=== PATIENT | male | born 1960 | race Caucasian/White ===

== ENCOUNTER → 2016-05-27 | Outpatient (CLI) | payer MEDICARE, MEDICAID ==
[~2016-05-27] MED LIST: ALBUTEROL INHALATION; AMLO10TA OR; AMO500 PO; ASPI81TA45 OR; ASPI81TA83 OR; ASTELIN NASAL; CATA0.2T OR; DARVOCET-N PO; FLON0.05; HCTZ25 PO; HYDR25TA6; LASIX40 PO; LISI30TA3; LISINOPR10 PO; MYCOSTATIN POWDER; NORV5TAB; NYSTATIN; PAIN325T; PRIN20TA3; PROV90AE; RISP1TAB; TOPAMAX25 PO; TOPI100T; TOPI100T OR; TOPI25TA2; TOPI50TA; TRAZ50TA; TRAZ50TA OR; VITA500C OR
[2016-05-27 17:53] LABS: ALBUMIN 3.6 GM/DL (3.2-5.2); ALKALINE PHOSPHATASE 89 U/L (45-117); ALT/SGPT 39 U/L (12-78); ANION GAP 6 MEQ/L (8-16); AST/SGOT 24 U/L (15-37); BLOOD UREA NITROGEN 6 MG/DL (7-18); CALCIUM LEVEL 8.6 MG/DL (8.5-10.1); CARBON DIOXIDE LEVEL 30 MEQ/L (21-32); CHLORIDE LEVEL 105 MEQ/L (98-107); CHOLESTEROL LEVEL 137 MG/DL (<200); CREATININE FOR GFR 0.87 MG/DL (0.70-1.30); GLOMERULAR FILTRATION RATE > 60.0 (>56); GLUCOSE, FASTING 200 MG/DL (70-105); SODIUM LEVEL 141 MEQ/L (136-145); TOTAL PROTEIN 6.6 GM/DL (6.4-8.2); TRIGLYCERIDES LEVEL 302 MG/DL (<150)
== END ==
LOC: M WUC 14:14
PROVIDERS: ATTEND Nurse Practitioner Family
DX: E11.9 Type 2 diabetes mellitus without complications (principal); Z13.220 Encounter for screening for lipoid disorders

== ENCOUNTER → 2016-08-30 | Outpatient (CLI) | payer MEDICARE, MEDICAID ==
--- NOTE | 2016-09-10 16:06 | REP ---
Right foot series: Four views. Repeat dictation. History: Toe injury. Findings: Four views of the right foot show overall normal bone mineralization. There is Achilles and plantar calcaneal spurring. There is diffuse forefoot, midfoot and ankle swelling in the soft tissues. No fracture or acute bony abnormality seen. Impression: No fracture or other acute abnormality. Signed by Gokul Conteh MD 09/10/2016 04:41 P
== END ==
LOC: EDSEX → MERGE 11:29 → M LRY 11:29
PROVIDERS: ATTEND Family Medicine
DX: S99.921A Unspecified injury of right foot, initial encounter (principal); W22.09XA Striking against other stationary object, initial encounter; Y92.9 Unspecified place or not applicable; Y93.9 Activity, unspecified; Y99.8 Other external cause status
CPT/HCPCS: 73630; G0463

== ENCOUNTER → 2016-10-21 | Outpatient (CLI) | payer MEDICARE, MEDICAID ==
[2016-10-21 10:54] LABS: ANION GAP 10 MEQ/L (8-16); BLOOD UREA NITROGEN 6 MG/DL (7-18); CALCIUM LEVEL 8.2 MG/DL (8.5-10.1); CARBON DIOXIDE LEVEL 27 MEQ/L (21-32); CHLORIDE LEVEL 105 MEQ/L (98-107); CREATININE FOR GFR 0.88 MG/DL (0.55-1.02); GLOMERULAR FILTRATION RATE > 60.0 (>51); GLUCOSE, FASTING 315 MG/DL (70-105); POTASSIUM SERUM 3.8 MEQ/L (3.5-5.1); SODIUM LEVEL 142 MEQ/L (136-145)
== END ==
LOC: M LAB 09:36
PROVIDERS: ATTEND Family Medicine
DX: D49.2 Neoplasm of unspecified behavior of bone, soft tissue, and skin (principal)

== ENCOUNTER → 2016-10-25 | Outpatient (CLI) | payer MEDICARE, MEDICAID ==
[~2016-10-25] MED LIST changes: +ISOVUE-370 76% 100ML VIAL (Q9967) As Ordered ONE
--- NOTE | 2016-10-25 10:53 | REP ---
CT abdomen and pelvis without and with IV contrast: Without oral contrast. History: Soft tissue tumor. Comparison study is from June 24, 2010. Biologic male. Transgender sexual identification as female. No surgery. CT contrast dose: 100 mL of intravenous Isovue 370. 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 There is no abnormality in the lung bases. There is moderate diffuse fatty infiltration in the liver. The liver is not felt to be enlarged. No focal liver lesion is seen. Spleen is unremarkable. The gallbladder and pancreas are unremarkable. No adrenal lesion is seen. The kidneys enhance symmetrically and are morphologically intact except for a small cyst at the upper pole on the left, 1.1 cm in diameter. Normal caliber aorta is seen. No retroperitoneal mass or adenopathy is observed. There is diverticulosis affecting the sigmoid colon. There is no CT evidence of diverticulitis. Small and large intestinal bowel loops are otherwise unremarkable. Urinary bladder is unremarkable. Seminal vesicles, prostate and urinary bladder are unremarkable. There is a large area of dermal thickening in the abdominal panniculus consistent with cellulitis or dermatitis. The underlying subcutaneous fat is not particularly edematous. No abscess is seen. No mass lesion is observed. No abdominal wall defect is seen. No bony destructive lesion noted. Impression: Dermatitis pattern in the anterior abdominal skin in the panniculus. No intra-abdominal or extra-abdominal mass lesion seen. Fatty infiltration of the liver. Small cyst upper pole left kidney. Signed by Gokul Conteh MD 10/25/2016 10:57 A
== END ==
LOC: EDSEX → M RAD 08:55 → MERGE 11:30
PROVIDERS: ATTEND Family Medicine
DX: D49.2 Neoplasm of unspecified behavior of bone, soft tissue, and skin (principal); L30.9 Dermatitis, unspecified; N28.1 Cyst of kidney, acquired; K76.0 Fatty (change of) liver, not elsewhere classified
CPT/HCPCS: 74178; Q9967

== ENCOUNTER → 2017-01-05 | Outpatient (REF) | payer MEDICARE, MEDICAID ==
[~2017-01-05] MED LIST changes: -ISOVUE-370 76% 100ML VIAL (Q9967) As Ordered ONE
[2017-01-05 12:02] LABS: ALBUMIN 3.9 GM/DL (3.2-5.2); ALBUMIN/GLOBULIN RATIO 1.11 (1.00-1.93); ALKALINE PHOSPHATASE 88 U/L (45-117); ALT/SGPT 37 U/L (12-78); ANION GAP 6 MEQ/L (8-16); AST/SGOT 25 U/L (7-37); BILIRUBIN,TOTAL 1.8 MG/DL (0.2-1.0); BLOOD UREA NITROGEN 6 MG/DL (7-18); CARBON DIOXIDE LEVEL 30 MEQ/L (21-32); CHLORIDE LEVEL 105 MEQ/L (98-107); GLOMERULAR FILTRATION RATE > 60.0 (>51); GLUCOSE, FASTING 189 MG/DL (70-105); POTASSIUM SERUM 4.1 MEQ/L (3.5-5.1); SODIUM LEVEL 141 MEQ/L (136-145); TOTAL PROTEIN 7.4 GM/DL (6.4-8.2)
[2017-01-05 12:10] LABS: MEAN CORPUSCULAR HEMOGLOBIN 29.4 pg (27.0-33.0); MEAN CORPUSCULAR HGB CONC 33.6 g/dl (32.0-36.5); MEAN CORPUSCULAR VOLUME 87.7 fl (80.0-96.0); PLATELET COUNT, AUTOMATED 301 10^3/uL (150-450); RED CELL DISTRIBUTION WIDTH 14.7 % (11.5-14.5); WHITE BLOOD COUNT 5.9 10^3/uL (4.0-10.0)
== END ==
LOC: M SFHCLERA 09:24
PROVIDERS: ATTEND Family Medicine
DX: E11.69 Type 2 diabetes mellitus with other specified complication (principal); I10 Essential (primary) hypertension; Z23 Encounter for immunization
CPT/HCPCS: 80053; 82043; 83036; 85027; 90686; G0008; G0463

== ENCOUNTER → 2017-05-03 | Outpatient (REF) | payer MEDICARE, MEDICAID ==
[2017-05-03 12:10] LABS: ESTIMATED AVERAGE GLUCOSE 200 MG/DL (60-110); HEMOGLOBIN A1c 8.6 %
== END ==
LOC: M SFHCLERA 09:57
DX: E11.9 Type 2 diabetes mellitus without complications (principal)
CPT/HCPCS: 83036

== ENCOUNTER → 2017-09-15 | Outpatient (REF) | payer MEDICARE, MEDICAID ==
[2017-09-15 20:35] LABS: HEMATOCRIT 40.8 % (36.0-47.0); HEMOGLOBIN 13.8 g/dl (12.0-15.5); MEAN CORPUSCULAR HEMOGLOBIN 29.7 pg (27.0-33.0); MEAN CORPUSCULAR HGB CONC 33.8 g/dl (32.0-36.5); MEAN CORPUSCULAR VOLUME 87.7 fl (80.0-96.0); PLATELET COUNT, AUTOMATED 281 10^3/uL (150-450); RED BLOOD COUNT 4.65 10^6/uL (4.00-5.40); RED CELL DISTRIBUTION WIDTH 14.3 % (11.5-14.5); WHITE BLOOD COUNT 6.7 10^3/uL (4.0-10.0)
[2017-09-15 21:13] LABS: ESTIMATED AVERAGE GLUCOSE 223 MG/DL (60-110); HEMOGLOBIN A1c 9.4 %
[2017-09-15 21:20] LABS: ALBUMIN 3.5 GM/DL (3.2-5.2); ALBUMIN/GLOBULIN RATIO 1.03 (1.00-1.93); ALKALINE PHOSPHATASE 108 U/L (45-117); ALT/SGPT 45 U/L (12-78); ANION GAP 8 MEQ/L (8-16); AST/SGOT 35 U/L (7-37); BILIRUBIN,TOTAL 1.2 MG/DL (0.2-1.0); BLOOD UREA NITROGEN 7 MG/DL (7-18); CALCIUM LEVEL 8.6 MG/DL (8.5-10.1); CARBON DIOXIDE LEVEL 31 MEQ/L (21-32); CHLORIDE LEVEL 104 MEQ/L (98-107); CHOLESTEROL LEVEL 141 MG/DL (<200); CHOLESTEROL RISK RATIO 5.035 (<5); CREATININE FOR GFR 0.78 MG/DL (0.55-1.30); GLOMERULAR FILTRATION RATE > 60.0 (>51); GLUCOSE, FASTING 295 MG/DL (70-100); HDL CHOLESTEROL 28 MG/DL (>40); LDL CHOLESTEROL 62.4 MG/DL (<100); NON-HDL-C 113 MG/DL; POTASSIUM SERUM 3.7 MEQ/L (3.5-5.1); SODIUM LEVEL 143 MEQ/L (136-145); TOTAL PROTEIN 6.9 GM/DL (6.4-8.2); TRIGLYCERIDES LEVEL 253 MG/DL (<150)
== END ==
LOC: M SFHCLERA 16:31
DX: E11.9 Type 2 diabetes mellitus without complications (principal)
CPT/HCPCS: 84443

== ENCOUNTER → 2017-10-31 | Outpatient (REF) | payer MEDICARE, MEDICAID ==
[2017-10-31 22:14] LABS: MALB URINE SIEMENS 32.1 MG/L; MAU/CREAT RATIO 30.5 MCG/MG (0.0-30.0)
== END ==
LOC: M SFHCLERA 10:19
DX: E11.9 Type 2 diabetes mellitus without complications (principal)
CPT/HCPCS: 82043

== ENCOUNTER → 2017-12-20 | Outpatient (REF) | payer MEDICARE, MEDICAID ==
[2017-12-20 19:05] LABS: ESTIMATED AVERAGE GLUCOSE 192 MG/DL (60-110); HEMOGLOBIN A1c 8.3 %
== END ==
LOC: M SFHCLERA 13:17
DX: E11.69 Type 2 diabetes mellitus with other specified complication (principal)
CPT/HCPCS: 83036

== ENCOUNTER → 2018-03-21 | Outpatient (REF) | payer MEDICARE, MEDICAID ==
[2018-03-21 13:43] LABS: HEMOGLOBIN A1c 9.9 %
== END ==
LOC: M SFHCLERA 09:25
PROVIDERS: ATTEND Family Medicine
DX: E11.69 Type 2 diabetes mellitus with other specified complication (principal)
CPT/HCPCS: 83036; G0463

== ENCOUNTER → 2018-06-29 | Outpatient (REF) | payer MEDICARE, MEDICAID ==
[2018-06-29 20:13] LABS: HEMOGLOBIN A1c 8.9 %
== END ==
LOC: M SFHCLERA 13:07
PROVIDERS: ATTEND Family Medicine
DX: E11.69 Type 2 diabetes mellitus with other specified complication (principal)

== ENCOUNTER → 2018-08-01 | Outpatient (REF) | payer MEDICARE, MEDICAID ==
[2018-08-01 18:03] LABS: BLOOD UREA NITROGEN 12 MG/DL (7-18); CALCIUM LEVEL 9.8 MG/DL (8.5-10.1); CARBON DIOXIDE LEVEL 28 MEQ/L (21-32); CHLORIDE LEVEL 103 MEQ/L (98-107); CREATININE FOR GFR 0.83 MG/DL (0.55-1.30); GLOMERULAR FILTRATION RATE > 60.0 (>51); GLUCOSE, FASTING 323 MG/DL (70-100); POTASSIUM SERUM 3.7 MEQ/L (3.5-5.1); SODIUM LEVEL 139 MEQ/L (136-145)
== END ==
LOC: M SFHCLERA 12:21
PROVIDERS: ATTEND Family Medicine
DX: I10 Essential (primary) hypertension (principal)

== ENCOUNTER → 2018-08-15 | Outpatient (REF) | payer MEDICARE, MEDICAID | LOC: M SFHCLERA 14:37 | PROVIDERS: ATTEND Family Medicine | DX: I10 Essential (primary) hypertension (principal); Z53.8 Procedure and treatment not carried out for other reasons ==

== ENCOUNTER → 2018-10-23 | Outpatient (REF) | payer MEDICARE, MEDICAID ==
[2018-10-23 18:28] LABS: BLOOD UREA NITROGEN 14 MG/DL (7-18); CALCIUM LEVEL 8.6 MG/DL (8.5-10.1); CARBON DIOXIDE LEVEL 27 MEQ/L (21-32); CHLORIDE LEVEL 105 MEQ/L (98-107); CREATININE FOR GFR 0.92 MG/DL (0.55-1.30); GLOMERULAR FILTRATION RATE > 60.0 (>51); GLUCOSE, FASTING 312 MG/DL (70-100); POTASSIUM SERUM 3.8 MEQ/L (3.5-5.1); SODIUM LEVEL 141 MEQ/L (136-145)
[2018-10-23 18:30] LABS: TOTAL PROTEIN,RANDOM URINE 19.7 MG/DL (0.0-12.0)
[2018-10-23 18:42] LABS: HEMOGLOBIN A1c 10.7 %
== END ==
LOC: M SFHCLERA 13:46
PROVIDERS: ATTEND Family Medicine
DX: I10 Essential (primary) hypertension (principal); E11.69 Type 2 diabetes mellitus with other specified complication

== ENCOUNTER → 2018-11-03 | Outpatient (CLI) | payer MEDICARE, MEDICAID ==
--- NOTE | 2018-11-03 08:39 | REP ---
Renal vascular ultrasound: Right Kidney: Extraparenchymal renal artery. Peak renal artery flow velocity the 138 cm/ sec Peak aortic velocity: 80.0 cm/sec Renal/aortic ratio: 1.73 Intraparenchymal renal arteries. Resistive index: upper pole 0.61 mid pole 0.64 lower pole 0.60 Acceleration time: upper pole 0.032 mid pole 0.048 lower pole 0.040 Left kidney: Extraparenchymal renal artery: Peak renal artery flow velocity: 96.8 cm/sec. Peak aortic velocity: 8.0 cm/sec Renal/aortic ratio: No 1.21 Intraparenchymal renal arteries: Resistive index: Upper pole 0.5 a mid pole 0.63 lower pole 0.51 Acceleration time: Upper pole 0.048 mid pole 0.044 lower pole 0.048 Impression: No evidence of renal artery stenosis by Doppler ultrasound. Bilateral renal ultrasound: The kidneys are normal size. The right kidney measures 12.4 x 6.0 x 5.3 cm. The left kidney measures 13.9 x 4.9 x 6.2 cm. Renal cortical echogenicity is normal bilaterally. There is no hydronephrosis on the right or the left. There are no solid renal masses. There is a 1.8 cm Bosniak type 1 renal cyst in the left renal lower pole. There are no other renal cysts. Bladder: The bladder is collapsed and cannot be visualized. Impression: Essentially negative renal ultrasound except for A small left renal cyst. Electronically Signed by Aneesh Adams MD 11/03/2018 08:30 A
== END ==
LOC: M RAD 06:53
PROVIDERS: ATTEND Family Medicine
DX: I10 Essential (primary) hypertension (principal); N28.1 Cyst of kidney, acquired

== ENCOUNTER → 2019-11-28 | Outpatient (REF) | payer MEDICARE, MEDICAID ==
[2019-11-28 17:01] LABS: BASO # 0.1 10^3/uL (0.0-0.2); BASO % 1.9 % (0.0-1.0); EOS # 0.3 10^3/uL (0.0-0.5); EOS % 3.9 % (0.0-3.0); HEMATOCRIT 39.3 % (36.0-47.0); HEMOGLOBIN 12.2 g/dl (12.0-15.5); LYMPH # 1.4 10^3/uL (1.5-5.0); LYMPH % 18.3 % (24.0-44.0); MEAN CORPUSCULAR HEMOGLOBIN 25.4 pg (27.0-33.0); MEAN CORPUSCULAR VOLUME 81.9 fl (80.0-96.0); MONO # 0.7 10^3/uL (0.0-0.8); MONO % 9.5 % (0.0-5.0); PLATELET COUNT, AUTOMATED 398 10^3/uL (150-450); WHITE BLOOD COUNT 7.5 10^3/uL (4.0-10.0)
[2019-11-28 17:24] LABS: ALBUMIN 3.4 GM/DL (3.2-5.2); ALT/SGPT 33 U/L (12-78); BLOOD UREA NITROGEN 11 MG/DL (7-18); CALCIUM LEVEL 8.8 MG/DL (8.8-10.2); CARBON DIOXIDE LEVEL 27 MEQ/L (21-32); CHLORIDE LEVEL 104 MEQ/L (98-107); CHOLESTEROL LEVEL 155 MG/DL (<200); CHOLESTEROL RISK RATIO 5.961 (<5); CREATININE FOR GFR 0.96 MG/DL (0.55-1.30); GLOMERULAR FILTRATION RATE > 60.0 (>45); GLUCOSE, FASTING 353 MG/DL (70-100); HDL CHOLESTEROL 26 MG/DL (>40); LDL CHOLESTEROL 59 MG/DL (<100); NON-HDL-C 129 MG/DL; SODIUM LEVEL 139 MEQ/L (136-145); TOTAL PROTEIN 7.1 GM/DL (6.4-8.2); TRIGLYCERIDES LEVEL 350 MG/DL (<150)
== END ==
LOC: M LAB REF 16:32
PROVIDERS: ATTEND Nurse Practitioner Adult Health
DX: Z79.899 Other long term (current) drug therapy (principal); Z79.890 Hormone replacement therapy

== ENCOUNTER 2020-05-12 21:43 | Inpatient (IN) | payer MEDICARE, MEDICAID ==
[~2020-05-12] VITALS: Ht 175.3 cm; Wt 140.0 kg
[2020-05-12 22:46] LABS: BASO # 0.1 10^3/uL (0.0-0.2); BASO % 0.9 % (0.0-1.0); EOS # 0.2 10^3/uL (0.0-0.5); LYMPH # 1.1 10^3/uL (1.5-5.0); LYMPH % 14.1 % (24.0-44.0); MEAN CORPUSCULAR HEMOGLOBIN 18.8 pg (27.0-33.0); MEAN CORPUSCULAR VOLUME 72.3 fl (80.0-96.0); MONO # 0.9 10^3/uL (0.0-0.8); MONO % 11.5 % (2.0-8.0); NEUTROPHILS # 5.7 10^3/uL (1.5-8.5); NEUTROPHILS % 70.7 % (36.0-66.0); PLATELET COUNT, AUTOMATED 392 10^3/uL (150-450); RED BLOOD COUNT 2.82 10^6/uL (4.00-5.40)
[2020-05-12 22:48] LABS: HEMATOCRIT 20.4 % (36.0-47.0)
[2020-05-12 22:49] LABS: HEMOGLOBIN 5.3 g/dl (12.0-15.5)
[2020-05-12 22:57] LABS: INR 1.12; PROTHROMBIN TIME 14.7 SECONDS (12.5-14.3)
[2020-05-12 22:58] LABS: PARTIAL THROMBOPLASTIN TIME 33.3 SECONDS (24.2-38.5)
[2020-05-12] MEDS ORDERED: ISOVUE-370 76% 100ML VIAL As Ordered ONE (23:02)
[2020-05-12 23:13] LABS: ALBUMIN 2.3 GM/DL (3.2-5.2); ALT/SGPT 24 U/L (12-78); BILIRUBIN,DIRECT 0.2 MG/DL (0.0-0.2); BILIRUBIN,TOTAL 0.5 MG/DL (0.2-1.0); CK-MB VALUE MASS < 1.0 NG/ML (<3.6); CPK CREATINE PHOSPHOKINASE 40 U/L (26-192); LIPASE 125 U/L (73-393); TOTAL PROTEIN 6.2 GM/DL (6.4-8.2); TROPONIN I < 0.02 NG/ML (< 0.10)
[2020-05-12 23:45] VITALS: BP 165/74
[2020-05-13] VITALS (19 sets, daily range): BP systolic 139–176; BP diastolic 54–120
--- NOTE | 2020-05-13 00:16 | REPVR ---
PROCEDURE INFORMATION: Exam: CT Abdomen And Pelvis With Contrast Exam date and time: 05/12/2020 10:49 PM Age: 59 years old Clinical indication: Abdominal pain. Biologic male. Transgender sexual identification as female. TECHNIQUE: Imaging protocol: Computed tomography of the abdomen and pelvis with contrast. Radiation optimization: All CT scans at this facility use at least one of these dose optimization techniques: automated exposure control; mA and/or kV adjustment per patient size (includes targeted exams where dose is matched to clinical indication); or iterative reconstruction. Contrast material: ISO; Contrast volume: 100 ml; Contrast route: INTRAVENOUS (IV); COMPARISON: CT ABD PELVIS W/O FOL BY WIT 10/25/2016 9:17 AM FINDINGS: Lungs: The imaged portions of the lung bases are clear. The lungs were not fully imaged. Heart: No cardiomegaly or pericardial effusion. Diaphragm: Intact. Liver: The attenuation of the liver is lower compared to the spleen, which can be seen with fatty liver infiltration. No liver lesion is seen. The contour of the liver is smooth. No hepatomegaly is noted. Gallbladder and bile ducts: There is fat stranding around the gallbladder adjacent to the hepatic flexure. No dilation of the bile ducts is noted. No calcified stones are seen in the common bile duct. Pancreas: Normal. No dilation of the main pancreatic duct is noted. There is no inflammatory fat stranding around the pancreas to suggest acute pancreatitis. Spleen: Normal. No splenomegaly is noted. Adrenal glands: Normal. No adrenal mass is noted. Kidneys and ureters: The kidneys are normal in appearance. No renal lesion is noted. No stones are noted in the kidneys or ureters. There is no hydronephrosis or hydroureter. There are no wedge-shaped areas of low attenuation in the kidneys to suggest pyelonephritis. There is no renal abscess or perinephric fluid collection. Stomach and bowel: The stomach is unremarkable. There is duodenal and colonic diverticulosis. There is extensive thickening of the wall of the proximal to mid transverse colon with surrounding inflammatory fat stranding there is a 3.9 cm x 2.6 cm x 3.2 cm outpouching containing fluid along the anterior wall of the transverse colon in the region of the inflammatory changes, which may represent a focal contained perforation with an abscess (image 29 of the coronal series 202 and image 90 of the axial series 201). There are inflammatory tracts extending to the adjacent loops of small bowel. Appendix: Normal. There is no evidence for appendicitis. Intraperitoneal space: No free air is noted. There is a trace amount of free fluid in the right upper quadrant of the abdomen. Retroperitoneal space: No fluid collection. No mass. Vasculature: The abdominal aorta is patent, normal in caliber, and there is no dissection. The iliac arteries, common femoral arteries, renal arteries, celiac artery, superior mesenteric artery, and inferior mesenteric artery are patent. There are mild atherosclerotic calcifications. Lymph nodes: No enlarged lymph nodes. Urinary bladder: The partially distended urinary bladder is unremarkable. No stones or masses are seen in the bladder. Reproductive: The prostate gland and seminal vesicles are unremarkable. Bones/joints: There is no fracture or dislocation. No suspicious osteolytic or osteoblastic lesion. Soft tissues: There is edema in the subcutaneous tissues in the anterior abdominal wall and anterior pelvic wall. No hernia. No soft tissue fluid collection. IMPRESSION: Evidence for diverticulitis involving the proximal to mid transverse colon, with a focal contained perforation/abscess measuring 3.9 cm x 2.6 cm x 3.2 cm along the anterior wall of the hepatic flexure. Gastroenterology follow-up is suggested to exclude a colonic neoplasm. Electronically signed by: Logan Daniel On 05/13/2020 00:17:05 AM
[2020-05-13] MEDS ORDERED: CIPROFLOXACIN 400 MG in IV 1 EA IV ONE (00:25)
[2020-05-13] MEDS ORDERED: metroNIDAZOLE 500 MG in IV 1 EA IV ONE (00:25)
[2020-05-13] MEDS ORDERED: D5W/0.45% SODIUM CHLORIDE 1,000 ML IV SCH (00:41)
[2020-05-13] MEDS ORDERED: DEXTROSE 50% 50 ML SYRINGE IV PRN (00:45)
[2020-05-13] MEDS ORDERED: GLUCOSE 4GM CHEW TABLET PO PRN (00:45)
[2020-05-13] MEDS ORDERED: GLUCAGON INJ 1MG VIAL SC PRN (00:45)
[2020-05-13 01:30] LABS: RSV AMPLIFICATION NEGATIVE (NEGATIVE)
[2020-05-13] MEDS ORDERED: HYDROMORPHONE HCL 0.5 MG/ 0.5 ML SYRINGE (J1170 PER 1) IV ONE (01:55)
--- NOTE | 2020-05-13 03:37 | HPEPDOC ---
[facility] Medical History & Physical Date of Admission May 13, 2020 Date of Service: May 13, 2020 Attending Physician: WAQAS GARCIA MD History and Physical CHIEF COMPLAINT: abdominal pain HISTORY OF PRESENT ILLNESS: 59 year old female with PMHx detailed below, noncompliant with medical care, presents with 3 month history of abdominal pain and diarrhea. Patient states her symptoms started 3 months ago suddenly when she developed pain in her mid abdomen. She rates this at a 10/10 at worst and states it is constant without any changes when she eats or has a BM. She denies radiation of the pain. She states that soon after the pain started she began to have diarrhea with 2-3 BM a day consisting of yellow liquid. She denies blood in stool or melena. She also notes over the past week she has had generalized weakness with shortness of breath and fatigue. She states she has had some chills earlier this week, no fever. She states she has lost about 40 lbs over the past few months. She attributes this to poor appetite and avoidance of food due to her abdominal pain. Patient notes she has a history of diverticulitis with the last episode about 10 years ago. Patient states her PCP is with Nathen olivares, but she has not been seen in a long time and has not been taking any medications recently. PAST MEDICAL HISTORY: 1. Diabetes mellitus 2. HTN 3. Epilepsy 4. Diverticulitis 5. Male to female transgender woman 6. Medical noncompliance PAST SURGICAL HISTORY: 1. Hernia repair x2 SOCIAL HISTORY: Never smoker. Very occasional alcohol consumption. No history of illicit or IV substance use. Lives at home with and daughter. Male to female transgender woman. FAMILY HISTORY: Father diagnosed with colon cancer in his 50s. Otherwise noncontributory. ALLERGIES: Please see below. REVIEW OF SYSTEMS: CONSTITUTIONAL: Per HPI HEENT: Denies change in vision, change in hearing. CARDIOVASCULAR: Denies chest pain, palpitations, lightheadedness. RESPIRATORY: Denies cough, wheezing. GASTROINTESTINAL: Per HPI. GENITOURINARY: Denies dysuria, urinary frequency, urinary urgency. SKIN: Denies rash, lesions. MUSCULOSKELETAL: Denies joint pain or muscle aches. NEUROLOGICAL: Denies headache, dizziness. PSYCHIATRIC: Denies change in mood. HOME MEDICATIONS: Please see below. PHYSICAL EXAMINATION: VITAL SIGNS: see below GENERAL: Alert, comfortable, in no acute distress HEENT: Normocephalic, atraumatic, PERRLA, EOMI, moist mucous membranes NECK: Supple, trachea midline CARDIOVASCULAR: Regular rate and rhythm, normal S1 and S2. No murmurs, rubs, or gallops RESPIRATORY: Clear to auscultation bilaterally with equal air entry bilaterally. No wheezing, rhonchi, or rales. ABDOMEN: Tender over the RLQ, LLQ,and periumbilical areas. No rebound tenderness, rigidity, or guarding. Soft, nondistended, bowel sounds present. EXTREMITIES: No cyanosis or edema. Pulses 2+/4 in bilateral upper and lower e xtremities NEUROLOGIC: Alert and oriented x3 to person, place and time. No focal deficits appreciated PSYCHIATRIC: Mood and affect appropriate LABORATORY DATA: See below. IMAGING: - CT abdomen/pelvis (per radiologist impression) Evidence for diverticulitis involving the proximal to mid transverse colon, with a focal contained perforation/abscess measuring 3.9 cm x 2.6 cm x 3.2 cm along the anterior wall of the hepatic flexure. Gastroenterology follow-up is suggested to exclude a colonic neoplasm. MICROBIOLOGY: Please see below. ASSESSMENT: 59 year old female with PMHx of diabetes mellitus, HTN, epilepsy, diverticulitis, and medical noncompliance presents with 3 month history of abdominal pain and diarrhea and 1 week history of fatigue, shortness of breath, and weakness, found to have acute diverticulitis with intra-abdominal abscess and symptomatic anemia likely secondary to bleeding from diverticulitis. PLAN: 1. Acute diverticulitis with intra-abdominal abscess - Consulted general surgeon Dr. Stoll, appreciate input and recommendations. - NPO with maintenance IV fluids - IV abx coverage with meropenem - Blood cultures x2 pending - Order for IR placement of drain for intra-abdominal abscess in the AM 2. Symptomatic anemia - Likely due to bleeding related to diverticulitis - Cannot rule out colon CA based on imaging report, f/u with GI after resolution of acute diverticulitis for colonoscopy - 4 units PRBCs ordered to transfuse. recheck CBC after transfusions complete and then monitor H/H q6h. 3. Diabetes mellitus - not currently on any medications - pt is NPO for now, consider SSI when transitioned to oral diet - hold off on checking HgA1c as pt is receiving blood transfusions 4. HTN - not currently on any medications - pt is in acute pain, will hold off on starting antihypertensives 5. Epilepsy - not currently on any medications - no current concern for seizure activity. Will need outpatient follow up with PCP/neurology DVT prophylaxis: teds and scds Disposition: admitted inpatient to PCU pending clinical improvement Vital Signs Vital Signs Date Time Temp Pulse Resp B/P (MAP) Pulse Ox O2 Delivery O2 Flow Rate FiO2 05/13/20 01:00 110 18 183/82 (115) 97 Room Air 05/13/20 00:45 99.9 Laboratory Data Labs 24H Laboratory Tests 2 05/12/20 22:21: Immature Granulocyte % (Auto) 0.8, Neutrophils (%) (Auto) 70.7H, Lymphocytes (%) (Auto) 14.1L, Monocytes (%) (Auto) 11.5H, Eosinophils (%) (Auto) 2.0, Basophils (%) (Auto) 0.9, Neutrophils # (Auto) 5.7, Lymphocytes # (Auto) 1.1L, Monocytes # (Auto) 0.9H, Eosinophils # (Auto) 0.2, Basophils # (Auto) 0.1, Nucleated Red Blood Cells % (auto) 0.3H, Prothrombin Time 14.7H, Prothromb Time International Ratio 1.12, Activated Partial Thromboplast Time 33.3, Lactic Acid Level 1.8, Tot al Bilirubin 0.5, Direct Bilirubin 0.2, Aspartate Amino Transf (AST/SGOT) 16, Alanine Aminotransferase (ALT/SGPT) 24, Alkaline Phosphatase 91, Total Creatine Kinase 40, Creatine Kinase MB < 1.0, Creatine Kinase MB Relative Index 2.50, Troponin I < 0.02, Total Protein 6.2L, Albumin 2.3L, Albumin/Globulin Ratio 0.6L, Lipase 125 05/12/20 22:48: POC Glucose (Misc Panel) 256H, POC Sodium (Misc Panel) 137, POC Potassium (Misc Panel) 3.5, POC Chloride (Misc Panel) 101, POC Total CO2 (Misc Panel) 25.0, POC Blood Urea Nitrogen (Misc Panel 12, POC Ionized Calcium (Misc Panel) 4.7, POC Creatinine (Misc Panel) 0.6, POC Hematocrit (Misc Panel) 19.0L 05/13/20 00:26: Coronavirus (COVID-19)(PCR) NEGATIVE, Influenza Type A (RT-PCR) NEGATIVE, Influenza Type B (RT-PCR) NEGATIVE, Respiratory Syncytial Virus (PCR) NEGATIVE CBC/BMP Laboratory Tests 05/12/20 22:21 Microbiology Microbiology 05/13/20 Blood Culture, Received Pending 05/13/20 Blood Culture, Received Pending Home Medications No Active Prescriptions or Reported Meds Allergies Coded Allergies: Cephalosporins (Verified Allergy, Mild, 05/12/20) codeine (Verified Allergy, Mild, VOMITTING, 05/12/20) ANNMARIE FINLEY D.O. May 13, 2020 03:37
[2020-05-13] MEDS: MEROPENEM INJ 500 MG in IV 1 EA IV SCH ×3 (03:56→17:23)
--- NOTE | 2020-05-13 07:17 | ECGEPIP ---
[facility] - ED Test Date: 2020-05-12 Pat Name: CHANDLER ARAGON Department: Room: [place] [address] Gender: Female Director Gift: PAYTON : 1960 Requested By: CAROL DOSS Order Number: [id number] Reading MD: Cruz Pillai Measurements Intervals Brooks Rate: 106 P: 25 KS: 176 QRS: -14 QRSD: 76 T: 23 QT: 342 QTc: 454 Interpretive Statements Sinus tachycardia with premature atrial complexes Possible Inferior infarct , age undetermined POOR R WAVE PROGRESSION SIMILAR TO 01/13/16 Electronically Signed on 05-13-2020 7:17:19 EST by Cruz Pillai
[2020-05-13 09:49] LABS: HEMATOCRIT 28.3 % (36.0-47.0); HEMOGLOBIN 8.1 g/dl (12.0-15.5); MEAN CORPUSCULAR HEMOGLOBIN 21.8 pg (27.0-33.0); MEAN CORPUSCULAR HGB CONC 28.6 g/dl (32.0-36.5); MEAN CORPUSCULAR VOLUME 76.1 fl (80.0-96.0); PLATELET COUNT, AUTOMATED 397 10^3/uL (150-450); RED BLOOD COUNT 3.72 10^6/uL (4.00-5.40); WHITE BLOOD COUNT 9.3 10^3/uL (4.0-10.0)
[2020-05-13 10:14] LABS: ALBUMIN 2.2 GM/DL (3.2-5.2); ALT/SGPT 23 U/L (12-78); BILIRUBIN,TOTAL 1.4 MG/DL (0.2-1.0); BLOOD UREA NITROGEN 10 MG/DL (7-18); CALCIUM LEVEL 8.2 MG/DL (8.8-10.2); CARBON DIOXIDE LEVEL 26 MEQ/L (21-32); CHLORIDE LEVEL 106 MEQ/L (98-107); CREATININE FOR GFR 0.83 MG/DL (0.55-1.30); GLOMERULAR FILTRATION RATE > 60.0 (>45); GLUCOSE, FASTING 244 MG/DL (70-100); POTASSIUM SERUM 3.5 MEQ/L (3.5-5.1); SODIUM LEVEL 138 MEQ/L (136-145); TOTAL PROTEIN 6.9 GM/DL (6.4-8.2)
[2020-05-13 10:57] LABS: CHOLESTEROL LEVEL 84 MG/DL (<200); HDL CHOLESTEROL 21 MG/DL (>40); LDL CHOLESTEROL 41 MG/DL (<100); NON-HDL-C 63 MG/DL; TRIGLYCERIDES LEVEL 111 MG/DL (<150)
--- NOTE | 2020-05-13 12:09 | IPNPDOC ---
Text Note Date of Service The patient was seen on 05/13/20. NOTE Gen. surgery. Dr. Stoll The patient is a 59-year-old female admitted 05/12/20 with acute diverticulitis with perforation. This morning, the patient reports improvement in abdominal pain. Denies nausea or vomiting. Reports some flatus but no BM yet. Afebrile. VSS Resting in bed, NAD. Lungs clear to auscultation Heart S1-S2 regular rate and rhythm Abdomen is obese, protuberant. Nondistended. Tenderness with palpation in the left lower quadrant, umbilical. No guarding or rebound, no grimacing. Extremities well-perfused with no edema. WBC 8.0 last p.m. Hemoglobin was 5.3, the patient is being transfused currently as per hospitalist. Platelets 392. CEA pending. Assessment/plan Acute diverticulitis with perforation. The pt is reviewed by Dr Stoll. The pt is reporting improvement in abdominal pain. NPO/IVF. Continue with IV antibiotics as per Hospitalist. CEA pending. Monitor. VS,Fishbone, I+O VS, Fishbone, I+O Laboratory Tests 05/12/20 22:21 05/13/20 09:32 Vital Signs Date Time Temp Pulse Resp B/P (MAP) Pulse Ox O2 Delivery O2 Flow Rate FiO2 05/13/20 08:45 168/98 (121) 05/13/20 08:00 97.9 101 20 95 Room Air I&O- Last 24 Hours up to 6 AM 05/13/20 06:00 Intake Total 1800 ml Balance 1800 ml Rosalia Mckeon May 13, 2020 12:09
[2020-05-13 12:14] LABS: HEMATOCRIT 26.4 % (36.0-47.0); HEMOGLOBIN 7.6 g/dl (12.0-15.5)
[2020-05-13] MEDS: HumaLOG INSULIN (NovoLOG) PER UNIT SC SCH ×3 (12:31→20:09)
[2020-05-13 12:56] LABS: HEMOGLOBIN A1c 8.6 %
[2020-05-13] MEDS ORDERED: LIDOCAINE 1% MDV 20ML VIAL As Ordered ONE (13:38)
--- NOTE | 2020-05-13 13:41 | IPNPDOC ---
Date Seen The patient was seen on 05/13/20. Progress Note SUBJECTIVE: Improving abdominal pain along with WBC being wnl, afebrile. On abx. S/p 4 units PRBC but on IVFs at same time, increased H/H to 8.03/27 but later decreased further. Will hold off and continue to monitor H/H Q6hrs, occult blood ordered, CEA high. GI consulted and likely scope later this week. She denies chest pain, n/v/d, fevers or chills. OBJECTIVE: PHYSICAL EXAMINATION: VITAL SIGNS: Please see below GENERAL: NAD, resting in bed HEENT: Normocephalic, atraumatic, PERRLA, EOMI, moist mucous membranes NECK: Supple, trachea midline CARDIOVASCULAR: Regular rate and rhythm, normal S1 and S2. No murmurs, rubs, or gallops RESPIRATORY: Clear to auscultation bilaterally with equal air entry bilaterally. No wheezing, rhonchi, or rales. ABDOMEN: obese, tender over the RLQ, LLQ,and periumbilical areas still. No rebound tenderness, rigidity, or guarding. Soft, nondistended, bowel sounds present. EXTREMITIES: No cyanosis or edema. Pulses 2+/4 in bilateral upper and lower extremities NEUROLOGIC: Alert and oriented x3 to person, place and time. No focal deficits appreciated PSYCHIATRIC: Mood and affect appropriate LABORATORY DATA: See below. IMAGING: CT abdomen/pelvis (per radiologist impression Evidence for diverticulitis involving the proximal to mid transverse colon, with a focal contained perforation/abscess measuring 3.9 cm x 2.6 cm x 3.2 cm along the anterior wall of the hepatic flexure. Gastroenterology follow-up is suggested to exclude a colonic neoplasm. MICROBIOLOGY: Please see below. ASSESSMENT: 59 year old female with PMHx of diabetes mellitus, HTN, epilepsy, diverticulitis, and medical noncompliance presents with 3 month history of abdominal pain and diarrhea and 1 week history of fatigue, shortness of breath, and weakness, found to have acute diverticulitis with intra-abdominal abscess and symptomatic anemia likely secondary to bleeding from diverticulitis. PLAN: Acute diverticulitis with perforation/abscess -WBC wnl, afebrile, abdominal pain improving -C/w IV abx per surgery -CLD, tolerating well -BCx x 2 sets NG -Monitoring closely by surgery Symptomatic anemia r/o GI bleed 2/2 to diverticulitis vs. colonic mass -CEA elevated, s/p 4 U PRBC with initially increase in H/H but now decreasing -Stopped IVFs this AM and will watch H/H Q6H -Occult blood pending -Discussed with surgery this AM (Dr. Stoll). GI consulted (Dr. Coy), started on CLD and likely for EGD/colonoscopy on 05/16/20. Diabetes mellitus -BS elevated -D/jerome D5W fluids, started on ISS. Not on home medications - hold off on checking HgA1c as pt is receiving blood transfusions HTN -150-160's -D/c IVFs as taking and tolerating CLD -Monitor Epilepsy - not currently on any medications - no current concern for seizure activity. Will need outpatient follow up with PCP/neurology DVT prophylaxis: teds and scds DISPOSITION: GI and surgery following. Plan is hopeful for home after discharge. VS, I&O, 24H, Fishbone Vital Signs/I&O Vital Signs Date Time Temp Pulse Resp B/P (MAP) Pulse Ox O2 Delivery O2 Flow Rate FiO2 05/13/20 13:31 97.9 96 16 97 Room Air 05/13/20 12:00 150/90 (110) I&O- Last 24 Hours up to 6 AM 05/13/20 06:00 Intake Total 1800 ml Balance 1800 ml Laboratory Data 24H LABS Laboratory Tests 2 05/12/20 22:21: Immature Granulocyte % (Auto) 0.8, Neutrophils (%) (Auto) 70.7H, Lymphocytes (%) (Auto) 14.1L, Monocytes (%) (Auto) 11.5H, Eosinophils (%) (Auto) 2.0, Basophils (%) (Auto) 0.9, Neutrophils # (Auto) 5.7, Lymphocytes # (Auto) 1.1L, Monocytes # (Auto) 0.9H, Eosinophils # (Auto) 0.2, Basophils # (Auto) 0.1, Nucleated Red Blood Cells % (auto) 0.3H, Prothrombin Time 14.7H, Prothromb Time International Ratio 1.12, Activated Partial Thromboplast Time 33.3, Lactic Acid Level 1.8, Total Bilirubin 0.5, Direct Bilirubin 0.2, Aspartate Amino Transf (AST/SGOT) 16, Alanine Aminotransferase (ALT/SGPT) 24, Alkaline Phosphatase 91, Total Creatine Kinase 40, Creatine Kinase MB < 1.0, Creatine Kinase MB Relative Index 2.50, Troponin I < 0.02, Total Protein 6.2L, Albumin 2.3L, Albumin/Globulin Ratio 0.6L, Lipase 125 05/12/20 22:48: POC Glucose (Misc Panel) 256H, POC Sodium (Misc Panel) 137, POC Potassium (Misc Panel) 3.5, POC Chloride (Misc Panel) 101, POC Total CO2 (Misc Panel) 25.0, POC Blood Urea Nitrogen (Misc Panel 12, POC Ionized Calcium (Misc Panel) 4.7, POC Creatinine (Misc Panel) 0.6, POC Hematocrit (Misc Panel) 19.0L 05/13/20 00:26: Coronavirus (COVID-19)(PCR) NEGATIVE, Influenza Type A (RT-PCR) NEGATIVE, Inf luenza Type B (RT-PCR) NEGATIVE, Respiratory Syncytial Virus (PCR) NEGATIVE 05/13/20 09:28: Estimated Mean Plasma Glucose 200H, Hemoglobin A1c 8.6 05/13/20 09:32: Nucleated Red Blood Cells % (auto) 0.5H, Anion Gap 6L, Glomerular Filtration Rate > 60.0, Calcium Level 8.2L, Total Bilirubin 1.4#H, Aspartate Amino Transf (AST/SGOT) 17, Alanine Aminotransferase (ALT/SGPT) 23, Alkaline Phosphatase 88, Total Protein 6.9, Albumin 2.2L, Albumin/Globulin Ratio 0.5L, Triglycerides Level 111, Total Cholesterol 84, LDL Cholesterol 41, Non-HDL Cholesterol (LDL + VLDL) 63, Total HDL Cholesterol 21L, Cholesterol/HDL Ratio 4.000, Carcinoembryonic Antigen 3.1H 05/13/20 09:54: Lab Scanned Report Transfusion Record 05/13/20 11:51: Bedside Glucose (Misc Panel) 211H CBC/BMP Laboratory Tests 05/12/20 22:21 05/13/20 09:32 05/13/20 12:03 Microbiology Microbiology 05/13/20 Blood Culture, Received Pending 05/13/20 Blood Culture, Received Pending Current Medications Current Medications Medications (Trade) Dose Ordered Sig/João Route PRN Reason Start Time Stop Time Status Last Admin Dose Admin Dextrose (Dextrose 50%) 25 ml ASDIRECTED PRN IV SEE LABEL COMMENTS 05/13/20 00:45 Dextrose/Sodium Chloride 1,000 ml @ 100 mls/hr Q10H IV 05/13/20 00:41 05/13/20 07:55 DC 05/13/20 03:55 Glucagon (Glucagon) 1 mg ASDIRECTED PRN SC SEE LABEL COMMENTS 05/13/20 00:45 Glucose (Glucose) 16 GM ASDIRECTED PRN PO SEE LABEL COMMENTS 05/13/20 00:45 Home Med (Med Rec Complete!) ASDIRECTED XX 05/13/20 01:00 05/13/20 01:00 DC Insulin Human Lispro (HumaLOG INSULIN) SEE PROTOCOL TABLE AC SC 05/13/20 12:00 05/13/20 12:31 Insulin Human Lispro (HumaLOG INSULIN) SEE PROTOCOL TABLE QHS SC 05/13/20 21:00 Meropenem 500 mg/ IV Miscellaneous Supplies 50 ml @ 100 mls/hr Q8H IV 05/13/20 02:00 05/13/20 09:50 Oxycodone HCl (Roxicodone, Oxyir) 5 mg Q4HP PRN PO PAIN 05/13/20 02:00 Allergies Coded Allergies: Cephalosporins (Verified Allergy, Mild, 05/12/20) codeine (Verified Adverse Reaction, Mild, VOMITTING, 05/13/20) Catherine oPrtillo MD May 13, 2020 13:41
--- NOTE | 2020-05-13 14:23 | REP ---
INDICATION: contained diverticular abscess on CT. COMPARISON: CT 05/12/2020. TECHNIQUE: Real-time sonographic evaluation of right upper quadrant performed to evaluate for abscess prior to drain placement. FINDINGS: A focal fluid collection is visualized but it is difficult to evaluate its relation to adjacent bowel. IMPRESSION: Abscess in the right upper quadrant will be drained using CT guidance. <Electronically signed by Aneesh Tyler > 05/13/20 1417
--- NOTE | 2020-05-13 16:17 | REP ---
INDICATION: ABD ABSCESS. COMPARISON: None. TECHNIQUE: The procedure was performed under the direct supervision of Dr. Tyler. The patient has a history of a 3.9 x 2.6 x 3.2 cm abscess proximal to the mid transverse colon seen on a previous CT scan dated 05/12/2020. The risks and benefits of the procedure were explained to the patient and informed consent was obtained. The abdominal abscess was localized using CT guidance. The skin was prepped and draped in a sterile fashion. 1% lidocaine was used as a local anesthetic. Using CT guidance a 15 gauge needle was inserted and advanced into the abscess. 5 mL of proteinaceous fluid was withdrawn and sent to the lab for analysis. The patient tolerated the procedure well and there were no immediate complications. After the appropriate amount to monitor convalescence the patient was discharged from the department. FINDINGS: None IMPRESSION: CT-guided abdominal abscess drain yielding 5 cc of proteinaceous fluid. <Electronically signed by Joey Valles > 05/13/20 [id number] <Electronically signed by Aneesh Tyler > 05/13/20 [id number]
[2020-05-13 18:24] LABS: HEMATOCRIT 26.8 % (36.0-47.0); HEMOGLOBIN 8.1 g/dl (12.0-15.5)
[2020-05-14] VITALS: BP 156/64
[2020-05-14] MEDS: MEROPENEM INJ 500 MG in IV 1 EA IV SCH ×3 (02:46→17:32)
[2020-05-14 04:00] VITALS: BP 160/74
[2020-05-14 05:44] LABS: BASO # 0.1 10^3/uL (0.0-0.2); EOS # 0.2 10^3/uL (0.0-0.5); HEMATOCRIT 27.1 % (36.0-47.0); HEMOGLOBIN 7.8 g/dl (12.0-15.5); LYMPH # 1.3 10^3/uL (1.5-5.0); LYMPH % 13.1 % (24.0-44.0); MEAN CORPUSCULAR HEMOGLOBIN 21.8 pg (27.0-33.0); MEAN CORPUSCULAR HGB CONC 28.8 g/dl (32.0-36.5); MEAN CORPUSCULAR VOLUME 75.9 fl (80.0-96.0); MONO % 9.9 % (2.0-8.0); NEUTROPHILS # 7.2 10^3/uL (1.5-8.5); NEUTROPHILS % 73.2 % (36.0-66.0); PLATELET COUNT, AUTOMATED 352 10^3/uL (150-450); RED BLOOD COUNT 3.57 10^6/uL (4.00-5.40); WHITE BLOOD COUNT 9.8 10^3/uL (4.0-10.0)
[2020-05-14 05:56] LABS: BLOOD UREA NITROGEN 9 MG/DL (7-18); CALCIUM LEVEL 7.8 MG/DL (8.8-10.2); CARBON DIOXIDE LEVEL 27 MEQ/L (21-32); CHLORIDE LEVEL 108 MEQ/L (98-107); CREATININE FOR GFR 0.67 MG/DL (0.55-1.30); GLOMERULAR FILTRATION RATE > 60.0 (>45); GLUCOSE, FASTING 202 MG/DL (70-100); POTASSIUM SERUM 3.9 MEQ/L (3.5-5.1); SODIUM LEVEL 140 MEQ/L (136-145)
[2020-05-14 08:00] VITALS: BP 150/80
[2020-05-14] MEDS: HumaLOG INSULIN (NovoLOG) PER UNIT SC SCH ×4 (08:37→19:32)
[2020-05-14] MEDS ORDERED: FLUBLOK(EGG FREE)(QUAD)INFLUENZA VACC 0.5ML SYRINGE 18YRS & OLDER IM ONE (09:00)
--- NOTE | 2020-05-14 12:57 | IPNPDOC ---
Date Seen The patient was seen on 05/14/20. Progress Note SUBJECTIVE: Patient had abscess drainage on 05/13/20, minimal fluid removed, culture sent and pending. Improving abdominal pain along with WBC continuing to be wnl, afebrile. On abx. H/H fluctuating. Gi to scope on 05/16/20. She denies chest pain, n/v/d, fevers or chills. OBJECTIVE: PHYSICAL EXAMINATION: VITAL SIGNS: Please see below GENERAL: NAD, resting in bed HEENT: Normocephalic, atraumatic, PERRLA, EOMI, moist mucous membranes NECK: Supple, trachea midline CARDIOVASCULAR: Regular rate and rhythm, normal S1 and S2. No murmurs, rubs, or gallops RESPIRATORY: Clear to auscultation bilaterally with equal air entry bilaterally. No wheezing, rhonchi, or rales. ABDOMEN:obese, mild tenderness in area of abscess drainage of abd, no rebound tenderness, rigidity, or guarding. Soft, nondistended, bowel sounds present. EXTREMITIES: No cyanosis or edema. Pulses 2+/4 in bilateral upper and lower extremities NEUROLOGIC: Alert and oriented x3 to person, place and time. No focal deficits appreciated PSYCHIATRIC: Mood and affect appropriate LABORATORY DATA: See below. IMAGING: CT abdomen/pelvis (per radiologist impression Evidence for diverticulitis involving the proximal to mid transverse colon, with a focal contained perforation/abscess measuring 3.9 cm x 2.6 cm x 3.2 cm along the anterior wall of the hepatic flexure. Gastroenterology follow-up is suggested to exclude a colonic neoplasm. MICROBIOLOGY: Please see below. ASSESSMENT: 59 year old female with PMHx of diabetes mellitus, HTN, epilepsy, diverticulitis, and medical noncompliance presents with 3 month history of abdo kasandra pain and diarrhea and 1 week history of fatigue, shortness of breath, and weakness, found to have acute diverticulitis with intra-abdominal abscess and symptomatic anemia likely secondary to bleeding from diverticulitis. PLAN: Acute diverticulitis with perforation/abscess -Abscess drainage by IR on 05/13/20, minimal fluid collected and sent for culture- pending -WBC wnl, afebrile, abdominal pain much improved -C/w IV abx, CLD, tolerating well -BCx x 2 sets NG -Monitoring closely by surgery Symptomatic anemia r/o GI bleed 2/2 to diverticulitis vs. colonic mass -CEA elevated, s/p 4 U PRBC with initially increase in H/H but now decreasing -H/H waxing and waning, c/w cbc Q12H -Occult blood positive -CLD -GI consulted (Dr. Coy), Likely for EGD/colonoscopy on 05/16/20. Diabetes mellitus -BS better controlled after stopping D5W fluids -C/w ISS. Not on home medications -Hold off on checking HgA1c as pt is receiving blood transfusions HTN -150-160's -Started on amlodipine daily -D/c IVFs as taking and tolerating CLD -Monitor Epilepsy - not currently on any medications - no current concern for seizure activity. Will need outpatient follow up with PCP/neurology DVT prophylaxis: teds and scds DISPOSITION: GI and surgery following- scope planned for 05/16/20. Plan is hopeful for home after discharge. VS, I&O, 24H, Fishbone Vital Signs/I&O Vital Signs Date Time Temp Pulse Resp B/P (MAP) Pulse Ox O2 Delivery O2 Flow Rate FiO2 05/14/20 08:00 96.5 89 18 150/80 (103) 96 Room Air I&O- Last 24 Hours up to 6 AM 05/14/20 06:00 Intake Total 3600 ml Balance 3600 ml Laboratory Data 24H LABS Laboratory Tests 2 05/13/20 16:45: Bedside Glucose (Misc Panel) 197H 05/13/20 19:57: Bedside Glucose (Misc Panel) 225H 05/14/20 05:19: Immature Granulocyte % (Auto) 0.8, Neutrophils (%) (Auto) 73.2H, Lymphocytes (%) (Auto) 13.1L, Monocytes (%) (Auto) 9.9H, Eosinophils (%) (Auto) 2.0, Basophils (%) (Auto) 1.0, Neutrophils # (Auto) 7.2, Lymphocytes # (Auto) 1.3L, Monocytes # (Auto) 1.0H, Eosinophils # (Auto) 0.2, Basophils # (Auto) 0.1, Nucleated Red Blood Cells % (auto) 0.5H, Anion Gap 5L, Glomerular Filtration Rate > 60.0, Calcium Level 7.8L 05/14/20 12:01: Bedside Glucose (Misc Panel) 237H CBC/BMP Laboratory Tests 05/13/20 18:12 05/14/20 05:19 Microbiology Microbiology 05/14/20 Gastrointestinal Tract Panel (PCR), Received Pending 05/13/20 Stool Occult Blood (KAVIN) - Final, Complete 05/13/20 Gram Stain - Final, Resulted 05/13/20 Abscess Culture, Resulted Pending 05/13/20 Anaerobic Culture, Received Pending 05/13/20 Respiratory Virus Panel (PCR) (KAVIN) - Final, Complete 05/13/20 Blood Culture - Preliminary, Resulted No growth after 24 hours . All specim... 05/13/20 Blood Culture - Preliminary, Resulted No growth after 24 hours . All specim... Catherine Portillo MD May 14, 2020 12:57
[2020-05-14] MEDS: BENZOCAINE 10% 9GM TUBE (ANBESOL) MT SCH ×3 (13:00→19:32)
--- NOTE | 2020-05-14 13:01 | IPNPDOC ---
Text Note Date of Service The patient was seen on 05/14/20. NOTE Gen. surgery. Dr. Stoll The patient is a 59-year-old female admitted 05/12/20 with acute diverticulitis with perforation. Abscess seen on CT 05/12/20 proximal to mid transverse colon status post CT-guided drainage and INR 05/13/20. This morning, the patient denies any abdominal pain. Denies nausea or vomiting. Reports BM x 2 yesterday. Afebrile. VSS Resting in bed, NAD. Lungs clear to auscultation Heart S1-S2 regular rate and rhythm Abdomen is obese, protuberant. Nondistended. No tenderness with palpation this morning. No guarding or rebound, no grimacing. Extremities well-perfused with no edema. WBC 9.0 Hemoglobin was 7.8 status post 4 units PRBC CEA 3.1 FOB positive. GI panel pending Abscess culture pending Assessment/plan Acute diverticulitis with perforation. Status post CT-guided drainage of abscess 05/13/20. Culture pending. Hgb 7.8, S/P 4 u PRBC as per Hospitalist. FOB positive. CEA 3.1, GI was consulted for exclusion of neoplasm, tentative plan for E GD/colonoscopy 05/16/20 Continue soft diet. Continue with IV antibiotics. Monitor. VS,Fishbone, I+O VS, Fishbone, I+O Laboratory Tests 05/13/20 18:12 05/14/20 05:19 Vital Signs Date Time Temp Pulse Resp B/P (MAP) Pulse Ox O2 Delivery O2 Flow Rate FiO2 05/14/20 08:00 96.5 89 18 150/80 (103) 96 Room Air I&O- Last 24 Hours up to 6 AM 05/14/20 06:00 Intake Total 3600 ml Balance 3600 ml Rosalia Mckeon May 14, 2020 13:01
[2020-05-14] MEDS ORDERED: amLODIPine 5 MG TAB PO SCH (13:05)
[2020-05-14 16:00] VITALS: BP 145/77
[2020-05-14 18:17] LABS: HEMATOCRIT 27.5 % (36.0-47.0); MEAN CORPUSCULAR HEMOGLOBIN 22.5 pg (27.0-33.0); MEAN CORPUSCULAR HGB CONC 29.1 g/dl (32.0-36.5); MEAN CORPUSCULAR VOLUME 77.2 fl (80.0-96.0); PLATELET COUNT, AUTOMATED 339 10^3/uL (150-450); RED BLOOD COUNT 3.56 10^6/uL (4.00-5.40)
[2020-05-14 20:00] VITALS: BP 170/72
[2020-05-15] VITALS (8 sets, daily range): BP systolic 148–187; BP diastolic 73–102
[2020-05-15] MEDS: MEROPENEM INJ 500 MG in IV 1 EA IV SCH ×2 (01:51→10:15)
[2020-05-15] MEDS: ACETAMINOPHEN TAB 650MG DOSE (2X325MG) PO PRN (01:58)
[2020-05-15 06:21] LABS: HEMATOCRIT 27.8 % (36.0-47.0); MEAN CORPUSCULAR HEMOGLOBIN 22.3 pg (27.0-33.0); MEAN CORPUSCULAR HGB CONC 28.8 g/dl (32.0-36.5); MEAN CORPUSCULAR VOLUME 77.4 fl (80.0-96.0); PLATELET COUNT, AUTOMATED 336 10^3/uL (150-450); RED BLOOD COUNT 3.59 10^6/uL (4.00-5.40); WHITE BLOOD COUNT 9.1 10^3/uL (4.0-10.0)
[2020-05-15 06:47] LABS: ALBUMIN 2.1 GM/DL (3.2-5.2); ALT/SGPT 19 U/L (12-78); BILIRUBIN,TOTAL 0.7 MG/DL (0.2-1.0); BLOOD UREA NITROGEN 10 MG/DL (7-18); CALCIUM LEVEL 8.3 MG/DL (8.8-10.2); CARBON DIOXIDE LEVEL 27 MEQ/L (21-32); CHLORIDE LEVEL 107 MEQ/L (98-107); CREATININE FOR GFR 0.61 MG/DL (0.55-1.30); GLOMERULAR FILTRATION RATE > 60.0 (>45); GLUCOSE, FASTING 175 MG/DL (70-100); POTASSIUM SERUM 3.6 MEQ/L (3.5-5.1); SODIUM LEVEL 139 MEQ/L (136-145); TOTAL PROTEIN 6.2 GM/DL (6.4-8.2)
[2020-05-15] MEDS: HumaLOG INSULIN (NovoLOG) PER UNIT SC SCH ×4 (08:06→19:46)
[2020-05-15] MEDS: BENZOCAINE 10% 9GM TUBE (ANBESOL) MT SCH ×4 (08:06→19:46)
[2020-05-15] MEDS ORDERED: LEVEMIR (INSULIN DETEMIR) 1 UNITS/0.01ML SC SCH (09:00)
[2020-05-15] MEDS ORDERED: NULYTELY SOLN 4000ML BTL PO ONE (15:00)
--- NOTE | 2020-05-15 15:30 | IPNPDOC ---
Date Seen The patient was seen on 05/15/20. Progress Note SUBJECTIVE: WBC wnl, afebrile. Strep anginosus isolated from abscess fluid, started on levofloxacin. H/H stabilized at 10/31. EGD/colonoscopy planned for 05/16/20. She denies chest pain, n/v/d, fevers or chills. OBJECTIVE: PHYSICAL EXAMINATION: VITAL SIGNS: Please see below GENERAL: NAD, resting in bed HEENT: Normocephalic, atraumatic, PERRLA, EOMI, moist mucous membranes NECK: Supple, trachea midline CARDIOVASCULAR: Regular rate and rhythm, normal S1 and S2. No murmurs, rubs, or gallops RESPIRATORY: Clear to auscultation bilaterally with equal air entry bilaterally. No wheezing, rhonchi, or rales. ABDOMEN:obese, mild tenderness in area of abscess drainage of abd, no rebound tenderness, rigidity, or guarding. Soft, nondistended, bowel sounds present. EXTREMITIES: No cyanosis or edema. Pulses 2+/4 in bilateral upper and lower extremities NEUROLOGIC: Alert and oriented x3 to person, place and time. No focal deficits appreciated PSYCHIATRIC: Mood and affect appropriate LABORATORY DATA: See below. IMAGING: CT abdomen/pelvis: Evidence for diverticulitis involving the proximal to mid transverse colon, with a focal contained perforation/abscess measuring 3.9 cm x 2.6 cm x 3.2 cm along the anterior wall of the hepatic flexure. Gastroenterology follow-up is suggested to exclude a colonic neoplasm. MICROBIOLOGY: BCx NG at 24 hours Abscess aerobic cx: Strep angionosus Abscess anaerobic cx: Pending ASSESSMENT: 59 year old female with PMHx of diabetes mellitus, HTN, epilepsy, diverticulitis, and medical noncompliance presents with 3 month history of abdominal pain and diarrhea and 1 week history of fatigue, shortness of breath, and weakness, found to have acute diverticulitis with intra-abdominal abscess and symptomatic anemia likely secondary to bleeding from diverticulitis. PLAN: Acute diverticulitis with perforation/abscess -Abscess drainage by IR on 05/13/20 -WBC wnl, afebrile, abdominal pain improved -Switched to IV levofloxacin, soft diet -BCx x 2 sets NG, micro above -Monitoring closely by surgery Symptomatic anemia r/o GI bleed 2/2 to diverticulitis vs. colonic mass -CEA elevated, s/p 4 U PRBC -H/H waxing and waning, cbc Q12H -Occult blood positive -Soft diet -GI consulted (Dr. Coy), Likely for EGD/colonoscopy on 05/16/20. Diarrhea possibly 2/2 to abx, GI upset -GI panel neg, not suspecting infectious source -Decreased BM over 24 hours -Encourage fluid Q2H Diabetes mellitus -BS 180-200 -C/w ISS. Not on home medications -Hold off on checking HgA1c as pt is receiving blood transfusions HTN -150-160's -Increased amlodipine to 10 mg PO daily, C/w ACEi -Monitor Epilepsy - not currently on any medications - no current concern for seizure activity. Will need outpatient follow up with PCP/neurology DVT prophylaxis: teds and scds DISPOSITION: GI and surgery following- scope planned for 05/16/20. Plan is hopeful for home after discharge. VS, I&O, 24H, Fishbone Vital Signs/I&O Vital Signs Date Time Temp Pulse Resp B/P (MAP) Pulse Ox O2 Delivery O2 Flow Rate FiO2 05/15/20 11:51 97.0 96 18 148/78 (101) 91 Room Air I&O- Last 24 Hours up to 6 AM 05/15/20 06:00 Intake Total 400 ml Output Total 0 ml Balance 400 ml Laboratory Data 24H LABS Laboratory Tests 2 05/14/20 16:32: Bedside Glucose (Misc Panel) 298H 05/14/20 17:46: Nucleated Red Blood Cells % (auto) 0.4H 05/14/20 19:27: Bedside Glucose (Misc Panel) 228H 05/15/20 05:57: Nucleated Red Blood Cells % (auto) 0.3H 05/15/20 05:58: Anion Gap 5L, Glomerular Filtration Rate > 60.0, Calcium Level 8.3L, Total Bilirubin 0.7, Aspartate Amino Transf (AST/SGOT) 11, Alanine Aminotransferase (ALT/SGPT) 19, Alkaline Phosphatase 78, Total Protein 6.2L, Albumin 2.1L, Albumin/Globulin Ratio 0.5L 05/15/20 11:41: Bedside Glucose (Misc Panel) 180H CBC/BMP Laboratory Tests 05/14/20 17:46 05/15/20 05:57 05/15/20 05:58 Microbiology Microbiology 05/14/20 Gastrointestinal Tract Panel (PCR) - Final, Complete 05/13/20 Stool Occult Blood (KAVIN) - Final, Complete 05/13/20 Gram Stain - Final, Complete 05/13/20 Abscess Culture - Final, Complete Strep Anginosus Grp 05/13/20 Anaerobic Culture, Received Pending 05/13/20 Respiratory Virus Panel (PCR) (KAVIN) - Final, Complete 05/13/20 Blood Culture - Preliminary, Resulted No Growth after 48 hours. All Specime... 05/13/20 Blood Culture - Preliminary, Resulted No Growth after 48 hours. All Specime... Current Medications Current Medications Medications (Trade) Dose Ordered Sig/João Route PRN Reason Start Time Stop Time Status Last Admin Dose Admin Acetaminophen (Tylenol Tab) 650 mg Q4HP PRN PO MILD PAIN OR FEVER 05/14/20 23:30 05/15/20 01:58 Amlodipine Besylate (Norvasc) 5 mg DAILY PO 05/14/20 13:05 05/15/20 08:02 DC 05/14/20 13:13 Amlodipine Besylate (Norvasc) 10 mg DAILY PO 05/15/20 08:15 05/15/20 08:15 Benzocaine (Anbesol Gel) TO MOUTH SORES QID MT 05/14/20 13:00 05/15/20 12:52 Dextrose (Dextrose 50%) 25 ml ASDIRECTED PRN IV SEE LABEL COMMENTS 05/13/20 00:45 Dextrose/Sodium Chloride 1,000 ml @ 100 mls/hr Q10H IV 05/13/20 00:41 05/13/20 07:55 DC 05/13/20 03:55 Glucagon (Glucagon) 1 mg ASDIRECTED PRN SC SEE LABEL COMMENTS 05/13/20 00:45 Glucose (Glucose) 16 GM ASDIRECTED PRN PO SEE LABEL COMMENTS 05/13/20 00:45 Home Med (Med Rec Complete!) ASDIRECTED XX 05/13/20 01:00 05/13/20 01:00 DC Insulin Detemir (Levemir Insulin) 10 units QAM SC 05/15/20 09:00 05/15/20 10:29 DC 05/15/20 08:16 Insulin Human Lispro (HumaLOG INSULIN) SEE PROTOCOL TABLE AC SC 05/13/20 12:00 05/15/20 12:52 Insulin Human Lispro (HumaLOG INSULIN) SEE PROTOCOL TABLE QHS SC 05/13/20 21:00 Levofloxacin 500 mg/IV Miscellaneous Supplies 100 ml @ 100 mls/hr Q24H IV 05/15/20 18:00 Lisinopril (Prinivil) 10 mg DAILY PO 05/15/20 04:25 05/15/20 04:32 Meropenem 500 mg/ IV Miscellaneous Supplies 50 ml @ 100 mls/hr Q8H IV 05/13/20 02:00 05/15/20 10:28 DC 05/15/20 10:15 Oxycodone HCl (Roxicodone, Oxyir) 5 mg Q4HP PRN PO MODERATE/SEVERE PAIN (PS 5-10) 05/13/20 02:00 Allergies Coded Allergies: Cephalosporins (Verified Allergy, Mild, 05/12/20) codeine (Verified Adverse Reaction, Mild, VOMITTING, 05/13/20) Catherine Portillo MD May 15, 2020 15:30
[2020-05-15] MEDS ORDERED: BISACODYL 5 MG TAB PO ONE (17:00)
[2020-05-15] MEDS: LevoFLOXacin IV 500 MG in IV 1 EA IV SCH (17:52)
[2020-05-15 18:50] LABS: HEMATOCRIT 29.3 % (36.0-47.0); HEMOGLOBIN 8.5 g/dl (12.0-15.5); MEAN CORPUSCULAR HEMOGLOBIN 22.1 pg (27.0-33.0); MEAN CORPUSCULAR VOLUME 76.1 fl (80.0-96.0); PLATELET COUNT, AUTOMATED 391 10^3/uL (150-450); RED BLOOD COUNT 3.85 10^6/uL (4.00-5.40)
[2020-05-16] VITALS (10 sets, daily range): BP systolic 142–187; BP diastolic 65–99
[2020-05-16 06:09] LABS: HEMATOCRIT 26.8 % (36.0-47.0); HEMOGLOBIN 7.8 g/dl (12.0-15.5); MEAN CORPUSCULAR HEMOGLOBIN 22.4 pg (27.0-33.0); MEAN CORPUSCULAR HGB CONC 29.1 g/dl (32.0-36.5); PLATELET COUNT, AUTOMATED 360 10^3/uL (150-450); RED BLOOD COUNT 3.48 10^6/uL (4.00-5.40); WHITE BLOOD COUNT 8.6 10^3/uL (4.0-10.0)
[2020-05-16 06:33] LABS: ALBUMIN 2.2 GM/DL (3.2-5.2); ALT/SGPT 18 U/L (12-78); BILIRUBIN,TOTAL 0.7 MG/DL (0.2-1.0); BLOOD UREA NITROGEN 5 MG/DL (7-18); CALCIUM LEVEL 7.8 MG/DL (8.8-10.2); CARBON DIOXIDE LEVEL 29 MEQ/L (21-32); CHLORIDE LEVEL 108 MEQ/L (98-107); CREATININE FOR GFR 0.58 MG/DL (0.55-1.30); GLOMERULAR FILTRATION RATE > 60.0 (>45); GLUCOSE, FASTING 156 MG/DL (70-100); POTASSIUM SERUM 3.9 MEQ/L (3.5-5.1); SODIUM LEVEL 142 MEQ/L (136-145); TOTAL PROTEIN 5.8 GM/DL (6.4-8.2)
[2020-05-16] MEDS: HumaLOG INSULIN (NovoLOG) PER UNIT SC SCH ×4 (07:30→21:00)
[2020-05-16] MEDS: BENZOCAINE 10% 9GM TUBE (ANBESOL) MT SCH ×4 (09:00→21:00)
--- NOTE | 2020-05-16 13:45 | DS.PDOC ---
Discharge Summary General Date of Admission May 13, 2020 at 00:34 Date of Discharge 05/16/20 Attending Physician: Catherine Portillo MD Discharge Summary HISTORY OF PRESENT ILLNESS: 59 year old female with PMHx detailed below, noncompliant with medical care, presents with 3 month history of abdominal pain and diarrhea. Patient states her symptoms started 3 months ago suddenly when she developed pain in her mid abdomen. She rates this at a 10/10 at worst and states it is constant without any changes when she eats or has a BM. She denies radiation of the pain. She states that soon after the pain started she began to have diarrhea with 2-3 BM a day consisting of yellow liquid. She denies blood in stool or melena. She also notes over the past week she has had generalized weakness with shortness of breath and fatigue. She states she has had some chills earlier this week, no fever. She states she has lost about 40 lbs over the past few months. She attributes this to poor appetite and avoidance of food due to her abdominal pain. Patient notes she has a history of diverticulitis with the last episode about 10 years ago. Patient states her PCP is with [facility], but she has not been seen in a long time and has not been taking any medications recently. HOSPITAL COURSE: PAST MEDICAL HISTORY: 1. Diabetes mellitus 2. HTN 3. Epilepsy 4. Diverticulitis 5. Male to female transgender woman 6. Medical noncompliance PAST SURGICAL HISTORY: 1. Hernia repair x2 SOCIAL HISTORY: Never smoker. Very occasional alcohol consumption. No history of illicit or IV substance use. Lives at home with and daughter. Male to female transgender woman. FAMILY HISTORY: Father diagnosed with colon cancer in his 50s. Otherwise noncontributory. TIME SPENT ON DISCHARGE: 35 minutes. Vital Signs/I&Os Vital Signs Date Time Temp Pulse Resp B/P (MAP) Pulse Ox O2 Delivery O2 Flow Rate FiO2 05/16/20 12:00 96.8 95 18 163/86 (111) 95 Room Air I&O- Last 24 Hours up to 6 AM 05/16/20 06:00 Intake Total 2250 ml Output Total 0 ml Balance 2250 ml Laboratory Data Labs 24H Laboratory Tests 2 05/15/20 16:52: Bedside Glucose (Misc Panel) 246H 05/15/20 18:19: Nucleated Red Blood Cells % (auto) 0.4H 05/15/20 19:38: Bedside Glucose (Misc Panel) 238H 05/16/20 05:19: Nucleated Red Blood Cells % (auto) 0.3H, Anion Gap 5L, Glomerular Filtration Rate > 60.0, Calcium Level 7.8L, Total Bilirubin 0.7, Aspartate Amino Transf (AST/SGOT) 12, Alanine Aminotransferase (ALT/SGPT) 18, Alkaline Phosphatase 82, Total Protein 5.8L, Albumin 2.2L, Albumin/Globulin Ratio 0.6L 05/16/20 11:34: Bedside Glucose (Misc Panel) 172H CBC/BMP Laboratory Tests 05/15/20 18:19 05/16/20 05:19 FSBS Laboratory Tests Test 05/15/20 16:52 05/15/20 19:38 05/16/20 11:34 Range/Units Bedside Glucose (Misc Panel) 246 238 172 80-115 MG/DL Microbiology Microbiology 05/14/20 Gastrointestinal Tract Panel (PCR) - Final, Complete 05/13/20 Stool Occult Blood (KAVIN) - Final, Complete 05/13/20 Gram Stain - Final, Complete 05/13/20 Abscess Culture - Final, Complete Strep Anginosus Grp 05/13/20 Anaerobic Culture, Received Pending 05/13/20 Respiratory Virus Panel (PCR) (KAVIN) - Final, Complete 05/13/20 Blood Culture - Preliminary, Resulted No Growth after 72 hours. All specime... 05/13/20 Blood Culture - Preliminary, Resulted No Growth after 72 hours. All specime... Discharge Medications No Active Prescriptions or Reported Meds Allergies Coded Allergies: Cephalosporins (Verified Allergy, Mild, 05/12/20) codeine (Verified Adverse Reaction, Mild, VOMITTING, 05/13/20) Catherine Portillo MD May 16, 2020 13:45
--- NOTE | 2020-05-16 13:55 | IPNPDOC ---
Date Seen The patient was seen on 05/16/20. Progress Note SUBJECTIVE: H/H has been waxing and waning, BP stable. EGD/colonoscopy this afternoon. She denies chest pain, n/v/d, fevers or chills. OBJECTIVE: PHYSICAL EXAMINATION: VITAL SIGNS: Please see below GENERAL: NAD, resting in bed HEENT: Normocephalic, atraumatic, PERRLA, EOMI, moist mucous membranes NECK: Supple, trachea midline CARDIOVASCULAR: Regular rate and rhythm, normal S1 and S2. No murmurs, rubs, or gallops RESPIRATORY: Clear to auscultation bilaterally with equal air entry bilaterally. No wheezing, rhonchi, or rales. ABDOMEN:obese, mild tenderness in area of abscess drainage of abd, no rebound tenderness, rigidity, or guarding. Soft, nondistended, bowel sounds present. EXTREMITIES: No cyanosis or edema. Pulses 2+/4 in bilateral upper and lower extremities NEUROLOGIC: Alert and oriented x3 to person, place and time. No focal deficits appreciated PSYCHIATRIC: Mood and affect appropriate LABORATORY DATA: See below. IMAGING: CT abdomen/pelvis: Evidence for diverticulitis involving the proximal to mid transverse colon, with a focal contained perforation/abscess measuring 3.9 cm x 2.6 cm x 3.2 cm along the anterior wall of the hepatic flexure. Gastroenterology follow-up is suggested to exclude a colonic neoplasm. MICROBIOLOGY: BCx NG at 24 hours Abscess aerobic cx: Strep angionosus Abscess anaerobic cx: Pending ASSESSMENT: 59 year old female with PMHx of diabetes mellitus, HTN, epilepsy, diverticulitis, and medical noncompliance presents with 3 month history of abdominal pain and diarrhea and 1 week history of fatigue, shortness of breath, and weakness, found to have acute diverticulitis with intra-abdominal abscess and symptomatic anemia likely secondary to bleeding from diverticulitis. PLAN: Acute diverticulitis with perforation/abscess + for Strep angionosus -Abscess drainage by IR on 05/13/20 -WBC wnl, afebrile, abdominal pain improved -C/w IV levofloxacin, soft diet -BCx x 2 sets NG, micro above -Monitoring closely by surgery Symptomatic anemia r/o GI bleed 2/2 to diverticulitis vs. colonic mass -CEA elevated, s/p 4 U PRBC -H/H waxing and waning -Occult blood positive -NPO for EGD/scope today -Discussed with GI (Dr. Coy) Diabetes mellitus -BS 180-200 -C/w ISS. Not on home medications -Hold off on checking HgA1c as pt is receiving blood transfusions HTN -150-170 mmHg -Increased amlodipine to 10 mg PO daily, C/w ACEi -Monitor Epilepsy - not currently on any medications - no current concern for seizure activity. Will need outpatient follow up with PCP/neurology DVT prophylaxis: teds and scds DISPOSITION: GI and surgery following- EGD/colo planned for today. Plan is hopeful for home after discharge. VS, I&O, 24H, Fishbone Vital Signs/I&O Vital Signs Date Time Temp Pulse Resp B/P (MAP) Pulse Ox O2 Delivery O2 Flow Rate FiO2 05/16/20 12:00 96.8 95 18 163/86 (111) 95 Room Air I&O- Last 24 Hours up to 6 AM 05/16/20 06:00 Intake Total 2250 ml Output Total 0 ml Balance 2250 ml Laboratory Data 24H LABS Laboratory Tests 2 05/15/20 16:52: Bedside Glucose (Misc Panel) 246H 05/15/20 18:19: Nucleated Red Blood Cells % (auto) 0.4H 05/15/20 19:38: Bedside Glucose (Misc Panel) 238H 05/16/20 05:19: Nucleated Red Blood Cells % (auto) 0.3H, Anion Gap 5L, Glomerular Filtration Rate > 60.0, Calcium Level 7.8L, Total Bilirubin 0.7, Aspartate Amino Transf (AST/SGOT) 12, Alanine Aminotransferase (ALT/SGPT) 18, Alkaline Phosphatase 82, Total Protein 5.8L, Albumin 2.2L, Albumin/Globulin Ratio 0.6L 05/16/20 11:34: Bedside Glucose (Misc Panel) 172H CBC/BMP Laboratory Tests 05/15/20 18:19 05/16/20 05:19 Microbiology Microbiology 05/14/20 Gastrointestinal Tract Panel (PCR) - Final, Complete 05/13/20 Stool Occult Blood (KAVIN) - Final, Complete 05/13/20 Gram Stain - Final, Complete 05/13/20 Abscess Culture - Final, Complete Strep Anginosus Grp 05/13/20 Anaerobic Culture, Received Pending 05/13/20 Respiratory Virus Panel (PCR) (KAVIN) - Final, Complete 05/13/20 Blood Culture - Preliminary, Resulted No Growth after 72 hours. All specime... 05/13/20 Blood Culture - Preliminary, Resulted No Growth after 72 hours. All specime... Current Medications Current Medications Medications (Trade) Dose Ordered Sig/João Route PRN Reason Start Time Stop Time Status Last Admin Dose Admin Acetaminophen (Tylenol Tab) 650 mg Q4HP PRN PO MILD PAIN OR FEVER 05/14/20 23:30 05/15/20 01:58 Amlodipine Besylate (Norvasc) 5 mg DAILY PO 05/14/20 13:05 05/15/20 08:02 DC 05/14/20 13:13 Amlodipine Besylate (Norvasc) 10 mg DAILY PO 05/15/20 08:15 05/16/20 09:28 Benzocaine (Anbesol Gel) TO MOUTH SORES QID MT 05/14/20 13:00 05/15/20 17:53 Dextrose (Dextrose 50%) 25 ml ASDIRECTED PRN IV SEE LABEL COMMENTS 05/13/20 00:45 Dextrose/Sodium Chloride 1,000 ml @ 100 mls/hr Q10H IV 05/13/20 00:41 05/13/20 07:55 DC 05/13/20 03:55 Glucagon (Glucagon) 1 mg ASDIRECTED PRN SC SEE LABEL COMMENTS 05/13/20 00:45 Glucose (Glucose) 16 GM ASDIRECTED PRN PO SEE LABEL COMMENTS 05/13/20 00:45 Home Med (Med Rec Complete!) ASDIRECTED XX 05/13/20 01:00 05/13/20 01:00 DC Insulin Detemir (Levemir Insulin) 10 units QAM SC 05/15/20 09:00 05/15/20 10:29 DC 05/15/20 08:16 Insulin Human Lispro (HumaLOG INSULIN) SEE PROTOCOL TABLE AC SC 05/13/20 12:00 05/16/20 12:25 Insulin Human Lispro (HumaLOG INSULIN) SEE PROTOCOL TABLE QHS SC 05/13/20 21:00 Levofloxacin 500 mg/IV Miscellaneous Supplies 100 ml @ 100 mls/hr Q24H IV 05/15/20 18:00 05/15/20 17:52 Lisinopril (Prinivil) 10 mg DAILY PO 05/15/20 04:25 05/15/20 20:38 DC 05/15/20 04:32 Lisinopril (Prinivil) 20 mg DAILY PO 05/16/20 09:00 05/16/20 00:12 DC Lisinopril (Prinivil) 20 mg QHS PO 05/16/20 21:00 Meropenem 500 mg/ IV Miscellaneous Supplies 50 ml @ 100 mls/hr Q8H IV 05/13/20 02:00 05/15/20 10:28 DC 05/15/20 10:15 Oxycodone HCl (Roxicodone, Oxyir) 5 mg Q4HP PRN PO MODERATE/SEVERE PAIN (PS 5-10) 05/13/20 02:00 Allergies Coded Allergies: Cephalosporins (Verified Allergy, Mild, 05/12/20) codeine (Verified Adverse Reaction, Mild, VOMITTING, 05/13/20) Cahterine Portillo MD May 16, 2020 13:54
[2020-05-16] MEDS ORDERED: LIDOCAINE 2% 100MG/5ML SDV (FOR ANES.) As Ordered ONE (14:42)
[2020-05-16] MEDS ORDERED: propofoL 500 MG/50 ML VIAL As Ordered ONE (14:42)
[2020-05-16] MEDS ORDERED: fentaNYL 100 MCG/2 ML INJECTION (J3010) As Ordered ONE (14:44)
--- NOTE | 2020-05-16 15:18 | ROOR ---
Patient Name: Josiane Westbrook Procedure Date: 05/16/2020 2:38 PM Date of : 1960 Age: 59 Room: [facility] Gender: Female Note Status: Finalized Procedure: Upper GI endoscopy Indications: Iron deficiency anemia Providers: Carl Coy MD Referring MD: Beulah Spence Md Requesting Provider: Medicines: Monitored Anesthesia Care Complications: No immediate complications. Procedure: Pre-Anesthesia Assessment: - Prior to the procedure, a History and Physical was performed, and patient medications and allergies were reviewed. The patient is competent. The risks and benefits of the procedure and the sedation options and risks were discussed with the patient. All questions were answered and informed consent was obtained. Patient identification and proposed procedure were verified by the physician, the nurse and the anesthesiologist in the procedure room. Mental Status Examination: normal. Airway Examination: normal oropharyngeal airway and neck mobility. Respiratory Examination: clear to auscultation. CV Examination: normal. Prophylactic Antibiotics: The patient does not require prophylactic antibiotics. Prior Anticoagulants: The patient has taken no previous anticoagulant or antiplatelet agents. ASA Grade Assessment: III - A patient with severe systemic disease. After reviewing the risks and benefits, the patient was deemed in satisfactory condition to undergo the procedure. The anesthesia plan was to use monitored anesthesia care (MAC). Immediately prior to administration of medications, the patient was re-assessed for adequacy to receive sedatives. The heart rate, respiratory rate, oxygen saturations, blood pressure, adequacy of pulmonary ventilation, and response to care were monitored throughout the procedure. The physical status of the patient was re-assessed after the procedure. The Endoscope was introduced through the mouth, and advanced to the second part of duodenum. The upper GI endoscopy was accomplished without difficulty. The patient tolerated the procedure well. Findings: The examined esophagus was normal. Patchy mild inflammation characterized by erythema and granularity was found in the gastric antrum. Biopsies were taken with a cold forceps for Helicobacter pylori testing. Verification of patient identification for the specimen was done by the physician and nurse using the patient's name, date and medical record number. The duodenal bulb and second portion of the duodenum were normal. Impression: - Normal esophagus. - Gastritis. Biopsied. - Normal duodenal bulb and second portion of the duodenum. Recommendation: - Patient has a contact number available for emergencies. The signs and symptoms of potential delayed complications were discussed with the patient. Return to normal activities tomorrow. Written discharge instructions were provided to the patient. - High fiber diet. - Continue present medications. - Await pathology results. - Follow the recommendations as per the other procedure note. - Telephone GI clinic for pathology results in 1 week. - Return to primary care physician. Procedure Code(s): --- Professional --- 88822, Esophagogastroduodenoscopy, flexible, transoral; with biopsy, single or multiple Diagnosis Code(s): --- Professional --- K29.70, Gastritis, unspecified, without bleeding D50.9, Iron deficiency anemia, unspecified CPT copyright 2019 [employer]. All rights reserved. The codes documented in this report are preliminary and upon sign designer review may be revised to meet current compliance requirements. Carl Coy MD Carl Coy MD 05/16/2020 3:18:06 PM Electronically signed by Carl Coy MD Number of Addenda: 0 Note Initiated On: 05/16/2020 2:38 PM Estimated Blood Loss: Estimated blood loss was minimal.
--- NOTE | 2020-05-16 15:34 | ROOR ---
Patient Name: Josiane Westbrook Procedure Date: 05/16/2020 2:41 PM Date of : 1960 Age: 59 Room: [facility] Gender: Female Note Status: Finalized Procedure: Colonoscopy Indications: Iron deficiency anemia, Abnormal CT of the GI tract Providers: Carl Coy MD Referring MD: Beulah Spence Md Requesting Provider: Medicines: Monitored Anesthesia Care Complications: No immediate complications. Procedure: Pre-Anesthesia Assessment: - Prior to the procedure, a History and Physical was performed, and patient medications and allergies were reviewed. The patient is competent. The risks and benefits of the procedure and the sedation options and risks were discussed with the patient. All questions were answered and informed consent was obtained. Patient identification and proposed procedure were verified by the physician, the nurse and the anesthesiologist in the procedure room. Mental Status Examination: alert and oriented. Airway Examination: normal oropharyngeal airway and neck mobility. Respiratory Examination: clear to auscultation. CV Examination: normal. Prophylactic Antibiotics: The patient does not require prophylactic antibiotics. Prior Anticoagulants: The patient has taken no previous anticoagulant or antiplatelet agents. ASA Grade Assessment: II - A patient with mild systemic disease. After reviewing the risks and benefits, the patient was deemed in satisfactory condition to undergo the procedure. The anesthesia plan was to use monitored anesthesia care (MAC). Immediately prior to administration of medications, the patient was re-assessed for adequacy to receive sedatives. The heart rate, respiratory rate, oxygen saturations, blood pressure, adequacy of pulmonary ventilation, and response to care were monitored throughout the procedure. The physical status of the patient was re-assessed after the procedure. The Colonoscope was introduced through the anus and advanced to the transverse colon to examine a mass. This was the intended extent. The colonoscopy was performed without difficulty. The patient tolerated the procedure well. The quality of the bowel preparation was good. The terminal ileum, ileocecal valve, appendiceal orifice, and rectum were photographed. Scope insertion time was 4 minutes. Scope withdrawal time was 10 minutes. The total duration of the procedure was 15 minutes. Findings: The perianal and digital rectal examinations were normal. A fungating, infiltrative and ulcerated completely obstructing large mass was found in the transverse colon. The mass was circumferential. Oozing was present. Mucosa was biopsied with a cold forceps for histology. One specimen bottle was sent to pathology. A malignant-appearing, intrinsic severe stenosis measuring 6 mm (inner diameter) was found in the transverse colon and was non-traversed. A 15 mm polyp was found in the distal transverse colon. The polyp was sessile. Area was successfully injected with 2 mL Spot (carbon black) for tattooing. Multiple small and large-mouthed diverticula were found from sigmoid to descending colon. There was no evidence of diverticular bleeding. Non-bleeding external and internal hemorrhoids were found during retroflexion. The hemorrhoids were large. 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 Biopsied. - Stricture in the transverse colon. - One 15 mm polyp in the distal transverse colon. Injected. - Moderate diverticulosis from sigmoid to descending colon. There was no evidence of diverticular bleeding. - Non-bleeding external and internal hemorrhoids. Recommendation: - Patient has a contact number available for emergencies. The signs and symptoms of potential delayed complications were discussed with the patient. Return to normal activities tomorrow. Written discharge instructions were provided to the patient. - Soft diet. - Continue present medications. - Check hemogram with white blood cell count and platelets and transfuse as needed. - Miralax 1 capful (17 grams) in 8 ounces of water PO daily. - Await pathology results. - Telephone GI clinic for pathology results in 1 week. - Refer to a surgeon today. - Refer to an oncologist at appointment to be scheduled. - Return to primary care physician. Procedure Code(s): --- Professional --- 80168, 52, Colonoscopy, flexible; with directed submucosal injection(s), any substance Diagnosis Code(s): --- Professional --- D49.0, Neoplasm of unspecified behavior of digestive system K56.691, Other complete intestinal obstruction K56.699, Other intestinal obstruction unspecified as to partial versus complete obstruction K63.5, Polyp of colon K64.8, Other hemorrhoids D50.9, Iron deficiency anemia, unspecified K57.30, Diverticulosis of large intestine without perforation or abscess without bleeding R93.3, Abnormal findings on diagnostic imaging of other parts of digestive tract CPT copyright 2019 [employer] [place] [employer]. All rights reserved. The codes documented in this report are preliminary and upon supervisor marble review may be revised to meet current compliance requirements. Carl Coy MD Carl Coy MD 05/16/2020 3:33:42 PM Electronically signed by Carl Coy MD Number of Addenda: 0 Note Initiated On: 05/16/2020 2:41 PM Estimated Blood Loss: Estimated blood loss was minimal.
--- NOTE | 2020-05-16 16:03 | CR.PDOC ---
General Date of Consultation: May 14, 2020 Referring Provider: Catherine Portillo MD Attending Physician: CASIMIRO MAZARIEGOS MD Consultation Referring physician / PCP : Catherine Nice, Reason for consult: Anemia and abnormal CT scan. HPI: 59 year old female with DM type 2, HTN, Epilepsy, Diverticulitis, Male to female transgender, obesity BMI 47, was admitted to [facility] for abdominal pain and anemia and abnormal CT scan showing possible abscess/ perforation / mass. GI was consulted for further evaluation. Patient presented with 3 month history of abdominal pain and diarrhea. Patient states her symptoms started 3 months ago suddenly when she developed pain in her mid abdomen, 10/10 intensity, worsening with food intake and 2-3 soft to loose stools. Patient also reported unintentional weight loss of 40 pounds over the last few months. . OFF note: Patient during this hospitalization was evaluated by surgery and IR and underwent IR guided abscess drainage (detailed reports in [employer]). Patient was treated with Broad spectrum antibiotics. Pertinent negative GI symptoms: Patient denies nausea, vomiting, hematemesis, melena or hematochezia. Review of Systems: GI: as stated above CVS: No chest pain, No palpitations, No leg swelling RS: No Shortness of breath, No Wheezing RECOVERY OPERATOR HELPER: No loss of consciousness, No focal motor weakness., Hematology: No easy bruising, No gum bleeding, Musculoskeletal: No joint pain, ambulating well. : No blood inurine, No burning sensation of the urine ENT: No ear discharge/ pain, No dysphagia. Eyes: No photophobia. Skin: No rash Home medications: reviewed. No Plavix and No anticoagulants Medical h/o: As above. Surgical h/o: None on abdomen. Social h/o: Denies Alcohol, smoking, IVDA/ drugs. Family h/o of GI cancers - None Prior Endoscopies: None in [facility]. Prior GI evaluation: None in [facility] Exam: Vitals: reviewed General: Alert and oriented x 3, not in acute distress HEENT: No pallor, no icterus. Normal oropharynx, NO cervical lymphadenopathy. Chest: symmetric with bilateral air entry, CVS: S1, S2 heard, Abdomen: non-distended, obese, tenderness on deep palpation in the righ and epigastric area of abdomen, no rigidity or minimal guarding, no palpable masses, normal bowel sounds heard. Rectal exam: Patient refused / Deferred at this time in view of scheduled colonoscopy. Extremities: pulses palpable, no pedal edema, RECOVERY OPERATOR HELPER: no focal motor or sensory deficits. Moves all extremities Skin: no rash. Labs: reviewed. HCV screening indicated ordered / done OR Not indicated due to age. Imaging: CT abdomen and Pelvis with IV contrast is reported as : Evidence for diverticulitis involving the proximal to mid transverse colon, with a focal contained perforation/abscess measuring 3.9 cm x 2.6 cm x 3.2 cm along the anterior wall of the hepatic flexure. Gastroenterology follow-up is suggested to exclude a colonic neoplasm. Impression: -- Abdominal pain with unintentional weight loss and change in bowel habits, but no overt external bleeding and labs showing KENY and CT abdomen suspicious for localized perforated diverticulitis vs Colonic neoplasia. Needs further evaluation. DDxChronic GI blood loss and need to rule out GI malignancy. Recommendations: -- Patient educated about the prior test results and all questions answered. -- IV antibiotics for now ( empiric coverage for suspected diverticulitis/ perforation) -- Soft to clear liquid diet prior to planned procedures -- Monitor Hemoglobin and hematocrit and transfuse if needed to keep hemoglobin levels around 7-8 gm/ dl for now. -- Will schedule for EGD and Colonoscopy on 05/16/2020 after optimization of the antibiotics. Patient educated about the procedure(s), indications, risks (including but not limited to bleeding, infection, perforation, anesthesia risks, including ), benefits and all alternatives including conservative measures without intervention. Patient verbalized understanding and consented for the procedure(s). -- Please follow operative note for post procedure recommendations. -- Plan of care educated to patient and patient verbalized understanding and agreed. All questions answered. -- Recommendations communicated to primary team. Patient to follow with PCP upon discharge for routine medical care. Vital Signs/I&O Vital Signs Date Time Temp Pulse Resp B/P (MAP) Pulse Ox O2 Delivery O2 Flow Rate FiO2 05/16/20 15:21 97.3 84 122/65 05/16/20 15:21 18 90 Room Air I&O- Last 24 Hours up to 6 AM 05/16/20 05:59 Intake Total 2250 ml Output Total 0 ml Balance 2250 ml Laboratory Data Labs 24H Laboratory Tests 2 05/15/20 16:52: Bedside Glucose (Misc Panel) 246H 05/15/20 18:19: Nucleated Red Blood Cells % (auto) 0.4H 05/15/20 19:38: Bedside Glucose (Misc Panel) 238H 05/16/20 05:19: Nucleated Red Blood Cells % (auto) 0.3H, Anion Gap 5L, Glomerular Filtration Rate > 60.0, Calcium Level 7.8L, Total Bilirubin 0.7, Aspartate Amino Transf (AST/SGOT) 12, Alanine Aminotransferase (ALT/SGPT) 18, Alkaline Phosphatase 82, Total Protein 5.8L, Albumin 2.2L, Albumin/Globulin Ratio 0.6L 05/16/20 11:34: Bedside Glucose (Misc Panel) 172H CBC/BMP Laboratory Tests 05/15/20 18:19 05/16/20 05:19 Microbiology Microbiology 05/14/20 Gastrointestinal Tract Panel (PCR) - Final, Complete 05/13/20 Stool Occult Blood (KAVIN) - Final, Complete 05/13/20 Gram Stain - Final, Complete 05/13/20 Abscess Culture - Final, Complete Strep Anginosus Grp 05/13/20 Anaerobic Culture, Received Pending 05/13/20 Respiratory Virus Panel (PCR) (KAVIN) - Final, Complete 05/13/20 Blood Culture - Preliminary, Resulted No Growth after 72 hours. All specime... 05/13/20 Blood Culture - Preliminary, Resulted No Growth after 72 hours. All specime... Allergies Coded Allergies: Cephalosporins (Verified Allergy, Mild, 05/12/20) codeine (Verified Adverse Reaction, Mild, VOMITTING, 05/13/20) Home Medications No Active Prescriptions or Reported Meds CASIMIRO MAZARIEGOS MD May 16, 2020 16:03
[2020-05-16 16:51] LABS: HEMATOCRIT 29.1 % (36.0-47.0); HEMOGLOBIN 8.3 g/dl (12.0-15.5); MEAN CORPUSCULAR HEMOGLOBIN 22.2 pg (27.0-33.0); MEAN CORPUSCULAR HGB CONC 28.5 g/dl (32.0-36.5); MEAN CORPUSCULAR VOLUME 77.8 fl (80.0-96.0); PLATELET COUNT, AUTOMATED 400 10^3/uL (150-450); RED BLOOD COUNT 3.74 10^6/uL (4.00-5.40); WHITE BLOOD COUNT 8.3 10^3/uL (4.0-10.0)
[2020-05-16] MEDS: LevoFLOXacin IV 500 MG in IV 1 EA IV SCH (18:00)
[2020-05-17] VITALS (8 sets, daily range): BP systolic 130–180; BP diastolic 70–102
[2020-05-17] MEDS ORDERED: RAMELTEON 8 MG TAB (ROZEREM) PO PRN (00:40)
[2020-05-17] MEDS ORDERED: ONDANSETRON 4 MG ORAL DISINTEGRATING TAB PO PRN (02:15)
[2020-05-17 06:06] LABS: HEMATOCRIT 26.5 % (36.0-47.0); HEMOGLOBIN 7.6 g/dl (12.0-15.5); MEAN CORPUSCULAR HEMOGLOBIN 22.2 pg (27.0-33.0); MEAN CORPUSCULAR HGB CONC 28.7 g/dl (32.0-36.5); MEAN CORPUSCULAR VOLUME 77.5 fl (80.0-96.0); PLATELET COUNT, AUTOMATED 364 10^3/uL (150-450); RED BLOOD COUNT 3.42 10^6/uL (4.00-5.40); WHITE BLOOD COUNT 7.3 10^3/uL (4.0-10.0)
[2020-05-17 06:28] LABS: ALBUMIN 2.1 GM/DL (3.2-5.2); ALT/SGPT 15 U/L (12-78); BILIRUBIN,TOTAL 0.6 MG/DL (0.2-1.0); BLOOD UREA NITROGEN 7 MG/DL (7-18); CARBON DIOXIDE LEVEL 28 MEQ/L (21-32); CHLORIDE LEVEL 108 MEQ/L (98-107); CREATININE FOR GFR 0.62 MG/DL (0.55-1.30); GLOMERULAR FILTRATION RATE > 60.0 (>45); GLUCOSE, FASTING 213 MG/DL (70-100); POTASSIUM SERUM 3.7 MEQ/L (3.5-5.1); SODIUM LEVEL 140 MEQ/L (136-145); TOTAL PROTEIN 6.2 GM/DL (6.4-8.2)
[2020-05-17] MEDS: HumaLOG INSULIN (NovoLOG) PER UNIT SC SCH ×4 (07:50→20:33)
[2020-05-17] MEDS: MIRALAX *UNIT DOSE* 17GM PACKET PO SCH (07:50)
[2020-05-17] MEDS: BENZOCAINE 10% 9GM TUBE (ANBESOL) MT SCH ×4 (07:51→20:33)
[2020-05-17 14:09] LABS: HEMATOCRIT 28.4 % (36.0-47.0); HEMOGLOBIN 8.4 g/dl (12.0-15.5)
--- NOTE | 2020-05-17 14:47 | IPNPDOC ---
Date Seen The patient was seen on 05/17/20. Progress Note SUBJECTIVE: Colonoscopy showed ulcerating mass in transverse colon, highly suspicious for neoplasm. Per GI, partially obstructing colon. Biopsies sent. Surgery made aware. H/H low at 7.6/26.5, transfusing 1 unit PRBC today.Tolerating soft diet. She denies chest pain, n/v/d, fevers or chills. OBJECTIVE: PHYSICAL EXAMINATION: VITAL SIGNS: Please see below GENERAL: NAD, resting in bed HEENT: Normocephalic, atraumatic, PERRLA, EOMI, moist mucous membranes NECK: Supple, trachea midline CARDIOVASCULAR: Regular rate and rhythm, normal S1 and S2. No murmurs, rubs, or gallops RESPIRATORY: Clear to auscultation bilaterally with equal air entry bilaterally. No wheezing, rhonchi, or rales. ABDOMEN:obese, no rebound tenderness, rigidity, or guarding. Soft, nondistended, bowel sounds present. EXTREMITIES: No cyanosis or edema. Pulses 2+/4 in bilateral upper and lower extremities NEUROLOGIC: Alert and oriented x3 to person, place and time. No focal deficits appreciated PSYCHIATRIC: Mood and affect appropriate LABORATORY DATA: See below. 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 Biopsied. - Stricture in the transverse colon. - One 15 mm polyp in the distal transverse colon. Injected. - Moderate diverticulosis from sigmoid to descending colon. There was no evidence of diverticular bleeding. - Non-bleeding external and internal hemorrhoids. EGD 05/16/20: - Normal esophagus. - Gastritis. Biopsied. - Normal duodenal bulb and second portion of the duodenum. CT abdomen/pelvis: Evidence for diverticulitis involving the proximal to mid transverse colon, with a focal contained perforation/abscess measuring 3.9 cm x 2.6 cm x 3.2 cm along the anterior wall of the hepatic flexure. Gastroenterology follow-up is suggeste d to exclude a colonic neoplasm. MICROBIOLOGY: BCx NG at 24 hours Abscess aerobic cx: Strep angionosus Abscess anaerobic cx: Pending ASSESSMENT: 59 year old female with PMHx of diabetes mellitus, HTN, epilepsy, diverticulitis, and medical noncompliance presents with 3 month history of abdominal pain and diarrhea and 1 week history of fatigue, shortness of breath, and weakness, found to have acute diverticulitis with intra-abdominal abscess and symptomatic anemia likely secondary to bleeding from diverticulitis. PLAN: Transverse colon mass, likely malignancy and cause of GI bleed as was ulcerated, partially obstructing -Please see report from GI Colonoscopy above and in chart -Will reach out to oncology -Biopsies pending -C/w soft diet, miralax daily per GI -Surgery to follow up to give options for removal Symptomatic anemia 2/2 GI bleed from transverse colon mass -CEA elevated, s/p 4 U PRBC earlier, 1 unit PRBC today -Hgb 7.6 this AM -Occult blood positive -F/u post transfusion H/H today, transfuse PRN. Surgery consulted to deal with ulcerating mass Acute diverticulitis with perforation/abscess + for Strep angionosus, Klebsiella -Abscess drainage by IR on 05/13/20. CXs (aerobic and anerobic) growing Strep angionosus and Klebsiella -WBC wnl, afebrile, abdominal pain improved -C/w IV levofloxacin, soft diet Diabetes mellitus -BS 180-200 -C/w ISS. Not on home medications -Hold off on checking HgA1c as pt is receiving blood transfusions HTN -150-170 mmHg -C/w amlodipine to 10 mg PO daily, ACEi -Monitor Epilepsy - not currently on any medications - no current concern for seizure activity. Will need outpatient follow up with PCP/neurology DVT prophylaxis: teds and scds DISPOSITION: Surgery update, f/u recommendations. Oncology to be consulted. VS, I&O, 24H, Fishbone Vital Signs/I&O Vital Signs Date Time Temp Pulse Resp B/P (MAP) Pulse Ox O2 Delivery O2 Flow Rate FiO2 05/17/20 12:18 97.1 97 18 144/80 Room Air 05/17/20 11:18 92 I&O- Last 24 Hours up to 6 AM 05/17/20 06:00 Intake Total 1240 ml Balance 1240 ml Laboratory Data 24H LABS Laboratory Tests 2 05/16/20 16:32: Nucleated Red Blood Cells % (auto) 0.4H 05/16/20 16:45: Bedside Glucose (Misc Panel) 184H 05/16/20 21:44: Bedside Glucose (Misc Panel) 195H 05/17/20 02:04: Bedside Glucose (Misc Panel) 169H 05/17/20 05:44: Nucleated Red Blood Cells % (auto) 0.3H, Anion Gap 4L, Glomerular Filtration Rate > 60.0, Calcium Level 8.0L, Total Bilirubin 0.6, Aspartate Amino Transf (AST/SGOT) 10, Alanine Aminotransferase (ALT/SGPT) 15, Alkaline Phosphatase 80, Total Protein 6.2L, Albumin 2.1L, Albumin/Globulin Ratio 0.5L 05/17/20 11:17: Bedside Glucose (Misc Panel) 223H CBC/BMP Laboratory Tests 05/16/20 16:32 05/17/20 05:44 05/17/20 14:00 Microbiology Microbiology 05/14/20 Gastrointestinal Tract Panel (PCR) - Final, Complete 05/13/20 Stool Occult Blood (KAVIN) - Final, Complete 05/13/20 Gram Stain - Final, Complete 05/13/20 Abscess Culture - Final, Complete Strep Anginosus Grp 05/13/20 Anaerobic Culture - Final, Complete Klebsiella Pneumoniae 05/13/20 Respiratory Virus Panel (PCR) (KAVIN) - Final, Complete 05/13/20 Blood Culture - Preliminary, Resulted No Growth after 72 hours. All specime... 05/13/20 Blood Culture - Preliminary, Resulted No Growth after 72 hours. All specime... Catherine Portillo MD May 17, 2020 14:47
[2020-05-17] MEDS ORDERED: diphenhydrAMINE 25MG CAP PO PRN (14:50)
[2020-05-17] MEDS ORDERED: ISOVUE-370 76% 100ML VIAL As Ordered ONE (15:47)
--- NOTE | 2020-05-17 16:21 | REP ---
INDICATION: colon mass, r/o mets COMPARISON: None TECHNIQUE: Axial contrast enhanced images from the thoracic inlet to the upper abdomen with coronal and sagittal reformations using 75 ml Isovue 370 intravenous contrast material. [address] CT examination was performed using the following dose reduction techniques: Automated exposure control, adjustment of mA and/or kv according to the patient's size, and use of iterative reconstruction technique. FINDINGS: Prominent pulmonary vasculature and increased interstitial markings along with small pleural effusions and bibasilar atelectasis. Differential diagnosis includes pulmonary vascular congestion/interstitial edema and fluid overload, less likely acute pneumonia process. No obvious pulmonary nodule or mass lesion is appreciated although evaluation is limited due to the above-mentioned findings and small lesions may be obscured. Mediastinal lymph nodes measuring up to approximately 14 mm are nonspecific in appearance. Tracheobronchial tree is patent. Heart appears to be upper limits of normal without significant pericardial effusion. Thoracic aorta without aneurysm or dissection. Hypodense nodule in the right thyroid lobe. Musculoskeletal structures without acute osseous abnormality. IMPRESSION: 1. Findings described above most compatible with pulmonary vascular congestion/interstitial edema versus fluid overload. 2. No obvious nodule or mass lesion. However, subtle small lesions may be obscured on current examination. <Electronically signed by Chai Stewart > 05/17/20 [id number]
[2020-05-17] MEDS: LevoFLOXacin IV 500 MG in IV 1 EA IV SCH (17:20)
[2020-05-18] VITALS (9 sets, daily range): BP systolic 158–198; BP diastolic 58–110
[2020-05-18 06:07] LABS: HEMATOCRIT 29.9 % (36.0-47.0); HEMOGLOBIN 8.7 g/dl (12.0-15.5); MEAN CORPUSCULAR HEMOGLOBIN 22.7 pg (27.0-33.0); MEAN CORPUSCULAR HGB CONC 29.1 g/dl (32.0-36.5); MEAN CORPUSCULAR VOLUME 78.1 fl (80.0-96.0); PLATELET COUNT, AUTOMATED 377 10^3/uL (150-450); RED BLOOD COUNT 3.83 10^6/uL (4.00-5.40); WHITE BLOOD COUNT 8.8 10^3/uL (4.0-10.0)
[2020-05-18 06:34] LABS: ALBUMIN 2.2 GM/DL (3.2-5.2); ALT/SGPT 16 U/L (12-78); BILIRUBIN,TOTAL 0.7 MG/DL (0.2-1.0); BLOOD UREA NITROGEN 13 MG/DL (7-18); CARBON DIOXIDE LEVEL 24 MEQ/L (21-32); CHLORIDE LEVEL 108 MEQ/L (98-107); CREATININE FOR GFR 0.65 MG/DL (0.55-1.30); GLOMERULAR FILTRATION RATE > 60.0 (>45); GLUCOSE, FASTING 195 MG/DL (70-100); POTASSIUM SERUM 3.8 MEQ/L (3.5-5.1); SODIUM LEVEL 140 MEQ/L (136-145); TOTAL PROTEIN 6.8 GM/DL (6.4-8.2)
[2020-05-18] MEDS: BENZOCAINE 10% 9GM TUBE (ANBESOL) MT SCH ×4 (07:52→20:45)
[2020-05-18] MEDS: HumaLOG INSULIN (NovoLOG) PER UNIT SC SCH ×4 (07:54→20:43)
[2020-05-18] MEDS: MIRALAX *UNIT DOSE* 17GM PACKET PO SCH ×2 (07:56→18:22)
[2020-05-18] MEDS ORDERED: ALBUTEROL 90 MCG/ACT 8GM HFA INHALER INH PRN (09:25)
[2020-05-18] MEDS: ACETAMINOPHEN TAB 650MG DOSE (2X325MG) PO PRN (12:06)
--- NOTE | 2020-05-18 12:16 | IPNPDOC ---
Date Seen The patient was seen on 05/18/20. Progress Note SUBJECTIVE: S/p 1 unit PRBC, this AM H/H improved to 8.7/29. BP uncontrolled, adjusting medications. O2 sat in low 90's, will check BNP as CT chest showed incr pulm vasc congestion likely. Denies chest pain, n/v/d, fevers or chills. OBJECTIVE: PHYSICAL EXAMINATION: VITAL SIGNS: Please see below GENERAL: NAD, resting in bed HEENT: Normocephalic, atraumatic, PERRLA, EOMI, moist mucous membranes NECK: Supple, trachea midline CARDIOVASCULAR: Regular rate and rhythm, normal S1 and S2. No murmurs, rubs, or gallops RESPIRATORY: Clear to auscultation bilaterally with equal air entry bilaterally. No wheezing, rhonchi, or rales. ABDOMEN:obese, no rebound tenderness, rigidity, or guarding. Soft, nondistended, bowel sounds present. EXTREMITIES: No cyanosis or edema. Pulses 2+/4 in bilateral upper and lower extremities NEUROLOGIC: Alert and oriented x3 to person, place and time. No focal deficits appreciated PSYCHIATRIC: Mood and affect appropriate LABORATORY DATA: See below. IMAGING: CT chest: 1. Findings described above most compatible with pulmonary vascular congestion/interstitial edema versus fluid overload. 2. No obvious nodule or mass lesion. However, subtle small lesions may be obscured on current examination. Colonoscopy 05/16/20: - Likely malignant completely obstructing tumor in the transverse colon. Biopsied. - Stricture in the transverse colon. - One 15 mm polyp in the distal transverse colon. Injected. - Moderate diverticulosis from sigmoid to descending colon. There was no evidence of diverticular bleeding. - Non-bleeding external and internal hemorrhoids. EGD 05/16/20: - Normal esophagus. - Gastritis. Biopsied. - Normal duodenal bulb and second portion of the duodenum. CT abdomen/pelvis: Evidence for diverticulitis involving the proximal to mid transverse colon, with a focal contained perforation/abscess measuring 3.9 cm x 2.6 cm x 3.2 cm along the anterior wall of the hepatic flexure. Gastroenterology follow-up is suggested to exclude a colonic neoplasm. MICROBIOLOGY: BCx NG at 24 hours Abscess aerobic cx: Strep angionosus Abscess anaerobic cx: Pending ASSESSMENT: 59 year old female with PMHx of diabetes mellitus, HTN, epilepsy, diverticulitis, and medical noncompliance presents with 3 month history of abdominal pain and diarrhea and 1 week history of fatigue, shortness of breath, and weakness, found to have acute diverticulitis with intra-abdominal abscess and symptomatic anemia likely secondary to bleeding from diverticulitis. PLAN: HTN, uncontrolled -Possibly 2/2 to fluid -Increased AM ACEi to 30 mg PO daily, c/w CCB at high dose, giving dose of lasix today and will consider adding daily -Hydralazine PRN for systolic BP >180 mmHg -Monitor Transverse colon mass, likely malignancy and cause of GI bleed as was ulcerated, partially obstructing -Please see report from GI Colonoscopy above and in chart -Biopsies pending -C/w soft diet, miralax daily per GI -Surgery to follow up to give options for treatment -Discussed case with Dr. Canela, heme/onc. CT chest with contrast above, CT abd/pelvis with contrast already done. At time of discharge, patient can follow up in their clinic for further treatment. Sent patient's name and to provider as requested. Symptomatic anemia 2/2 GI bleed from transverse colon mass -CEA elevated, s/p 5 U PRBC total, last 05/17/20 -H/H improved to 8.7/29 -Occult blood positive -Monitor CBC daily, transfuse PRN. Surgery consulted to deal with ulcerating mass Acute diverticulitis with perforation/abscess + for Strep angionosus, Klebsiella -Abscess drainage by IR on 05/13/20. CXs (aerobic and anerobic) growing Strep angionosus and Klebsiella -WBC wnl, afebrile, abdominal pain improved -C/w levofloxacin, soft diet Low O2 saturation, r/o CHF with pulm vascular congestion seen on CT chest -Currently 90% on RA, no increased SOB currently -F/u BNP, if high consider echo -Giving 40 mg IV lasix now, monitor u/o -If benefits from IV lasix, consider adding to daily regimen for 05/19/20 Diabetes mellitus -BS 180-200 -C/w ISS. Not on home medications -Hold off on checking HgA1c as pt is receiving blood transfusions Epilepsy - not currently on any medications - no current concern for seizure activity. Will need outpatient follow up with PCP/neurology DVT prophylaxis: teds and scds DISPOSITION: F/u Surgery recommendations on 05/19/20. Oncology to see o/p. VS, I&O, 24H, Fishbone Vital Signs/I&O Vital Signs Date Time Temp Pulse Resp B/P (MAP) Pulse Ox O2 Delivery O2 Flow Rate FiO2 05/18/20 10:20 198/74 (115) 05/18/20 08:00 98.6 104 18 91 Room Air I&O- Last 24 Hours up to 6 AM 05/18/20 06:00 Intake Total 2460 ml Output Total 0 ml Balance 2460 ml Laboratory Data 24H LABS Laboratory Tests 2 05/17/20 16:21: Bedside Glucose (Misc Panel) 271H 05/17/20 20:32: Bedside Glucose (Misc Panel) 215H 05/18/20 05:39: Nucleated Red Blood Cells % (auto) 0.3H, Anion Gap 8, Glomerular Filtration Rate > 60.0, Calcium Level 8.0L, Total Bilirubin 0.7, Aspartate Amino Transf (AST/SGOT) 11, Alanine Aminotransferase (ALT/SGPT) 16, Alkaline Phosphatase 80, Total Protein 6.8, Albumin 2.2L, Albumin/Globulin Ratio 0.5L 05/18/20 11:48: Bedside Glucose (Misc Panel) 226H CBC/BMP Laboratory Tests 05/17/20 14:00 05/18/20 05:39 Microbiology Microbiology 05/14/20 Gastrointestinal Tract Panel (PCR) - Final, Complete 05/13/20 Stool Occult Blood (KAVIN) - Final, Complete 05/13/20 Gram Stain - Final, Complete 05/13/20 Abscess Culture - Final, Complete Strep Anginosus Grp 05/13/20 Anaerobic Culture - Final, Complete Klebsiella Pneumoniae 05/13/20 Respiratory Virus Panel (PCR) (KAVIN) - Final, Complete 05/13/20 Blood Culture - Final, Complete NO GROWTH AFTER 5 DAYS 05/13/20 Blood Culture - Final, Complete NO GROWTH AFTER 5 DAYS Current Medications Current Medications Medications (Trade) Dose Ordered Sig/João Route PRN Reason Start Time Stop Time Status Last Admin Dose Admin Acetaminophen (Tylenol Tab) 650 mg Q4HP PRN PO MILD PAIN OR FEVER 05/14/20 23:30 05/15/20 01:58 Albuterol Sulfate (Proventil, Ventolin Hfa) 2 puff Q6HP PRN INH SHORTNESS OF BREATH 05/18/20 09:25 Amlodipine Besylate (Norvasc) 5 mg DAILY PO 05/14/20 13:05 05/15/20 08:02 DC 05/14/20 13:13 Amlodipine Besylate (Norvasc) 10 mg DAILY PO 05/15/20 08:15 05/18/20 07:53 Benzocaine (Anbesol Gel) TO MOUTH SORES QID MT 05/14/20 13:00 05/18/20 07:52 Dextrose (Dextrose 50%) 25 ml ASDIRECTED PRN IV SEE LABEL COMMENTS 05/13/20 00:45 Dextrose/Sodium Chloride 1,000 ml @ 100 mls/hr Q10H IV 05/13/20 00:41 05/13/20 07:55 DC 05/13/20 03:55 Diphenhydramine HCl (Benadryl) 25 mg QHSP PRN PO INSOMNIA 05/17/20 14:50 Glucagon (Glucagon) 1 mg ASDIRECTED PRN SC SEE LABEL COMMENTS 05/13/20 00:45 Glucose (Glucose) 16 GM ASDIRECTED PRN PO SEE LABEL COMMENTS 05/13/20 00:45 Home Med (Med Rec Complete!) ASDIRECTED XX 05/13/20 01:00 05/13/20 01:00 DC Insulin Detemir (Levemir Insulin) 10 units QAM SC 05/15/20 09:00 05/15/20 10:29 DC 05/15/20 08:16 Insulin Human Lispro (HumaLOG INSULIN) SEE PROTOCOL TABLE AC SC 05/13/20 12:00 05/18/20 07:54 Insulin Human Lispro (HumaLOG INSULIN) SEE PROTOCOL TABLE QHS SC 05/13/20 21:00 Levofloxacin 500 mg/IV Miscellaneous Supplies 100 ml @ 100 mls/hr Q24H IV 05/15/20 18:00 05/17/20 17:20 Lisinopril (Prinivil) 10 mg DAILY PO 05/15/20 04:25 05/15/20 20:38 DC 05/15/20 04:32 Lisinopril (Prinivil) 20 mg DAILY PO 05/16/20 09:00 05/16/20 00:12 DC Lisinopril (Prinivil) 20 mg QAM PO 05/18/20 09:00 05/18/20 10:01 Lisinopril (Prinivil) 20 mg QHS PO 05/16/20 21:00 05/18/20 08:08 DC 05/17/20 20:33 Meropenem 500 mg/ IV Miscellaneous Supplies 50 ml @ 100 mls/hr Q8H IV 05/13/20 02:00 05/15/20 10:28 DC 05/15/20 10:15 Ondansetron HCl (Zofran Odt) 4 mg Q6HP PRN PO NAUSEA OR VOMITING 05/17/20 02:15 05/17/20 02:21 Oxycodone HCl (Roxicodone, Oxyir) 5 mg Q4HP PRN PO MODERATE/SEVERE PAIN (PS 5-10) 05/13/20 02:00 Polyethylene Glycol (Miralax) 1 pkt DAILY PO 05/17/20 09:00 Ramelteon (Rozerem) 8 mg QHS PRN PO INSOMNIA 05/17/20 00:40 05/17/20 14:55 DC 05/17/20 00:53 Allergies Coded Allergies: Cephalosporins (Verified Allergy, Mild, 05/12/20) codeine (Verified Adverse Reaction, Mild, VOMITTING, 05/13/20) Catherine Portillo MD May 18, 2020 12:16
[2020-05-18] MEDS ORDERED: hydrALAZINE 20MG/ML 1ML VIAL (J0360 PER 20MG) IV ONE (13:00)
[2020-05-18] MEDS ORDERED: FUROSEMIDE 40MG/4ML VIAL (J1940) IV ONE (13:00)
[2020-05-18] MEDS: LevoFLOXacin IV 500 MG in IV 1 EA IV SCH (17:10)
[2020-05-18] MEDS: hydrALAZINE 20MG/ML 1ML VIAL (J0360 PER 20MG) IV SCH (18:24)
[2020-05-19] VITALS (7 sets, daily range): BP systolic 158–200; BP diastolic 74–101
[2020-05-19] MEDS: hydrALAZINE 20MG/ML 1ML VIAL (J0360 PER 20MG) IV SCH ×2 (01:50→10:09)
[2020-05-19] MEDS: ACETAMINOPHEN TAB 650MG DOSE (2X325MG) PO PRN (04:35)
[2020-05-19 06:10] LABS: HEMATOCRIT 30.8 % (36.0-47.0); MEAN CORPUSCULAR HEMOGLOBIN 22.2 pg (27.0-33.0); MEAN CORPUSCULAR HGB CONC 29.2 g/dl (32.0-36.5); PLATELET COUNT, AUTOMATED 395 10^3/uL (150-450); RED BLOOD COUNT 4.05 10^6/uL (4.00-5.40); WHITE BLOOD COUNT 9.4 10^3/uL (4.0-10.0)
[2020-05-19 06:35] LABS: ALBUMIN 2.5 GM/DL (3.2-5.2); ALT/SGPT 16 U/L (12-78); BILIRUBIN,TOTAL 1.1 MG/DL (0.2-1.0); BLOOD UREA NITROGEN 8 MG/DL (7-18); CALCIUM LEVEL 8.6 MG/DL (8.8-10.2); CARBON DIOXIDE LEVEL 28 MEQ/L (21-32); CHLORIDE LEVEL 105 MEQ/L (98-107); CREATININE FOR GFR 0.56 MG/DL (0.55-1.30); GLOMERULAR FILTRATION RATE > 60.0 (>45); GLUCOSE, FASTING 215 MG/DL (70-100); POTASSIUM SERUM 3.3 MEQ/L (3.5-5.1); SODIUM LEVEL 139 MEQ/L (136-145); TOTAL PROTEIN 7.1 GM/DL (6.4-8.2)
[2020-05-19] MEDS ORDERED: SLF 3 ML SYR IV PRN (08:05)
[2020-05-19] MEDS: HumaLOG INSULIN (NovoLOG) PER UNIT SC SCH ×4 (08:28→20:00)
[2020-05-19] MEDS: MIRALAX *UNIT DOSE* 17GM PACKET PO SCH (08:28)
[2020-05-19] MEDS: FUROSEMIDE 20 MG TAB PO SCH (08:29)
[2020-05-19] MEDS: BENZOCAINE 10% 9GM TUBE (ANBESOL) MT SCH ×4 (08:30→20:00)
[2020-05-19] MEDS ORDERED: POTASSIUM CHLORIDE 10 MEQ SR TABLET PO ONE (09:00)
[2020-05-19] MEDS ORDERED: lisinopriL 40 MG TAB PO SCH (09:00)
[2020-05-19] MEDS ORDERED: hydrALAZINE 20MG/ML 1ML VIAL (J0360 PER 20MG) IV PRN (10:15)
[2020-05-19] MEDS: SLF 3 ML SYR IV SCH ×2 (13:11→21:23)
[2020-05-19] MEDS: guaiFENesin ER 600 MG TAB PO SCH ×2 (13:14→19:57)
--- NOTE | 2020-05-19 13:15 | IPNPDOC ---
Date Seen The patient was seen on 05/19/20. Progress Note SUBJECTIVE: H/H stable. BP uncontrolled so added lasix due to increased fluid received this admission, increased ACEi to 30 mg PO daily. Likely resection of colonic mass on 05/21/[address] Mosher. Patient denies chest pain, n/v/d, fevers or chills. OBJECTIVE: PHYSICAL EXAMINATION: VITAL SIGNS: Please see below GENERAL: NAD, resting in bed HEENT: Normocephalic, atraumatic, PERRLA, EOMI, moist mucous membranes NECK: Supple, trachea midline CARDIOVASCULAR: Regular rate and rhythm, normal S1 and S2. No murmurs, rubs, or gallops RESPIRATORY: Clear to auscultation bilaterally with equal air entry bilaterally. No wheezing, rhonchi, or rales. ABDOMEN:obese, no rebound tenderness, rigidity, or guarding. Soft, nondistended, bowel sounds present. EXTREMITIES: No cyanosis or edema. Pulses 2+/4 in bilateral upper and lower extremities NEUROLOGIC: Alert and oriented x3 to person, place and time. No focal deficits appreciated PSYCHIATRIC: Mood and affect appropriate LABORATORY DATA: See below. IMAGING: CT chest: 1. Findings described above most compatible with pulmonary vascular congestion/interstitial edema versus fluid overload. 2. No obvious nodule or mass lesion. However, subtle small lesions may be obscured on current examination. Colonoscopy 05/16/20: - Likely malignant completely obstructing tumor in the transverse colon. Biopsied. - Stricture in the transverse colon. - One 15 mm polyp in the distal transverse colon. Injected. - Moderate diverticulosis from sigmoid to descending colon. There was no evidence of diverticular bleeding. - Non-bleeding external and internal hemorrhoids. EGD 05/16/20: - Normal esophagus. - Gastritis. Biopsied. - Normal duodenal bulb and second portion of the duodenum. CT abdomen/pelvis: Evidence for diverticulitis involving the proximal to mid transverse colon, with a focal contained perforation/abscess measuring 3.9 cm x 2.6 cm x 3.2 cm along the anterior wall of the hepatic flexure. Gastroenterology follow-up is suggeste d to exclude a colonic neoplasm. MICROBIOLOGY: BCx NG at 24 hours Abscess aerobic cx: Strep angionosus Abscess anaerobic cx: Klebsiella ASSESSMENT: 59 year old female with PMHx of diabetes mellitus, HTN, epilepsy, diverticulitis, and medical noncompliance presents with 3 month history of abdom inal pain and diarrhea and 1 week history of fatigue, shortness of breath, and weakness, found to have acute diverticulitis with intra-abdominal abscess and symptomatic anemia likely secondary to bleeding from diverticulitis. PLAN: HTN, uncontrolled -Received increased fluid early admission with PRBCs, BP increasing. Also increased anxiety -NEg fluid balance after addition of lasix -C/w lasix, increased ACEi to 30 mg PO daily, c/w CCB at high dose -Hydralazine PRN for systolic BP >180 mmHg -Monitor Transverse colon mass, likely malignancy and cause of GI bleed as was ulcerated, partially obstructing -Please see report from GI Colonoscopy above and in chart -Biopsies pending -C/w soft diet, miralax daily per GI -Surgery following, likely resection on 05/21/20 -Discussed case with Dr. Canela, heme/onc. CT chest with contrast above, CT abd/pelvis with contrast already done. At time of discharge, patient can follow up in their clinic for further treatment. Sent patient's name and to provider as requested. Symptomatic anemia 2/2 GI bleed from transverse colon mass -CEA elevated, s/p 5 U PRBC total, last 05/17/20 -H/H improved to 12/04 -Occult blood positive -Monitor CBC daily, transfuse PRN. Surgery consulted to deal with ulcerating mass Acute diverticulitis with perforation/abscess + for Strep angionosus, Klebsiella -Abscess drainage by IR on 05/13/20. CXs (aerobic and anerobic) growing Strep angionosus and Klebsiella -WBC wnl, afebrile, abdominal pain improved -C/w levofloxacin, soft diet Low O2 saturation, r/o CHF with pulm vascular congestion seen on CT chest- resolved -Currently 97% on RA, no increased SOB currently -Improved with incorporation of diuretic, diuresis -BNP 400's -C/w daily lasix Diabetes mellitus -C/w ISS. Not on home medications -Hold off on checking HgA1c as pt is receiving blood transfusions Epilepsy - not currently on any medications - no current concern for seizure activity. Will need outpatient follow up with PCP/neurology DVT prophylaxis: teds and scds DISPOSITION: Likely for colon mass resectin on 05/21/20, Dr. Mosher. Oncology to see o/p. Patient is hopeful for discharge home after hospital stay. VS, I&O, 24H, Fishbone Vital Signs/I&O Vital Signs Date Time Temp Pulse Resp B/P (MAP) Pulse Ox O2 Delivery O2 Flow Rate FiO2 05/19/20 12:00 97.2 102 18 164/82 (109) 97 Room Air I&O- Last 24 Hours up to 6 AM 05/19/20 06:00 Intake Total 1940 ml Output Total 2325 ml Balance -385 ml Laboratory Data 24H LABS Laboratory Tests 2 05/18/20 16:59: Bedside Glucose (Misc Panel) 245H 05/18/20 19:57: Bedside Glucose (Misc Panel) 230H 05/19/20 05:41: Nucleated Red Blood Cells % (auto) 0.3H, Anion Gap 6L, Glomerular Filtration Rate > 60.0, Calcium Level 8.6L, Total Bilirubin 1.1#H, Aspartate Amino Transf (AST/SGOT) 15, Alanine Aminotransferase (ALT/SGPT) 16, Alkaline Phosphatase 85, Total Protein 7.1, Albumin 2.5L, Albumin/Globulin Ratio 0.5L 05/19/20 11:33: Bedside Glucose (Misc Panel) 235H CBC/BMP Laboratory Tests 05/19/20 05:41 Microbiology Microbiology 05/14/20 Gastrointestinal Tract Panel (PCR) - Final, Complete 05/13/20 Stool Occult Blood (KAVIN) - Final, Complete 05/13/20 Gram Stain - Final, Complete 05/13/20 Abscess Culture - Final, Complete Strep Anginosus Grp 05/13/20 Anaerobic Culture - Final, Complete Klebsiella Pneumoniae 05/13/20 Respiratory Virus Panel (PCR) (KAVIN) - Final, Complete 05/13/20 Blood Culture - Final, Complete NO GROWTH AFTER 5 DAYS 05/13/20 Blood Culture - Final, Complete NO GROWTH AFTER 5 DAYS Current Medications Current Medications Medications (Trade) Dose Ordered Sig/João Route PRN Reason Start Time Stop Time Status Last Admin Dose Admin Acetaminophen (Tylenol Tab) 650 mg Q4HP PRN PO MILD PAIN OR FEVER 05/14/20 23:30 05/19/20 04:35 Albuterol Sulfate (Proventil, Ventolin Hfa) 2 puff Q6HP PRN INH SHORTNESS OF BREATH 05/18/20 09:25 Amlodipine Besylate (Norvasc) 5 mg DAILY PO 05/14/20 13:05 05/15/20 08:02 DC 05/14/20 13:13 Amlodipine Besylate (Norvasc) 10 mg DAILY PO 05/15/20 08:15 05/19/20 08:29 Benzocaine (Anbesol Gel) TO MOUTH SORES QID MT 05/14/20 13:00 05/18/20 20:45 Dextrose (Dextrose 50%) 25 ml ASDIRECTED PRN IV SEE LABEL COMMENTS 05/13/20 00:45 Dextrose/Sodium Chloride 1,000 ml @ 100 mls/hr Q10H IV 05/13/20 00:41 05/13/20 07:55 DC 05/13/20 03:55 Diphenhydramine HCl (Benadryl) 25 mg QHSP PRN PO INSOMNIA 05/17/20 14:50 Furosemide (Lasix) 20 mg DAILY PO 05/19/20 09:00 05/19/20 08:29 Glucagon (Glucagon) 1 mg ASDIRECTED PRN SC SEE LABEL COMMENTS 05/13/20 00:45 Glucose (Glucose) 16 GM ASDIRECTED PRN PO SEE LABEL COMMENTS 05/13/20 00:45 Home Med (Med Rec Complete!) ASDIRECTED XX 05/13/20 01:00 05/13/20 01:00 DC Hydralazine HCl (Apresoline) 20 mg Q8H IV 05/18/20 18:00 05/19/20 10:12 DC 05/19/20 10:09 Hydralazine HCl (Apresoline) 20 mg Q8HP PRN IV SEE PROTOCOL 05/19/20 10:15 Insulin Detemir (Levemir Insulin) 10 units QAM SC 05/15/20 09:00 05/15/20 10:29 DC 05/15/20 08:16 Insulin Human Lispro (HumaLOG INSULIN) SEE PROTOCOL TABLE AC SC 05/13/20 12:00 05/19/20 12:10 Insulin Human Lispro (HumaLOG INSULIN) SEE PROTOCOL TABLE QHS SC 05/13/20 21:00 Levofloxacin 500 mg/IV Miscellaneous Supplies 100 ml @ 100 mls/hr Q24H IV 05/15/20 18:00 05/18/20 17:10 Lisinopril (Prinivil) 10 mg DAILY PO 05/15/20 04:25 05/15/20 20:38 DC 05/15/20 04:32 Lisinopril (Prinivil) 20 mg DAILY PO 05/16/20 09:00 05/16/20 00:12 DC Lisinopril (Prinivil) 20 mg QAM PO 05/18/20 09:00 05/18/20 12:06 DC 05/18/20 10:01 Lisinopril (Prinivil) 20 mg QHS PO 05/16/20 21:00 05/18/20 08:08 DC 05/17/20 20:33 Lisinopril (Prinivil) 30 mg QAM PO 05/19/20 09:00 05/19/20 08:30 Lisinopril (Prinivil) 40 mg QAM PO 05/19/20 09:00 05/18/20 12:11 DC Meropenem 500 mg/ IV Miscellaneous Supplies 50 ml @ 100 mls/hr Q8H IV 05/13/20 02:00 05/15/20 10:28 DC 05/15/20 10:15 Ondansetron HCl (Zofran Odt) 4 mg Q6HP PRN PO NAUSEA OR VOMITING 05/17/20 02:15 05/17/20 02:21 Oxycodone HCl (Roxicodone, Oxyir) 5 mg Q4HP PRN PO MODERATE/SEVERE PAIN (PS 5-10) 05/13/20 02:00 Polyethylene Glycol (Miralax) 1 pkt DAILY PO 05/17/20 09:00 05/19/20 08:28 Ramelteon (Rozerem) 8 mg QHS PRN PO INSOMNIA 05/17/20 00:40 05/17/20 14:55 DC 05/17/20 00:53 Sodium Chloride (Saline Lock Flush) 2 ml ASDIRECTED PRN IV SEE LABEL COMMENTS 05/19/20 08:05 Sodium Chloride (Saline Lock Flush) 2 ml SLF IV 05/19/20 14:00 Allergies Coded Allergies: Cephalosporins (Verified Allergy, Mild, 05/12/20) codeine (Verified Adverse Reaction, Mild, VOMITTING, 05/13/20) Catherine Portillo MD May 19, 2020 13:15
[2020-05-19] MEDS: LevoFLOXacin IV 500 MG in IV 1 EA IV SCH (18:01)
[2020-05-20] VITALS (7 sets, daily range): BP systolic 149–182; BP diastolic 76–100
[2020-05-20 05:58] LABS: HEMATOCRIT 31.7 % (36.0-47.0); HEMOGLOBIN 9.3 g/dl (12.0-15.5); MEAN CORPUSCULAR HEMOGLOBIN 22.7 pg (27.0-33.0); MEAN CORPUSCULAR HGB CONC 29.3 g/dl (32.0-36.5); MEAN CORPUSCULAR VOLUME 77.5 fl (80.0-96.0); PLATELET COUNT, AUTOMATED 386 10^3/uL (150-450); RED BLOOD COUNT 4.09 10^6/uL (4.00-5.40); WHITE BLOOD COUNT 8.6 10^3/uL (4.0-10.0)
[2020-05-20] MEDS: SLF 3 ML SYR IV SCH ×3 (06:00→21:36)
[2020-05-20 06:29] LABS: ALBUMIN 2.4 GM/DL (3.2-5.2); ALT/SGPT 17 U/L (12-78); BLOOD UREA NITROGEN 10 MG/DL (7-18); CALCIUM LEVEL 8.5 MG/DL (8.8-10.2); CARBON DIOXIDE LEVEL 26 MEQ/L (21-32); CHLORIDE LEVEL 107 MEQ/L (98-107); CREATININE FOR GFR 0.63 MG/DL (0.55-1.30); GLOMERULAR FILTRATION RATE > 60.0 (>45); GLUCOSE, FASTING 235 MG/DL (70-100); POTASSIUM SERUM 4.2 MEQ/L (3.5-5.1); SODIUM LEVEL 141 MEQ/L (136-145); TOTAL PROTEIN 6.3 GM/DL (6.4-8.2)
[2020-05-20] MEDS: BENZOCAINE 10% 9GM TUBE (ANBESOL) MT SCH ×4 (08:19→20:33)
[2020-05-20] MEDS: MIRALAX *UNIT DOSE* 17GM PACKET PO SCH (08:25)
[2020-05-20] MEDS: CARVedilol 3.125 MG TAB PO SCH ×2 (08:26→20:32)
[2020-05-20] MEDS: HumaLOG INSULIN (NovoLOG) PER UNIT SC SCH ×4 (08:26→20:33)
[2020-05-20] MEDS: guaiFENesin ER 600 MG TAB PO SCH ×2 (08:26→20:32)
[2020-05-20] MEDS: FUROSEMIDE 20 MG TAB PO SCH (08:27)
--- NOTE | 2020-05-20 08:52 | IPNPDOC ---
Text Note Date of Service The patient was seen on 05/20/20. NOTE Gen. surgery. Dr. Mosher The patient is a 59-year-old female admitted 05/12/20 with acute diverticulitis with perforation. Colonoscopy as per GI 05/16/20 with completely obstructing tumor in the transverse colon, likely malignant. Biopsied, path pending. This morning, the patient denies any abdominal pain. Denies nausea or vomiting. Afebrile. VSS. Sitting up in bed. NAD. Lungs clear to auscultation Heart S1-S2 regular rate and rhythm Abdomen is obese, protuberant. Nondistended. No tenderness with palpation this morning. Extremities well-perfused with no edema. Assessment/plan Acute diverticulitis with perforation with completely obstructing tumor in the transverse colon, likely malignant. pathology pending Clear liquids. IV Levaquin, Flagyl. PO neomycin. Plan for Rt Colectomy as per Dr Mosher 05/21/20. VS,Fishbone, I+O VS, Fishbone, I+O Laboratory Tests 05/20/20 05:36 Vital Signs Date Time Temp Pulse Resp B/P (MAP) Pulse Ox O2 Delivery O2 Flow Rate FiO2 05/20/20 08:26 102 182/88 05/20/20 07:13 96.9 18 96 Room Air I&O- Last 24 Hours up to 6 AM 05/20/20 06:00 Intake Total 2082 ml Output Total 900 ml Balance 1182 ml Rosalia Mckeon May 20, 2020 08:52
--- NOTE | 2020-05-20 11:58 | IPNPDOC ---
Text Note Date of Service The patient was seen on 05/20/20. NOTE SUBJECTIVE: -No acute complaints overnight -Denies chest pain, n/v/d, fevers or chills. Interim events: -H/H stable -BP uncontrolled will continue lasix, increased ACEi to 40 mg PO daily. DC'd PRN hydral and started 3.125 BID coreg -Likely resection of colonic mass on 05/21/[address] Mosher [address] Dr. Portillo's signout OBJECTIVE: PHYSICAL EXAMINATION: VITAL SIGNS: Please see below GENERAL: NAD, resting in bed HEENT: Normocephalic, atraumatic, PERRLA, EOMI, moist mucous membranes NECK: Supple, trachea midline CARDIOVASCULAR: Regular rate and rhythm, normal S1 and S2. No murmurs, rubs, or gallops RESPIRATORY: Clear to auscultation bilaterally with equal air entry bilaterally. No wheezing, rhonchi, or rales. ABDOMEN:obese, no rebound tenderness, rigidity, or guarding. Soft, nondistended, bowel sounds present. EXTREMITIES: No cyanosis or edema. Pulses 2+/4 in bilateral upper and lower extremities NEUROLOGIC: Alert and oriented x3 to person, place and time. No focal deficits appreciated PSYCHIATRIC: Mood and affect appropriate LABORATORY DATA: Reviewed IMAGING: CT chest: 1. Findings described above most compatible with pulmonary vascular congestion/interstitial edema versus fluid overload. 2. No obvious nodule or mass lesion. However, subtle small lesions may be obscured on current examination. Colonoscopy 05/16/20: - Likely malignant completely obstructing tumor in the transverse colon. Biopsied. - Stricture in the transverse colon. - One 15 mm polyp in the distal transverse colon. Injected. - Moderate diverticulosis from sigmoid to descending colon. There was no evidence of diverticular bleeding. - Non-bleeding external and internal hemorrhoids. EGD 05/16/20: - Normal esophagus. - Gastritis. Biopsied. - Normal duodenal bulb and second portion of the duodenum. CT abdomen/pelvis: Evidence for diverticulitis involving the proximal to mid transverse colon, with a focal contained perforation/abscess measuring 3.9 cm x 2.6 cm x 3.2 cm along the anterior wall of the hepatic flexure. Gastroenterology follow-up is suggested to exclude a colonic neoplasm. MICROBIOLOGY: BCx NG at 24 hours Abscess aerobic cx: Strep angionosus Abscess anaerobic cx: Klebsiella ASSESSMENT: 59 year old female with PMHx of diabetes mellitus, HTN, epilepsy, diverticulitis, and medical noncompliance presents with 3 month history of abdominal pain and diarrhea and 1 week history of fatigue, shortness of breath, and weakness, found to have acute diverticulitis with intra-abdominal abscess, transverse colonic obstructing mass with GIB and symptomatic anemia. PLAN: HTN, uncontrolled -C/w lasix, increased ACEi to 40 mg PO daily, 10mg amlodipine, add coreg 3.125 BID and stop hydral PRN -Monitor, likely to increase coreg Transverse colon mass, likely malignancy and cause of GI bleed as was ulcerated, partially obstructing -Please see report from GI Colonoscopy above and in chart -Biopsies pending -C/w clear liquid diet, miralax daily per GI -Surgery following, plan for resection on 05/21/20 -Discussed case with Dr. Canela, heme/onc. CT chest with contrast above, CT abd/pelvis with contrast already done. At time of discharge, patient can follow up in their clinic for further treatment. Sent patient's name and to provider as requested. -CEA elevated Symptomatic anemia 2/2 GI bleed from transverse colon mass -s/p 5 U PRBC total, last 05/17/20 -H/H improved to 12/04 -Occult blood positive -Monitor CBC daily, transfuse PRN. Surgery consulted to deal with ulcerating mass Acute diverticulitis with perforation/abscess + for Strep angionosus, Klebsiella -Abscess drainage by IR on 05/13/20. CXs (aerobic and anerobic) growing Strep angionosus and Klebsiella -WBC wnl, afebrile, abdominal pain improved -C/w levofloxacin, clear liquid diet Low O2 saturation, r/o CHF with pulm vascular congestion seen on CT chest- resolved -Currently 97% on RA, no increased SOB currently -Improved with incorporation of diuretic, diuresis -BNP 400's -C/w daily lasix Diabetes mellitus -C/w ISS. Not on home medications -Hold off on checking HgA1c as pt is receiving blood transfusions Epilepsy - not currently on any medications - no current concern for seizure activity. Will need outpatient follow up with PCP/neurology DVT prophylaxis: teds and scds DISPOSITION:Colon mass resection scheduled for 05/21/[address] Mosher. Oncology to see o/p. Patient is hopeful for discharge home after hospital stay. VS,Fishbone, I+O VS, Fishbone, I+O Laboratory Tests 05/20/20 05:36 Vital Signs Date Time Temp Pulse Resp B/P (MAP) Pulse Ox O2 Delivery O2 Flow Rate FiO2 05/20/20 07:13 96.9 102 18 182/88 (119) 96 Room Air I&O- Last 24 Hours up to 6 AM 05/20/20 05:59 Intake Total 2082 ml Output Total 900 ml Balance 1182 ml LUCRECIA BRAND MD May 20, 2020 08:19
[2020-05-20] MEDS: metroNIDAZOLE (FLAGYL) 500MG TABLET PO SCH ×2 (12:51→14:15)
[2020-05-20] MEDS: NEOMYCIN SULFATE 500 MG TAB PO SCH ×2 (12:52→14:15)
--- NOTE | 2020-05-20 17:09 | IPNPDOC ---
Text Note Date of Service The patient was seen on 05/20/20. NOTE Patient seen and examined today. Reports feeling tired but otherwise comforta ble. Denies any abdominal pain. Reports having loose stools that are nonbloody. The pathology is not out yet from the previous colonoscopy but findings in the procedure highly suggestive of malignancy causing obstruction at the level of transverse colon which coincides with the CT scan findings of a mass at the level of transverse colon which may be also associated with full-thickness growth and possible perforation. On exam he looks comfortable Skin is warm and dry Mildly pale palpebral conjunctiva No obvious jugular venous distention Lung sounds are clear to auscultation bilaterally without wheezing Regular heart rate and rhythm without murmurs Abdomen is morbidly obese and very protuberant with low hanging pannus. Not appreciate any herniations. No prior surgical scars. He is somewhat tender on palpation over the right side of the epigastrium were various some suggestion of a mobile hard mass. There are no accompanying skin changes. He does not have any rebound or guarding. No significant extremity edema. Impression and plan Transverse colon mass, obstructing most likely malignant pathology is pending I have gone then schedule the patient for robotic-assisted laparoscopic, most likely extended right colectomy. Looking at the CT scan images, the mass is close to the course of the middle colic artery which may need to be taken for adequate oncologic margin. I discussed with them the details of the procedure, risks and benefits. We spoke about risks of bleeding, surgical site infection, injury to nearby structures, the need to take nearby structures for oncologic margin, anastomotic leakage, hernia formation. Consent was obtained from the patient His anemia has been stable. He so far has required 5 units of packed RBCs. Currently not reporting any active bleeding. He is also noted to be hypertensive better controlled with his medications now probably controlled and not too well treated. VS,Fishbone, I+O VS, Fishbone, I+O Laboratory Tests 05/20/20 05:36 Vital Signs Date Time Temp Pulse Resp B/P (MAP) Pulse Ox O2 Delivery O2 Flow Rate FiO2 05/20/20 15:33 96.9 95 18 165/92 (116) 94 Room Air I&O- Last 24 Hours up to 6 AM 05/20/20 06:00 Intake Total 2082 ml Output Total 900 ml Balance 1182 ml VERONICA SANTIAGO MD May 20, 2020 17:09
[2020-05-20] MEDS: LevoFLOXacin IV 500 MG in IV 1 EA IV SCH (17:30)
[2020-05-20] MEDS ORDERED: POLYETHYLENE GLYCOL (MIRALAX) 238GM BOTTLE PO ONE (18:00)
[2020-05-20] MEDS: metroNIDAZOLE (FLAGYL) 500MG TABLET PO ONE ×2 (21:35→22:06)
[2020-05-20] MEDS ORDERED: NEOMYCIN SULFATE 500 MG TAB PO ONE (22:00)
[2020-05-21] VITALS: BP 162/82
[2020-05-21 04:00] VITALS: BP 159/84
[2020-05-21 06:06] LABS: HEMATOCRIT 33.7 % (36.0-47.0); HEMOGLOBIN 9.6 g/dl (12.0-15.5); MEAN CORPUSCULAR HEMOGLOBIN 22.6 pg (27.0-33.0); MEAN CORPUSCULAR HGB CONC 28.5 g/dl (32.0-36.5); MEAN CORPUSCULAR VOLUME 79.3 fl (80.0-96.0); PLATELET COUNT, AUTOMATED 412 10^3/uL (150-450); RED BLOOD COUNT 4.25 10^6/uL (4.00-5.40); WHITE BLOOD COUNT 9.9 10^3/uL (4.0-10.0)
[2020-05-21 06:31] LABS: ALBUMIN 2.6 GM/DL (3.2-5.2); ALT/SGPT 20 U/L (12-78); BILIRUBIN,TOTAL 1.2 MG/DL (0.2-1.0); BLOOD UREA NITROGEN 8 MG/DL (7-18); CALCIUM LEVEL 7.9 MG/DL (8.8-10.2); CARBON DIOXIDE LEVEL 21 MEQ/L (21-32); CHLORIDE LEVEL 110 MEQ/L (98-107); GLOMERULAR FILTRATION RATE > 60.0 (>45); GLUCOSE, FASTING 166 MG/DL (70-100); POTASSIUM SERUM 4.7 MEQ/L (3.5-5.1); SODIUM LEVEL 140 MEQ/L (136-145); TOTAL PROTEIN 6.4 GM/DL (6.4-8.2)
[2020-05-21] MEDS: SLF 3 ML SYR IV SCH ×2 (06:33→13:28)
[2020-05-21] MEDS: HumaLOG INSULIN (NovoLOG) PER UNIT SC SCH ×3 (07:30→21:46)
[2020-05-21 08:00] VITALS: BP 163/88
[2020-05-21] MEDS: BENZOCAINE 10% 9GM TUBE (ANBESOL) MT SCH ×3 (09:00→21:46)
[2020-05-21] MEDS: MIRALAX *UNIT DOSE* 17GM PACKET PO SCH (09:06)
[2020-05-21] MEDS: FUROSEMIDE 20 MG TAB PO SCH (09:07)
[2020-05-21] MEDS: guaiFENesin ER 600 MG TAB PO SCH (09:07)
[2020-05-21] MEDS: CARVedilol 3.125 MG TAB PO SCH (09:08)
--- NOTE | 2020-05-21 10:09 | IPNPDOC ---
Text Note Date of Service The patient was seen on 05/21/20. NOTE SUBJECTIVE: -No acute complaints overnight -Denies chest pain, n/v/d, fevers or chills. -NPO for surgery today OBJECTIVE: VITAL SIGNS: Please see below GENERAL: NAD, resting in bed, morbidly obese HEENT: Normocephalic, atraumatic, PERRLA, EOMI, moist mucous membranes NECK: Supple, trachea midline CARDIOVASCULAR: Regular rate and rhythm, normal S1 and S2. No murmurs, rubs, or gallops RESPIRATORY: Clear to auscultation bilaterally with equal air entry bilaterally. No wheezing, rhonchi, or rales. ABDOMEN: obese, no rebound tenderness, rigidity, or guarding. Soft, nondis tended, bowel sounds present. EXTREMITIES: No cyanosis or edema. Pulses 2+/4 in bilateral upper and lower extremities NEUROLOGIC: Alert and oriented x3 to person, place and time. No focal deficits appreciated PSYCHIATRIC: Mood and affect appropriate LABORATORY DATA: Reviewed IMAGING: CT chest: 1. Findings described above most compatible with pulmonary vascular congestion/interstitial edema versus fluid overload. 2. No obvious nodule or mass lesion. However, subtle small lesions may be ob scured on current examination. Colonoscopy 05/16/20: - Likely malignant completely obstructing tumor in the transverse colon. Biopsied. - Stricture in the transverse colon. - One 15 mm polyp in the distal transverse colon. Injected. - Moderate diverticulosis from sigmoid to descending colon. There was no evidence of diverticular bleeding. - Non-bleeding external and internal hemorrhoids. EGD 05/16/20: - Normal esophagus. - Gastritis. Biopsied. - Normal duodenal bulb and second portion of the duodenum. CT abdomen/pelvis: Evidence for diverticulitis involving the proximal to mid transverse colon, with a focal contained perforation/abscess measuring 3.9 cm x 2.6 cm x 3.2 cm along the anterior wall of the hepatic flexure. Gastroenterology follow-up is suggested to exclude a colonic neoplasm. MICROBIOLOGY: BCx NG at 24 hours Abscess aerobic cx: Strep angionosus Abscess anaerobic cx: Klebsiella ASSESSMENT: 59 year old female with PMHx of diabetes mellitus, HTN, epilepsy, diverticulitis, and medical noncompliance presents with 3 month history of abdominal pain and diarrhea and 1 week history of fatigue, shortness of breath, and weakness, found to have acute diverticulitis with intra-abdominal abscess, transverse colonic obstructing mass with GIB and symptomatic anemia. PLAN: HTN, uncontrolled -C/w lasix, increased ACEi to 40 mg PO daily, 10mg amlodipine, add coreg 3.125 BID and stop hydral PRN -Monitor, likely to increase coreg Transverse colon mass, likely malignancy and cause of GI bleed as was ulcerated, partially obstructing -Please see report from GI Colonoscopy above and in chart -Biopsies pending -NPO for resection surgery with Dr. Mosher today -Discussed case with Dr. Canela, heme/onc. CT chest with contrast above, CT abd/pelvis with contrast already done. At time of discharge, patient can follow up in their clinic for further treatment. Sent patient's name and to provider as requested. -CEA elevated Symptomatic anemia 2/2 GI bleed from transverse colon mass -s/p 5 U PRBC total, last 05/17/20 -H/H improved and remains stable -Occult blood was positive -Monitor CBC daily, transfuse PRN. -Surgery consulted to deal with ulcerating mass Acute diverticulitis with perforation/abscess + for Strep angionosus, Klebsiella -Abscess drainage by IR on 05/13/20. CXs (aerobic and anerobic) growing Strep angionosus and Klebsiella -WBC wnl, afebrile, abdominal pain improved -C/w levofloxacin Low O2 saturation, r/o CHF with pulm vascular congestion seen on CT chest- resolved -Currently 97% on RA, no increased SOB currently -Improved with incorporation of diuretic, diuresis -BNP 400's -C/w daily lasix Diabetes mellitus -C/w ISS. Not on home medications Epilepsy - not currently on any medications - no current concern for seizure activity. Will need outpatient follow up with PCP/neurology DVT prophylaxis: teds and scds DISPOSITION:Colon mass resection scheduled for today with Dr. Mosher. Oncology to see o/p. Patient is hopeful for discharge home after hospital stay. VS,Fishbone, I+O VS, Fishbone, I+O Laboratory Tests 05/21/20 05:48 Vital Signs Date Time Temp Pulse Resp B/P (MAP) Pulse Ox O2 Delivery O2 Flow Rate FiO2 05/21/20 08:00 99.1 91 20 163/88 (113) 94 Room Air I&O- Last 24 Hours up to 6 AM 05/21/20 06:00 Intake Total 2080 ml Balance 2080 ml LUCRECIA BRAND MD May 21, 2020 10:09
[2020-05-21 12:00] VITALS: BP 142/70
--- NOTE | 2020-05-21 14:30 | IPNPDOC ---
Text Note Date of Service The patient was seen on 05/21/20. NOTE Patient seen in the preoperative holding area, comfortable, denies any nausea, vomiting, tolerated prep I spoke to the pathologist and pathology shows moderately differentiated adenocarcinoma and I let him know that. I reviewed with him plan for the surgery and expected postoperative course. He did not have any further questions. We will proceed for planned robotic assisted laparoscopic possibly extended right colectomy VS,Fishbone, I+O VS, Fishbone, I+O Laboratory Tests 05/21/20 05:48 Vital Signs Date Time Temp Pulse Resp B/P (MAP) Pulse Ox O2 Delivery O2 Flow Rate FiO2 05/21/20 12:00 97.7 81 18 142/70 (94) 95 Room Air I&O- Last 24 Hours up to 6 AM 05/21/20 06:00 Intake Total 2080 ml Balance 2080 ml VERONICA SANTIAGO MD May 21, 2020 14:30
[2020-05-21] MEDS ORDERED: metroNIDAZOLE/NACL 500MG(5MG/ML) 100ML BAG (S0030) As Ordered ONE (14:35)
[2020-05-21] MEDS ORDERED: BUPIVACAINE HCL 0.25% 30ML VIAL As Ordered ONE (14:49)
[2020-05-21] MEDS ORDERED: LIDOCAINE 1% SDV 30ML VIAL As Ordered ONE (14:49)
[2020-05-21] MEDS ORDERED: BUPIVACAINE HCL 0.25% 10ML VIAL As Ordered ONE (14:49)
[2020-05-21] MEDS ORDERED: BUPIVACAINE LIPOSOME/PF 1.3% 20ML VIAL (13.3MG/ML)(EXPAREL)(C9290 PER1MG) As Ordered ONE (14:49)
[2020-05-21] MEDS ORDERED: KETOROLAC 60MG 2ML VIAL As Ordered ONE (15:05)
[2020-05-21] MEDS ORDERED: ACETAMINOPHEN 1000MG 100ML IV BTL (OFIRMEV) (J0131 PER 10MG) As Ordered ONE (15:05)
[2020-05-21] MEDS ORDERED: LIDOCAINE 2% 100MG/5ML SDV (FOR ANES.) As Ordered ONE (15:05)
[2020-05-21] MEDS ORDERED: SUGAMMADEX SODIUM 500 MG/5 ML VIAL (BRIDION) As Ordered ONE (15:05)
[2020-05-21] MEDS ORDERED: dexameTHASONE 4 MG/ML 1ML VIAL (J1100 PER 1MG) As Ordered ONE (15:05)
[2020-05-21] MEDS ORDERED: HYDROmorphone HCL 2 MG/ML 1ML VIAL (J1170) As Ordered ONE (15:05)
[2020-05-21] MEDS ORDERED: ONDANSETRON 4MG/2ML VIAL As Ordered ONE ×2 (15:05→23:18)
[2020-05-21] MEDS ORDERED: ROCURONIUM BROMIDE 50 MG/5 ML VIAL As Ordered ONE ×5 (15:05→19:16)
[2020-05-21] MEDS ORDERED: propofoL 200 MG/20 ML VIAL As Ordered ONE (15:05)
[2020-05-21] MEDS ORDERED: fentaNYL 100 MCG/2 ML INJECTION (J3010) As Ordered ONE (15:06)
[2020-05-21] MEDS ORDERED: MIDAZOLAM INJ 2MG/2ML VIAL (J2250 PER 1MG) As Ordered ONE (15:06)
[2020-05-21] MEDS ORDERED: LevoFLOXacin 500MG/100ML IV BAG (J1956 PER 250MG) As Ordered ONE (17:02)
[2020-05-21] MEDS: LevoFLOXacin IV 500 MG in IV 1 EA IV SCH (17:30)
[2020-05-21] MEDS ORDERED: LABETALOL 100MG/20ML VIAL As Ordered ONE (20:20)
[2020-05-22] MEDS ORDERED: fentaNYL 100 MCG/2 ML INJECTION (J3010) As Ordered ONE (00:17)
[2020-05-22] MEDS ORDERED: propofoL 200 MG/20 ML VIAL As Ordered ONE (01:35)
[2020-05-22] MEDS ORDERED: PERCOCET 5MG/325MG TAB PO PRN (01:50)
[2020-05-22] MEDS ORDERED: ONDANSETRON 4MG/2ML VIAL As Ordered ONE (02:04)
[2020-05-22] MEDS ORDERED: LR 1,000 ML IV SCH (02:15)
[2020-05-22] MEDS ORDERED: fentaNYL 100 MCG/2 ML INJECTION (J3010) IV PRN ×2 (02:15→02:20)
[2020-05-22] MEDS ORDERED: oxyCODONE 5MG TAB PO PRN ×2 (02:15→02:20)
[2020-05-22] MEDS ORDERED: ONDANSETRON 4MG/2ML VIAL IV PRN ×2 (02:15→02:20)
[2020-05-22] MEDS ORDERED: MORPHINE 2 MG/ML 1ML VIAL (J2270) IV PRN ×2 (02:15→02:20)
[2020-05-22] MEDS ORDERED: METOCLOPRAMIDE INJ 10MG/2ML VIAL (J2765 PER 1) As Ordered ONE (02:43)
[2020-05-22] MEDS ORDERED: PROMETHAZINE INJ 25 MG/ML VIAL (J2550) IV PRN (03:15)
[2020-05-22] MEDS ORDERED: METOCLOPRAMIDE INJ 10MG/2ML VIAL (J2765 PER 1) IV PRN (03:15)
[2020-05-22] MEDS: KETOROLAC 30 MG/ML 1ML VIAL IV SCH ×2 (03:31→07:50)
[2020-05-22] MEDS: CARVedilol 3.125 MG TAB PO SCH ×2 (03:32→09:53)
[2020-05-22] MEDS: BENZOCAINE 10% 9GM TUBE (ANBESOL) MT SCH ×5 (03:33→20:44)
[2020-05-22] MEDS: guaiFENesin ER 600 MG TAB PO SCH ×3 (03:33→20:39)
[2020-05-22] MEDS: HumaLOG INSULIN (NovoLOG) PER UNIT SC SCH ×5 (03:33→20:43)
[2020-05-22] MEDS: LR 1,000 ML IV SCH ×5 (03:34→20:45)
[2020-05-22] MEDS: SLF 3 ML SYR IV SCH ×4 (03:34→20:44)
[2020-05-22 04:00] VITALS: BP 110/64
[2020-05-22 06:31] LABS: BASO % 0.2 % (0.0-1.0); HEMOGLOBIN 9.1 g/dl (12.0-15.5); LYMPH # 0.7 10^3/uL (1.5-5.0); LYMPH % 3.7 % (24.0-44.0); MEAN CORPUSCULAR HEMOGLOBIN 22.6 pg (27.0-33.0); MEAN CORPUSCULAR HGB CONC 29.4 g/dl (32.0-36.5); MEAN CORPUSCULAR VOLUME 77.1 fl (80.0-96.0); MONO # 1.1 10^3/uL (0.0-0.8); MONO % 5.6 % (2.0-8.0); NEUTROPHILS # 17.4 10^3/uL (1.5-8.5); NEUTROPHILS % 89.7 % (36.0-66.0); PLATELET COUNT, AUTOMATED 389 10^3/uL (150-450); RED BLOOD COUNT 4.02 10^6/uL (4.00-5.40); WHITE BLOOD COUNT 19.4 10^3/uL (4.0-10.0)
[2020-05-22 06:56] LABS: CALCIUM LEVEL 8.3 MG/DL (8.8-10.2); CREATININE FOR GFR 1.72 MG/DL (0.55-1.30); GLOMERULAR FILTRATION RATE 32.2 (>45); POTASSIUM SERUM 3.9 MEQ/L (3.5-5.1)
[2020-05-22 08:00] VITALS: BP 139/70
[2020-05-22] MEDS: PERCOCET 5MG/325MG TAB PO PRN ×2 (09:53→19:00)
[2020-05-22] MEDS: FUROSEMIDE 20 MG TAB PO SCH (09:54)
[2020-05-22 12:00] VITALS: BP 139/71
--- NOTE | 2020-05-22 12:45 | IPNPDOC ---
Text Note Date of Service The patient was seen on 05/22/20. NOTE General Surgery Dr Mosher. 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 Status post robotic-assisted laparoscopic right colectomy 05/21/[address] Mosher. This morning, the patient is resting in bed, easily aroused. Reports pain is controlled. Had some nausea overnight, received Zofran. Toradol was held this morning related to serum creatinine 1.72, GFR 32. Afebrile. Heart rate 94, respiratory rate 16, blood pressure 139/70, 95% room air. Gen. The patient is sleeping in bed but is easily arousable. Alert and oriented. Abdomen. Soft, nondistended. Surgical sites with dressings intact, no surrounding erythema, no drainage. Extremities well-perfused with no edema. WBC 19.4 Hemoglobin 9.1, has been stable. Serum creatinine 1.72 with GFR 32.2, this is baseline yesterday of serum creatinine 0.6 with GFR greater than 60. Assessment/plan Transverse colon obstructing mass, pathology from colonoscopy 05/19/20 indicates moderately differentiated adenocarcinoma. Status post robotic-assisted laparoscopic right colectomy 05/21/[address] Mosher. Surgical pathology pending. Continue pain control. Toradol on hold related to elevation of serum creatinine. IV fluids LR at 100ml/hr. IV Levaquin. Trial of Clear liquids. Continue to monitor. VS,Fishbone, I+O VS, Fishbone, I+O Laboratory Tests 05/22/20 06:15 Vital Signs Date Time Temp Pulse Resp B/P (MAP) Pulse Ox O2 Delivery O2 Flow Rate FiO2 05/22/20 10:23 20 05/22/20 09:54 139/70 05/22/20 09:53 94 05/22/20 08:00 96.4 95 Room Air 05/22/20 08:00 2.0 I&O- Last 24 Hours up to 6 AM 05/22/20 06:00 Intake Total 2300 ml Output Total 680 ml Balance 1620 ml Rosalia Mckeon May 22, 2020 12:45
--- NOTE | 2020-05-22 13:15 | IPNPDOC ---
Text Note Date of Service The patient was seen on 05/22/20. NOTE Subjective: -Has abdominal pain this morning but reports that it is well controlled at this time -Nausea overnight with some emesis -POD1 s/p robotic-assisted laparoscopic right colectomy 05/21/[address] Mosher Objective: VITAL SIGNS: Please see below GENERAL: NAD, sleeping, awake on voice, morbidly obese HEENT: Normocephalic, atraumatic, PERRLA, EOMI, moist mucous membranes NECK: Supple, trachea midline CARDIOVASCULAR: Regular rate and rhythm, normal S1 and S2. No murmurs, rubs, or gallops RESPIRATORY: Clear to auscultation bilaterally with equal air entry bilaterally. No wheezing, rhonchi, or rales. ABDOMEN: obese, TTP, soft, normoactive bowel sounds, no rigidity, or guarding, incisions are c/d/i, no drainage or surrounding erythema EXTREMITIES: No cyanosis or edema. Pulses 2+/4 in bilateral upper and lower extremities NEUROLOGIC: Alert and oriented x3 to person, place and time. No focal deficits appreciated PSYCHIATRIC: Mood and affect appropriate LABORATORY DATA: Reviewed WBC 19.4 Hgb 9.1 platelets 389 BUN 18 Cr 1.72 IMAGING: CT chest: 1. Findings described above most compatible with pulmonary vascular congestion/interstitial edema versus fluid overload. 2. No obvious nodule or mass lesion. However, subtle small lesions may be obscured on current examination. Colonoscopy 05/16/20: - Likely malignant completely obstructing tumor in the transverse colon. Biopsied. - Stricture in the transverse colon. - One 15 mm polyp in the distal transverse colon. Injected. - Moderate diverticulosis from sigmoid to descending colon. There was no evidenc e of diverticular bleeding. - Non-bleeding external and internal hemorrhoids. EGD 05/16/20: - Normal esophagus. - Gastritis. Biopsied. - Normal duodenal bulb and second portion of the duodenum. CT abdomen/pelvis: Evidence for diverticulitis involving the proximal to mid transverse colon, with a focal contained perforation/abscess measuring 3.9 cm x 2.6 cm x 3.2 cm along the anterior wall of the hepatic flexure. Gastroenterology follow-up is suggested to exclude a colonic neoplasm. MICROBIOLOGY: BCx NG at 24 hours Abscess aerobic cx: Strep angionosus Abscess anaerobic cx: Klebsiella ASSESSMENT: 59 year old female with PMHx of diabetes mellitus, HTN, epilepsy, diverticulitis, and medical noncompliance presents with 3 month history of abdominal pain and diarrhea and 1 week history of fatigue, shortness of breath, and weakness, found to have acute diverticulitis with intra-abdominal abscess, transverse colonic obstructing mass with GIB and symptomatic anemia, now POD1 s/p robotic-assisted laparoscopic right colectomy 05/21/[address] Mosher. PLAN: Transverse colon mass, likely malignancy and cause of GI bleed as was ulcerated, partially obstructing s/p robotic-assisted laparoscopic right colectomy 05/21/[address] Mosher. -Please see report from GI Colonoscopy above and in chart -Pathology pending. -clear liquid diet per surgery -Discussed case with Dr. Canela, heme/onc. CT chest with contrast above, CT abd/pelvis with contrast already done. At time of discharge, patient can follow up in their clinic for further treatment. Sent patient's name and to provid er as requested. -CEA elevated -POD1 s/p robotic-assisted laparoscopic right colectomy 05/21/[address] Mosher. -PRN zofran and promethazine for postop N/V -pain management per surgical team with PRN IV morphine, fentanyl, oxy IR and percocet Worsening leukocytosis post op -continue levaquin -monitor for fevers or ketty sepsis at which point will re-image abdomen/pelvis, BCx, chese LAURITA: -monitor I/Os -held ACEi, toradol -gentle fluids -monitor daily BMP HTN -10mg amlodipine, coreg 3.125 BID -Held ACEi in the setting of LAURITA Symptomatic anemia 2/2 GI bleed from transverse colon mass -s/p 5 U PRBC total, last 05/17/20 -H/H improved and remains stable -Occult blood was positive -Monitor CBC daily, transfuse PRN. -Surgery consulted to deal with ulcerating mass Acute diverticulitis with perforation/abscess + for Strep angionosus, Klebsiella -Abscess drainage by IR on 05/13/20. CXs (aerobic and anerobic) growing Strep angionosus and Klebsiella -WBC wnl, afebrile, abdominal pain improved -C/w levofloxacin Low O2 saturation, r/o CHF with pulm vascular congestion seen on CT chest- re solved -Currently 97% on RA, no increased SOB currently -Improved with incorporation of diuretic, diuresis -BNP 400's -C/w daily lasix Diabetes mellitus -C/w ISS. Not on home medications Epilepsy - not currently on any medications - no current concern for seizure activity. Will need outpatient follow up with PCP/neurology DVT prophylaxis: teds and scds DISPOSITION: POD1 s/probotic-assisted laparoscopic right colectomy 05/21/[address] Mosher. Oncology to see o/p. Patient is hopeful for discharge home after hospital stay. VS,Fishbone, I+O VS, Fishbone, I+O Laboratory Tests 05/22/20 06:15 Vital Signs Date Time Temp Pulse Resp B/P (MAP) Pulse Ox O2 Delivery O2 Flow Rate FiO2 05/22/20 12:00 97.4 107 18 139/71 (93) 93 Room Air 05/22/20 08:00 2.0 I&O- Last 24 Hours up to 6 AM 05/22/20 06:00 Intake Total 2300 ml Output Total 680 ml Balance 1620 ml LUCRECIA BRAND MD May 22, 2020 13:15
[2020-05-22] MEDS: LevoFLOXacin IV 500 MG in IV 1 EA IV SCH (17:26)
[2020-05-22 20:00] VITALS: BP 113/79
[2020-05-22] MEDS: CARVedilol 6.25 MG TAB PO SCH (20:40)
[2020-05-23] VITALS: BP 99/69
[2020-05-23 04:00] VITALS: BP 130/80
[2020-05-23] MEDS: SLF 3 ML SYR IV SCH ×3 (05:15→22:00)
[2020-05-23] MEDS: oxyCODONE 5MG TAB PO PRN (05:19)
[2020-05-23 06:06] LABS: HEMATOCRIT 28.9 % (36.0-47.0); HEMOGLOBIN 8.4 g/dl (12.0-15.5); MEAN CORPUSCULAR HEMOGLOBIN 22.6 pg (27.0-33.0); MEAN CORPUSCULAR HGB CONC 29.1 g/dl (32.0-36.5); MEAN CORPUSCULAR VOLUME 77.7 fl (80.0-96.0); PLATELET COUNT, AUTOMATED 349 10^3/uL (150-450); RED BLOOD COUNT 3.72 10^6/uL (4.00-5.40); WHITE BLOOD COUNT 12.3 10^3/uL (4.0-10.0)
[2020-05-23 06:29] LABS: ALBUMIN 2.5 GM/DL (3.2-5.2); ALT/SGPT 24 U/L (12-78); BLOOD UREA NITROGEN 18 MG/DL (7-18); CALCIUM LEVEL 8.2 MG/DL (8.8-10.2); CARBON DIOXIDE LEVEL 27 MEQ/L (21-32); CHLORIDE LEVEL 107 MEQ/L (98-107); CREATININE FOR GFR 0.99 MG/DL (0.55-1.30); GLOMERULAR FILTRATION RATE > 60.0 (>45); GLUCOSE, FASTING 203 MG/DL (70-100); POTASSIUM SERUM 3.6 MEQ/L (3.5-5.1); SODIUM LEVEL 140 MEQ/L (136-145); TOTAL PROTEIN 6.6 GM/DL (6.4-8.2)
[2020-05-23 08:00] VITALS: BP 135/76
[2020-05-23] MEDS: BENZOCAINE 10% 9GM TUBE (ANBESOL) MT SCH ×4 (08:54→21:00)
[2020-05-23] MEDS: CARVedilol 6.25 MG TAB PO SCH ×2 (08:54→21:58)
[2020-05-23] MEDS: FUROSEMIDE 40 MG TAB PO SCH (08:54)
[2020-05-23] MEDS: guaiFENesin ER 600 MG TAB PO SCH ×2 (08:54→21:00)
[2020-05-23] MEDS: HumaLOG INSULIN (NovoLOG) PER UNIT SC SCH ×4 (08:55→21:00)
--- NOTE | 2020-05-23 10:29 | ROOPDOC ---
[facility] Report Of Operation Report of Operation DATE OF PROCEDURE: 05/21/20 PREPROCEDURE DIAGNOSES: obstructing transverse colon adenocarcinoma. POSTPROCEDURE DIAGNOSES: obstructing transverse colon adenocarcinoma with small bowel involvement. PROCEDURE: Robotic assisted laparoscopic extended right hemicolectomy, en bloc small bowel resection, ileocolic anastomosis, small bowel anastomosis. SURGEON: Demarcus Mosher MD VEGETABLE SCULLION: ANESTHESIA: General Anesthesia. ESTIMATED BLOOD LOSS: Approximately 100 mL. COMPLICATIONS: none. REMARKS: 59 trans Female admitted for anemia, diarrhea initially suspected with contained perforation at the mid transverse colon possibly diverticulitis related. On colonoscopy found to have obstructing mass at the area of inflammation and on biopsy shows moderately differentiated adenocarcinoma of the colon. She is morbidly obese with large abdominal wall pannus. PROCEDURE NOTE: bulky mid transverse colon cancer with a loop of small bowel involved/adhered to the mass. DESCRIPTION OF PROCEDURE: Patient has been given a dose of Zosyn 3.375 g IV for wound prophylaxis. He underwent bowel prep last night as well as scheduled doses of oral neomycin and metronidazole. Been given 5000 units of heparin subcutaneous for DVT prophylaxis. He was brought to the operating room, placed supine on the procedure table. TEDs would not fits his leg, sequential compression device placed on both lower extremities were DVT prophylaxis. If the very large spongy suprapubic pannus with his penile shaft retracted within this and we needed to take the penile shaft out then placed a Gabriel catheter successfully. His abdomen was widely prepped and draped in the usual sterile fashion. Both arms were tucked to his side with the arm protected with gel pads.We paused for a surgical timeout using both pre-incision safety checklist to verify correct patient, procedure site and additional clinical information prior to beginning the procedure I began with the left upper quadrant entry. Initial placement of a Veress needle shows that this was through the shetty before we penetrated the peritoneum. I was able to partially insufflate the abdomen. I placed a long bariatric 5 mm trocar under direct visualization of the laparoscope through the same incision and continued insufflating to a pressure of 15 mmHg. He was placed in about a 10 Trendelenburg position tilted towards the left side to try to get the bowels away from the right side of the abdomen. Splenic his thickened large pannus his intra-abdominal fat content is actually not too bulky. His omentum is relatively thin. A survey the abdomen for signs of any metastatic focus outside of what I could see some mid transverse colon. The mass. There were no peritoneal deposits. His liver is moderately enlarged but overall smooth with no visible nodularities. A small amount of serous ascites is noted around the liver. The small bowel is overall not distended. I could see a loop of small bowel that is firmly adhered to where the mass is over the mid transverse colon. The mass is bulky and hard to retract upwards. I established my ports over the left side of the abdomen. The level 48 mm ports were placed in a slightly oblique orientation with a 12 mm port located over the left upper quadrant area. Next a 5 mm port was placed in between ports to 2 and 3 for my assistant construction superintendent. Port placement seems to be adequate. I tried to retract the bowels out of the midline towards the left lower quadrant and the omentum towards the epigastric area not quite successfully. The bulkiness of the mass as well as the overall configuration of his body habitus and his bowels. The robot was then maneuvered in place over the patient's right side and the arms docked to the trochars. The instruments were placed under direct vision. I used a 2 left hand configuration. I then scrubbed in to control of the camera and instruments of the surgeon's console. DEMARCUS MOSHER MD May 23, 2020 10:29
--- NOTE | 2020-05-23 11:50 | IPNPDOC ---
Text Note Date of Service The patient was seen on 05/23/20. NOTE General Surgery Dr Mosher. 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 Status post robotic-assisted laparoscopic right colectomy 05/21/[address] Mosher. This morning, the patient reports some upper abdominal discomfort, took oxycodone at 5 AM and reports some improvement. Tolerated clear liquids for breakfast. No vomiting since yesterday. No bowel movements yet but reports passing some small amounts of flatus. Afebrile. Heart rate 111, respiratory rate 18, blood pressure 135/76, 95% 2 L nasal cannula. Gen. The patient is resting in bed but is easily arousable. Alert and oriented. Abdomen. Soft, nondistended. Tenderness is noted across the upper abdomen, but no guarding. Surgical sites with dressings intact, no surrounding erythema, no drainage. Extremities well-perfused with no edema. WBC 12.3, decreased from 19.4 yesterday. Hemoglobin 8.4 Serum creatinine 0.99, GFR greater than 60, improved compared with yesterday. Assessment/plan Transverse colon obstructing mass, pathology from colonoscopy 05/19/20 indicates moderately differentiated adenocarcinoma. Status post robotic-assisted laparoscopic right colectomy 05/21/[address] Mosher. Surgical pathology pending. Continue pain control. Toradol on hold related to elevation of serum creatinine. Tolerating clear liquids. Continue to monitor. VS,Fishbone, I+O VS, Fishbone, I+O Laboratory Tests 05/23/20 05:39 Vital Signs Date Time Temp Pulse Resp B/P (MAP) Pulse Ox O2 Delivery O2 Flow Rate FiO2 05/23/20 08:54 112 136/70 05/23/20 08:00 2.0 05/23/20 08:00 97.6 18 95 Nasal Cannula I&O- Last 24 Hours up to 6 AM 05/23/20 06:00 Intake Total 1720 ml Output Total 850 ml Balance 870 ml Rosalia Mckeon May 23, 2020 11:50
[2020-05-23 12:00] VITALS: BP 128/81
[2020-05-23] MEDS: ACETAMINOPHEN TAB 650MG DOSE (2X325MG) PO PRN (12:28)
--- NOTE | 2020-05-23 13:06 | IPNPDOC ---
Text Note Date of Service The patient was seen on 05/23/20. NOTE Subjective: -Has abdominal pain this morning but reports that it is well controlled at this time -Nausea very minimal now, no emesis, had 2 episodes yesterday Objective: VITAL SIGNS: Please see below GENERAL: NAD, sleeping, awake on voice, morbidly obese HEENT: Normocephalic, atraumatic, PERRLA, EOMI, moist mucous membranes NECK: Supple, trachea midline CARDIOVASCULAR: Regular rate and rhythm, normal S1 and S2. No murmurs, rubs, or gallops RESPIRATORY: Clear to auscultation bilaterally with equal air entry bilaterally. No wheezing, rhonchi, or rales. ABDOMEN: obese, TTP, soft, normoactive bowel sounds, no rigidity, or guarding, incisions are c/d/i, no drainage or surrounding erythema EXTREMITIES: No cyanosis or edema. Pulses 2+/4 in bilateral upper and lower extremities NEUROLOGIC: Alert and oriented x3 to person, place and time. No focal deficits appreciated PSYCHIATRIC: Mood and affect appropriate LABORATORY DATA: Reviewed WBC 12.3 Hgb 8.4 platelets 349 Cr 0.99 IMAGING: CT chest: 1. Findings described above most compatible with pulmonary vascular congestion/interstitial edema versus fluid overload. 2. No obvious nodule or mass lesion. However, subtle small lesions may be obscured on current examination. Colonoscopy 05/16/20: - Likely malignant completely obstructing tumor in the transverse colon. Biopsied. - Stricture in the transverse colon. - One 15 mm polyp in the distal transverse colon. Injected. - Moderate diverticulosis from sigmoid to descending colon. There was no evidence of diverticular bleeding. - Non-bleeding external and internal hemorrhoids. EGD 05/16/20: - Normal esophagus. - Gastritis. Biopsied. - Normal duodenal bulb and second portion of the duodenum. CT abdomen/pelvis: Evidence for diverticulitis involving the proximal to mid transverse colon, with a focal contained perforation/abscess measuring 3.9 cm x 2.6 cm x 3.2 cm along the anterior wall of the hepatic flexure. Gastroenterology follow-up is suggested to exclude a colonic neoplasm. MICROBIOLOGY: BCx NG at 24 hours Abscess aerobic cx: Strep angionosus Abscess anaerobic cx: Klebsiella ASSESSMENT: 59 year old female with PMHx of diabetes mellitus, HTN, epilepsy, diverticulitis, and medical noncompliance presents with 3 month history of abdominal pain and diarrhea and 1 week history of fatigue, shortness of breath, and weakness, found to have acute diverticulitis with intra-abdominal abscess, transverse colonic obstructing mass with GIB and symptomatic anemia, now POD1 s/p robotic-assisted laparoscopic right colectomy 05/21/[address] Mosher. PLAN: Transverse colon mass, likely malignancy and cause of GI bleed as was ulcerated, partially obstructing s/p robotic-assisted laparoscopic right colectomy 05/21/[address] Mosher. -Please see report from GI Colonoscopy above and in chart -Pathology pending. -clear liquid diet per surgery -Discussed case with Dr. Canela, heme/onc. CT chest with contrast above, CT abd/pelvis with contrast already done. At time of discharge, patient can follow up in their clinic for further treatment. Sent patient's name and to provider as requested. -CEA elevated -POD2 s/p robotic-assisted laparoscopic right colectomy 05/21/[address] Mosher. -PRN zofran and promethazine for postop N/V -pain management per surgical team with PRN IV morphine, fentanyl, oxy IR and percocet Worsening leukocytosis post op: now improving -continue levaquin -monitor for fevers or ketty sepsis at which point may re-image abdomen/pelvis, BCx LAURITA: resolved -monitor I/Os -held ACEi, toradol -s/p gentle fluids -monitor daily BMP HTN -10mg amlodipine, increased coreg 3.125 BID to 6.25 BID -Held ACEi in the setting of recent postop LAURITA Symptomatic anemia 2/2 GI bleed from transverse colon mass: stable H/H -s/p 5 U PRBC total, last 05/17/20 -H/H improved and remains stable -Occult blood was positive -Monitor CBC daily, transfuse PRN. -Surgery consulted to deal with ulcerating mass Acute diverticulitis with perforation/abscess + for Strep angionosus, Klebsiella -Abscess drainage by IR on 05/13/20. CXs (aerobic and anerobic) growing Strep angionosus and Klebsiella -WBC wnl, afebrile, abdominal pain improved -C/w levofloxacin Low O2 saturation, r/o CHF with pulm vascular congestion seen on CT chest -Currently 97% on RA, no increased SOB currently -Improved with incorporation of diuretic, diuresis -BNP 400's -will increase lasix 20mg to 40g PO daily i/s/o recent fluids zak-op Diabetes mellitus -C/w ISS. Not on home medications Epilepsy - not currently on any medications - no current concern for seizure activity. Will need outpatient follow up with PCP/neurology DVT prophylaxis: teds and scds DISPOSITION: POD1 s/probotic-assisted laparoscopic right colectomy 05/21/[address] Mosher. Oncology to see o/p. Patient is hopeful for discharge home after hospital stay. VS,Fishbone, I+O VS, Fishbone, I+O Laboratory Tests 05/23/20 05:39 Vital Signs Date Time Temp Pulse Resp B/P (MAP) Pulse Ox O2 Delivery O2 Flow Rate FiO2 05/23/20 05:49 14 05/23/20 04:00 97.0 110 130/80 (97) 96 Nasal Cannula 4.0 I&O- Last 24 Hours up to 6 AM 05/23/20 06:00 Intake Total 1720 ml Output Total 850 ml Balance 870 ml LUCRECIA BRAND MD May 23, 2020 08:32
[2020-05-23] MEDS: PERCOCET 5MG/325MG TAB PO PRN (13:58)
[2020-05-23 16:00] VITALS: BP 133/80
[2020-05-23 20:00] VITALS: BP 144/74
[2020-05-24] VITALS: BP 146/85
[2020-05-24] MEDS: traMADol 50 MG TAB PO PRN (00:50)
[2020-05-24 04:00] VITALS: BP 130/70
[2020-05-24] MEDS: SLF 3 ML SYR IV SCH ×3 (06:23→20:25)
[2020-05-24 06:44] LABS: HEMATOCRIT 33.5 % (36.0-47.0); HEMOGLOBIN 9.7 g/dl (12.0-15.5); MEAN CORPUSCULAR HEMOGLOBIN 22.2 pg (27.0-33.0); MEAN CORPUSCULAR VOLUME 76.7 fl (80.0-96.0); PLATELET COUNT, AUTOMATED 428 10^3/uL (150-450); RED BLOOD COUNT 4.37 10^6/uL (4.00-5.40); WHITE BLOOD COUNT 15.7 10^3/uL (4.0-10.0)
[2020-05-24 07:09] LABS: ALBUMIN 2.6 GM/DL (3.2-5.2); ALT/SGPT 19 U/L (12-78); BILIRUBIN,TOTAL 1.2 MG/DL (0.2-1.0); BLOOD UREA NITROGEN 17 MG/DL (7-18); CALCIUM LEVEL 8.4 MG/DL (8.8-10.2); CARBON DIOXIDE LEVEL 26 MEQ/L (21-32); CHLORIDE LEVEL 104 MEQ/L (98-107); CREATININE FOR GFR 0.86 MG/DL (0.55-1.30); GLOMERULAR FILTRATION RATE > 60.0 (>45); GLUCOSE, FASTING 211 MG/DL (70-100); POTASSIUM SERUM 3.8 MEQ/L (3.5-5.1); SODIUM LEVEL 138 MEQ/L (136-145); TOTAL PROTEIN 6.5 GM/DL (6.4-8.2)
[2020-05-24] MEDS: HumaLOG INSULIN (NovoLOG) PER UNIT SC SCH ×4 (07:30→20:21)
[2020-05-24 08:00] VITALS: BP 141/81
[2020-05-24] MEDS: CARVedilol 6.25 MG TAB PO SCH (08:49)
[2020-05-24] MEDS: FUROSEMIDE 40 MG TAB PO SCH (08:49)
[2020-05-24] MEDS: guaiFENesin ER 600 MG TAB PO SCH ×2 (08:49→20:20)
[2020-05-24] MEDS: oxyCODONE 5MG TAB PO PRN (08:50)
[2020-05-24] MEDS: BENZOCAINE 10% 9GM TUBE (ANBESOL) MT SCH ×4 (09:00→20:20)
--- NOTE | 2020-05-24 10:20 | IPNPDOC ---
Text Note Date of Service The patient was seen on 05/24/20. NOTE Subjective: -Abdominal pain is well controlled at this time -Tolerating clears, had BM Objective: VITAL SIGNS: Please see below GENERAL: NAD, sleeping, awake on voice, morbidly obese HEENT: Normocephalic, atraumatic, PERRLA, EOMI, moist mucous membranes NECK: Supple, trachea midline CARDIOVASCULAR: Regular rate and rhythm, normal S1 and S2. No murmurs, rubs, or gallops RESPIRATORY: Clear to auscultation bilaterally with equal air entry bilaterally. No wheezing, rhonchi, or rales. ABDOMEN: obese, TTP, soft, normoactive bowel sounds, no rigidity, or guarding, incisions are c/d/i, no drainage or surrounding erythema EXTREMITIES: No cyanosis or edema. Pulses 2+/4 in bilateral upper and lower extremities NEUROLOGIC: Alert and oriented x3 to person, place and time. No focal deficits appreciated PSYCHIATRIC: Mood and affect appropriate LABORATORY DATA: Reviewed WBC 15.7 Hgb 9.7 Cr 0.86 IMAGING: CT chest: 1. Findings described above most compatible with pulmonary vascular congestion/interstitial edema versus fluid overload. 2. No obvious nodule or mass lesion. However, subtle small lesions may be obscured on current examination. Colonoscopy 05/16/20: - Likely malignant completely obstructing tumor in the transverse colon. Biopsied. - Stricture in the transverse colon. - One 15 mm polyp in the distal transverse colon. Injected. - Moderate diverticulosis from sigmoid to descending colon. There was no evidence of diverticular bleeding. - Non-bleeding external and internal hemorrhoids. EGD 05/16/20: - Normal esophagus. - Gastritis. Biopsied. - Normal duodenal bulb and second portion of the duodenum. CT abdomen/pelvis: Evidence for diverticulitis involving the proximal to mid transverse colon, with a focal contained perforation/abscess measuring 3.9 cm x 2.6 cm x 3.2 cm along the anterior wall of the hepatic flexure. Gastroenterology follow-up is suggested to exclude a colonic neoplasm. MICROBIOLOGY: BCx NG at 24 hours Abscess aerobic cx: Strep angionosus Abscess anaerobic cx: Klebsiella ASSESSMENT: 59 year old female with PMHx of diabetes mellitus, HTN, epilepsy, diverticulitis, and medical noncompliance presents with 3 month history of abdominal pain and diarrhea and 1 week history of fatigue, shortness of breath, and weakness, found to have acute diverticulitis with intra-abdominal abscess, transverse colonic obstructing mass with GIB and symptomatic anemia, now POD3 s/p robotic-assisted laparoscopic right colectomy 05/21/[address] Mosher. PLAN: Transverse colon mass, likely malignancy and cause of GI bleed as was ulcerated, partially obstructing s/p robotic-assisted laparoscopic right colectomy 05/21/[address] Mosher. -Please see report from GI Colonoscopy above and in chart -Pathology pending. -clear liquid diet, will advance to full liquid. -Discussed case with Dr. Canela, heme/onc. CT chest with contrast above, CT abd/pelvis with contrast already done. At time of discharge, patient can follow up in their clinic for further treatment. Sent patient's name and to provider as requested. -CEA elevated -POD3 s/p robotic-assisted laparoscopic right colectomy 05/21/[address] Mosher. -PRN zofran and promethazine for postop N/V -pain management per surgical team with PRN IV morphine, fentanyl, oxy IR and percocet Leukocytosis post op: now improving -s/p 7d of levaquin, will switch to cipro to complete a 14d course -monitor for fevers or ketty sepsis at which point may re-image abdomen/pelvis, BCx LAURITA: resolved -monitor I/Os -held ACEi, toradol -s/p gentle fluids -monitor daily BMP HTN -10mg amlodipine, increased coreg 6.25 BID to 12.5 BID -Held ACEi in the setting of recent postop LAURITA Symptomatic anemia 2/2 GI bleed from transverse colon mass: stable H/H -s/p 5 U PRBC total, last 05/17/20 -H/H improved and remains stable -Occult blood was positive -Monitor CBC daily, transfuse PRN. -Surgery consulted to deal with ulcerating mass Acute diverticulitis with perforation/abscess + for Strep angionosus, Klebsiella -Abscess drainage by IR on 05/13/20. CXs (aerobic and anerobic) growing Strep angionosus and Klebsiella -WBC wnl, afebrile, abdominal pain improved -s/p 7d of IV levofloxacin,switched to cipro PO to complete a 14d course given also recent colectomy with postop leukocytosis Low O2 saturation, r/o CHF with pulm vascular congestion seen on CT chest: resolved -Currently 97% on RA, no increased SOB currently -Improved with incorporation of diuretic, diuresis -BNP 400's -Lasix 40g PO daily i/s/o recent fluids zak-op Diabetes mellitus -C/w ISS. Not on home medications Epilepsy - not currently on any medications - no current concern for seizure activity. Will need outpatient follow up with PCP/neurology DVT prophylaxis: teds and scds DISPOSITION: POD3 s/probotic-assisted laparoscopic right colectomy 05/21/[address] Mosher. Oncology to see o/p. Patient is hopeful for discharge home after hospital stay. VS,Fishbone, I+O VS, Fishbone, I+O Laboratory Tests 05/24/20 06:22 Vital Signs Date Time Temp Pulse Resp B/P (MAP) Pulse Ox O2 Delivery O2 Flow Rate FiO2 05/24/20 08:50 24 Room Air 05/24/20 08:49 110 141/81 05/24/20 08:00 97.5 91 2.0 I&O- Last 24 Hours up to 6 AM 05/24/20 06:00 Intake Total 1410 ml Output Total 150 ml Balance 1260 ml LUCRECIA BRAND MD May 24, 2020 09:23
[2020-05-24] MEDS: CIPROFLOXACIN 500MG TABLET PO SCH ×2 (11:47→17:02)
[2020-05-24 12:00] VITALS: BP 110/80
--- NOTE | 2020-05-24 12:10 | IPNPDOC ---
Text Note Date of Service The patient was seen on 05/24/20. NOTE Pt was seen and examined this am. She is passing flatus and is having some small BMs. Nurses report that she is very sedentary. Tolerating current diet. VSSAF NAD abd - soft, slight tenderness to palpation diffuse, no rebound or guarding labs - below A) Transverse colon obstructing mass Status post robotic-assisted laparoscopic right colectomy 05/21/20 P) Surgical pathology pending. Continue pain control advance diet ambulate in halls IS Hayes Real DO VS,Fishbone, I+O VS, Fishbone, I+O Laboratory Tests 05/24/20 06:22 Vital Signs Date Time Temp Pulse Resp B/P (MAP) Pulse Ox O2 Delivery O2 Flow Rate FiO2 05/24/20 08:50 24 Room Air 05/24/20 08:49 110 141/81 05/24/20 08:00 97.5 91 2.0 I&O- Last 24 Hours up to 6 AM 05/24/20 06:00 Intake Total 1410 ml Output Total 150 ml Balance 1260 ml LUCIA REAL DO May 24, 2020 12:10
[2020-05-24 16:00] VITALS: BP 129/76
[2020-05-24] MEDS: ACETAMINOPHEN TAB 650MG DOSE (2X325MG) PO PRN (17:02)
[2020-05-24 20:00] VITALS: BP 136/89
[2020-05-24] MEDS: CARVedilol 12.5 MG TAB PO SCH (20:25)
[2020-05-25] VITALS (7 sets, daily range): BP systolic 118–147; BP diastolic 69–89
[2020-05-25] MEDS: CIPROFLOXACIN 500MG TABLET PO SCH ×2 (06:01→17:03)
[2020-05-25] MEDS: SLF 3 ML SYR IV SCH ×3 (06:01→21:09)
[2020-05-25 06:14] LABS: HEMOGLOBIN 9.2 g/dl (12.0-15.5); MEAN CORPUSCULAR HEMOGLOBIN 22.8 pg (27.0-33.0); MEAN CORPUSCULAR HGB CONC 29.7 g/dl (32.0-36.5); MEAN CORPUSCULAR VOLUME 76.7 fl (80.0-96.0); PLATELET COUNT, AUTOMATED 365 10^3/uL (150-450); RED BLOOD COUNT 4.04 10^6/uL (4.00-5.40); WHITE BLOOD COUNT 12.4 10^3/uL (4.0-10.0)
[2020-05-25] MEDS: oxyCODONE 5MG TAB PO PRN ×2 (06:14→21:12)
[2020-05-25 06:34] LABS: ALBUMIN 2.3 GM/DL (3.2-5.2); ALT/SGPT 17 U/L (12-78); BILIRUBIN,TOTAL 1.1 MG/DL (0.2-1.0); BLOOD UREA NITROGEN 20 MG/DL (7-18); CALCIUM LEVEL 8.1 MG/DL (8.8-10.2); CARBON DIOXIDE LEVEL 28 MEQ/L (21-32); CHLORIDE LEVEL 105 MEQ/L (98-107); CREATININE FOR GFR 0.84 MG/DL (0.55-1.30); GLOMERULAR FILTRATION RATE > 60.0 (>45); GLUCOSE, FASTING 205 MG/DL (70-100); POTASSIUM SERUM 3.7 MEQ/L (3.5-5.1); SODIUM LEVEL 140 MEQ/L (136-145); TOTAL PROTEIN 6.1 GM/DL (6.4-8.2)
[2020-05-25 08:15] LABS: MAGNESIUM LEVEL 1.9 MG/DL (1.8-2.4)
[2020-05-25] MEDS: FUROSEMIDE 40 MG TAB PO SCH (08:25)
[2020-05-25] MEDS: HumaLOG INSULIN (NovoLOG) PER UNIT SC SCH ×4 (08:26→21:00)
[2020-05-25] MEDS: guaiFENesin ER 600 MG TAB PO SCH ×2 (08:26→21:00)
[2020-05-25] MEDS: CARVedilol 12.5 MG TAB PO SCH ×2 (08:26→21:13)
[2020-05-25] MEDS: BENZOCAINE 10% 9GM TUBE (ANBESOL) MT SCH ×4 (08:27→21:00)
--- NOTE | 2020-05-25 09:35 | IPNPDOC ---
Text Note Date of Service The patient was seen on 05/25/20. NOTE Subjective: -Abdominal pain is well controlled at this time -Tolerating full liquid diet, had BM yesterday -Encouraged ambulation with goal hopefully to dc home tomorrow Objective: VITAL SIGNS: Please see below GENERAL: NAD, morbidly obese HEENT: Normocephalic, atraumatic, PERRLA, EOMI, moist mucous membranes NECK: Supple, trachea midline CARDIOVASCULAR: Regular rate and rhythm, normal S1 and S2. No murmurs, rubs, or gallops RESPIRATORY: Clear to auscultation bilaterally with equal air entry bilaterally. No wheezing, rhonchi, or rales. ABDOMEN: obese, TTP, soft, normoactive bowel sounds, no rigidity, or guarding, incisions are c/d/i, no drainage or surrounding erythema EXTREMITIES: No cyanosis or edema. Pulses 2+/4 in bilateral upper and lower extremities NEUROLOGIC: Alert and oriented x3 to person, place and time. No focal deficits appreciated PSYCHIATRIC: Mood and affect appropriate LABORATORY DATA: Reviewed IMAGING: CT chest: 1. Findings described above most compatible with pulmonary vascular congestion/interstitial edema versus fluid overload. 2. No obvious nodule or mass lesion. However, subtle small lesions may be obscured on current examination. Colonoscopy 05/16/20: - Likely malignant completely obstructing tumor in the transverse colon. B iopsied. - Stricture in the transverse colon. - One 15 mm polyp in the distal transverse colon. Injected. - Moderate diverticulosis from sigmoid to descending colon. There was no evidence of diverticular bleeding. - Non-bleeding external and internal hemorrhoids. EGD 05/16/20: - Normal esophagus. - Gastritis. Biopsied. - Normal duodenal bulb and second portion of the duodenum. CT abdomen/pelvis: Evidence for diverticulitis involving the proximal to mid transverse colon, with a focal contained perforation/abscess measuring 3.9 cm x 2.6 cm x 3.2 cm along the anterior wall of the hepatic flexure. Gastroenterology follow-up is suggested to exclude a colonic neoplasm. MICROBIOLOGY: BCx NG at 24 hours Abscess aerobic cx: Strep angionosus Abscess anaerobic cx: Klebsiella ASSESSMENT: 59 year old female with PMHx of diabetes mellitus, HTN, epilepsy, diverticulitis, and medical noncompliance presents with 3 month history of abdominal pain and diarrhea and 1 week history of fatigue, shortness of breath, and weakness, found to have acute diverticulitis with intra-abdominal abscess, transverse colonic obstructing mass with GIB and symptomatic anemia, now POD3 s/p robotic-assisted laparoscopic right colectomy 05/21/[address] Mosher. PLAN: Transverse colon mass, likely malignancy and cause of GI bleed as was ulcerated, partially obstructing s/p robotic-assisted laparoscopic right colectomy 05/21/[address] Mosher. -Please see report from GI Colonoscopy above and in chart -Pathology pending. -Advance to consistent carb diet -Discussed case with Dr. Canela, heme/onc. CT chest with contrast above, CT abd/pelvis with contrast already done. At time of discharge, patient can follow up in their clinic for further treatment. Sent patient's name and to provider as requested. -CEA elevated -POD4 s/p robotic-assisted laparoscopic right colectomy 05/21/[address] Mosher. -PRN zofran and promethazine for postop N/V -Pain management per surgical team with PRN oxy IR for severe pain and PRN tramadol for moderate pain Leukocytosis post op: now improving -s/p 7d of levaquin, will switch to cipro to complete a 14d course, day 8 of abx -monitor for fevers or ketty sepsis at which point may re-image abdomen/pelvis, BCx LAURITA: resolved -monitor I/Os -held ACEi, toradol -s/p gentle fluids -monitor daily BMP HTN -10mg amlodipine, coreg 12.5 BID -Held ACEi in the setting of recent postop LAURITA Symptomatic anemia 2/2 GI bleed from transverse colon mass: stable H/H -s/p 5 U PRBC total, last 05/17/20 -H/H improved and remains stable -Occult blood was positive -Monitor CBC daily, transfuse PRN. -Surgery consulted to deal with ulcerating mass Acute diverticulitis with perforation/abscess + for Strep angionosus, Klebsiella -Abscess drainage by IR on 05/13/20. CXs (aerobic and anerobic) growing Strep angionosus and Klebsiella -WBC wnl, afebrile, abdominal pain improved -s/p 7d of IV levofloxacin,switched to cipro PO to complete a 14d course given also recent colectomy with postop leukocytosis Low O2 saturation, r/o CHF with pulm vascular congestion seen on CT chest: resolved -Currently 97% on RA, no increased SOB currently -Improved with incorporation of diuretic, diuresis -BNP 400's -Lasix 40g PO daily i/s/o recent fluids zak-op Diabetes mellitus -C/w ISS. Not on home medications Epilepsy - not currently on any medications - no current concern for seizure activity. Will need outpatient follow up with PCP/neurology DVT prophylaxis: teds and scds DISPOSITION: POD4 s/probotic-assisted laparoscopic right colectomy 05/21/[address] Mosher. Oncology to see o/p. Patient is hopeful for discharge home after hospital stay. VS,Fishbone, I+O VS, Fishbone, I+O Laboratory Tests 05/25/20 05:54 Vital Signs Date Time Temp Pulse Resp B/P (MAP) Pulse Ox O2 Delivery O2 Flow Rate FiO2 05/25/20 06:44 18 05/25/20 04:00 96.7 101 119/69 (86) 91 Nasal Cannula 2.0 I&O- Last 24 Hours up to 6 AM 05/25/20 06:00 Intake Total 1252 ml Output Total 0 ml Balance 1252 ml LUCRECIA BRAND MD May 25, 2020 07:52
--- NOTE | 2020-05-25 10:30 | IPNPDOC ---
Text Note Date of Service The patient was seen on 05/25/20. NOTE Pt was seen and examined this am. She is passing flatus and is having some small BMs. Nurses report that she is very sedentary. Tolerating current diet. VSSAF NAD abd - soft, slight tenderness to palpation diffuse, no rebound or guarding labs - below A) Transverse colon obstructing mass Status post robotic-assisted laparoscopic right colectomy 05/21/20 P) Surgical pathology pending. Continue pain control advance diet to regular ambulate in halls IS possible d/c home tomorrow Hayes Real DO VS,Fishbone, I+O VS, Fishbone, I+O Laboratory Tests 05/25/20 05:54 Vital Signs Date Time Temp Pulse Resp B/P (MAP) Pulse Ox O2 Delivery O2 Flow Rate FiO2 05/25/20 08:25 102 139/72 05/25/20 08:00 98.5 18 92 Nasal Cannula 2.0 I&O- Last 24 Hours up to 6 AM 05/25/20 06:00 Intake Total 1252 ml Output Total 0 ml Balance 1252 ml LUCIA REAL DO May 25, 2020 10:30
[2020-05-25] MEDS: ACETAMINOPHEN TAB 650MG DOSE (2X325MG) PO PRN (14:47)
[2020-05-26] MEDS: CIPROFLOXACIN 500MG TABLET PO SCH ×2 (05:52→18:06)
[2020-05-26] MEDS: SLF 3 ML SYR IV SCH ×3 (05:52→20:45)
[2020-05-26 06:00] VITALS: BP 122/89
[2020-05-26 06:51] LABS: HEMATOCRIT 29.1 % (36.0-47.0); HEMOGLOBIN 8.6 g/dl (12.0-15.5); MEAN CORPUSCULAR HEMOGLOBIN 22.8 pg (27.0-33.0); MEAN CORPUSCULAR HGB CONC 29.6 g/dl (32.0-36.5); MEAN CORPUSCULAR VOLUME 77.2 fl (80.0-96.0); PLATELET COUNT, AUTOMATED 353 10^3/uL (150-450); RED BLOOD COUNT 3.77 10^6/uL (4.00-5.40)
[2020-05-26 07:15] LABS: ALBUMIN 2.1 GM/DL (3.2-5.2); ALT/SGPT 17 U/L (12-78); BILIRUBIN,TOTAL 0.8 MG/DL (0.2-1.0); BLOOD UREA NITROGEN 26 MG/DL (7-18); CALCIUM LEVEL 8.1 MG/DL (8.8-10.2); CARBON DIOXIDE LEVEL 25 MEQ/L (21-32); CHLORIDE LEVEL 102 MEQ/L (98-107); CREATININE FOR GFR 0.94 MG/DL (0.55-1.30); GLOMERULAR FILTRATION RATE > 60.0 (>45); GLUCOSE, FASTING 187 MG/DL (70-100); POTASSIUM SERUM 3.8 MEQ/L (3.5-5.1); SODIUM LEVEL 137 MEQ/L (136-145); TOTAL PROTEIN 5.8 GM/DL (6.4-8.2)
[2020-05-26] MEDS ORDERED: ONDA4TAB6 PO (08:37)
[2020-05-26] MEDS ORDERED: FLAG500T PO (08:37)
[2020-05-26] MEDS ORDERED: AMLO1TAB25 PO (08:37)
[2020-05-26] MEDS ORDERED: PANT40TA29 PO (08:37)
[2020-05-26] MEDS ORDERED: CIPR-249 PO (08:37)
[2020-05-26] MEDS ORDERED: OXYC-517 PO (08:37)
[2020-05-26] MEDS ORDERED: FURO20TA2 PO (08:37)
[2020-05-26] MEDS ORDERED: CARV12.5 PO (08:37)
--- NOTE | 2020-05-26 09:16 | IPNPDOC ---
Text Note Date of Service The patient was seen on 05/26/20. NOTE General Surgery Dr Mosher. 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 Status post robotic-assisted laparoscopic right colectomy 05/21/[address] Mosher. This morning, the patient is out of bed to the bathroom, and sitting on the side of the bed. Reports flatus and having small bowel movements. Tolerating regular diet. Denies nausea or vomiting. Afebrile. VSS Gen. The patient is sitting on the side of the bed. Alert and oriented. Abdomen. Protuberant, Soft, nondistended. There is some tenderness noted around the surgical sites, but no guarding or rebound. Surgical sites clean dry and intact, no surrounding erythema, no drainage. Extremities well-perfused with no edema. 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 Status post robotic-assisted laparoscopic right colectomy 05/21/[address] Mosher. Leukocytosis with continued downward trend. Surgical pathology pending. Pt is being arranged to follow up with oncology, Dr. Canela, after discharge. Tolerating regular diet. Continue to encourage ambulation and out of bed. VS,Fishbone, I+O VS, Fishbone, I+O Laboratory Tests 05/26/20 05:43 Vital Signs Date Time Temp Pulse Resp B/P (MAP) Pulse Ox O2 Delivery O2 Flow Rate FiO2 05/26/20 06:00 97.6 95 16 122/89 (100) 93 Room Air 05/25/20 21:42 1.0 I&O- Last 24 Hours up to 6 AM 05/26/20 06:00 Intake Total 1596 ml Output Total 400 ml Balance 1196 ml Rosalia Mckeon May 26, 2020 09:16
[2020-05-26] MEDS: HumaLOG INSULIN (NovoLOG) PER UNIT SC SCH ×4 (09:34→20:36)
[2020-05-26] MEDS: FUROSEMIDE 40 MG TAB PO SCH (09:35)
[2020-05-26] MEDS: guaiFENesin ER 600 MG TAB PO SCH ×2 (09:36→20:44)
[2020-05-26] MEDS: CARVedilol 12.5 MG TAB PO SCH ×2 (09:36→20:45)
[2020-05-26] MEDS: BENZOCAINE 10% 9GM TUBE (ANBESOL) MT SCH ×2 (09:37→13:39)
--- NOTE | 2020-05-26 11:53 | IPNPDOC ---
Text Note Date of Service The patient was seen on 05/26/20. NOTE Subjective: -Abdominal pain is well controlled at this time -Tolerating regular diet, had BM yesterday -Encouraged ambulation Objective: VITAL SIGNS: Please see below GENERAL: NAD, morbidly obese HEENT: Normocephalic, atraumatic, PERRLA, EOMI, moist mucous membranes NECK: Supple, trachea midline CARDIOVASCULAR: Regular rate and rhythm, normal S1 and S2. No murmurs, rubs, or gallops RESPIRATORY: Clear to auscultation bilaterally with equal air entry bilaterally. No wheezing, rhonchi, or rales. ABDOMEN: obese, TTP, soft, normoactive bowel sounds, no rigidity, or guarding, incisions are c/d/i, no drainage or surrounding erythema EXTREMITIES: No cyanosis or edema. Pulses 2+/4 in bilateral upper and lower extremities NEUROLOGIC: Alert and oriented x3 to person, place and time. No focal deficits appreciated PSYCHIATRIC: Mood and affect appropriate LABORATORY DATA: Reviewed IMAGING: CT chest: 1. Findings described above most compatible with pulmonary vascular congestion/interstitial edema versus fluid overload. 2. No obvious nodule or mass lesion. However, subtle small lesions may be obscured on current examination. Colonoscopy 05/16/20: - Likely malignant completely obstructing tumor in the transverse colon. Biopsied. - Stricture in the transverse colon. - One 15 mm polyp in the distal transverse colon. Injected. - Moderate diverticulosis from sigmoid to descending colon. There was no evidence of diverticular bleeding. - Non-bleeding external and internal hemorrhoids. EGD 05/16/20: - Normal esophagus. - Gastritis. Biopsied. - Normal duodenal bulb and second portion of the duodenum. CT abdomen/pelvis: Evidence for diverticulitis involving the proximal to mid transverse colon, with a focal contained perforation/abscess measuring 3.9 cm x 2.6 cm x 3.2 cm along the anterior wall of the hepatic flexure. Gastroenterology follow-up is suggested to exclude a colonic neoplasm. MICROBIOLOGY: BCx NG at 24 hours Abscess aerobic cx: Strep angionosus Abscess anaerobic cx: Klebsiella ASSESSMENT: 59 year old female with PMHx of diabetes mellitus, HTN, epilepsy, diverticulitis, and medical noncompliance presents with 3 month history of abdominal pain and diarrhea and 1 week history of fatigue, shortness of breath, and weakness, found to have acute diverticulitis with intra-abdominal abscess, transverse colonic obstructing mass with GIB and symptomatic anemia, now POD3 s/p robotic-assisted laparoscopic right colectomy 05/21/[address] Mosher. PLAN: Transverse colon mass, likely malignancy and cause of GI bleed as was ulcerated, partially obstructing s/p robotic-assisted laparoscopic right colectomy 05/21/[address] Mosher. -Please see report from GI Colonoscopy above and in chart -Pathology showing mod differentiated adenoCA. -Consistent carb diet -Discussed case with Dr. Canela, heme/onc. CT chest with contrast above, CT abd/pelvis with contrast already done. At time of discharge, patient can follow up in their clinic for further treatment. Sent patient's name and to provider as requested. -CEA elevated -POD5 s/p robotic-assisted laparoscopic right colectomy 05/21/[address] Mosher. -PRN zofran and promethazine for postop N/V -Pain management per surgical team with PRN oxy IR for severe pain and PRN tramadol for moderate pain Leukocytosis post op: now improving -s/p 7d of levaquin, cont cipro/flagyl to complete a 14d course, day 9 of abx. also with PPI for Hpylori tx. -monitor for fevers or ketty sepsis at which point may re-image abdomen/pelvis, BCx LAURITA: resolved -monitor I/Os -held ACEi, toradol -s/p gentle fluids -monitor daily BMP HTN -10mg amlodipine, coreg 12.5 BID -Held ACEi in the setting of recent postop LAURITA Symptomatic anemia 2/2 GI bleed from transverse colon mass: stable H/H -s/p 5 U PRBC total, last 05/17/20 -H/H improved and remains stable -Occult blood was positive -Monitor CBC daily, transfuse PRN. -Surgery consulted to deal with ulcerating mass Acute diverticulitis with perforation/abscess + for Strep angionosus, Klebsiella -Abscess drainage by IR on 05/13/20. CXs (aerobic and anerobic) growing Strep angionosus and Klebsiella -WBC wnl, afebrile, abdominal pain improved -s/p 7d of IV levofloxacin,switched to cipro PO to complete a 14d course given also recent colectomy with postop leukocytosis Low O2 saturation, r/o CHF with pulm vascular congestion seen on CT chest: resolved -Currently 97% on RA, no increased SOB currently -Improved with incorporation of diuretic, diuresis -BNP 400's -Lasix 40g PO daily i/s/o recent fluids zak-op Diabetes mellitus -C/w ISS. Not on home medications Epilepsy - not currently on any medications - no current concern for seizure activity. Will need outpatient follow up with PCP/neurology DVT prophylaxis: teds and scds DISPOSITION: POD5 s/probotic-assisted laparoscopic right colectomy 05/21/[address] Mosher. Oncology to see o/p. Medically cleared for discharge, now pending final PT/OT recs for home vs. rehab. VS,Fishbone, I+O VS, Fishbone, I+O Laboratory Tests 05/26/20 05:43 Vital Signs Date Time Temp Pulse Resp B/P (MAP) Pulse Ox O2 Delivery O2 Flow Rate FiO2 05/26/20 09:36 99 141/84 05/26/20 06:00 97.6 16 93 Room Air 05/25/20 21:42 1.0 I&O- Last 24 Hours up to 6 AM 05/26/20 05:59 Intake Total 1596 ml Output Total 200 ml Balance 1396 ml LUCRECIA BRAND MD May 26, 2020 11:53
[2020-05-26 14:00] VITALS: BP 119/68
[2020-05-26] MEDS: traMADol 50 MG TAB PO PRN (20:44)
[2020-05-26 22:00] VITALS: BP 143/85
[2020-05-27] MEDS: SLF 3 ML SYR IV SCH (05:13)
[2020-05-27] MEDS: CIPROFLOXACIN 500MG TABLET PO SCH ×2 (05:13→17:21)
[2020-05-27 06:00] VITALS: BP 146/81
[2020-05-27 06:17] LABS: HEMATOCRIT 29.1 % (36.0-47.0); HEMOGLOBIN 8.6 g/dl (12.0-15.5); MEAN CORPUSCULAR HEMOGLOBIN 22.7 pg (27.0-33.0); MEAN CORPUSCULAR HGB CONC 29.6 g/dl (32.0-36.5); MEAN CORPUSCULAR VOLUME 76.8 fl (80.0-96.0); PLATELET COUNT, AUTOMATED 313 10^3/uL (150-450); RED BLOOD COUNT 3.79 10^6/uL (4.00-5.40); WHITE BLOOD COUNT 10.2 10^3/uL (4.0-10.0)
[2020-05-27 06:43] LABS: ALBUMIN 2.1 GM/DL (3.2-5.2); ALT/SGPT 19 U/L (12-78); BILIRUBIN,TOTAL 0.8 MG/DL (0.2-1.0); BLOOD UREA NITROGEN 26 MG/DL (7-18); CALCIUM LEVEL 8.2 MG/DL (8.8-10.2); CARBON DIOXIDE LEVEL 22 MEQ/L (21-32); CHLORIDE LEVEL 104 MEQ/L (98-107); CREATININE FOR GFR 0.87 MG/DL (0.55-1.30); GLOMERULAR FILTRATION RATE > 60.0 (>45); GLUCOSE, FASTING 191 MG/DL (70-100); POTASSIUM SERUM 4.1 MEQ/L (3.5-5.1); SODIUM LEVEL 137 MEQ/L (136-145); TOTAL PROTEIN 5.9 GM/DL (6.4-8.2)
[2020-05-27] MEDS: HumaLOG INSULIN (NovoLOG) PER UNIT SC SCH ×4 (08:06→20:04)
[2020-05-27] MEDS: FUROSEMIDE 40 MG TAB PO SCH (08:06)
[2020-05-27] MEDS: guaiFENesin ER 600 MG TAB PO SCH ×2 (08:06→20:08)
[2020-05-27] MEDS: CARVedilol 12.5 MG TAB PO SCH ×2 (08:08→20:08)
--- NOTE | 2020-05-27 09:05 | IPNPDOC ---
Text Note Date of Service The patient was seen on 05/27/20. NOTE General Surgery Dr Mosher. 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 Status post robotic-assisted laparoscopic right colectomy 05/21/[address] Mosher. Reports flatus and 5 BM documented yesterday. Tolerating regular diet. Denies nausea or vomiting. Afebrile. VSS Gen. The patient is sitting on the side of the bed. Alert and oriented. Abdomen. Protuberant, Soft, nondistended. There is some tenderness noted around the surgical sites, but no guarding or rebound. Surgical sites clean dry and intact, no surrounding erythema, no drainage. Small area of ecchymosis mid left abdomen, unchanged. Extremities well-perfused with no edema. WBC 10.2, continued downward trend Hemoglobin 8.6, stable Assessment/plan Transverse colon obstructing mass, pathology from colonoscopy 05/19/20 indicates moderately differentiated adenocarcinoma. Status post robotic-assisted laparoscopic right colectomy 05/21/[address] Mosher. Leukocytosis with continued downward trend. Surgical pathology pending. Pt is being arranged to follow up with oncology, Dr. Canela, after discharge. Tolerating regular diet. Possible ARU today. Continue to encourage ambulation and out of bed. VS,Fishbone, I+O VS, Fishbone, I+O Laboratory Tests 05/27/20 06:02 Vital Signs Date Time Temp Pulse Resp B/P (MAP) Pulse Ox O2 Delivery O2 Flow Rate FiO2 05/27/20 08:08 88 121/72 05/27/20 06:00 97.8 18 94 Room Air 05/25/20 21:42 1.0 I&O- Last 24 Hours up to 6 AM 05/27/20 05:59 Intake Total 620 ml Output Total 1300 ml Balance -680 ml Rosalia Mckeon May 27, 2020 09:05
[2020-05-27] MEDS: traMADol 50 MG TAB PO PRN (12:31)
--- NOTE | 2020-05-27 16:09 | IPNPDOC ---
Subjective Date Seen The patient was seen on 05/27/20. Subjective Chief Complaint/HPI Mrs. Westbrook is a 59 year old transgender female who presents with abdominal pain and found to have acute GI bleeding 2/2 to ulcerating transverse colonic mass (adenocarcinoma) s/p resection by Gen Surg (Dr. Mosher) on 05/21/2020 and acute diverticulitis with intra-abdominal abscess s/p drainaged by IR on 05/13/2020. This morning, she denies any chest pain or dyspnea. Pending insurance approval for ARU Objective Physical Examination General Exam: Positive: Alert, Cooperative Eye Exam: Positive: EOMI; Negative: Sclera icteric Neck Exam: Positive: Supple Chest Exam: Positive: Clear to auscultation Abdomen Exam: Positive: Normal bowel sounds, Soft, Other (obese) Extremity Exam: Negative: Edema Neuro Exam: Positive: Normal Speech Psych Exam: Positive: Mental status NL, Mood NL Assessment /Plan Assessment Mrs. Westbrook is a 59 year old transgender female who presents with abdominal pain and found to have acute GI bleeding 2/2 to ulcerating transverse colonic mass (adenocarcinoma) s/p resection by Gen Surg (Dr. Mosher) on 05/21/2020 and acute diverticulitis with intra-abdominal abscess s/p drainaged by IR on 05/13/2020. Patient to follow up with oncology outpatient. Otherwise, continues on ciprofloxacin for acute diverticulitis with abscess (grew Strep angionosus and Klebsiella) for a total of 14 day course. Pending insurance and possibly ARU Plan/VTE VTE Prophylaxis Ordered?: Yes Plan 1. Acute GI bleed -2/2 to ulcerated transverse colonic mass s/p robotic assisted laparoscopic right colectomy by Dr. Mosher on 05/21/2020 -Demonstrated adenocarcinoma. -s/p 5 units of blood -Continue to monitor H&H and transfuse as needed 2. Adenocarcinoma of the transverse colon -Patient to follow up outpatient with Dr. Canela 3. Acute diverticulitis with abscess -IR drainage on 05/13/2020 -Culture grew Strep angionosus and Klebsiella -Continue ciprofloxacin for a total antibiotic course of 14 days 4. Acute kidney injury -Resolved 5. Hypertension -Controlled -Continue carvedilol and amlodipine 6. Diabetes mellitus -Sliding scale insulin -Carbohydrate consistent diet 7. Epilepsy -Will need to follow up outpatient with PCP/neurology 8. DVT ppx -SCD and TEDs Disposition: Pending PT/OT/ARU VS, I&O, 24H, Fishbone Vital Signs/I&O Vital Signs Date Time Temp Pulse Resp B/P (MAP) Pulse Ox O2 Delivery O2 Flow Rate FiO2 05/27/20 13:01 16 05/27/20 08:08 88 121/72 05/27/20 06:00 97.8 94 Room Air 05/25/20 21:42 1.0 I&O- Last 24 Hours up to 6 AM 05/27/20 06:00 Intake Total 720 ml Output Total 1100 ml Balance -380 ml Laboratory Data 24H LABS Laboratory Tests 2 05/26/20 16:51: Bedside Glucose (Misc Panel) 193H 05/26/20 20:27: Bedside Glucose (Misc Panel) 218H 05/27/20 06:02: Nucleated Red Blood Cells % (auto) 0.0, Anion Gap 11, Glomerular Filtration Rate > 60.0, Calcium Level 8.2L, Total Bilirubin 0.8, Aspartate Amino Transf (AST/SGOT) 22, Alanine Aminotransferase (ALT/SGPT) 19, Alkaline Phosphatase 109, Total Protein 5.9L, Albumin 2.1L, Albumin/Globulin Ratio 0.6L 05/27/20 11:58: Bedside Glucose (Misc Panel) 225H CBC/BMP Laboratory Tests 05/27/20 06:02 RAJAN MAO DO May 27, 2020 15:50
[2020-05-27 22:00] VITALS: BP 106/46
[2020-05-28] MEDS: CIPROFLOXACIN 500MG TABLET PO SCH (05:55)
[2020-05-28 06:00] VITALS: BP 136/54
[2020-05-28 06:05] LABS: HEMATOCRIT 28.2 % (36.0-47.0); HEMOGLOBIN 8.3 g/dl (12.0-15.5); MEAN CORPUSCULAR HEMOGLOBIN 22.7 pg (27.0-33.0); MEAN CORPUSCULAR HGB CONC 29.4 g/dl (32.0-36.5); MEAN CORPUSCULAR VOLUME 77.3 fl (80.0-96.0); PLATELET COUNT, AUTOMATED 319 10^3/uL (150-450); RED BLOOD COUNT 3.65 10^6/uL (4.00-5.40); WHITE BLOOD COUNT 9.6 10^3/uL (4.0-10.0)
[2020-05-28 06:27] LABS: BLOOD UREA NITROGEN 21 MG/DL (7-18); CARBON DIOXIDE LEVEL 24 MEQ/L (21-32); CHLORIDE LEVEL 104 MEQ/L (98-107); CREATININE FOR GFR 0.79 MG/DL (0.55-1.30); GLOMERULAR FILTRATION RATE > 60.0 (>45); GLUCOSE, FASTING 169 MG/DL (70-100); SODIUM LEVEL 137 MEQ/L (136-145)
[2020-05-28] MEDS: guaiFENesin ER 600 MG TAB PO SCH (09:00)
[2020-05-28] MEDS: FUROSEMIDE 40 MG TAB PO SCH (09:17)
[2020-05-28] MEDS: HumaLOG INSULIN (NovoLOG) PER UNIT SC SCH (09:18)
[2020-05-28 09:19] VITALS: BP 154/81
[2020-05-28] MEDS: CARVedilol 12.5 MG TAB PO SCH (09:20)
[2020-05-28] MEDS ORDERED: INSUHUMDS SC ×2 (10:11)
[2020-05-28] MEDS ORDERED: FERR325T16 PO (10:25)
--- NOTE | 2020-05-28 22:39 | DS.PDOC ---
Discharge Summary General Date of Admission May 13, 2020 at 00:34 Date of Discharge May 28, 2020 Specialist/Consultants Involve General Surgery, Dr. Mosher and Dr. Real GI, Dr. Coy Discharge Summary PROCEDURES PERFORMED DURING STAY: 1. IR intraabdominal abscess drainage on 05/13/20 2. EGD and colonoscopy on 05/16/20 3. Robotic assisted laparoscopic extended R colectomy and small bowel resection on 05/21/20 ADMITTING DIAGNOSES: 1. Acute diverticulitis with contained perforation with intra-abdominal abscess 2. Acute blood loss anemia 2/2 lower GI bleed 3. Diabetes mellitus 4. Hypertension 5. Epilepsy DISCHARGE DIAGNOSES: 1. Acute diverticulitis with contained perforation with intra-abdominal abscess 2. Acute blood loss anemia 2/2 lower GI bleed 3. Adenocarcinoma of the transverse 4. Acute kidney injury 5. Hypertension 6. Diabetes mellitus 7. Epilepsy 8. H.pylori gastritis COMPLICATIONS/CHIEF COMPLAINT: Diverticuitis Of [place] W/Abscess And Bleeding. HISTORY OF PRESENT ILLNESS: Mrs. Westbrook is a 59 year old transgender female who presents with 3 month history of abdominal pain and diarrhea. About 3 months ago, she suddenly developed mid abdominal pain. Pain is a constant 10/10. Denies any changes with food or BM. Denies radiation of pain. She reports having diarrhea consisting of yellow liquid. Otherwise, over the past week, she had generalized weakness with dyspnea and fatigue. In the ED, she was found to have acute diverticulitis with contained perforation with abscess and anemia of 5.3. HOSPITAL COURSE: Patient was transfused a total of 5u of pRBC and has not needed another transfusion since 05/17/2020. IR was consulted on 05/13/2020 for drainage of abscess. Cultures grew Strep angionosus and Klebsiella pneumonia. Antibiotic therapy was targeted to these organisms. On 05/16/2020, GI was consulted for EGD and colonoscopy. EGD discovered H.pylori gastritis and moderately differentiated colon adenocarcinoma. On 05/21/2020, General surgery took patient to the OR for robotic assisted laparoscopic extended right colectomy and enloc small bowel resection. Patient is to establish care with oncology outpatient. Otherwise, this morning she felt well. Denies chest pain, dyspnea, or abdominal pain. She felt ready for rehabilitation and subsequently discharged to [facility]. She was sent with a course of ciprofloxacin, metronidazole, and PPI for continued treatment of H.pylori gastritis DISCHARGE MEDICATIONS: Please see below. ALLERGIES: Please see below. PHYSICAL EXAMINATION ON DISCHARGE: VITAL SIGNS: Please see below. GENERAL: Comfortable, in no apparent distress HEENT: Head normocephalic, atraumatic NECK: Supple CARDIOVASCULAR EXAMINATION: Regular rate and rhythm RESPIRATORY EXAMINATION: Lungs clear to auscultation bilaterally ABDOMINAL EXAMINATION: Soft, obese, normal bowel sounds EXTREMITIES: No pitting edema bilaterally SKIN: Warm and dry NEUROLOGICAL EXAMINATION: CN 3-12 grossly intact PSYCHIATRIC EXAMINATION: Normal mood and affect LABORATORY DATA: Please see below. IMAGING: Radiologist interpretation CT abd/pelvis with IV contrast only Evidence for diverticulitis involving the proximal to mid transverse colon, with a focal contained perforation/abscess measuring 3.9 cm x 2.6 cm x 3.2 cm along the anterior wall of the hepatic flexure. Gastroenterology follow-up is suggested to exclude a colonic neoplasm. CT abscess drainage CT-guided abdominal abscess drain yielding 5 cc of proteinaceous fluid. CT chest with contrast 1. Findings described above most compatible with pulmonary vascular congestion/interstitial edema versus fluid overload. 2. No obvious nodule or mass lesion. However, subtle small lesions may be obscured on current examination. PROGNOSIS: Good ACTIVITY: As tolerated. DIET: Consistent carbohydrate and 2gm sodium DISCHARGE PLAN: [facility] DISPOSITION: [facility]. DISCHARGE INSTRUCTIONS: 1. Follow up with PCP in 1 to 2 weeks 2. Follow up with General surgery in 1 to 2 weeks 3. Have PCP send oncology referral DISCHARGE CONDITION: Stable. Total time spent on discharge planning, discharge summary, and medication reconciliation: 55 minutes Vital Signs/I&Os Vital Signs Date Time Temp Pulse Resp B/P (MAP) Pulse Ox O2 Delivery O2 Flow Rate FiO2 05/28/20 09:20 93 05/28/20 09:19 154/81 05/28/20 06:00 98.4 18 93 Room Air 05/25/20 21:42 1.0 I&O- Last 24 Hours up to 6 AM 05/28/20 06:00 Intake Total 2020 ml Output Total 1950 ml Balance 70 ml Laboratory Data Labs 24H Laboratory Tests 2 05/28/20 05:48: Nucleated Red Blood Cells % (auto) 0.0, Anion Gap 9, Glomerular Filtration Rate > 60.0, Calcium Level 8.0L 05/28/20 10:30: Coronavirus (COVID-19)(PCR) NEGATIVE CBC/BMP Laboratory Tests 05/28/20 05:48 Discharge Medications Scheduled Amlodipine Besylate (Amlodipine Besylate) 10 Mg Tablet, 10 MG PO DAILY Carvedilol (Carvedilol) 12.5 Mg Tablet, 12.5 MG PO BID Ciprofloxacin HCl (Cipro) 500 Mg Tablet, 500 MG PO BID@06,18 Ferrous Gluconate (Ferrous Gluconate) 324 Mg Tablet, 1 TAB PO DAILY@1200 for iron Furosemide (Furosemide) 20 Mg Tablet, 1 TAB PO DAILY Insulin Human Lispro (Humalog) 100 Unit/1 Ml Vial, 0 UNITS SC AC Per sliding scale Insulin Human Lispro (Humalog) 100 Unit/1 Ml Vial, 0 UNITS SC QHS Per sliding scale Metronidazole (Flagyl) 500 Mg Tablet, 500 MG PO Q8H FOR 10 DAYS Pantoprazole Sodium (Pantoprazole Sodium) 40 Mg Tablet.dr, 1 TAB PO DAILY Scheduled PRN Ondansetron (Ondansetron Odt) 4 Mg Tab.rapdis, 4 MG PO Q6HP PRN for NAUSEA OR VOMITING Oxycodone HCl (Oxycodone HCl) 5 Mg Tablet, 5 MG PO Q4HP PRN for MODERATE/SEVERE PAIN (PS 5-10) Allergies Coded Allergies: Cephalosporins (Verified Allergy, Mild, 05/12/20) codeine (Verified Adverse Reaction, Mild, VOMITTING, 05/13/20) RAJAN MAO DO May 28, 2020 22:39
== END 2020-05-28 12:17 | DRG 330 ==
LOC: M ED 21:43 → M ED INP 05-13 00:34 → ENRESERV 05-13 01:50 → M PCU 05-13 01:55 → M MSPAV 05-25 17:11
PROVIDERS: ADMIT General Practice; ATTEND Internal Medicine
PROC: 0W9G3ZZ Drainage of Peritoneal Cavity, Percutaneous Approach (ICD-10-PCS; 2020-05-13)
PROC: 30233N1 Transfusion of Nonautologous Red Blood Cells into Peripheral Vein, Percutaneous Approach (ICD-10-PCS; 2020-05-13)
PROC: 0DBL4ZZ Excision of Transverse Colon, Percutaneous Endoscopic Approach (ICD-10-PCS; 2020-05-16)
PROC: 0DB68ZX Excision of Stomach, Via Natural or Artificial Opening Endoscopic, Diagnostic (ICD-10-PCS; 2020-05-16)
PROC: 0DB84ZZ Excision of Small Intestine, Percutaneous Endoscopic Approach (ICD-10-PCS; 2020-05-21)
PROC: 0DBL8ZX Excision of Transverse Colon, Via Natural or Artificial Opening Endoscopic, Diagnostic (ICD-10-PCS; 2020-05-21)
PROC: 8E0W4CZ Robotic Assisted Procedure of Trunk Region, Percutaneous Endoscopic Approach (ICD-10-PCS; 2020-05-21)
PROC: 0DTK4ZZ Resection of Ascending Colon, Percutaneous Endoscopic Approach (ICD-10-PCS; principal; 2020-05-21 14:45)
DX: C18.4 Malignant neoplasm of transverse colon (principal); D62 Acute posthemorrhagic anemia; Z68.42 Body mass index [BMI] 45.0-49.9, adult; K57.20 Diverticulitis of large intestine with perforation and abscess without bleeding; K92.2 Gastrointestinal hemorrhage, unspecified; N17.9 Acute kidney failure, unspecified; E11.9 Type 2 diabetes mellitus without complications; I10 Essential (primary) hypertension; G40.909 Epilepsy, unspecified, not intractable, without status epilepticus; E66.9 Obesity, unspecified; K29.70 Gastritis, unspecified, without bleeding; B96.1 Klebsiella pneumoniae [K. pneumoniae] as the cause of diseases classified elsewhere; Z79.899 Other long term (current) drug therapy; Z79.4 Long term (current) use of insulin; Z88.8 Allergy status to other drugs, medicaments and biological substances; Z91.19 Patient's noncompliance with other medical treatment and regimen; K63.5 Polyp of colon; K64.8 Other hemorrhoids; D72.829 Elevated white blood cell count, unspecified

== ENCOUNTER 2020-06-04 21:09 | Inpatient (IN) | payer MEDICARE, MEDICAID ==
[~2020-06-04] VITALS: Ht 175.3 cm; Wt 141.1 kg
[~2020-06-04 21:09] MED LIST changes: +AMLO1TAB25 PO; +BASA100I SC; +CAPE1TAB2 PO; +CARV12.5 PO; +CIPR-249 PO; +FERR325T16 PO; +FLAG500T PO; +FURO20TA2 PO; +INSUHUMDS SC; +MIRA3350 PO; +NEUR100C PO; +ONDA4TAB6 PO; +ONDA8TAB8 PO; +OXYC-517 PO; +PANT40TA29 PO; +PROC10TA4 PO
[2020-06-04] MEDS ORDERED: NS 1,000 ML IV ONE (22:05)
[2020-06-04] MEDS ORDERED: ONDANSETRON 4MG/2ML VIAL IV ONE (22:05)
[2020-06-04] MEDS ORDERED: KETOROLAC 30 MG/ML 1ML VIAL IV ONE (22:05)
[2020-06-04 22:42] LABS: BASO # 0.1 10^3/uL (0.0-0.2); BASO % 0.5 % (0.0-1.0); EOS # 0.1 10^3/uL (0.0-0.5); EOS % 0.4 % (0.0-3.0); HEMATOCRIT 36.3 % (36.0-47.0); HEMOGLOBIN 10.4 g/dl (12.0-15.5); LYMPH # 0.7 10^3/uL (1.5-5.0); MEAN CORPUSCULAR HEMOGLOBIN 22.3 pg (27.0-33.0); MEAN CORPUSCULAR HGB CONC 28.7 g/dl (32.0-36.5); MEAN CORPUSCULAR VOLUME 77.7 fl (80.0-96.0); MONO # 0.9 10^3/uL (0.0-0.8); MONO % 5.3 % (2.0-8.0); NEUTROPHILS # 15.7 10^3/uL (1.5-8.5); NEUTROPHILS % 89.2 % (36.0-66.0); PLATELET COUNT, AUTOMATED 468 10^3/uL (150-450); RED BLOOD COUNT 4.67 10^6/uL (4.00-5.40); WHITE BLOOD COUNT 17.6 10^3/uL (4.0-10.0)
[2020-06-04] MEDS ORDERED: ISOVUE-370 76% 100ML VIAL As Ordered ONE (23:12)
[2020-06-04 23:15] LABS: ALBUMIN 3.1 GM/DL (3.2-5.2); ALT/SGPT 17 U/L (12-78); BILIRUBIN,DIRECT 0.2 MG/DL (0.0-0.2); BILIRUBIN,TOTAL 0.6 MG/DL (0.2-1.0); BLOOD UREA NITROGEN 10 MG/DL (7-18); CALCIUM LEVEL 8.6 MG/DL (8.8-10.2); CARBON DIOXIDE LEVEL 28 MEQ/L (21-32); CHLORIDE LEVEL 105 MEQ/L (98-107); CREATININE FOR GFR 0.73 MG/DL (0.55-1.30); GLOMERULAR FILTRATION RATE > 60.0 (>45); GLUCOSE, FASTING 242 MG/DL (70-100); LIPASE 264 U/L (73-393); POTASSIUM SERUM 3.6 MEQ/L (3.5-5.1); SODIUM LEVEL 140 MEQ/L (136-145); TOTAL PROTEIN 7.4 GM/DL (6.4-8.2)
--- NOTE | 2020-06-05 00:29 | REPVR ---
PROCEDURE INFORMATION: Exam: CT Abdomen And Pelvis With Contrast Exam date and time: 06/04/2020 10:01 PM Age: 59 years old Clinical indication: Abdominal pain; Generalized; Prior surgery; Surgery date: 3-7 days post-operative; Surgery type: Abscess drain; Additional info: Mid abd pain/ recent abd abscess TECHNIQUE: Imaging protocol: Computed tomography of the abdomen and pelvis with contrast. Radiation optimization: All CT scans at this facility use at least one of these dose optimization techniques: automated exposure control; mA and/or kV adjustment per patient size (includes targeted exams where dose is matched to clinical indication); or iterative reconstruction. Contrast material: ISO; Contrast volume: 100 ml; Contrast route: INTRAVENOUS (IV); COMPARISON: CT ABD/PEL W/IV CONTRAST ONLY 05/12/2020 11:14 PM FINDINGS: Lungs: Clear appearing lung bases. Heart: There is mild cardiomegaly but no evidence of pericardial effusion. Liver: In normal appearing liver. Gallbladder and bile ducts: The gallbladder is contracted. Pancreas: Normal pancreas. Spleen: Normal spleen. Adrenal glands: Normal adrenal glands. Kidneys and ureters: There is enhancement of the kidneys. There is no evidence of hydronephrosis. The surgical clips are noted in the lower aspect of the abdomen. The skin is severely thickened and edematous which may be the result of cellulitis. Stomach and bowel: There are surgical clips at the transverse colon and the patient has had removal of a large portion of the colon. On the previous CT examination there was severe thickening of portion of the transverse colon with severe surrounding inflammation and this has been surgically removed. There are multiple loops of small bowel demonstrating severe distension with air-fluid levels probably the result of ileus and associated with the abscess in the lower anterior abdominal wall muscle. Intraperitoneal space: No evidence of pneumoperitoneum. Vasculature: I suspect there is a small thrombus within the SMV the. There is opacification of the SMA. Soft tissues: There are bubbles of air in the subcutaneous tissues below the surgical clips. Contiguous with the rectus abdominus muscle on the right is a bilobed fluid collection most consistent with an abscess measuring approximately 8 cm. This has developed postop. There is swelling and loculations of fluid in the lower aspect of the perineum. IMPRESSION: 1. There is severe thickening of the skin anterior abdominal wall very suspicious for cellulitis and at and below the surgical clips. 2. Deep to the surgical clips in the subcutaneous layer are bubbles of air. Within the inferior-most aspect of the anterior abdominal wall muscles is a 8 cm bilobed abscess with a bubble of air. This could also be a serous fluid collection. 3. Severe distention multiple loops of small bowel with air-fluid levels consistent with severe ileus. 4. Swelling and fluid collections within the inferior aspect of the perineum. Electronically signed by: Salvador Munguia On 06/05/2020 00:29:25 AM
[2020-06-05] MEDS ORDERED: PIPERACILLIN/TAZOBACTAM SOD 3.375 GM in D5W MINI-BAG PLUS 50 ML IV ONE (00:50)
[2020-06-05] MEDS ORDERED: FURO20TA2 PO (02:44)
[2020-06-05] MEDS ORDERED: CARV12.5 PO (02:44)
[2020-06-05] MEDS ORDERED: MOM30SS PO (02:44)
[2020-06-05] MEDS ORDERED: FLAG500T PO (02:44)
[2020-06-05] MEDS ORDERED: FERR325T16 PO (02:44)
[2020-06-05] MEDS ORDERED: GABA-1171 PO (02:44)
[2020-06-05] MEDS ORDERED: ACET-907 PO (02:44)
[2020-06-05] MEDS ORDERED: FLEEENE12 PR (02:44)
[2020-06-05] MEDS ORDERED: AMLO10TA PO (02:44)
[2020-06-05] MEDS ORDERED: DICY20TA3 PO (02:44)
[2020-06-05] MEDS ORDERED: MIRA1POW3 PO (02:44)
[2020-06-05] MEDS ORDERED: DULC10SU2 PR (02:44)
[2020-06-05] MEDS ORDERED: PANT40TA29 PO (02:44)
[2020-06-05] MEDS ORDERED: ONDANSETRON 4MG/2ML VIAL IV PRN (06:00)
[2020-06-05] MEDS ORDERED: oxyCODONE 5MG TAB PO PRN (06:00)
[2020-06-05] MEDS ORDERED: ACETAMINOPHEN TAB 650MG DOSE (2X325MG) PO PRN (06:00)
[2020-06-05 07:45] VITALS: BP 140/90
[2020-06-05] MEDS: LR 1,000 ML IV SCH ×3 (08:21→21:45)
[2020-06-05] MEDS: metroNIDAZOLE 500 MG in IV 1 EA IV SCH ×3 (08:21→23:55)
[2020-06-05] MEDS: DOCUSATE SODIUM 100MG CAPSULE PO SCH ×2 (08:21→21:00)
[2020-06-05] MEDS: PANTOPRAZOLE 40MG VIAL (C9113 PER 1) IV SCH (08:21)
--- NOTE | 2020-06-05 09:11 | HPE ---
HISTORY AND PHYSICAL DATE OF ADMISSION: 06/05/2020 ADMITTING DIAGNOSES: 1. Possible small bowel obstruction secondary to adhesions. 2. Abdominal wall fluid collection, possible abscess. HISTORY OF PRESENT ILLNESS: The patient is a 59-year-old woman who had been admitted on the 13 of May with a history of abdominal pain and diarrhea. Evaluation revealed marked anemia as well as evidence for an abscess in the transverse colon. Patient was transfused on admission and subsequently underwent upper and lower endoscopy by gastroenterology. They were discovered to have moderately differentiated adenocarcinoma of the colon. On the 21 of May the patient was taken to the OR by Dr. Mosher who performed a lengthy robotic assisted laparoscopic procedure. This included an extended right hemicolectomy with en bloc resection of some adherent small bowel and re-establishment of bowel continuity. The patient apparently seemed to heal well, but was sent to the [facility] for some subacute rehab. On discharge they were continued on some ciprofloxacin and Flagyl. They had followed up with oncology and the plan is to have adjuvant chemotherapy. The patient was to follow up with Dr. Mosher in the office today, but on the 04 of June the patient developed recurrent episodes of emesis and was transferred from the [facility] to [facility] Emergency Department for evaluation. A CT scan was performed which did reveal some moderately dilated small bowel loops particularly in the left lower quadrant. Also noted was a fluid collection deep within the abdominal wall of the lower abdominal suggestive of an abscess. The patient has an elevated white blood cell count and with this constellation of findings she is now admitted for observation for a possible bowel obstruction and possible drainage of her abdominal wall abscess. ALLERGIES: Reported to: 1. cephalosporins. 2. codeine which leads to vomiting. CURRENT MEDICATIONS: Include: 1. Amlodipine besylate 10 mg by mouth daily. 2. Carvedilol 12.5 mg by mouth twice daily. 3. Ciprofloxacin 500 mg by mouth twice daily. 4. Furosemide 20 mg by mouth daily. 5. Oxycodone 5 mg by mouth every 4 hours as needed for pain. 6. Metronidazole 500 mg by mouth q8h. 7. Pantoprazole 40 mg by mouth daily. 8. Humalog insulin per sliding scale subcutaneously before meals. 9. Ferrous gluconate 1 tablet by mouth daily at noon. 10. Zofran 8 mg rapidly dissolving tablets q12h as needed for nausea and vomiting. 11. Prochlorperazine 10 mg by mouth q6h as needed for nausea or vomiting. 12. Gabapentin 100 mg by mouth twice daily. 13. Gabapentin 100 mg capsules, 200 mg by mouth daily at bedtime. 14. MiraLax p.r.n. for constipation. 15. Insulin glargine 20 units subcutaneously daily. MEDICAL DIAGNOSES: Include: 1. Recent diagnosis of moderately differentiated adenocarcinoma of the colon. 2. Anemia secondary to blood loss from tumor. 3. Diabetes mellitus. 4. Hypertension. 5. Epilepsy. 6. Morbid obesity. 7. Helicobacter pylori gastritis. PAST SURGICAL HISTORY: Significant for: 1. Recent extended right hemicolectomy with resection of a portion of attached small bowel. 2. Hernia repairs times 2. 3. Recent upper and lower endoscopies. SOCIAL HISTORY: Patient is a never smoker and denies any significant alcohol consumption. Patient normally lives at home with her and daughter. FAMILY HISTORY: Significant in that her father was diagnosed with colon cancer in his 50s. REVIEW OF SYSTEMS: No chest pain, palpitations, shortness of breath, wheezing, cough. She denies any dysuria or hematuria. There has been no rectal bleeding and patient reports she has been having regular bowel function. There are no significant bone or joint issues. There is no history of DVT or pulmonary embolus. PHYSICAL EXAMINATION: Exam reveals an obese patient lying quietly on the hospital stretcher. Patient appears slightly pale. The skin is warm and dry. HEENT: Mucous membranes are tachy. Neck: Supple. Heart: Regular rhythm, perhaps 80. Lungs: Clear to auscultation. Abdomen: Quite obese. There are 4 or 5 small incisions closed with surgical queta. There is no significant redness around the incisions. The abdomen is soft, but there is some tenderness on palpation particularly in the lower left part of the abdomen. There are bowel sounds present to auscultation. Lower extremities: Some mild edema of the calves bilaterally and there are palpable radial and pedal pulses bilaterally. LABORATORY DATA: Laboratory studies from the Emergency Department show: White count 18,000, hemoglobin 10, hematocrit 36, platelet count 468,000. Differential count shows 89% neutrophils and 4% lymphocytes with 5 monocytes. Chemistry profile revealed normal electrolytes with a BUN of 10, creatinine 0.7, glucose 242. Lactic acid was 1.7. Liver function tests are normal. Lipase 264. Urinalysis showed specific gravity 1.048 with 3+ leukocyte esterase, 18 white cells and 4 red cells per high power field. RADIOLOGY STUDIES: The CT scan in the Emergency Department was interpreted by the radiologist as showing some thickening of the anterior abdominal wall. There were some air bubbles with a fluid collection of the anterior abdominal wall muscles in the inferior most aspect of the anterior abdominal wall. There was some significant distention of multiple loops of small bowel with some air-fluid levels. IMPRESSION: 1. Patient has some mildly dilated small bowel loops with a history of vomiting and this would be consistent with at least a partial small bowel obstruction. 2. Fluid collection lower abdominal wall now approximately 2 weeks post-op worrisome for abscess. 3. Diabetes mellitus. 4. Hypertension. 5. Seizure disorder. 6. Morbid obesity. 7. Recent colectomy for moderately differentiated adenocarcinoma. 8. Helicobacter pylori gastritis. PLAN: Patient will be admitted to the hospital. She will be allowed to take a few ice chips. We will try to arrange a percutaneous ultrasound guided drainage of the fluid collection of the abdominal wall. I have asked Dr. Gallegos of the Hospitalist Service to become involved and help to manage the multiple medical issues this patient has. We will follow the patient for now for possible bowel obstruction. They have not had any further vomiting since coming to the Emergency Department and I do not feel that an NG-tube is warranted at this time.
[2020-06-05] MEDS: CIPROFLOXACIN 400 MG in IV 1 EA IV SCH ×2 (10:08→21:44)
[2020-06-05 10:20] LABS: BASO # 0.1 10^3/uL (0.0-0.2); BASO % 0.6 % (0.0-1.0); EOS # 0.2 10^3/uL (0.0-0.5); EOS % 2.8 % (0.0-3.0); HEMATOCRIT 28.7 % (36.0-47.0); HEMOGLOBIN 8.5 g/dl (12.0-15.5); LYMPH # 0.9 10^3/uL (1.5-5.0); LYMPH % 10.8 % (24.0-44.0); MEAN CORPUSCULAR HEMOGLOBIN 22.8 pg (27.0-33.0); MEAN CORPUSCULAR HGB CONC 29.6 g/dl (32.0-36.5); MEAN CORPUSCULAR VOLUME 76.9 fl (80.0-96.0); MONO # 0.8 10^3/uL (0.0-0.8); MONO % 9.6 % (2.0-8.0); NEUTROPHILS # 6.2 10^3/uL (1.5-8.5); NEUTROPHILS % 75.6 % (36.0-66.0); PLATELET COUNT, AUTOMATED 385 10^3/uL (150-450); RED BLOOD COUNT 3.73 10^6/uL (4.00-5.40); WHITE BLOOD COUNT 8.3 10^3/uL (4.0-10.0)
[2020-06-05 10:25] VITALS: BP 60/30
[2020-06-05] MEDS ORDERED: SODIUM BICARBONATE 8.4% INJ 50MEQ 50 ML VIAL As Ordered ONE (10:59)
[2020-06-05] MEDS ORDERED: LIDOCAINE 1% MDV 20ML VIAL As Ordered ONE (10:59)
[2020-06-05] MEDS ORDERED: GLUCOSE 4GM CHEW TABLET PO PRN (12:00)
[2020-06-05] MEDS ORDERED: GLUCAGON INJ 1MG VIAL SC PRN (12:00)
[2020-06-05] MEDS ORDERED: BISACODYL 10 MG SUPP PR PRN (12:00)
[2020-06-05] MEDS: HumaLOG INSULIN (NovoLOG) PER UNIT SC SCH ×3 (12:00→21:00)
[2020-06-05] MEDS ORDERED: DEXTROSE 50% 50 ML SYRINGE IV PRN (12:00)
[2020-06-05] MEDS ORDERED: MOM 30ML SUSPENSION UDC PO PRN (12:00)
--- NOTE | 2020-06-05 12:38 | IPNPDOC ---
Text Note Date of Service The patient was seen on 06/05/20. NOTE Gen. surgery. Dr. Mosher. The patient is a 59-year-old with moderately differentiated adenocarcinoma, Status post robotic-assisted laparoscopic right colectomy 05/21/[address] Mosher. On 06/04/20 the patient developed recurrent episodes of vomiting and was transferred from [facility] to the emergency department. Imaging indicated moderately dilated small bowel loops particularly in the left lower quadrant and fluid collection deep within the abdominal wall of the lower abdomen suggestive of abscess. The patient was admitted for evaluation with plan for percutaneous ultrasound-guided drainage of the fluid collection in the abdominal wall later today. Currently, the patient is resting comfortably in bed. Denies nausea or vomiting. Denies abdominal pain currently. States that abdominal distention and bloating is much improved and has resolved. Reports having bowel movement and flatus. Afebrile, VSS. General. Pleasant and cooperative, NAD. MMM Abd. protuberant but soft, nondistended currently. Surgical sites appear to be healing with no signs of infection, no surrounding erythema or drainage. There is some mild tenderness in the lower left abdomen. WBC this morning 8.3, middle lobe and 8.5, platelets 385. Assessment/plan 1. Mildly dilated small bowel loops with a history of vomiting, consistent with at least a partial small bowel obstruction. Patient is reviewed and examined as per Dr. Mosher this morning. Patient reports no further nausea or vomiting, Deshawn pain and distention much improved. Currently nothing by mouth/ice chips/sips. Reports having bowel movement and flatus. Monitor. 2. Fluid collection lower abdominal wall now approximately 2 weeks post-op concerning for abscess. Plan for ultrasound-guided percutaneous drainage later today. 3. Recent right hemicolectomy for moderately differentiated adenocarcinoma. Patient has been seen by oncology with plan for adjuvant chemotherapy. = VS,Fishbone, I+O VS, Fishbone, I+O Laboratory Tests 06/04/20 22:28 06/05/20 09:47 Vital Signs Date Time Temp Pulse Resp B/P (MAP) Pulse Ox O2 Delivery O2 Flow Rate FiO2 06/05/20 11:45 95 18 95 Room Air 06/05/20 10:55 98.6 06/05/20 07:45 140/90 (107) I&O- Last 24 Hours up to 6 AM 06/05/20 06:00 Intake Total 1050 ml Balance 1050 ml Rosalia Mckeon Jun 05, 2020 12:38
[2020-06-05] MEDS: LEVEMIR (INSULIN DETEMIR) 1 UNITS/0.01ML SC SCH (13:10)
[2020-06-05] MEDS: CARVedilol 12.5 MG TAB PO SCH ×2 (13:16→21:45)
[2020-06-05] MEDS: FERROUS GLUCONATE 324 MG TAB PO SCH (13:16)
[2020-06-05 14:00] VITALS: BP 140/70
--- NOTE | 2020-06-05 14:29 | CR.PDOC ---
General Date of Consultation: Jun 05, 2020 Referring Provider: Christos Jones Attending Physician: THEODORE MARQUIS MD Consultation REASON FOR CONSULTATION/CHIEF COMPLAINT: Medical management of patient with abdominal abscess HISTORY OF PRESENT ILLNESS: Patient is a 59 yo male to female transgender with a past medical history significant for diabetes mellitus type 2, hypertension, questionable epilepsy, recent diverticulitis with abscess, and recent robotic assisted extensive right colectomy for a transverse colon mass with pathology demonstrating invasive colonic adenocarcinoma with extensive tissue necrosis, moderately to poorly differentiated with penetration to the visceral peritoneum who presented to [facility] with abdominal pain, nausea, and vomiting. Patient had been at the [facility] for rehabilitation. She had stated that she was doing well however yesterday had eaten lunch and developed worsening abdominal pain, nausea and vomiting. On presentation to [facility] the patient had received a CT of the abdomen and pelvis which demonstrated a possible abdominal wall abscess as well as an ileus. The patient was admitted to the General Surgery service. She was started on Ciprofloxacin and Flagyl IV. IR guided abscess drainage and culture was ordered through General Surgery. Hospitalist medicine was consulted for medical management during her hospitalization ALLERGIES: Please see below. HOME MEDICATIONS: Please see below. PAST MEDICAL HISTORY: 1. Diabetes Mellitus Type 2 2. Hypertension 3. Gender Dysphoria 4. Invasive Colonic Adenocarcinoma; moderately to poorly differentiated 5. Questionable Epilepsy 6. History of Diverticulitis 7. Medical Noncompliance PAST SURGICAL HISTORY: 1. Hernia Repair x2 2. Upper and Lower Endoscopy 3. Robotic Assisted Laparoscopic extensive right colectomy on 05/21/20 FAMILY HISTORY: Father was diagnosed with colon cancer in his 50s. SOCIAL HISTORY: Patient is a never smoker. She drinks alcohol occasionally. Denies any history of IV or illicit drug use REVIEW OF SYSTEMS: CONSTITUTIONAL: Denies fevers, chills, night sweats. Denies unintentional weight loss HEENT:Denies dysphagia or odynophagia . CARDIOVASCULAR: Denies chest pain, palpitations or feelings of the heart racing RESPIRATORY: Denies shortness of breath. Denies cough. Denies wheezing GENITOURINARY: Denies dysuria. Denies increased frequency or urgency MUSCULOSKELETAL: Denies back pain or neck pain. Denies muscle weakness GASTROINTESTINAL: Admits to abdominal pain. Denies nausea and vomiting currently. Admits to loose stools. Denies constipation SKIN: Denies any rashes or lesions NEUROLOGICAL: Denies changes in speech or gait. Admit to bilateral hand numbness worse on the left. PSYCHIATRIC: Denies depression or anxiety ENDOCRINE: Denies heat intolerance or cold intolerance HEMATOLOGIC/LYMPHATIC: Denies easy bruising or bleeding. Denies history of DVT or PE PHYSICAL EXAMINATION: VITAL SIGNS: Please see below. GENERAL APPEARANCE: Awake, alert, and oriented. Appears in no acute distress. Lying comfortably in bed. HEENT: Atraumatic, Normocephalic. Eyes are nonicteric. Trachea is midline. Neck is perez RESPIRATORY: Clear breath sounds bilaterally although diminished throughout. Symmetric chest expansion. CARDIOVASCULAR: Normal S1, S2. Regular rate and rhythm. No clicks rubs or murmurs ABDOMEN: Morbidly obese. Soft. Nondistended. Nontender. Bowel sounds present. Laparoscopic incisions present and appear well healing. Incison below umbilicus appears to be healing well. Area under incision slightly indurated. EXTREMITIES: Trace bilateral lower extremity edema. Venous stasis changes of legs NEUROLOGICAL: No focal neurological deficits. PSYCHIATRIC: Mood and affect appear appropriate LABORATORY DATA: Please see below. ASSESSMENT/PLAN: 1. Abdominal Wall Abscess vs fluid collection -Being followed by General Surgery. Planned for percutaneous ultrasound guided drainage -Currently on Cipro and Flagyl 2. Ileus vs bowel obstruction -Clinically patient appears well. No longer has nausea or vomiting. She is being managed by General Surgery who is primary -She is receiving IVF. No reported history of heart failure. Only Echo on file is from 2010. It is likely that she has some degree of pulmonary hypertension given her weight 3. HTN -Will continue patients BP medications while hospitalized. Will continue lasix, Coreg, and Norvasc. Will adjust her BP medications as medically necessary 4. Diabetes Mellitus Type 2 -Patient has DMII. He has a history of non-compliance. Unlikely that she is following with an outpatient PCP. -She is on Basaglar at home 26units daily. For levemir will reduce by 20% and further reduce that by half as he will likely not be eating as she does at home -12 units of Levemir daily. -Patient is currently NPO therefore long acting insulin is on hold -Will obtain A1C -Given her diabetes and age she would be recommended for a statin at least on discharge. However given her diagnosis of invasive adenocarcinoma her life expectancy may be less than her 10 year cardiac risk. 5. Moderate to poorly differentiated adenocarcinoma of the colon -Patient is s/p extensive right colectomy. He has been seen by oncology. Will likely need adjuvant chemotherapy. Patient will need to follow-up outpatient in regards to this after discharge 6. Chronic Anemia -Patient has chronic anemia likely secondary to her colon cancer. -Will continue to trend. Would transfuse if Hgb less than 7 7. Obesity -Complicates care -Have ordered Incentive spirometry to help prevent atelectasis as the patient is fairly obese and laying in hospital bed 8. Neuropathy -Patient has complained of neuropathy of her right hand. She states that she gets numbness in her right hand primarily the 4th and 5th digit which would be consistent with a ulnar nerve compression. -Patient also complains of some burning sensation in her legs. Have ordered a HgbA1c. Likely neuropathic pain from uncontrolled diabetes mellitus. Patient was started on gabapentin at previous hospitalization. Will continue Gabapentin here and titrate dose up as necessary 9. Questionable Epilepsy -Patient reportedly has a seizure disorder although she has not been on any seizure medications. Will need to follow-up with Neurology outpatient. 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 DVT prophylaxis -Held for patients IR drainage; TEDs and Sequentials for now Vital Signs/I&O Vital Signs Date Time Temp Pulse Resp B/P (MAP) Pulse Ox O2 Delivery O2 Flow Rate FiO2 06/05/20 13:15 84 130/90 06/05/20 11:45 18 95 Room Air 06/05/20 10:55 98.6 I&O- Last 24 Hours up to 6 AM 06/05/20 06:00 Intake Total 1050 ml Balance 1050 ml Laboratory Data Labs 24H Laboratory Tests 2 06/04/20 22:28: Immature Granulocyte % (Auto) 0.6, Neutrophils (%) (Auto) 89.2H, Lymphocytes (%) (Auto) 4.0L, Monocytes (%) (Auto) 5.3, Eosinophils (%) (Auto) 0.4, Basophils (%) (Auto) 0.5, Neutrophils # (Auto) 15.7H, Lymphocytes # (Auto) 0.7L, Monocytes # (Auto) 0.9H, Eosinophils # (Auto) 0.1, Basophils # (Auto) 0.1, Nucleated Red Blood Cells % (auto) 0.0, Anion Gap 7L, Glomerular Filtration Rate > 60.0, Lactic Acid Level 1.7, Calcium Level 8.6L, Total Bilirubin 0.6, Direct Bilirubin 0.2, Aspartate Amino Transf (AST/SGOT) 13, Alanine Aminotransferase (ALT/SGPT) 17, Alkaline Phosphatase 95, Total Protein 7.4#, Albumin 3.1#L, Albumin/Globulin Ratio 0.7L, Lipase 264 06/05/20 02:32: Urine Color YELLOW, Urine Appearance HAZY, Urine pH 5.0, Urine Specific Morrow 1.048, Urine Protein NEGATIVE, Urine Glucose (UA) 1+H, Urine Ketones NEGATIVE, Urine Blood NEGATIVE, Urine Nitrite NEGATIVE, Urine Bilirubin NEGATIVE, Urine Urobilinogen 0.2, Urine Leukocyte Esterase 3+H, Urine WBC (Auto) 18H, Urine RBC (Auto) 4H, Urine Hyaline Casts (Auto) 0, Urine Bacteria (Auto) 1+H, Urine Squamous Epithelial Cells 1, Urine Mucus (Auto) SMALL, Urine Sperm (Auto) 06/05/20 09:47: Immature Granulocyte % (Auto) 0.6, Neutrophils (%) (Auto) 75.6H, Lymphocytes (%) (Auto) 10.8L, Monocytes (%) (Auto) 9.6H, Eosinophils (%) (Auto) 2.8, Basophils (%) (Auto) 0.6, Neutrophils # (Auto) 6.2, Lymphocytes # (Auto) 0.9L, Monocytes # (Auto) 0.8, Eosinophils # (Auto) 0.2, Basophils # (Auto) 0.1, Nucleated Red Blood Cells % (auto) 0.0 06/05/20 12:34: Bedside Glucose (Misc Panel) 154H CBC/BMP Laboratory Tests 06/04/20 22:28 06/05/20 09:47 Microbiology Microbiology 06/05/20 Gram Stain, Received Pending 06/05/20 Abscess Culture, Received Pending 06/05/20 Anaerobic Culture, Received Pending 06/05/20 Blood Culture, Received Pending 06/05/20 Urine Culture, Received Pending 06/05/20 Respiratory Virus Panel (PCR) (KAVIN) - Final, Complete 06/04/20 Blood Culture, Received Pending Allergies Coded Allergies: Cephalosporins (Verified Allergy, Mild, 05/12/20) codeine (Verified Adverse Reaction, Mild, VOMITTING, 05/13/20) Home Medications Scheduled Amlodipine Besylate (Norvasc) 10 Mg Tablet, 10 MG PO DAILY, (Reported) Carvedilol (Carvedilol) 12.5 Mg Tablet, 12.5 MG PO BID, (Reported) Dicyclomine HCl (Dicyclomine HCl) 20 Mg Tablet, 20 MG PO BID for 3 Days, (Reported) STARTING ON 06/04/20, HAS NOT STARTED YET Ferrous Gluconate (Ferrous Gluconate) 324 Mg Tablet, 324 MG PO DAILY, (Reported) Furosemide (Furosemide) 20 Mg Tablet, 20 MG PO QHS, (Reported) Gabapentin (Gabapentin) 100 Mg Capsule, 100 MG PO QHS for 6 Days, (Reported) STARTED ON 06/03/20, AFTER 6 DAYS DOSE IS TO BE UPPED TO 200MG QHS (06/09/20) Insulin Glargine,Hum.rec.anlog (Basaglar Kwikpen U-100) 100 Unit/1 Ml In suln.pen, 26 UNIT SC DAILY, (Reported) Metronidazole (Flagyl) 500 Mg Tablet, 500 MG PO Q8H for 3 Days, (Reported) STARTED 06/04/20: 0500, 1300, 2100 Pantoprazole Sodium (Pantoprazole Sodium) 40 Mg Tablet.dr, 40 MG PO QHS, (Reported) Polyethylene Glycol 3350 (Miralax) 17 Gm Powd.pack, 17 GM PO QHS, (Reported) Scheduled PRN Acetaminophen (Tylenol) 325 Mg Tablet, 650 MG PO Q4H PRN for PAIN / FEVER, (Reported) Bisacodyl (Dulcolax) 10 Mg Supp.rect, 10 MG NV DAILY PRN for CONSTIPATION, (Reported) Milk Of Magnesia (Milk of Magnesia) 2,400 Mg/10 Ml Oral.susp, 10 ML PO DAILY PRN for CONSTIPATION, (Reported) Sodium Phosphate,Wayne-Dibasic (Fleet Enema) 133 Ml Enema, 1 CE NV DAILY PRN for CONSTIPATION, (Reported) GME ATTESTATION GME ATTESTATION My faculty preceptor for this patient encounter was physically present during the encounter and was fully available. All aspects of the patient interview, examination, medical decision making process, and medical care plan development were reviewed and approved by the faculty preceptor. The faculty preceptor is aware and concurs with the plan as stated in the body of this note and will attest to such by his/her cosignature. ATTENDING NOTE Attending Attestation: Patient independently seen and examined. I have discussed in detail with the res ident / student the findings and plan of treatment as documented by the resident / student. I agree with their findings and treatment plan and have edited their documentation. I will continue to follow the patient during this hospital stay. CELIA TRENT DO Jun 05, 2020 14:27 THEODORE MARQUIS MD Jun 06, 2020 07:31
[2020-06-05] MEDS: FUROSEMIDE 20 MG TAB PO SCH (16:11)
--- NOTE | 2020-06-05 17:35 | REP ---
INDICATION: fluid collection lower abdominal wall post surgery The patient has a history of abdominal wall abscess COMPARISON: None. TECHNIQUE: The procedure was performed by ANDRIY Townsend, under the direct supervision of Dr. Tyler The risks and benefits of the procedure were explained to the patient and an informed consent was obtained both verbally and written. Directly prior to the start of the procedure a formal time-out was completed in the procedure room. The abdominal wall abscess was localized using ultrasound guidance. The skin was prepped and draped in a sterile fashion. Twenty ML of buffered lidocaine was used as a local anesthetic. An 8-Swiss multi side-hole pigtail catheter was inserted using trocar technique. FINDINGS: Approximately 25 mL of fluid was aspirated and sent to the laboratory for further analysis. The pigtail catheter was sutured in place, a sterile dressing was applied, and a drainage bag was attached to the end of the catheter. The patient tolerated the procedure well and there were no immediate complications. After the appropriate amount of monitored convalescence, the patient was discharged from the department. IMPRESSION: Eight Swiss pigtail catheter insertion into an abdominal wall seroma. <Electronically signed by Judi Mckeon > 06/05/20 [id number] <Electronically signed by Aneesh Tyler > 06/05/20 [id number]
[2020-06-05 18:00] VITALS: BP 142/77
[2020-06-05] MEDS: GABAPENTIN 100 MG CAP PO SCH (21:44)
[2020-06-05 22:00] VITALS: BP 142/78
[2020-06-06 02:00] VITALS: BP 144/78
[2020-06-06 06:00] VITALS: BP 154/88
[2020-06-06] MEDS: metroNIDAZOLE 500 MG in IV 1 EA IV SCH ×3 (06:05→22:00)
[2020-06-06] MEDS: LR 1,000 ML IV SCH (06:05)
[2020-06-06 07:19] LABS: HEMOGLOBIN 8.7 g/dl (12.0-15.5); MEAN CORPUSCULAR HEMOGLOBIN 22.5 pg (27.0-33.0); MEAN CORPUSCULAR VOLUME 77.7 fl (80.0-96.0); PLATELET COUNT, AUTOMATED 367 10^3/uL (150-450); RED BLOOD COUNT 3.86 10^6/uL (4.00-5.40); WHITE BLOOD COUNT 6.7 10^3/uL (4.0-10.0)
[2020-06-06 07:36] LABS: HEMOGLOBIN A1c 7.7 %
[2020-06-06 07:46] LABS: BLOOD UREA NITROGEN 5 MG/DL (7-18); CALCIUM LEVEL 8.1 MG/DL (8.8-10.2); CARBON DIOXIDE LEVEL 31 MEQ/L (21-32); CHLORIDE LEVEL 108 MEQ/L (98-107); CREATININE FOR GFR 0.58 MG/DL (0.55-1.30); GLOMERULAR FILTRATION RATE > 60.0 (>45); GLUCOSE, FASTING 145 MG/DL (70-100); POTASSIUM SERUM 3.2 MEQ/L (3.5-5.1); SODIUM LEVEL 143 MEQ/L (136-145)
[2020-06-06] MEDS: PANTOPRAZOLE 40MG VIAL (C9113 PER 1) IV SCH (08:28)
[2020-06-06] MEDS: DOCUSATE SODIUM 100MG CAPSULE PO SCH ×2 (08:29→19:26)
[2020-06-06] MEDS: FERROUS GLUCONATE 324 MG TAB PO SCH (08:29)
[2020-06-06] MEDS: CIPROFLOXACIN 400 MG in IV 1 EA IV SCH ×2 (08:29→20:15)
[2020-06-06] MEDS: HumaLOG INSULIN (NovoLOG) PER UNIT SC SCH ×4 (08:30→21:00)
[2020-06-06] MEDS: LEVEMIR (INSULIN DETEMIR) 1 UNITS/0.01ML SC SCH (08:30)
[2020-06-06] MEDS: CARVedilol 12.5 MG TAB PO SCH ×2 (08:35→20:12)
[2020-06-06 10:00] VITALS: BP 162/78
--- NOTE | 2020-06-06 10:54 | IPNPDOC ---
Date Seen The patient was seen on 06/06/20. Progress Note SUBJECTIVE: Patient was seen and examined this morning. She currently has no new complaints. She has had percutaneous drainage of her abdominal abscess/fluid collection yesterday. Currently denies any abdominal pain. Diet was advanced to regular today. No adverse reported events. Patient denies any other complaints OBJECTIVE PHYSICAL EXAMINATION: VITAL SIGNS: Please see below. GENERAL: Awake, alert, and oriented. Appears in no acute distress. Lying comfortably in bed. HEENT: Atraumatic, Normocephalic. Eyes are nonicteric. Trachea is midline. Neck is perez CARDIOVASCULAR: Normal S1, S2. Regular rate and rhythm. No clicks rubs or murmurs RESPIRATORY: Clear breath sounds bilaterally although diminished throughout. Symmetric chest expansion. ABDOMINAL: Morbidly obese. Soft. Nondistended. Nontender. Bowel sounds present. Laparoscopic incisions present and appear well healing. Percutaneous drain in place in lower abdomen with serosanguineous drainage EXTREMITIES: Trace bilateral lower extremity edema. Venous stasis changes of legs NEUROLOGICAL: No focal neurological deficits. PSYCHOLOGICAL: Mood and affect appear appropriate LABORATORY DATA, IMAGING STUDIES, MICROBIOLOGY: Please see below. Echocardiogram: . DVT prophylaxis ordered?: ASSESSMENT AND PLAN: Patient is a 59 yo male to female transgender with a past medical history significant for diabetes mellitus type 2, hypertension, questionable epilepsy, recent diverticulitis with abscess, and recent robotic assisted extensive right colectomy for a transverse colon mass with pathology demonstrating invasive colonic adenocarcinoma with extensive tissue necrosis, moderately to poorly differentiated with penetration to the visceral peritoneum who presented to [facility] with abdominal pain, nausea, and vomiting. CT imaging demonstrating abscess/fluid collection. Admitted to Surgical service. Hospitalist medicine consulted for medical management. PROBLEMS: 1. Abdominal Wall Abscess vs fluid collection -Being followed by General Surgery. S/p percutaneous IR drainage. Drain in place. Procedure went well. -Currently on Cipro and Flagyl. 2. Ileus vs bowel obstruction -Clinically patient appears well. No longer has nausea or vomiting. She is being managed by General Surgery who is primary -Diet advanced today. Patient is having bowel movements. Denies nausea or vomiting 3. HTN -Will continue patients BP medications while hospitalized. Will continue lasix, Coreg, and Norvasc. -BP relatively well controlled. Consider starting chlorthalidone if BP is persistently elevated. [place] goal BP in outpatient setting would be <130/<80 based on AHA/ACC guidelines 4. Diabetes Mellitus Type 2 -Patient has DMII. He has a history of non-compliance. Unlikely that she is following with an outpatient PCP. -Will resume Levemir at reduced dose as her diet has been advanced. Will titrate as necessary -A1C of 7.7. Would recommend outpatient to start Ozempic given obesity and diabetes -Given her diabetes and age she would be recommended for a statin at least on discharge. However given her diagnosis of invasive adenocarcinoma her life expectancy may be less than her 10 year cardiac risk. 5. Moderate to poorly differentiated adenocarcinoma of the colon -Patient is s/p extensive right colectomy. He has been seen by oncology. Will likely need adjuvant chemotherapy. Patient will need to follow-up outpatient in regards to this after discharge 6. Chronic Anemia -Patient has chronic anemia likely secondary to her colon cancer. -Will continue to trend. Would transfuse if Hgb less than 7 7. Obesity -Complicates care -Have ordered Incentive spirometry to help prevent atelectasis as the patient is fairly obese and laying in hospital bed 8. Neuropathy -Patient has complained of neuropathy of her right hand. She states that she gets numbness in her right hand primarily the 4th and 5th digit which would be consistent with a ulnar nerve compression. -Patient also complains of some burning sensation in her legs. Likely neuropathic pain from uncontrolled/long standing diabetes mellitus. Patient was started on gabapentin at previous hospitalization. Will continue Gabapentin here and titrate dose up as necessary 9. Questionable Epilepsy -Patient reportedly has a seizure disorder although she has not been on any seizure medications. Will need to follow-up with Neurology outpatient. 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 DVT prophylaxis -TEDs and Sequentials VS, I&O, 24H, Fishbone Vital Signs/I&O Vital Signs Date Time Temp Pulse Resp B/P (MAP) Pulse Ox O2 Delivery O2 Flow Rate FiO2 06/06/20 08:35 87 151/76 06/06/20 06:00 97.4 19 92 06/06/20 02:00 Room Air I&O- Last 24 Hours up to 6 AM 06/06/20 06:00 Intake Total 3695 ml Output Total 40 ml Balance 3655 ml Laboratory Data 24H LABS Laboratory Tests 2 06/05/20 12:34: Bedside Glucose (Misc Panel) 154H 06/05/20 17:00: Bedside Glucose (Misc Panel) 142H 06/05/20 21:10: Bedside Glucose (Misc Panel) 143H 06/06/20 06:53: Nucleated Red Blood Cells % (auto) 0.0, Anion Gap 4L, Glomerular Filtration Rate > 60.0, Estimated Mean Plasma Glucose 174H, Hemoglobin A1c 7.7, Calcium Level 8.1L CBC/BMP Laboratory Tests 06/06/20 06:53 Microbiology Microbiology 06/05/20 Gram Stain - Final, Resulted 06/05/20 Abscess Culture, Resulted Pending 06/05/20 Anaerobic Culture, Received Pending 06/05/20 Blood Culture - Preliminary, Resulted No growth after 24 hours . All specim... 06/05/20 Urine Culture - Final, Complete 06/05/20 Respiratory Virus Panel (PCR) ([facility]) - Final, Complete 06/04/20 Blood Culture - Preliminary, Resulted No growth after 24 hours . All specim... GME ATTESTATION GME ATTESTATION My faculty preceptor for this patient encounter was physically present during the encounter and was fully available. All aspects of the patient interview, examination, medical decision making process, and medical care plan development were reviewed and approved by the faculty preceptor. The faculty preceptor is aware and concurs with the plan as stated in the body of this note and will attest to such by his/her cosignature. ATTENDING NOTE Attending attestation: Patient independently seen and examined. I have discussed in detail with the resident / student the findings and plan of treatment as documented by the resident / student. I agree with their findings and treatment plan and have edited their documentation. I will continue to follow the patient during this hospital stay. CELIA TRENT DO Jun 06, 2020 10:53 THEODORE MARQUIS MD Jun 08, 2020 11:43
[2020-06-06] MEDS ORDERED: POTASSIUM CHLORIDE 10 MEQ SR TABLET PO ONE (12:00)
[2020-06-06 14:00] VITALS: BP 153/76
[2020-06-06] MEDS: FUROSEMIDE 20 MG TAB PO SCH (18:16)
[2020-06-06] MEDS: GABAPENTIN 100 MG CAP PO SCH (20:12)
[2020-06-06 22:00] VITALS: BP 150/67
[2020-06-07 06:00] VITALS: BP 146/74
[2020-06-07] MEDS: metroNIDAZOLE 500 MG in IV 1 EA IV SCH (06:10)
[2020-06-07 08:20] VITALS: BP 166/84
[2020-06-07] MEDS: CARVedilol 12.5 MG TAB PO SCH (08:20)
[2020-06-07] MEDS: HumaLOG INSULIN (NovoLOG) PER UNIT SC SCH ×2 (08:20→12:00)
[2020-06-07] MEDS: LEVEMIR (INSULIN DETEMIR) 1 UNITS/0.01ML SC SCH (08:20)
[2020-06-07] MEDS: FERROUS GLUCONATE 324 MG TAB PO SCH (08:20)
[2020-06-07] MEDS: CIPROFLOXACIN 400 MG in IV 1 EA IV SCH (08:21)
[2020-06-07] MEDS: DOCUSATE SODIUM 100MG CAPSULE PO SCH (08:21)
[2020-06-07] MEDS: PANTOPRAZOLE 40MG VIAL (C9113 PER 1) IV SCH (08:21)
[2020-06-07] MEDS ORDERED: LEVO750T14 PO (08:50)
[2020-06-07] MEDS ORDERED: DIFL200T PO (08:50)
--- NOTE | 2020-06-07 08:54 | IPNPDOC ---
Text Note Date of Service The patient was seen on 06/06/20. NOTE doing well, reporting loose to soft stools. Since surgery he has been moving his bowels 2-4x daily. Denies nausea, tolerating clears abdomen: markedly obese, soft, nondistended no skin erythema. extraction site queta intact drain - serous-serosanguenous, nonpurulent impression and plan partial sbovs ileus resolved advance diet deep subcutaneous collection at the extraction site - so far no growth on cultures drain has been placed. on cipro and metronidazole continue for now possible dc in am VS,Fishbone, I+O VS, Fishbone, I+O Vital Signs Date Time Temp Pulse Resp B/P (MAP) Pulse Ox O2 Delivery O2 Flow Rate FiO2 06/07/20 08:20 89 166/84 06/07/20 06:00 98.4 18 94 Room Air I&O- Last 24 Hours up to 6 AM 06/07/20 06:00 Intake Total 3900 ml Output Total 25 ml Balance 3875 ml VERONICA SANTIAGO MD Jun 07, 2020 08:54
[2020-06-07 08:55] LABS: BLOOD UREA NITROGEN 7 MG/DL (7-18); CARBON DIOXIDE LEVEL 27 MEQ/L (21-32); CHLORIDE LEVEL 107 MEQ/L (98-107); CREATININE FOR GFR 0.67 MG/DL (0.55-1.30); GLOMERULAR FILTRATION RATE > 60.0 (>45); GLUCOSE, FASTING 201 MG/DL (70-100); MAGNESIUM LEVEL 1.5 MG/DL (1.8-2.4); POTASSIUM SERUM 3.7 MEQ/L (3.5-5.1); SODIUM LEVEL 142 MEQ/L (136-145)
--- NOTE | 2020-06-07 08:59 | DS.PDOC ---
Discharge Summary General Date of Admission Jun 05, 2020 at 05:58 Date of Discharge June 07, 2020 Attending Physician: VERONICA SANTIAGO MD Discharge Summary PROCEDURES PERFORMED DURING STAY: Percutaneous drainage of deep subcutaneous tissue fluid collection suprapubic area (US guided) in radiology ADMITTING DIAGNOSES: 1. ileus vs partial sbo 2. recent extended right colectomy with en bloc sb resection and anastomosis for transverse colon cancer ([id number]) Stage IIB 3. morbid obesity 4. acute debility. DISCHARGE DIAGNOSES: 1. . COMPLICATIONS/CHIEF COMPLAINT: Intestinal Obstruction. HISTORY OF PRESENT ILLNESS: . HOSPITAL COURSE: . DISCHARGE MEDICATIONS: Please see below. ALLERGIES: Please see below. PHYSICAL EXAMINATION ON DISCHARGE: VITAL SIGNS: Please see below. GENERAL: HEENT: NECK: CARDIOVASCULAR EXAMINATION: RESPIRATORY EXAMINATION: ABDOMINAL EXAMINATION: EXTREMITIES: SKIN: NEUROLOGICAL EXAMINATION: PSYCHIATRIC EXAMINATION: LABORATORY DATA: Please see below. IMAGING: PROGNOSIS: ACTIVITY: [As tolerated]. DIET: DISCHARGE PLAN: D/C drain on discharge. I will start him on diflucan as the cultures are growing yeast like organism and levofloxacin. So far no aerobic or anaerobic growths but not final yet. DISPOSITION: . DISCHARGE INSTRUCTIONS: 1. . ITEMS TO FOLLOWUP ON ON OUTPATIENT: 1. queta to be removed in clinic . DISCHARGE CONDITION: [Stable]. TIME SPENT ON DISCHARGE: Greater than minutes. Vital Signs/I&Os Vital Signs Date Time Temp Pulse Resp B/P (MAP) Pulse Ox O2 Delivery O2 Flow Rate FiO2 06/07/20 08:20 89 166/84 06/07/20 06:00 98.4 18 94 Room Air I&O- Last 24 Hours up to 6 AM 06/07/20 06:00 Intake Total 3900 ml Output Total 25 ml Balance 3875 ml Laboratory Data Labs 24H Laboratory Tests 2 06/06/20 12:26: Bedside Glucose (Misc Panel) 194H 06/06/20 17:06: Bedside Glucose (Misc Panel) 158H 06/06/20 22:00: Bedside Glucose (Misc Panel) 179H 06/07/20 04:54: Bedside Glucose (Misc Panel) 166H 06/07/20 08:12: CBC/BMP FSBS Laboratory Tests Test 06/06/20 12:26 06/06/20 17:06 06/06/20 22:00 06/07/20 04:54 Range/Units Bedside Glucose (Misc Panel) 194 158 179 166 80-115 MG/DL Microbiology Microbiology 06/05/20 Gram Stain - Final, Resulted 06/05/20 Abscess Culture - Preliminary, Resulted Yeast Like Organism 06/05/20 Anaerobic Culture - Final, Complete 06/05/20 Blood Culture - Preliminary, Resulted No Growth after 48 hours. All Specime... 06/05/20 Urine Culture - Final, Complete 06/05/20 Respiratory Virus Panel (PCR) ([facility]) - Final, Complete 06/04/20 Blood Culture - Preliminary, Resulted No Growth after 48 hours. All Specime... Discharge Medications Scheduled Amlodipine Besylate (Norvasc) 10 Mg Tablet, 10 MG PO DAILY, (Reported) Carvedilol (Carvedilol) 12.5 Mg Tablet, 12.5 MG PO BID, (Reported) Dicyclomine HCl (Dicyclomine HCl) 20 Mg Tablet, 20 MG PO BID, (Reported) STARTING ON 06/04/20, HAS NOT STARTED YET Ferrous Gluconate (Ferrous Gluconate) 324 Mg Tablet, 324 MG PO DAILY, (Reported) Fluconazole (Diflucan) 200 Mg Tablet, 1 TAB PO DAILY for yeast infection Furosemide (Furosemide) 20 Mg Tablet, 20 MG PO QHS, (Reported) Gabapentin (Gabapentin) 100 Mg Capsule, 100 MG PO QHS, (Reported) STARTED ON 06/03/20, AFTER 6 DAYS DOSE IS TO BE UPPED TO 200MG QHS (06/09/20) Insulin Glargine,Hum.rec.anlog (Basaglar Kwikpen U-100) 100 Unit/1 Ml Insuln.pen, 26 UNIT SC DAILY, (Reported) Pantoprazole Sodium (Pantoprazole Sodium) 40 Mg Tablet.dr, 40 MG PO QHS, (Reported) levoFLOXacin (levoFLOXacin) 750 Mg Tablet, 750 MG PO DAILY Scheduled PRN Acetaminophen (Tylenol) 325 Mg Tablet, 650 MG PO Q4H PRN for PAIN / FEVER, (Reported) Bisacodyl (Dulcolax) 10 Mg Supp.rect, 10 MG [place] DAILY PRN for CONSTIPATION, (Reported) Milk Of Magnesia (Milk of Magnesia) 2,400 Mg/10 Ml Oral.susp, 10 ML PO DAILY PRN for CONSTIPATION, (Reported) Allergies Coded Allergies: Cephalosporins (Verified Allergy, Mild, 3/8/21) codeine (Verified Adverse Reaction, Mild, VOMITTING, 05/13/20) VERONICA SANTIAGO MD Jun 07, 2020 08:59
== END 2020-06-07 12:35 | disposition home health service (06) | DRG 389 ==
LOC: M ED 21:09 → M ED INP 06-05 05:58 → ENRESERV 06-05 06:20 → M MSPAV 06-05 07:47
PROVIDERS: ADMIT Surgery; ATTEND Surgery
PROC: 0W9G30Z Drainage of Peritoneal Cavity with Drainage Device, Percutaneous Approach (ICD-10-PCS; principal; 2020-06-05 11:05)
DX: K56.51 Intestinal adhesions [bands], with partial obstruction (principal); C18.9 Malignant neoplasm of colon, unspecified; Z68.42 Body mass index [BMI] 45.0-49.9, adult; G40.909 Epilepsy, unspecified, not intractable, without status epilepticus; I10 Essential (primary) hypertension; E11.42 Type 2 diabetes mellitus with diabetic polyneuropathy; E66.01 Morbid (severe) obesity due to excess calories; Z90.49 Acquired absence of other specified parts of digestive tract; Z88.1 Allergy status to other antibiotic agents; Z88.5 Allergy status to narcotic agent; Z79.4 Long term (current) use of insulin; Z79.891 Long term (current) use of opiate analgesic; Z79.899 Other long term (current) drug therapy

== ENCOUNTER 2020-06-10 14:37 | Emergency (ER) | payer MEDICARE, MEDICAID ==
[~2020-06-10] VITALS: Ht 175.3 cm; Wt 138.2 kg
[~2020-06-10 14:37] MED LIST changes: +ACET-907 PO; +AMLO10TA PO; +DICY20TA3 PO; +DIFL200T PO; +DULC10SU2 PR; +FERR324T21 PO; -FERR325T16 PO; +FLEEENE12 PR; +GABA-1171 PO; +LEVO750T14 PO; +MIRA1POW3 PO; +MOM30SS PO
[2020-06-10] MEDS ORDERED: OXYC-517 PO (15:24)
[2020-06-10] MEDS ORDERED: CAPE1TAB2 PO (15:24)
[2020-06-10] MEDS ORDERED: HumuLIN R (REGULAR) INSULIN (NovoLIN R) **100U/ML** PER UNIT SC STA (15:35)
[2020-06-10 16:07] LABS: BLOOD UREA NITROGEN 8 MG/DL (7-18); CALCIUM LEVEL 7.9 MG/DL (8.8-10.2); CARBON DIOXIDE LEVEL 27 MEQ/L (21-32); CHLORIDE LEVEL 108 MEQ/L (98-107); CREATININE FOR GFR 0.61 MG/DL (0.55-1.30); GLOMERULAR FILTRATION RATE > 60.0 (>45); GLUCOSE, FASTING 282 MG/DL (70-100); POTASSIUM SERUM 3.3 MEQ/L (3.5-5.1); SODIUM LEVEL 141 MEQ/L (136-145)
[2020-06-10 16:26] VITALS: BP 136/74
== END 2020-06-10 16:27 | disposition home or self-care (01) ==
LOC: M ED 14:37 → EDBD 14:37 → M ED 16:27
DX: E11.65 Type 2 diabetes mellitus with hyperglycemia (principal); I51.9 Heart disease, unspecified; I10 Essential (primary) hypertension; N18.9 Chronic kidney disease, unspecified; J45.909 Unspecified asthma, uncomplicated; J44.9 Chronic obstructive pulmonary disease, unspecified; Z79.4 Long term (current) use of insulin; Z79.899 Other long term (current) drug therapy; Z88.8 Allergy status to other drugs, medicaments and biological substances; Z88.5 Allergy status to narcotic agent

== ENCOUNTER 2020-06-21 06:16 | Inpatient (IN) | payer MEDICARE, MEDICAID ==
[~2020-06-21] VITALS: Ht 175.3 cm; Wt 133.1 kg
[2020-06-21 07:11] LABS: BASO # 0.1 10^3/uL (0.0-0.2); BASO % 0.6 % (0.0-1.0); EOS # 0.2 10^3/uL (0.0-0.5); EOS % 2.4 % (0.0-3.0); HEMATOCRIT 31.8 % (36.0-47.0); HEMOGLOBIN 9.6 g/dl (12.0-15.5); LYMPH # 1.2 10^3/uL (1.5-5.0); LYMPH % 15.3 % (24.0-44.0); MEAN CORPUSCULAR HEMOGLOBIN 23.1 pg (27.0-33.0); MEAN CORPUSCULAR HGB CONC 30.2 g/dl (32.0-36.5); MEAN CORPUSCULAR VOLUME 76.6 fl (80.0-96.0); MONO % 12.5 % (2.0-8.0); NEUTROPHILS # 5.4 10^3/uL (1.5-8.5); NEUTROPHILS % 68.7 % (36.0-66.0); PLATELET COUNT, AUTOMATED 369 10^3/uL (150-450); RED BLOOD COUNT 4.15 10^6/uL (4.00-5.40); WHITE BLOOD COUNT 7.9 10^3/uL (4.0-10.0)
[2020-06-21 07:38] LABS: ALT/SGPT 14 U/L (12-78); BILIRUBIN,DIRECT 0.2 MG/DL (0.0-0.2); BLOOD UREA NITROGEN 12 MG/DL (7-18); CALCIUM LEVEL 8.4 MG/DL (8.8-10.2); CARBON DIOXIDE LEVEL 29 MEQ/L (21-32); CHLORIDE LEVEL 103 MEQ/L (98-107); CREATININE FOR GFR 0.58 MG/DL (0.55-1.30); GLOMERULAR FILTRATION RATE > 60.0 (>45); GLUCOSE, FASTING 263 MG/DL (70-100); LIPASE 104 U/L (73-393); POTASSIUM SERUM 3.6 MEQ/L (3.5-5.1); SODIUM LEVEL 139 MEQ/L (136-145); TOTAL PROTEIN 6.8 GM/DL (6.4-8.2)
[2020-06-21] MEDS ORDERED: NS 1,000 ML IV ONE ×2 (08:00→13:00)
[2020-06-21] MEDS ORDERED: ONDANSETRON 4MG/2ML VIAL IV ONE (08:00)
[2020-06-21] MEDS: MORPHINE 2 MG/ML 1ML VIAL (J2270) IV PRN ×2 (08:03→08:39)
[2020-06-21] MEDS ORDERED: ISOVUE-370 76% 100ML VIAL As Ordered ONE (08:04)
--- NOTE | 2020-06-21 08:55 | REP ---
INDICATION: abdominal pain/trauma. Recent right colon resection for colon carcinoma. Transgender individual, biologic male, sexual identification female. COMPARISON: Comparison CT study most recent exam June 04, 2020 and May 12, 2020.. TECHNIQUE: Helical scanning was acquired and 4 mm axial images are re-formatted. Coronal and sagittal MPR images were generated and reviewed. The contrast enhancement dose is 100 mL of intravenous Isovue 370. 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 On axial CT images, the lung bases remain clear. The liver and the spleen are normal in size, homogeneous in texture. No focal hepatic lesion is seen. There is a small quantity of ascites along the lateral margin of the liver. No pleural effusion is seen. Normal adrenal glands are seen. No abnormality is noted in the pancreas or the gallbladder. The kidneys enhance symmetrically and are morphologically intact. There is a fairly large thrombus in the proximal superior mesenteric vein noted on today's scan images. There is mesenteric edema downstream from this in the right lower abdomen and there is mural thickening involving the right lower quadrant small bowel loops consistent with mesenteric ischemia. Patient is status post right colectomy with ileo-transverse anastomosis. No evidence of obstruction. No intraperitoneal abscess is seen. There is a fluid collection again noted in the suprapubic anterior abdominal wall just to the right of midline. This measures 3.3 x 2.8 x 4.7 cm and is slightly smaller than it was on June 04, 2020. It appears to be within the distal right rectus abdominus muscle belly. The small bowel dilation seen on the previous CT scan is resolved. Prostate seminal vesicles and urinary bladder are unremarkable. There are scattered normal sized iliac lymph nodes. No abdominal wall hernia is seen. IMPRESSION: Status post right hemicolectomy and ileocolic anastomosis. Superior mesenteric vein thrombosis. There is a large thrombus in the proximal superior mesenteric vein extends into the right lower quadrant mesenteric veins with mesenteric edema and mural thickening in right lower quadrant small bowel loops consistent with mesenteric ischemia. There is no evidence of free air or obstruction. There is a slightly improved but persistent fluid collection in the distal rectus abdominus muscle on the right in the suprapubic region as above. <Electronically signed by Pradeep Conteh > 06/21/20 [id number]
[2020-06-21] MEDS: HYDROMORPHONE HCL 0.5 MG/ 0.5 ML SYRINGE (J1170 PER 1) IV PRN ×2 (09:13→09:51)
[2020-06-21] MEDS ORDERED: PROMETHAZINE INJ 25 MG/ML VIAL (J2550) IV ONE (10:05)
[2020-06-21 10:20] LABS: PROTHROMBIN TIME 13.4 SECONDS (12.5-14.3)
[2020-06-21 10:21] LABS: PARTIAL THROMBOPLASTIN TIME 31.4 SECONDS (24.2-38.5)
[2020-06-21] MEDS ORDERED: HEPARIN DRIP 25,000 UNITS in IV 1 EA IV SCH ×2 (10:25→18:40)
[2020-06-21] MEDS ORDERED: HEPARIN SOD (PORCINE) 5000UNITS/ML 1ML VIAL/SYRINGE IV ONE (10:25)
[2020-06-21] MEDS ORDERED: HYDROMORPHONE HCL 0.5 MG/ 0.5 ML SYRINGE (J1170 PER 1) IV PRN ×3 (10:35→12:45)
[2020-06-21] MEDS: ACETAMINOPHEN 500 MG TAB PO SCH ×2 (12:00→18:16)
[2020-06-21] MEDS ORDERED: D5W/0.45% SODIUM CHLORIDE 1,000 ML IV SCH (12:55)
[2020-06-21] MEDS ORDERED: DEXTROSE 50% 50 ML SYRINGE IV PRN (12:55)
[2020-06-21] MEDS ORDERED: GLUCOSE 4GM CHEW TABLET PO PRN (12:55)
[2020-06-21] MEDS ORDERED: GLUCAGON INJ 1MG VIAL SC PRN (12:55)
[2020-06-21] MEDS ORDERED: INSULANT SC (13:36)
[2020-06-21] MEDS ORDERED: LABETALOL 100MG/20ML VIAL IV STA (13:49)
[2020-06-21] MEDS ORDERED: KETOROLAC 30 MG/ML 1ML VIAL IV ONE (13:50)
[2020-06-21] MEDS ORDERED: PANTOPRAZOLE 40MG VIAL (C9113 PER 1) IV SCH (14:00)
[2020-06-21] MEDS ORDERED: HYDROMORPHONE HCL 0.5 MG/ 0.5 ML SYRINGE (J1170 PER 1) IV ONE (14:05)
--- NOTE | 2020-06-21 14:17 | HPEPDOC ---
[facility] Medical History & Physical Date of Admission Jun 21, 2020 Date of Service: Jun 21, 2020 History and Physical CHIEF COMPLAINT: Abdominal pain HISTORY OF PRESENT ILLNESS: 59 y/o transgender female, genotypically male, with h/o stage 2b adenoca of the transverse colon s/p robotic assisted right hemicolectomy and ileocolic anastomosis presents to emergency room with acute abdominal pain that started yesterday when she tripped over the CAD and landed on her side on the recliner. Patient continued to complain of mid- abdominal pain, rated a 10 out of 10, described as sharp without radiationwithout fever, chills, nausea, vomiting,but unable to ambulate due to increasing pain. Abd pain is better when she lays down and lays still on her back. Patient does not remember what medicine she took at home for pain, but without relief, prompting her to come to the emergency room for evaluation. She's had decrease in appetite, has not wanted to eat bright red blood per rectum, melena, or black tarry stools. In the ER. Patient was found to be hypertensive . , CT abdomen and pelvis shows superior mesenteric vein thrombus and mesenteric ischemia. General surgeon, Dr. Smith was consulted and recommended intravenous heparin gtt. Hospitalist was called to admit for hypertensive urgency and acute mesenteric vein thrombosis in the setting of hypercoagulable state from stage IIB adenocarcinoma of the colon. 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 Very occasional alcohol consumption. No history of illicit or IV substance use. Lives at home with and daughter. Male to female transgender woman. FAMILY HISTORY: Father diagnosed with colon cancer in his 50s. Otherwise noncontributory. ALLERGIES: Please see below. REVIEW OF SYSTEMS: 10 point review of systems negative aside from positive findings in HPI HOME MEDICATIONS: Please see below. PHYSICAL EXAMINATION: VITAL SIGNS: See below GENERAL APPEARANCE: Awake, alert, oriented to person, place and time. Answers questions appropriately. No respiratory distress HEENT: Anicteric. No jaundice. Extra muscles intact. No JVD, thyromegaly. Moist mucous membranes. No cervical lymphadenopathy CARDIOVASCULAR: Sinus tachycardia, S1, S2, regular rhythm. No murmurs noted LUNGS: Clear to auscultation. No wheezing, rales or rhonchi ABDOMEN: Obese, tender diffusely. No rebound, guarding nondistended. EXTREMITIES: No cyanosis, clubbing SKIN: Warm, dry, well perfused, pink in color LABORATORY DATA: See below. IMAGING: INDICATION: abdominal pain/trauma. Recent right colon resection for colon carcinoma. Transgender individual, biologic male, sexual identification female. COMPARISON: Comparison CT study most recent exam June 04, 2020 and May 12, 2020.. TECHNIQUE: Helical scanning was acquired and 4 mm axial images are re-formatted. Coronal and sagittal MPR images were generated and reviewed. The contrast enhancement dose is 100 mL of intravenous Isovue 370. 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 On axial CT images, the lung bases remain clear. The liver and the spleen are normal in size, homogeneous in texture. No focal hepatic lesion is seen. There is a small quantity of ascites along the lateral margin of the liver. No pleural effusion is seen. Normal adrenal glands are seen. No abnormality is noted in the pancreas or the gallbladder. The kidneys enhance symmetrically and are morphologically intact. There is a fairly large thrombus in the proximal superior mesenteric vein noted on today's scan images. There is mesenteric edema downstream from this in the right lower abdomen and there is mural thickening involving the right lower quadrant small bowel loops consistent with mesenteric ischemia. Patient is status post right colectomy with ileo-transverse anastomosis. No evidence of obstruction. No intraperitoneal abscess is seen. There is a fluid collection again noted in the suprapubic anterior abdominal wall just to the right of midline. This measures 3.3 x 2.8 x 4.7 cm and is slightly smaller than it was on June 04, 2020. It appears to be within the distal right rectus abdominus muscle belly. The small bowel dilation seen on the previous CT scan is resolved. Prostate seminal vesicles and urinary bladder are unremarkable. There are scattered normal sized iliac lymph nodes. No abdominal wall hernia is seen. IMPRESSION: Status post right hemicolectomy and ileocolic anastomosis. Superior mesenteric vein thrombosis. There is a large thrombus in the proximal superior mesenteric vein extends into the right lower quadrant mesenteric veins with mesenteric edema and mural thickening in right lower quadrant small bowel loops consistent with mesenteric ischemia. There is no evidence of free air or obstruction. There is a slightly improved but persistent fluid collection in the distal rectus abdominus muscle o n the right in the suprapubic region as above. MICROBIOLOGY: Please see below. 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 Patient continued to complain of abdominal pain, rated a 10 out of 10, described as sharp without radiation. She denies fever, chills, nausea, vomiting. Complains of inability to ambulate due to increasing pain, better when she lays down still on her back. Patient does not remember what medicine she took at home for pain, but since this was not relieved. She decided to come to the emergency room. She's had decrease in appetite, has not wanted to eat bright red blood per rectum, melena, or black tarry stools. In the ER. Patient was found to be hypertensive . , CT abdomen and pelvis shows large thrombus in the mesenteric vein. General surgeon, Dr. Smith was consulted and recommended intravenous heparin. Hospitalist was called to admit for hypertensive urgency and acute mesenteric vein thrombosis in the setting of hypercoagulable state from stage IIB adenocarcinoma of the colon. Superior mesenteric vein thrombosis/ Mesenteric ischemia -CT abd/pelvis shows There is a large thrombus in the proximal superior mesenteric vein extends into the right lower quadrant mesenteric veins with mesenteric edema and mural thickening in right lower quadrant small bowel loops consistent with mesenteric ischemia. -npo. ivfluids. surgical consult Dr. Real aware. IV heparin gtt. no vascular surgery or IR services available for thrombolysis. no signs of peritonitis. serial clinical abdominal exam, lactic acid, and axr. defer to surgery for ischemic bowel mgt. will call transfer center in [place] for vascular services. HTN urgency -due to pain from mesenteric ischemia. nitropaste q4hrs. telemetry monitoring, and iv labetalol stage 2b Adenoca of transverse colon -s/p robotic assisted right hemicolectomy with ileocolic anastamosis. medonc out pt fu post-op abscess with Streptococcus pneumoniae requriing us-guided percutaneous drainage by Radiology, -resolved. h/o ileus versus partial small bowel obstruction morbid obesity, -complicating care insulin-dependent 2diabetes, -npo. hypoglycemic protocol, sliding scale with coverage code: full diet: npo dvt prophylaxis: on iv heparin gtt. Vital Signs Vital Signs Date Time Temp Pulse Resp B/P (MAP) Pulse Ox O2 Delivery O2 Flow Rate FiO2 06/21/20 11:46 109 18 99 Nasal Cannula 2.0 06/21/20 11:00 182/88 (119) 06/21/20 06:35 97.6 Laboratory Data Labs 24H Laboratory Tests 2 06/21/20 06:51: Prothrombin Time 13.4, Prothromb Time International Ratio 1.00, Activated Partial Thromboplast Time 31.4 06/21/20 06:53: Immature Granulocyte % (Auto) 0.5, Neutrophils (%) (Auto) 68.7H, Lymphocytes (%) (Auto) 15.3L, Monocytes (%) (Auto) 12.5H, Eosinophils (%) (Auto) 2.4, Basophils (%) (Auto) 0.6, Neutrophils # (Auto) 5.4, Lymphocytes # (Auto) 1.2L, Monocytes # (Auto) 1.0H, Eosinophils # (Auto) 0.2, Basophils # (Auto) 0.1, Nucleated Red Blood Cells % (auto) 0.0, Anion Gap 7L, Glomerular Filtration Rate > 60.0, Calcium Level 8.4L, Total Bilirubin 1.0, Direct Bilirubin 0.2, Aspartate Amino Transf (AST/SGOT) 14, Alanine Aminotransferase (ALT/SGPT) 14, Alkaline Phosphatase 84, Total Protein 6.8, Albumin 3.0L, Albumin/Globulin Ratio 0.8L, Lipase 104 06/21/20 08:27: Lactic Acid Level 1.6 06/21/20 09:59: Urine Color STRAW, Urine Appearance CLEAR, Urine pH 6.0, Urine Specific Velva 1.042, Urine Protein NEGATIVE, Urine Glucose (UA) 3+H, Urine Ketones TRACEH, Urine Blood NEGATIVE, Urine Nitrite NEGATIVE, Urine Bilirubin NEGATIVE, Urine Urobilinogen 0.2, Urine Leukocyte Esterase NEGATIVE, Urine WBC (Auto) 1, Urine RBC (Auto) 0, Urine Hyaline Casts (Auto) 0, Urine Bacteria (Auto) 1+H, Urine Squamous Epithelial Cells 1, Urine Sperm (Auto) CBC/BMP Laboratory Tests 06/21/20 06:53 Microbiology Microbiology 06/21/20 Respiratory Virus Panel (PCR) ([facility]) - Final, Complete Home Medications Scheduled Amlodipine Besylate (Norvasc) 10 Mg Tablet, 10 MG PO DAILY Capecitabine (Capecitabine) 500 Mg Tablet, 500 MG PO TID Carvedilol (Carvedilol) 12.5 Mg Tablet, 12.5 MG PO BID Ferrous Gluconate (Ferrous Gluconate) 324 Mg Tablet, 324 MG PO DAILY Furosemide (Furosemide) 20 Mg Tablet, 20 MG PO QHS Gabapentin (Gabapentin) 100 Mg Capsule, 200 MG PO QHS Insulin Glargine (Lantus) 100 Unit/1 Ml Vial, 26 UNITS SC DAILY Pantoprazole Sodium (Pantoprazole Sodium) 40 Mg Tablet.dr, 40 MG PO QHS Scheduled PRN Acetaminophen (Tylenol) 325 Mg Tablet, 650 MG PO Q4H PRN for PAIN / FEVER Bisacodyl (Dulcolax) 10 Mg Supp.rect, 10 MG CA DAILY PRN for CONSTIPATION Milk Of Magnesia (Milk of Magnesia) 2,400 Mg/10 Ml Oral.susp, 10 ML PO DAILY PRN for CONSTIPATION Oxycodone HCl (Oxycodone HCl) 5 Mg Tablet, PO PRN PRN for pain Allergies Coded Allergies: Cephalosporins (Verified Allergy, Mild, 05/12/20) codeine (Verified Adverse Reaction, Mild, VOMITTING, 05/13/20) A-FIB/CHADSVASC A-FIB History Current/History of A-Fib/PAF?: No Current PO Anticoag Therapy: No Age/Risk Factor Scoring CHADSVASC: CHADSVASC Response (Comments) Value Age Risk Factor Age < 65 years old 0 Gender Risk Factor Male 0 Hx of CHF No 0 Hx of HTN Yes 1 Hx of Stroke/TIA/or VTE No 0 Hx of Diabetes Yes 1 Hx of Vascular Disease No 0 Total 2 Treatment Treatment ordered: NONE WAQAS GARCIA MD Jun 21, 2020 12:56
[2020-06-21 14:32] LABS: ERYTHROCYTE SEDIMENTATION RATE 50 mm/hr (0-30)
[2020-06-21 15:21] VITALS: BP 162/87
[2020-06-21] MEDS: NITROGLYCERIN 2% OINT 1 GM *U/D* PKT TOP SCH ×2 (15:29→18:00)
[2020-06-21] MEDS ORDERED: CLONI1TA PO (15:59)
[2020-06-21] MEDS ORDERED: HEPA100I26 IV (15:59)
[2020-06-21] MEDS ORDERED: KCL.075I3 IV (15:59)
[2020-06-21] MEDS ORDERED: DILA1INJ2 IV ×2 (15:59→16:00)
[2020-06-21] MEDS ORDERED: PANT40IN4 IV (16:00)
[2020-06-21] MEDS ORDERED: NITR2OI TOP (16:00)
--- NOTE | 2020-06-21 16:16 | DS.PDOC ---
Discharge Summary General Date of Admission Jun 21, 2020 at 12:41 Date of Discharge 06/21/20 TRANSFERRED TO [facility] ACCEPTING MD: DR DEAN REASON FOR TRANSFER: VASCULAR SURGICAL SERVICES FOR TRANSVENOUS THROMBOLYSIS / THROMBECTOMY TO DECREASE CLOT BURDEN DIAGNOSES: LARGE SUPERIOR MESENTERIC VEIN THROMBUS / MESENTERIC ISCHEMIA Discharge Summary SYSTEMS TECHNOLOGIST: GENERAL SURGEON-DR. ANEESH REAL DISCHARGE DIAGNOSES: Mesenteric Ischemia Large Superior Mesenteric Vein thrombosis Stage 2a Adenocarcinoma of the transverse colon s/p robotic right hemicolectomy w ileocolic anastamosis postop strep pneumoniae abscess s/p drainage DM HTN Obesity BMI 43.7 DISCHARGE MEDICATIONS: see below DISCHARGE INSTRUCTIONS: NPO Vascular surgery consult for thrombectomy vs. transvenous thrombolysis to decr ease clot burden Continue Heparin iv gtt HOSPITAL COURSE: 59-year-old transgender female with past medical history significant for diabetes, hypertension, H. pylori gender dysphoria, medical noncompliance, morbid obesity, previously admitted to [facility] 05/13/2020 for acute diverticulitis treated with IV antibiotics and bowel rest, underwent colonoscopy with biopsy which showed adenocarcinoma of the transverse colon stage IIB, status post robotic-assisted right hemicolectomy with ileocolic anastomosis and discharged to subacute rehabilitation. She was readmitted 06/05/2020 at [facility] for postop abscess which was treated with ultrasound guided drainage and antibiotics with complete resolution. She now presents to the emergency room with complaints of right lower quadrant abdominal pain. Patient tripped on the cat and fell on her recliner at home. Despite taking Multiple ovxv-oik-promoni medications last night, she had persistent pain prompting her to come to the emergency room. Patient denies any bright red blood per rectum, melena, nausea, vomiting, fever, chills. In the emergency room. CT abdomen and pelvis shows large superior mesenteric vein thrombosis and mesenteric ischemia, hypertensive urgency with blood pressure 238/122, treated with IV labetalol, clonidine and nitroglycerin with improvement to Systolic pressure 168. She was started on intravenous heparin drip, IV dialudid every 3 hourly as needed, nothing by mouth, D5 half-normal saline. General surgeon, Dr. Aneesh Real was consulted to monitor for worsening ischemia for possible surgical intervention. Patient is being transferred to [facility] in [place] because [facility] does no t have vascular services or interventional radiology. Patient is to be evaluated for transvenous thrombo-lysis and possible thrombectomy to decrease the clot burden. Hypercoagulable workup has been sent including factor V Leiden mutation, prothrombin gene mutation, lupus anticoagulant, and antiphospholipid antibody. Patient is otherwise hemodynamically stable with lactic acid of 1.6. Normal CBC aside from chronic anemia with hemoglobin of 9.6, hematocrit of 31. NEGATIVE FOR CORONARY VIRUS 19. ALLERGIES: Please see below. PHYSICAL EXAMINATION ON DISCHARGE: VITAL SIGNS: Please see below. GENERAL APPEARANCE: Awake, alert, oriented to person, place and time. Answers questions appropriately. No respiratory distress HEENT: Anicteric. No jaundice. Extra muscles intact. No JVD, thyromegaly. Moist mucous membranes. No cervical lymphadenopathy CARDIOVASCULAR: Sinus tachycardia, S1, S2, regular rhythm. No murmurs noted LUNGS: Clear to auscultation. No wheezing, rales or rhonchi ABDOMEN: Obese, tender diffusely. No rebound, guarding nondistended. EXTREMITIES: No cyanosis, clubbing SKIN: Warm, dry, well perfused, pink in color LABORATORY DATA: See below. IMAGING: INDICATION: abdominal pain/trauma. Recent right colon resection for colon carcinoma. Transgender individual, biologic male, sexual identification female. COMPARISON: Comparison CT study most recent exam June 04, 2020 and May 12, 2020.. TECHNIQUE: Helical scanning was acquired and 4 mm axial images are re-formatted. Coronal and sagittal MPR images were generated and reviewed. The contrast enhancement dose is 100 mL of intravenous Isovue 370. 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 On axial CT images, the lung bases remain clear. The liver and the spleen are normal in size, homogeneous in texture. No focal hepatic lesion is seen. There is a small quantity of ascites along the lateral margin of the liver. No pleural effusion is seen. Normal adrenal glands are seen. No abnormality is noted in the pancreas or the gallbladder. The kidneys enhance symmetrically and are morphologically intact. There is a fairly large thrombus in the proximal superior mesenteric vein noted on today's scan images. There is mesenteric edema downstream from this in the right lower abdomen and there is mural thickening involving the right lower quadrant small bowel loops consistent with mesenteric ischemia. Patient is status post right colectomy with ileo-transverse anastomosis. No evidence of obstruction. No intraperitoneal abscess is seen. There is a fluid collection again noted in the suprapubic anterior abdominal wall just to the right of midline. This measures 3.3 x 2.8 x 4.7 cm and is slightly smaller than it was on June 04, 2020. It appears to be within the distal right rectus abdominus muscle belly. The small bowel dilation seen on the previous CT scan is resolved. Prostate seminal vesicles and urinary bladder are unremarkable. There are scattered normal sized iliac lymph nodes. No abdominal wall hernia is seen. IMPRESSION: Status post right hemicolectomy and ileocolic anastomosis. Superior mesenteric vein thrombosis. There is a large thrombus in the proximal superior mesenteric vein extends into the right lower quadrant mesenteric veins with mesenteric edema and mural thickening in right lower quadrant small bowel loops consistent with mesenteric ischemia. There is no evidence of free air or obstruction. There is a slightly improved but persistent fluid collection in the distal rectus abdominus muscle on the right in the suprapubic region as above. Time SPENT on hospital discharge 30 minutes Vital Signs/I&Os Vital Signs Date Time Temp Pulse Resp B/P (MAP) Pulse Ox O2 Delivery O2 Flow Rate FiO2 06/21/20 15:29 162/87 06/21/20 14:42 110 20 96 Nasal Cannula 2.0 06/21/20 06:35 97.6 Laboratory Data Labs 24H Laboratory Tests 2 06/21/20 06:51: Prothrombin Time 13.4, Prothromb Time International Ratio 1.00, Activated Partial Thromboplast Time 31.4 06/21/20 06:53: Immature Granulocyte % (Auto) 0.5, Neutrophils (%) (Auto) 68.7H, Lymphocytes (%) (Auto) 15.3L, Monocytes (%) (Auto) 12.5H, Eosinophils (%) (Auto) 2.4, Basophils (%) (Auto) 0.6, Neutrophils # (Auto) 5.4, Lymphocytes # (Auto) 1.2L, Monocytes # (Auto) 1.0H, Eosinophils # (Auto) 0.2, Basophils # (Auto) 0.1, Nucleated Red Blood Cells % (auto) 0.0, Erythrocyte Sedimentation Rate 50H, Anion Gap 7L, Glomerular Filtration Rate > 60.0, Calcium Level 8.4L, Total Bilirubin 1.0, Direct Bilirubin 0.2, Aspartate Amino Transf (AST/SGOT) 14, Alanine Aminotransferase (ALT/SGPT) 14, Alkaline Phosphatase 84, C-Reactive Protein, Quantitative 2.50H, Total Protein 6.8, Albumin 3.0L, Albumin/Globulin Ratio 0.8L, Lipase 104 06/21/20 08:27: Lactic Acid Level 1.6 06/21/20 09:59: Urine Color STRAW, Urine Appearance CLEAR, Urine pH 6.0, Urine Specific Bul[place] 1.042, Urine Protein NEGATIVE, Urine Glucose (UA) 3+H, Urine Ketones TRACEH, Urine Blood NEGATIVE, Urine Nitrite NEGATIVE, Urine Bilirubin NEGATIVE, Urine Urobilinogen 0.2, Urine Leukocyte Esterase NEGATIVE, Urine WBC (Auto) 1, Urine RBC (Auto) 0, Urine Hyaline Casts (Auto) 0, Urine Bacteria (Auto) 1+H, Urine Squamous Epithelial Cells 1, Urine Sperm (Auto) 06/21/20 15:20: 06/21/20 15:21: Lactic Acid Level 1.7 CBC/BMP Laboratory Tests 06/21/20 06:53 Microbiology Microbiology 06/21/20 Respiratory Virus Panel (PCR) ([facility]) - Final, Complete Discharge Medications Scheduled Clonidine Hcl (Clonidine HCl) 0.1 Mg Tablet, 0.3 MG PO Q6H Heparin Sodium,Porcine/Pf (Heparin 1,000 Unit/10 (100/ml)) 1,000 Unit/10 Ml Syringe, 1,000 UNIT IV gtt Nitroglycerin (Nitro-Bid) 1 Gm Oint...g., 0 GM TOP Q4H Pantoprazole Sodium (Pantoprazole Sodium) 40 Mg Vial, 40 MG IV BID Potassium Chloride/D5-0.45NACL (D5%-1/2Ns-KCl 10 Meq/l IV Regine) 10 Meq/1000 Ml Iv.soln, 1,000 ML IV gtt Scheduled PRN Hydromorphone HCl (Dilaudid 0.5 mg/0.5 ml Syringe) 0.5 Mg/0.5 Ml Syringe, 0.2 MG IV Q3HP PRN for MILD PAIN (PS 1-4) Hydromorphone HCl (Dilaudid 0.5 mg/0.5 ml Syringe) 0.5 Mg/0.5 Ml Syringe, 0.4 MG IV Q3HP PRN for MODERATE PAIN (PS 5-7) Allergies Coded Allergies: Cephalosporins (Verified Allergy, Mild, 05/12/20) codeine (Verified Adverse Reaction, Mild, VOMITTING, 05/13/20) WAQAS GARCIA MD Jun 21, 2020 16:06
[2020-06-21 18:00] VITALS: BP 132/61
[2020-06-21] MEDS ORDERED: cloNIDine 0.1MG TABLET PO SCH (18:00)
[2020-06-21 18:20] VITALS: BP 132/61
[2020-06-21] MEDS ORDERED: HEPARIN SOD (PORCINE) 5000UNITS/ML 1ML VIAL/SYRINGE IV PRN (18:40)
[2020-06-21 19:08] LABS: HEMATOCRIT 35.8 % (36.0-47.0); HEMOGLOBIN 10.6 g/dl (12.0-15.5); MEAN CORPUSCULAR HEMOGLOBIN 22.6 pg (27.0-33.0); MEAN CORPUSCULAR HGB CONC 29.6 g/dl (32.0-36.5); MEAN CORPUSCULAR VOLUME 76.3 fl (80.0-96.0); PLATELET COUNT, AUTOMATED 437 10^3/uL (150-450); RED BLOOD COUNT 4.69 10^6/uL (4.00-5.40); WHITE BLOOD COUNT 13.3 10^3/uL (4.0-10.0)
[2020-06-21 20:00] VITALS: BP 132/61
== END 2020-06-21 21:09 | disposition short-term general hospital (02) | DRG 394 ==
LOC: M ED 06:16 → M ED INP 12:41 → M PCU 14:50
PROVIDERS: ADMIT General Practice; ATTEND General Practice
DX: K55.069 Acute infarction of intestine, part and extent unspecified (principal); Z68.41 Body mass index [BMI] 40.0-44.9, adult; Z85.028 Personal history of other malignant neoplasm of stomach; Z90.49 Acquired absence of other specified parts of digestive tract; I16.0 Hypertensive urgency; F64.9 Gender identity disorder, unspecified; Z87.890 Personal history of sex reassignment; E66.01 Morbid (severe) obesity due to excess calories; E11.9 Type 2 diabetes mellitus without complications; I10 Essential (primary) hypertension; G40.909 Epilepsy, unspecified, not intractable, without status epilepticus; Z91.19 Patient's noncompliance with other medical treatment and regimen; R26.89 Other abnormalities of gait and mobility; Z79.4 Long term (current) use of insulin; Z79.899 Other long term (current) drug therapy; Z88.1 Allergy status to other antibiotic agents; Z88.5 Allergy status to narcotic agent

== ENCOUNTER 2020-07-27 22:07 | Emergency (ER) | payer MEDICARE, MEDICAID ==
[~2020-07-27 22:07] MED LIST changes: +CLONI1TA PO; +DILA1INJ2 IV; +HEPA100I26 IV; +INSULANT SC; +KCL.075I3 IV; +NITR2OI TOP; +ONDA8TAB10 PO; +PANT40IN4 IV
[2020-07-27] MEDS ORDERED: NS 1,000 ML IV ONE (22:40)
[2020-07-27] MEDS ORDERED: LIDOCAINE 2% W/EPINEPHRINE 20ML VIAL **PRES FREE INJ ONE (23:25)
[2020-07-27] MEDS ORDERED: ANUS2.5C2 TOP (23:32)
[2020-07-27] MEDS ORDERED: QC F0.52 PO (23:32)
[2020-07-27] MEDS ORDERED: LIDO5OIN19 TOP (23:32)
[2020-07-27] MEDS ORDERED: LIDOCAINE 2% 5ML JELLY UROJET As Ordered ONE (23:37)
[2020-07-27] MEDS ORDERED: LIDOCAINE 4% CREAM 5GM (LMX4) As Ordered ONE (23:40)
[2020-07-27] MEDS ORDERED: LIDOCAINE 4% TOPICAL SOLN 50 ML BTL TOP ONE (23:50)
[2020-07-28] MEDS ORDERED: ANUS25SU PR (00:08)
[2020-07-28 00:54] VITALS: BP 152/83
[2020-07-28] MEDS ORDERED: LIDOCAINE 5% OINT 30GM TUBE TOP SCH (09:00)
== END 2020-07-28 00:54 | disposition home or self-care (01) ==
LOC: M ED 22:07
DX: K64.8 Other hemorrhoids (principal); R19.7 Diarrhea, unspecified; E11.9 Type 2 diabetes mellitus without complications; I10 Essential (primary) hypertension; F43.10 Post-traumatic stress disorder, unspecified; Z86.718 Personal history of other venous thrombosis and embolism; Z88.8 Allergy status to other drugs, medicaments and biological substances; Z79.899 Other long term (current) drug therapy

== ENCOUNTER → 2021-03-05 | Outpatient (REF) | payer MEDICARE, MEDICAID ==
[~2021-03-05] MED LIST changes: +ANUS2.5C2 TOP; +ANUS25SU PR; +ELIQ5TAB PO; +LANTINJ4; +LEVO500T3 PO; +LIDO5OIN19 TOP; +QC F0.52 PO
[2021-03-05 17:12] LABS: ALBUMIN 3.4 GM/DL (3.2-5.2); ALT/SGPT 31 U/L (12-78); BILIRUBIN,TOTAL 1.4 MG/DL (0.2-1.0); BLOOD UREA NITROGEN 10 MG/DL (7-18); CALCIUM LEVEL 8.3 MG/DL (8.8-10.2); CARBON DIOXIDE LEVEL 33 MEQ/L (21-32); CHLORIDE LEVEL 102 MEQ/L (98-107); CHOLESTEROL LEVEL 113 MG/DL (<200); CHOLESTEROL RISK RATIO 4.185 (<5); CREATININE FOR GFR 0.82 MG/DL (0.55-1.30); GLOMERULAR FILTRATION RATE > 60.0 (>45); GLUCOSE, FASTING 359 MG/DL (70-100); HDL CHOLESTEROL 27 MG/DL (>40); NON-HDL-C 86 MG/DL; POTASSIUM SERUM 3.7 MEQ/L (3.5-5.1); SODIUM LEVEL 140 MEQ/L (136-145); TOTAL PROTEIN 6.8 GM/DL (6.4-8.2); TRIGLYCERIDES LEVEL 443 MG/DL (<150)
[2021-03-05 17:30] LABS: LUTEINIZING HORMONE 10.5 mIU/mL
== END ==
LOC: M LAB REF 16:20
PROVIDERS: ATTEND Physician Assistant
DX: E11.9 Type 2 diabetes mellitus without complications (principal)

== ENCOUNTER → 2021-09-28 | Outpatient (CLI) | payer MEDICARE, MEDICAID ==
[~2021-09-28] MED LIST changes: +FERR325T3 PO; +GASTROGRAFIN SOLUTION 30ML (Q9963) As Ordered ONE; +ISOVUE-370 76% 100ML VIAL As Ordered ONE; -LEVO500T3 PO; +LEVO500T4 PO; +ONDA-84 PO; -ONDA8TAB10 PO; -PROC10TA4 PO; +PROC10TA5 PO; +SEMA3TAB4; +SPIR50TA4
== END ==
LOC: M RAD 08:47
PROVIDERS: ATTEND Internal Medicine Medical Oncology
DX: C18.9 Malignant neoplasm of colon, unspecified (principal); K76.0 Fatty (change of) liver, not elsewhere classified; N28.1 Cyst of kidney, acquired; Z90.49 Acquired absence of other specified parts of digestive tract; K57.30 Diverticulosis of large intestine without perforation or abscess without bleeding; I70.0 Atherosclerosis of aorta; I25.10 Atherosclerotic heart disease of native coronary artery without angina pectoris
CPT/HCPCS: 71260; 74177; Q9963; Q9967

== ENCOUNTER 2021-10-30 12:12 | Emergency (ER) | payer MEDICARE, MEDICAID ==
[~2021-10-30] VITALS: Ht 175.3 cm; Wt 140.4 kg
[~2021-10-30 12:12] MED LIST changes: -GASTROGRAFIN SOLUTION 30ML (Q9963) As Ordered ONE; -ISOVUE-370 76% 100ML VIAL As Ordered ONE; +LEVO1TAB39 PO; -LEVO500T4 PO
[2021-10-30] MEDS ORDERED: LOPE1CAP5 PO (12:28)
[2021-10-30 14:02] LABS: VENOUS BASE EXCESS -2.4 (-2.0-2.0); VENOUS HCO3 23.2 MEQ/L (23.0-27.0); VENOUS O2 SATURATION 59.8 % (60.0-80.0); VENOUS PARTIAL PRESSURE CO2 42.9 mmHg (38.0-50.0); VENOUS PARTIAL PRESSURE O2 31.3 mmHg (30.0-50.0); VENOUS STANDARD HCO3 21.6 MEQ/L; VENOUS TOTAL CO2 24.5 MEQ/L (24.0-28.0)
[2021-10-30 14:10] LABS: BASO # 0.1 10^3/uL (0.0-0.2); BASO % 1.3 % (0.0-1.0); EOS # 0.1 10^3/uL (0.0-0.5); EOS % 1.5 % (0.0-3.0); HEMOGLOBIN 13.9 g/dl (12.0-15.5); LYMPH # 1.3 10^3/uL (1.5-5.0); LYMPH % 19.2 % (24.0-44.0); MEAN CORPUSCULAR HEMOGLOBIN 30.6 pg (27.0-33.0); MEAN CORPUSCULAR HGB CONC 34.8 g/dl (32.0-36.5); MEAN CORPUSCULAR VOLUME 88.1 fl (80.0-96.0); MONO # 0.6 10^3/uL (0.0-0.8); MONO % 9.4 % (2.0-8.0); NEUTROPHILS # 4.5 10^3/uL (1.5-8.5); NEUTROPHILS % 68.2 % (36.0-66.0); PLATELET COUNT, AUTOMATED 234 10^3/uL (150-450); RED BLOOD COUNT 4.54 10^6/uL (4.00-5.40); WHITE BLOOD COUNT 6.7 10^3/uL (4.0-10.0)
[2021-10-30 14:43] LABS: ACETONE/KETONE 2.54 MG/DL (<2.81); ALBUMIN 3.6 GM/DL (3.2-5.2); BILIRUBIN,DIRECT 0.4 MG/DL (0.0-0.2); MAGNESIUM LEVEL 1.3 MG/DL (1.8-2.4); PHOSPHORUS LEVEL 3.1 MG/DL (2.5-4.9); TOTAL PROTEIN 6.9 GM/DL (6.4-8.2)
[2021-10-30] MEDS ORDERED: POTASSIUM CHLORIDE 10MEQ SR TABLET PO ONE (15:10)
[2021-10-30] MEDS ORDERED: MAGNESIUM OXIDE 400MG TAB (MAG-OX) PO ONE (15:10)
[2021-10-30] MEDS ORDERED: METF-838 PO (16:38)
[2021-10-30 16:54] VITALS: BP 152/77
== END 2021-10-30 17:00 | disposition home or self-care (01) ==
LOC: M ED 12:12
DX: E11.65 Type 2 diabetes mellitus with hyperglycemia (principal); R56.9 Unspecified convulsions; E66.9 Obesity, unspecified; F43.10 Post-traumatic stress disorder, unspecified; F41.9 Anxiety disorder, unspecified; F32.9 Major depressive disorder, single episode, unspecified; F42.9 Obsessive-compulsive disorder, unspecified; G47.33 Obstructive sleep apnea (adult) (pediatric); K21.9 Gastro-esophageal reflux disease without esophagitis; K57.32 Diverticulitis of large intestine without perforation or abscess without bleeding; G43.909 Migraine, unspecified, not intractable, without status migrainosus; Z79.01 Long term (current) use of anticoagulants; Z79.899 Other long term (current) drug therapy; Z88.5 Allergy status to narcotic agent; Z88.1 Allergy status to other antibiotic agents; Z88.8 Allergy status to other drugs, medicaments and biological substances

== ENCOUNTER → 2021-11-19 | Outpatient (CLI) | payer MEDICARE, MEDICAID ==
[~2021-11-19] MED LIST changes: +LOPE1CAP5 PO; +METF-838 PO; +PROAAER10 INH; -SPIR50TA4; +SPIR50TA4 PO; +SYNT25TA PO
== END ==
LOC: M LABSMTC 10:36
PROVIDERS: ATTEND Anesthesiology
DX: Z01.812 Encounter for preprocedural laboratory examination (principal); Z20.822 Contact with and (suspected) exposure to COVID-19

== ENCOUNTER 2021-11-24 07:51 | Day surgery (SDC) | payer MEDICARE, MEDICAID ==
[~2021-11-24] VITALS: Ht 175.3 cm; Wt 140.2 kg
[~2021-11-24 07:51] MED LIST changes: +NS 1,000 ML IV ONE
[2021-11-24] MEDS ORDERED: propofoL 200 MG/20 ML VIAL As Ordered ONE ×2 (08:52→09:28)
[2021-11-24] MEDS ORDERED: LIDOCAINE 2% 100MG/5ML SDV (FOR ANES.) As Ordered ONE (08:55)
[2021-11-24 10:00] VITALS: BP 174/92
== END 2021-11-24 10:43 | disposition home or self-care (01) ==
LOC: M OPP 07:51
PROVIDERS: ATTEND Internal Medicine Gastroenterology
DX: Z85.038 Personal history of other malignant neoplasm of large intestine (principal); Z86.010 Personal history of colon polyps; D12.3 Benign neoplasm of transverse colon; D17.5 Benign lipomatous neoplasm of intra-abdominal organs; K64.8 Other hemorrhoids; K64.4 Residual hemorrhoidal skin tags; K57.30 Diverticulosis of large intestine without perforation or abscess without bleeding; Z86.19 Personal history of other infectious and parasitic diseases; K31.7 Polyp of stomach and duodenum; K29.70 Gastritis, unspecified, without bleeding; Z15.09 Genetic susceptibility to other malignant neoplasm; Z87.890 Personal history of sex reassignment; Z79.51 Long term (current) use of inhaled steroids; Z79.84 Long term (current) use of oral hypoglycemic drugs; Z79.899 Other long term (current) drug therapy; Z88.1 Allergy status to other antibiotic agents; Z88.5 Allergy status to narcotic agent; E11.9 Type 2 diabetes mellitus without complications; G47.30 Sleep apnea, unspecified; I10 Essential (primary) hypertension; G43.909 Migraine, unspecified, not intractable, without status migrainosus; G47.8 Other sleep disorders; Z90.49 Acquired absence of other specified parts of digestive tract; Z86.718 Personal history of other venous thrombosis and embolism

== ENCOUNTER → 2023-06-28 | Outpatient (REF) | payer MEDICARE, MEDICAID ==
[~2023-06-28] MED LIST changes: +ALBU8.5H INH; -DILA1INJ2 IV; +HYDR0.5S8 IV; -MIRA1POW3 PO; +MIRA33506 PO; -NS 1,000 ML IV ONE
[2023-06-28 18:40] LABS: BASO # 0.1 10^3/uL (0.0-0.2); BASO % 0.9 % (0.0-1.0); EOS # 0.1 10^3/uL (0.0-0.5); EOS % 1.2 % (0.0-3.0); HEMOGLOBIN 14.1 g/dl (12.0-15.5); LYMPH # 1.1 10^3/uL (1.5-5.0); LYMPH % 16.9 % (24.0-44.0); MEAN CORPUSCULAR HEMOGLOBIN 30.9 pg (27.0-33.0); MEAN CORPUSCULAR HGB CONC 34.4 g/dl (32.0-36.5); MEAN CORPUSCULAR VOLUME 89.7 fl (80.0-96.0); MONO # 0.6 10^3/uL (0.0-0.8); MONO % 8.7 % (2.0-8.0); NEUTROPHILS # 4.7 10^3/uL (1.5-8.5); PLATELET COUNT, AUTOMATED 254 10^3/uL (150-450); RED BLOOD COUNT 4.57 10^6/uL (4.00-5.40); WHITE BLOOD COUNT 6.6 10^3/uL (4.0-10.0)
[2023-06-28 18:54] LABS: CREATININE, URINE 197.2 MG/DL; MAU/CREAT RATIO 63.8 MCG/MG (0.0-30.0)
[2023-06-28 18:58] LABS: HEMOGLOBIN A1c 7.2 % (4.0-6.0)
[2023-06-28 19:18] LABS: ALBUMIN 3.7 G/DL (3.2-5.2); ALKALINE PHOSPHATASE 84 U/L (46-116); ALT/SGPT 24 U/L (7.0-40); AST/SGOT 17 U/L (<34); BILIRUBIN,TOTAL 1.8 MG/DL (0.3-1.2); BLOOD UREA NITROGEN 11 MG/DL (9-23); CALCIUM LEVEL 8.6 MG/DL (8.3-10.6); CARBON DIOXIDE LEVEL 29 MMOL/L (20-31); CHLORIDE LEVEL 102 MMOL/L (98-107); CHOLESTEROL LEVEL 117 MG/DL (<200); CHOLESTEROL RISK RATIO 3.82 (<5); CREATININE FOR GFR 0.61 MG/DL (0.55-1.30); FERRITIN 56.8 NG/ML (7.3-270.7); GLOMERULAR FILTRATION RATE > 60.0 (>45); GLUCOSE, FASTING 216 MG/DL (74-106); HDL CHOLESTEROL 30.6 MG/DL (>40); LDL CHOLESTEROL 51.2 MG/DL (<100); NON-HDL-C 86.4 MG/DL; POTASSIUM SERUM 3.5 MMOL/L (3.5-5.1); PSA SCREENING 1.27 NG/ML (< 4.00); SODIUM LEVEL 141 MMOL/L (136-145); TOTAL 25(OH) VITAMIN D 6.3 NG/ML (20.0-100.0); TOTAL PROTEIN 6.8 G/DL (5.7-8.2); TRIGLYCERIDES LEVEL 176 MG/DL (<150); VITAMIN B12 LEVEL 229 PG/ML (211-911)
== END ==
LOC: M LAB REF 16:39
PROVIDERS: ATTEND Pediatrics
DX: E11.9 Type 2 diabetes mellitus without complications (principal); E03.9 Hypothyroidism, unspecified; K91.2 Postsurgical malabsorption, not elsewhere classified; E78.5 Hyperlipidemia, unspecified
CPT/HCPCS: 80053; 80061; 82043; 82306; 82607; 82728; 82746; 83036; 84443; 85025; G0103

== ENCOUNTER → 2023-09-28 | Outpatient (REF) | payer MEDICARE, MEDICAID ==
[~2023-09-28] MED LIST changes: +ONDA-282 PO; +ONDA-284 PO; -ONDA4TAB6 PO; -ONDA8TAB8 PO
[2023-09-28 19:08] LABS: BLOOD UREA NITROGEN 9 MG/DL (9-23); CALCIUM LEVEL 8.4 MG/DL (8.3-10.6); CARBON DIOXIDE LEVEL 30 MMOL/L (20-31); CHLORIDE LEVEL 105 MMOL/L (98-107); GLOMERULAR FILTRATION RATE > 60.0 (>45); GLUCOSE, FASTING 171 MG/DL (74-106); POTASSIUM SERUM 3.4 MMOL/L (3.5-5.1); SODIUM LEVEL 142 MMOL/L (136-145)
[2023-09-28 19:20] LABS: HEMOGLOBIN A1c 7.6 % (4.0-6.0)
== END ==
LOC: M LAB REF 17:29
PROVIDERS: ATTEND Pediatrics
DX: E11.9 Type 2 diabetes mellitus without complications (principal); R60.0 Localized edema

== ENCOUNTER → 2023-11-04 | Outpatient (CLI) | payer MEDICARE, MEDICAID ==
[~2023-11-04] MED LIST changes: +GASTROGRAFIN SOLUTION 30ML As Ordered ONE; +ISOVUE-370 76% 100ML VIAL As Ordered ONE
== END ==
LOC: M RAD 12:35
PROVIDERS: ATTEND Pediatrics
DX: R19.00 Intra-abdominal and pelvic swelling, mass and lump, unspecified site (principal); K80.20 Calculus of gallbladder without cholecystitis without obstruction; N28.1 Cyst of kidney, acquired; K86.89 Other specified diseases of pancreas; K59.00 Constipation, unspecified
CPT/HCPCS: 74177; Q9963; Q9967

== ENCOUNTER 2024-03-18 23:22 | Inpatient (IN) | payer MEDICARE, MEDICAID ==
[~2024-03-18] VITALS: Ht 175.3 cm; Wt 166.6 kg
[~2024-03-18 23:22] MED LIST changes: -GASTROGRAFIN SOLUTION 30ML As Ordered ONE; -ISOVUE-370 76% 100ML VIAL As Ordered ONE; -LEVO750T14 PO; +LEVO75TAB PO
[2024-03-19 00:02] LABS: BASO # 0.1 10^3/uL (0.0-0.2); BASO % 0.6 % (0.0-1.0); EOS # 0.1 10^3/uL (0.0-0.5); HEMATOCRIT 34.5 % (36.0-47.0); HEMOGLOBIN 11.2 g/dl (12.0-15.5); LYMPH # 0.9 10^3/uL (1.5-5.0); LYMPH % 8.9 % (24.0-44.0); MEAN CORPUSCULAR HEMOGLOBIN 28.7 pg (27.0-33.0); MEAN CORPUSCULAR HGB CONC 32.5 g/dl (32.0-36.5); MEAN CORPUSCULAR VOLUME 88.5 fl (80.0-96.0); MONO # 0.8 10^3/uL (0.0-0.8); MONO % 7.9 % (2.0-8.0); NEUTROPHILS # 8.1 10^3/uL (1.5-8.5); NEUTROPHILS % 81.2 % (36.0-66.0); PLATELET COUNT, AUTOMATED 249 10^3/uL (150-450); WHITE BLOOD COUNT 9.9 10^3/uL (4.0-10.0)
[2024-03-19 00:25] LABS: ALBUMIN 3.5 G/DL (3.2-5.2); ALKALINE PHOSPHATASE 68 U/L (35-104); ALT/SGPT 13 U/L (7.0-40); AST/SGOT 15 U/L (<34); BILIRUBIN,DIRECT 0.3 MG/DL (<0.4); BILIRUBIN,TOTAL 2.9 MG/DL (0.3-1.2); BLOOD UREA NITROGEN 11 MG/DL (9-23); CALCIUM LEVEL 8.4 MG/DL (8.3-10.6); CARBON DIOXIDE LEVEL 27 MMOL/L (20-31); CHLORIDE LEVEL 108 MMOL/L (98-107); CREATININE FOR GFR 0.67 MG/DL (0.55-1.30); GLOMERULAR FILTRATION RATE > 60.0 (>45); GLUCOSE, FASTING 212 MG/DL (74-106); POTASSIUM SERUM 3.6 MMOL/L (3.5-5.1); SODIUM LEVEL 143 MMOL/L (136-145); TOTAL PROTEIN 6.7 G/DL (5.7-8.2)
[2024-03-19] MEDS: FUROSEMIDE 40MG/4ML VIAL IV ONE (04:14)
[2024-03-19] MEDS: NITROGLYCERIN 0.4MG SUBL TABLET SL STA (04:14)
[2024-03-19] MEDS ORDERED: MAALOX 30 ML SUSP *UDC PO PRN (04:55)
[2024-03-19] MEDS ORDERED: MOM 30ML SUSPENSION UDC PO PRN (04:55)
[2024-03-19] MEDS ORDERED: METF-838 PO (06:13)
[2024-03-19] MEDS ORDERED: CARV6.25 PO (06:13)
[2024-03-19] MEDS ORDERED: ATOR1TAB19 PO (06:13)
[2024-03-19] MEDS ORDERED: MULT-113 PO (06:13)
[2024-03-19] MEDS ORDERED: HOME MED LIST COMPLETE! XX SCH (06:15)
[2024-03-19] MEDS ORDERED: GLUCAGON INJ 1MG VIAL SC PRN (06:30)
[2024-03-19] MEDS ORDERED: ALBUTEROL 90 MCG/ACT 8GM HFA INHALER INH PRN (06:30)
[2024-03-19] MEDS ORDERED: GLUCOSE 4 GM CHEW PO PRN (06:30)
[2024-03-19] MEDS ORDERED: DEXTROSE 50% 50ML SYRINGE IV PRN (06:30)
[2024-03-19 07:07] LABS: CHOLESTEROL LEVEL 63 MG/DL (<200); CHOLESTEROL RISK RATIO 2.43 (<5); HDL CHOLESTEROL 25.9 MG/DL (>40); LDL CHOLESTEROL 18.1 MG/DL (<100); NON-HDL-C 37.1 MG/DL; TRIGLYCERIDES LEVEL 95 MG/DL (<150)
[2024-03-19 07:27] LABS: HEMATOCRIT 32.2 % (36.0-47.0); HEMOGLOBIN 10.4 g/dl (12.0-15.5); MEAN CORPUSCULAR HEMOGLOBIN 28.4 pg (27.0-33.0); MEAN CORPUSCULAR HGB CONC 32.3 g/dl (32.0-36.5); PLATELET COUNT, AUTOMATED 257 10^3/uL (150-450); RED BLOOD COUNT 3.66 10^6/uL (4.00-5.40); WHITE BLOOD COUNT 8.5 10^3/uL (4.0-10.0)
[2024-03-19 07:39] LABS: BLOOD UREA NITROGEN 12 MG/DL (9-23); CALCIUM LEVEL 8.1 MG/DL (8.3-10.6); CARBON DIOXIDE LEVEL 26 MMOL/L (20-31); CHLORIDE LEVEL 109 MMOL/L (98-107); CREATININE FOR GFR 0.67 MG/DL (0.55-1.30); GLOMERULAR FILTRATION RATE > 60.0 (>45); GLUCOSE, FASTING 130 MG/DL (74-106); POTASSIUM SERUM 3.2 MMOL/L (3.5-5.1); SODIUM LEVEL 145 MMOL/L (136-145)
[2024-03-19] MEDS: APIXABAN 5 MG TAB (ELIQUIS) PO SCH (09:00)
[2024-03-19] MEDS: DOCUSATE SODIUM 100MG CAPSULE PO SCH (09:01)
[2024-03-19] MEDS: ATORVASTATIN 10 MG TAB PO SCH (09:01)
[2024-03-19] MEDS: CARVedilol 6.25 MG TAB PO SCH (09:02)
[2024-03-19] MEDS: INSULIN LISPRO (NovoLOG) PER UNIT SC SCH (09:02)
[2024-03-19] MEDS: ACETAMINOPHEN 325 MG TAB PO PRN (09:02)
[2024-03-19] MEDS: FUROSEMIDE 40MG/4ML VIAL IV SCH ×3 (09:03→22:11)
[2024-03-19] MEDS: PANTOPRAZOLE 40MG VIAL IV SCH (09:03)
[2024-03-19] MEDS: IPRATROPIUM 0.5MG/ALBUTEROL 2.5MG INH SOL UD 3ML (DUONEB) NEB SCH (09:06)
[2024-03-19] MEDS: MAGNESIUM OXIDE 400MG TAB (MAG-OX) PO SCH ×2 (10:38→22:13)
[2024-03-19] MEDS: POTASSIUM CHLORIDE 10MEQ SR TABLET PO SCH (10:38)
[2024-03-19 12:00] VITALS: BP 145/72; TEMP 97.6; O2SAT 95
[2024-03-19] MEDS: POTASSIUM CHLORIDE 10MEQ SR TABLET PO ONE (12:54)
[2024-03-19 13:28] VITALS: BP 162/88; TEMP 97.2; O2SAT 94
[2024-03-19] MEDS: metOLazone 5 MG TAB PO ONE ×2 (14:45→20:32)
[2024-03-19 16:48] VITALS: BP 172/100; TEMP 97.4; O2SAT 93
[2024-03-19] MEDS: hydrALAZINE 20MG/ML 1ML VIAL IV ONE (17:32)
[2024-03-19] MEDS: CARVedilol 12.5 MG TAB PO SCH (17:33)
[2024-03-19 18:49] LABS: BLOOD UREA NITROGEN 10 MG/DL (9-23); CALCIUM LEVEL 8.3 MG/DL (8.3-10.6); CARBON DIOXIDE LEVEL 28 MMOL/L (20-31); CHLORIDE LEVEL 104 MMOL/L (98-107); CREATININE FOR GFR 0.69 MG/DL (0.55-1.30); GLOMERULAR FILTRATION RATE > 60.0 (>45); GLUCOSE, FASTING 189 MG/DL (74-106); MAGNESIUM LEVEL 1.3 MG/DL (1.8-2.4); POTASSIUM SERUM 4.1 MMOL/L (3.5-5.1); SODIUM LEVEL 142 MMOL/L (136-145)
[2024-03-19 19:13] VITALS: BP 144/69
[2024-03-19 20:24] VITALS: BP 170/88; TEMP 97.5; O2SAT 95
[2024-03-19] MEDS: MAG SULF 1GM/100ML (MAG RUN) 1 GM in IV 1 EA IV SCH (20:32)
[2024-03-19] MEDS: CALCIUM/VITAMIN D 500 MG TAB PO SCH (22:11)
[2024-03-19] MEDS: CALCIUM GLUCONATE 1,000 MG in DEXTROSE 5% (D5W) MINI-BAG PLU 100 ML IV ONE (22:11)
[2024-03-19] MEDS: ISOSORBIDE DIN (ISORDIL) 10MG TAB PO SCH (22:17)
[2024-03-19 23:20] VITALS: BP 164/84; TEMP 98; O2SAT 94
[2024-03-20] VITALS (8 sets, daily range): BP systolic 115–165; BP diastolic 55–88; TEMP 97–98.2; O2SAT 91–96
[2024-03-20 06:03] LABS: BASO # 0.1 10^3/uL (0.0-0.2); BASO % 0.8 % (0.0-1.0); EOS # 0.2 10^3/uL (0.0-0.5); EOS % 2.4 % (0.0-3.0); HEMATOCRIT 33.3 % (36.0-47.0); HEMOGLOBIN 10.9 g/dl (12.0-15.5); LYMPH # 0.9 10^3/uL (1.5-5.0); LYMPH % 11.9 % (24.0-44.0); MEAN CORPUSCULAR HEMOGLOBIN 28.4 pg (27.0-33.0); MEAN CORPUSCULAR HGB CONC 32.7 g/dl (32.0-36.5); MEAN CORPUSCULAR VOLUME 86.7 fl (80.0-96.0); MONO # 0.8 10^3/uL (0.0-0.8); MONO % 9.6 % (2.0-8.0); NEUTROPHILS % 74.9 % (36.0-66.0); PLATELET COUNT, AUTOMATED 256 10^3/uL (150-450); RED BLOOD COUNT 3.84 10^6/uL (4.00-5.40); WHITE BLOOD COUNT 7.9 10^3/uL (4.0-10.0)
[2024-03-20 06:23] LABS: PROCALCITONIN 0.08 ng/ml
[2024-03-20 06:25] LABS: ALBUMIN 3.4 G/DL (3.2-5.2); ALKALINE PHOSPHATASE 62 U/L (35-104); ALT/SGPT 14 U/L (7.0-40); AST/SGOT 18 U/L (<34); BILIRUBIN,TOTAL 3.2 MG/DL (0.3-1.2); BLOOD UREA NITROGEN 16 MG/DL (9-23); CALCIUM LEVEL 8.8 MG/DL (8.3-10.6); CARBON DIOXIDE LEVEL 32 MMOL/L (20-31); CHLORIDE LEVEL 102 MMOL/L (98-107); GLOMERULAR FILTRATION RATE > 60.0 (>45); GLUCOSE, FASTING 164 MG/DL (74-106); MAGNESIUM LEVEL 1.6 MG/DL (1.8-2.4); POTASSIUM SERUM 3.8 MMOL/L (3.5-5.1); SODIUM LEVEL 143 MMOL/L (136-145); TOTAL PROTEIN 6.2 G/DL (5.7-8.2)
[2024-03-20] MEDS: MAG SULF 1GM/100ML (MAG RUN) 1 GM in IV 1 EA IV ONE (07:38)
[2024-03-20] MEDS: NYSTATIN 100,000 UNITS/GM TOPICAL PWD 15GM TOP SCH (15:13)
[2024-03-20] MEDS: CARVedilol 12.5 MG TAB PO SCH (20:15)
[2024-03-20 21:33] LABS: APPEARANCE, URINE CLEAR (CLEAR); BACTERIA, URINE AUTO NEGATIVE (NEGATIVE); BILIRUBIN, URINE AUTO NEGATIVE (NEGATIVE); BLOOD, URINE BLOOD 2+ (NEGATIVE); COLOR, URINE STRAW (YELLOW); GLUCOSE, URINE (UA) AUTO NEGATIVE (NEGATIVE); KETONE, URINE AUTO NEGATIVE (NEGATIVE); LEUKOCYTE ESTERASE, URINE AUTO NEGATIVE (NEGATIVE); NITRITE, URINE AUTO NEGATIVE (NEGATIVE); PROTEIN, URINE AUTO NEGATIVE (NEGATIVE); RBC, URINE AUTO 18 /HPF (0-3); SPECIFIC GRAVITY URINE AUTO 1.005 (1.002-1.035); SQUAMOUS EPITHELIAL CELL UR AU 0 /HPF (0-6); UROBILINOGEN, URINE AUTO 0.2 mg/dL (0.0-2.0); WBC, URINE AUTO 1 /HPF (0-3)
[2024-03-21 03:56] VITALS: BP 155/88; TEMP 98.3; O2SAT 92
[2024-03-21 07:16] LABS: BASO # 0.1 10^3/uL (0.0-0.2); EOS # 0.4 10^3/uL (0.0-0.5); EOS % 3.9 % (0.0-3.0); HEMATOCRIT 35.5 % (36.0-47.0); HEMOGLOBIN 11.7 g/dl (12.0-15.5); LYMPH # 1.4 10^3/uL (1.5-5.0); LYMPH % 15.9 % (24.0-44.0); MEAN CORPUSCULAR HEMOGLOBIN 28.7 pg (27.0-33.0); MONO # 1.2 10^3/uL (0.0-0.8); NEUTROPHILS % 65.8 % (36.0-66.0); PLATELET COUNT, AUTOMATED 287 10^3/uL (150-450); RED BLOOD COUNT 4.08 10^6/uL (4.00-5.40); WHITE BLOOD COUNT 9.1 10^3/uL (4.0-10.0)
[2024-03-21 07:42] LABS: ALBUMIN 3.6 G/DL (3.2-5.2); BILIRUBIN,TOTAL 2.5 MG/DL (0.3-1.2); CALCIUM LEVEL 9.2 MG/DL (8.3-10.6); CREATININE FOR GFR 1.02 MG/DL (0.55-1.30); GLOMERULAR FILTRATION RATE 58.1 (>45); POTASSIUM SERUM 3.7 MMOL/L (3.5-5.1); TOTAL PROTEIN 6.5 G/DL (5.7-8.2)
[2024-03-21 07:52] VITALS: BP 159/85; TEMP 97.9; O2SAT 92
[2024-03-21] MEDS: metOLazone 5 MG TAB PO SCH (08:30)
[2024-03-21] MEDS: FUROSEMIDE 40MG/4ML VIAL IV SCH (08:31)
[2024-03-21] MEDS: PANTOPRAZOLE 40MG TAB (PROTONIX) PO SCH (08:31)
[2024-03-21 11:51] VITALS: BP 143/70; TEMP 97.6; O2SAT 95
[2024-03-21 16:10] VITALS: BP 126/59; TEMP 97.8; O2SAT 95
[2024-03-21 20:40] VITALS: BP 145/77; TEMP 97.6; O2SAT 96
[2024-03-22] VITALS (7 sets, daily range): BP systolic 121–155; BP diastolic 57–88; TEMP 97.1–97.8; O2SAT 92–95
[2024-03-22 06:53] LABS: BASO # 0.1 10^3/uL (0.0-0.2); EOS # 0.2 10^3/uL (0.0-0.5); EOS % 2.8 % (0.0-3.0); HEMATOCRIT 34.8 % (36.0-47.0); HEMOGLOBIN 11.3 g/dl (12.0-15.5); LYMPH # 1.3 10^3/uL (1.5-5.0); LYMPH % 16.9 % (24.0-44.0); MEAN CORPUSCULAR HEMOGLOBIN 28.3 pg (27.0-33.0); MEAN CORPUSCULAR HGB CONC 32.5 g/dl (32.0-36.5); MEAN CORPUSCULAR VOLUME 87.2 fl (80.0-96.0); MONO # 1.1 10^3/uL (0.0-0.8); MONO % 13.6 % (2.0-8.0); NEUTROPHILS # 5.1 10^3/uL (1.5-8.5); NEUTROPHILS % 65.4 % (36.0-66.0); PLATELET COUNT, AUTOMATED 271 10^3/uL (150-450); RED BLOOD COUNT 3.99 10^6/uL (4.00-5.40); WHITE BLOOD COUNT 7.9 10^3/uL (4.0-10.0)
[2024-03-22 06:54] LABS: ALBUMIN 3.3 G/DL (3.2-5.2); CREATININE FOR GFR 1.07 MG/DL (0.55-1.30); POTASSIUM SERUM 3.4 MMOL/L (3.5-5.1); TOTAL PROTEIN 6.5 G/DL (5.7-8.2)
[2024-03-22] MEDS: TORSEMIDE 20 MG TAB PO SCH (16:41)
[2024-03-23 04:00] VITALS: BP 139/75; TEMP 97.3; O2SAT 94
[2024-03-23 07:09] LABS: BASO # 0.1 10^3/uL (0.0-0.2); EOS # 0.3 10^3/uL (0.0-0.5); EOS % 3.4 % (0.0-3.0); HEMATOCRIT 33.9 % (36.0-47.0); HEMOGLOBIN 11.1 g/dl (12.0-15.5); LYMPH # 1.2 10^3/uL (1.5-5.0); LYMPH % 14.7 % (24.0-44.0); MEAN CORPUSCULAR HEMOGLOBIN 28.5 pg (27.0-33.0); MEAN CORPUSCULAR HGB CONC 32.7 g/dl (32.0-36.5); MEAN CORPUSCULAR VOLUME 87.1 fl (80.0-96.0); MONO # 1.2 10^3/uL (0.0-0.8); NEUTROPHILS # 5.3 10^3/uL (1.5-8.5); NEUTROPHILS % 65.5 % (36.0-66.0); PLATELET COUNT, AUTOMATED 245 10^3/uL (150-450); RED BLOOD COUNT 3.89 10^6/uL (4.00-5.40); WHITE BLOOD COUNT 8.1 10^3/uL (4.0-10.0)
[2024-03-23 07:35] LABS: ALBUMIN 3.2 G/DL (3.2-5.2); BILIRUBIN,TOTAL 1.4 MG/DL (0.3-1.2); CALCIUM LEVEL 9.6 MG/DL (8.3-10.6); CREATININE FOR GFR 1.08 MG/DL (0.55-1.30); GLOMERULAR FILTRATION RATE 54.4 (>45); POTASSIUM SERUM 3.2 MMOL/L (3.5-5.1); TOTAL PROTEIN 6.4 G/DL (5.7-8.2)
[2024-03-23 08:00] VITALS: BP 135/81; TEMP 97.3
[2024-03-23 12:00] VITALS: BP 156/85; TEMP 97.5; O2SAT 99
[2024-03-23] MEDS: POTASSIUM CHLORIDE 10MEQ SR TABLET PO ONE (12:19)
[2024-03-23 16:00] VITALS: BP 155/90; TEMP 97.5
[2024-03-23 17:39] LABS: MAGNESIUM LEVEL 1.4 MG/DL (1.8-2.4); POTASSIUM SERUM 3.5 MMOL/L (3.5-5.1)
[2024-03-23 20:00] VITALS: BP 138/62; TEMP 97.5; O2SAT 94
[2024-03-23] MEDS: MAGNESIUM OXIDE 400MG TAB (MAG-OX) PO SCH (21:15)
[2024-03-24] VITALS: BP 126/48; TEMP 98.4; O2SAT 95
[2024-03-24 04:00] VITALS: BP 147/82; TEMP 97.3; O2SAT 95
[2024-03-24 06:18] LABS: BASO # 0.1 10^3/uL (0.0-0.2); BASO % 1.1 % (0.0-1.0); EOS # 0.2 10^3/uL (0.0-0.5); EOS % 2.8 % (0.0-3.0); HEMOGLOBIN 11.7 g/dl (12.0-15.5); LYMPH # 1.3 10^3/uL (1.5-5.0); LYMPH % 16.8 % (24.0-44.0); MEAN CORPUSCULAR HEMOGLOBIN 27.6 pg (27.0-33.0); MEAN CORPUSCULAR HGB CONC 31.6 g/dl (32.0-36.5); MEAN CORPUSCULAR VOLUME 87.3 fl (80.0-96.0); MONO # 1.2 10^3/uL (0.0-0.8); MONO % 15.7 % (2.0-8.0); NEUTROPHILS # 4.8 10^3/uL (1.5-8.5); NEUTROPHILS % 63.3 % (36.0-66.0); PLATELET COUNT, AUTOMATED 238 10^3/uL (150-450); RED BLOOD COUNT 4.24 10^6/uL (4.00-5.40); WHITE BLOOD COUNT 7.5 10^3/uL (4.0-10.0)
[2024-03-24 06:46] LABS: ALBUMIN 3.4 G/DL (3.2-5.2); BILIRUBIN,TOTAL 1.2 MG/DL (0.3-1.2); CALCIUM LEVEL 9.2 MG/DL (8.3-10.6); CREATININE FOR GFR 1.04 MG/DL (0.55-1.30); GLOMERULAR FILTRATION RATE 56.8 (>45); POTASSIUM SERUM 3.3 MMOL/L (3.5-5.1); TOTAL PROTEIN 6.4 G/DL (5.7-8.2)
[2024-03-24 08:00] VITALS: BP 143/86; TEMP 97.7; O2SAT 95
[2024-03-24 08:42] VITALS: BP 142/89
[2024-03-24] MEDS: MAG SULF 1GM/100ML (MAG RUN) 1 GM in IV 1 EA IV ONE (09:00)
[2024-03-24] MEDS ORDERED: MAGN400T2 PO ×2 (10:49→14:07)
[2024-03-24] MEDS ORDERED: TORS20TA2 PO (10:49)
[2024-03-24] MEDS ORDERED: CARV12.5 PO (10:49)
[2024-03-24] MEDS ORDERED: POTA-298 PO (10:49)
[2024-03-24] MEDS ORDERED: PRED20TA PO (10:50)
[2024-03-24] MEDS ORDERED: METO5TA PO (10:50)
[2024-03-24 12:00] VITALS: BP 145/85; TEMP 97.9; O2SAT 96
== END 2024-03-24 14:41 | disposition home or self-care (01) | DRG 291 ==
LOC: M ED 23:22 → M ED INP 03-19 04:51 → M PCU 03-19 13:17 → M MS5PR 03-22 22:43
PROVIDERS: ADMIT Student in an Organized Health Care Education/Training Program; ATTEND Internal Medicine Nephrology
PROC: B246ZZZ Ultrasonography of Right and Left Heart (ICD-10-PCS; principal; 2024-03-19)
DX: I11.0 Hypertensive heart disease with heart failure (principal); I50.33 Acute on chronic diastolic (congestive) heart failure; E66.2 Morbid (severe) obesity with alveolar hypoventilation; J90 Pleural effusion, not elsewhere classified; Z68.43 Body mass index [BMI] 50.0-59.9, adult; E11.9 Type 2 diabetes mellitus without complications; E87.6 Hypokalemia; I16.0 Hypertensive urgency; K43.9 Ventral hernia without obstruction or gangrene; B37.2 Candidiasis of skin and nail; K76.1 Chronic passive congestion of liver; E83.42 Hypomagnesemia; F32.A Depression, unspecified; J45.909 Unspecified asthma, uncomplicated; F41.9 Anxiety disorder, unspecified; D64.9 Anemia, unspecified; Z85.038 Personal history of other malignant neoplasm of large intestine; Z90.49 Acquired absence of other specified parts of digestive tract; Z86.718 Personal history of other venous thrombosis and embolism; Z79.01 Long term (current) use of anticoagulants; Z79.84 Long term (current) use of oral hypoglycemic drugs; Z79.899 Other long term (current) drug therapy; Z88.1 Allergy status to other antibiotic agents; Z86.73 Personal history of transient ischemic attack (TIA), and cerebral infarction without residual deficits; Z88.5 Allergy status to narcotic agent; Z88.8 Allergy status to other drugs, medicaments and biological substances

== ENCOUNTER 2024-07-18 15:51 | Inpatient (IN) | payer MEDICARE, MEDICAID ==
[~2024-07-18] VITALS: Ht 175.3 cm; Wt 133.4 kg
[~2024-07-18 15:51] MED LIST changes: +AMLO-751 PO; -AMLO10TA PO; +ATOR1TAB19 PO; +CARV6.25 PO; +MAGN400T2 PO; +METO5TA PO; +MULT-113 PO; +POTA-298 PO; +PRED20TA PO; +TORS20TA2 PO
[2024-07-18 16:34] LABS: BASO # 0.1 10^3/uL (0.0-0.2); BASO % 0.9 % (0.0-1.0); EOS # 0.1 10^3/uL (0.0-0.5); EOS % 1.1 % (0.0-3.0); HEMATOCRIT 33.6 % (36.0-47.0); HEMOGLOBIN 10.6 g/dl (12.0-15.5); LYMPH # 0.9 10^3/uL (1.5-5.0); LYMPH % 9.8 % (24.0-44.0); MEAN CORPUSCULAR HEMOGLOBIN 28.8 pg (27.0-33.0); MEAN CORPUSCULAR HGB CONC 31.5 g/dl (32.0-36.5); MEAN CORPUSCULAR VOLUME 91.3 fl (80.0-96.0); MONO # 0.6 10^3/uL (0.0-0.8); MONO % 6.9 % (2.0-8.0); NEUTROPHILS # 7.4 10^3/uL (1.5-8.5); PLATELET COUNT, AUTOMATED 257 10^3/uL (150-450); RED BLOOD COUNT 3.68 10^6/uL (4.00-5.40); WHITE BLOOD COUNT 9.2 10^3/uL (4.0-10.0)
[2024-07-18 16:58] LABS: CK-MB VALUE MASS 2.2 NG/ML (<3.6)
[2024-07-18 17:01] LABS: CALCIUM LEVEL 8.6 MG/DL (8.3-10.6); CREATININE FOR GFR 0.8 MG/DL (0.55-1.30); GLOMERULAR FILTRATION RATE 82.2 (>45); POTASSIUM SERUM 4.1 MMOL/L (3.5-5.1)
[2024-07-18 17:04] LABS: MB/CK RELATIVE INDEX 3.23 (< OR =4)
[2024-07-18 17:34] LABS: MAGNESIUM LEVEL 1.4 MG/DL (1.8-2.4)
[2024-07-18] MEDS: MAG SULF 1GM/100ML (MAG RUN) 1 GM in IV 1 EA IV ONE ×2 (17:46→20:09)
[2024-07-18] MEDS: METOPROLOL TART 50 MG TAB PO ONE (17:46)
[2024-07-18 18:22] LABS: CK-MB VALUE MASS 2.8 NG/ML (<3.6); MB/CK RELATIVE INDEX 3.88 (< OR =4)
[2024-07-18] MEDS ORDERED: MOM 30ML SUSPENSION UDC PO PRN (21:25)
[2024-07-18] MEDS ORDERED: MAALOX 30 ML SUSP *UDC PO PRN (21:25)
[2024-07-18] MEDS ORDERED: VITA200032 PO (21:54)
[2024-07-18] MEDS ORDERED: HOME MED LIST COMPLETE! XX SCH (21:55)
[2024-07-18] MEDS: NS (Normal Saline) 0.9% 1,000 ML IV SCH (22:04)
[2024-07-18 22:45] VITALS: BP 178/106; TEMP 98.2; O2SAT 96
[2024-07-18 22:55] VITALS: BP 181/108
[2024-07-18] MEDS: APIXABAN 5 MG TAB PO SCH (23:36)
[2024-07-18] MEDS: ACETAMINOPHEN 325 MG TAB PO PRN (23:42)
[2024-07-19] VITALS (8 sets, daily range): BP systolic 120–163; BP diastolic 58–100; TEMP 96.8–98.7; O2SAT 94–99
[2024-07-19] MEDS: METOPROLOL TART 25 MG TABLET PO ONE
[2024-07-19 04:23] LABS: HEMATOCRIT 33.1 % (36.0-47.0); HEMOGLOBIN 10.5 g/dl (12.0-15.5); MEAN CORPUSCULAR HEMOGLOBIN 28.9 pg (27.0-33.0); MEAN CORPUSCULAR HGB CONC 31.7 g/dl (32.0-36.5); MEAN CORPUSCULAR VOLUME 91.2 fl (80.0-96.0); PLATELET COUNT, AUTOMATED 251 10^3/uL (150-450); RED BLOOD COUNT 3.63 10^6/uL (4.00-5.40); WHITE BLOOD COUNT 9.9 10^3/uL (4.0-10.0)
[2024-07-19 04:41] LABS: INR 1.26
[2024-07-19 04:45] LABS: ALBUMIN 2.9 G/DL (3.2-5.2); ALKALINE PHOSPHATASE 55 U/L (35-104); ALT/SGPT 17 U/L (7.0-40); AST/SGOT 15 U/L (<34); BILIRUBIN,TOTAL 1.7 MG/DL (0.3-1.2); BLOOD UREA NITROGEN 17 MG/DL (9-23); CALCIUM LEVEL 8.1 MG/DL (8.3-10.6); CARBON DIOXIDE LEVEL 20 MMOL/L (20-31); CHLORIDE LEVEL 115 MMOL/L (98-107); CHOLESTEROL LEVEL 58 MG/DL (<200); CHOLESTEROL RISK RATIO 2.85 (<5); CREATININE FOR GFR 0.73 MG/DL (0.55-1.30); GLOMERULAR FILTRATION RATE > 90.0 (>45); GLUCOSE, FASTING 159 MG/DL (74-106); HDL CHOLESTEROL 20.3 MG/DL (>40); LDL CHOLESTEROL 8.9 MG/DL (<100); MAGNESIUM LEVEL 1.6 MG/DL (1.8-2.4); NON-HDL-C 37.7 MG/DL; POTASSIUM SERUM 3.5 MMOL/L (3.5-5.1); SODIUM LEVEL 145 MMOL/L (136-145); TOTAL PROTEIN 5.6 G/DL (5.7-8.2); TRIGLYCERIDES LEVEL 144 MG/DL (<150)
[2024-07-19 04:51] LABS: PROCALCITONIN 0.06 ng/ml
[2024-07-19 05:03] LABS: HEMOGLOBIN A1c 6.6 % (4.0-6.0)
[2024-07-19] MEDS ORDERED: ALBUTEROL 90 MCG/ACT 8GM HFA INHALER INH PRN (06:05)
[2024-07-19] MEDS: DOCUSATE SODIUM 100MG CAPSULE PO SCH (08:55)
[2024-07-19] MEDS: ATORVASTATIN 10 MG TAB PO SCH (08:55)
[2024-07-19] MEDS: METOPROLOL TART 50 MG TAB PO SCH (08:57)
[2024-07-19] MEDS ORDERED: FUROSEMIDE 20MG/2ML VIAL IV SCH (09:00)
[2024-07-19] MEDS ORDERED: METOPROLOL TART 25 MG TABLET PO SCH (09:00)
[2024-07-19] MEDS ORDERED: DEXTROSE 50% 50ML SYRINGE IV PRN (11:30)
[2024-07-19] MEDS ORDERED: GLUCOSE 4 GM CHEW PO PRN (11:30)
[2024-07-19] MEDS ORDERED: GLUCAGON INJ 1MG VIAL SC PRN (11:30)
[2024-07-19] MEDS: FUROSEMIDE 20MG/2ML VIAL IV SCH (11:42)
[2024-07-19] MEDS: MAGNESIUM OXIDE 400MG TAB (MAG-OX) PO SCH (11:43)
[2024-07-19] MEDS: POTASSIUM CHLORIDE 10MEQ SR TABLET PO ONE (13:28)
[2024-07-19] MEDS: NYSTATIN 100,000 UNITS/GM TOPICAL PWD 15GM TOP SCH (13:29)
[2024-07-19] MEDS: INSULIN LISPRO (NovoLOG) PER UNIT SC SCH ×2 (13:29→20:09)
[2024-07-19] MEDS: CARVedilol 12.5 MG TAB PO SCH (20:15)
[2024-07-20 03:56] VITALS: BP 142/65; TEMP 97.4; O2SAT 95
[2024-07-20 05:32] LABS: HEMATOCRIT 35.9 % (36.0-47.0); HEMOGLOBIN 11.4 g/dl (12.0-15.5); MEAN CORPUSCULAR HEMOGLOBIN 28.6 pg (27.0-33.0); MEAN CORPUSCULAR HGB CONC 31.8 g/dl (32.0-36.5); PLATELET COUNT, AUTOMATED 271 10^3/uL (150-450); RED BLOOD COUNT 3.99 10^6/uL (4.00-5.40); WHITE BLOOD COUNT 10.4 10^3/uL (4.0-10.0)
[2024-07-20 06:02] LABS: ALBUMIN 3.2 G/DL (3.2-5.2); BILIRUBIN,TOTAL 2.3 MG/DL (0.3-1.2); CALCIUM LEVEL 8.4 MG/DL (8.3-10.6); CREATININE FOR GFR 0.98 MG/DL (0.55-1.30); GLOMERULAR FILTRATION RATE 64.5 (>45); POTASSIUM SERUM 3.7 MMOL/L (3.5-5.1); TOTAL PROTEIN 6.1 G/DL (5.7-8.2)
[2024-07-20 07:59] VITALS: BP 158/76; TEMP 97.3; O2SAT 98
[2024-07-20] MEDS: LanTUS (INSULIN GLARGINE INJ) 1 UNITS/0.01 ML SC SCH (08:24)
[2024-07-20 11:54] VITALS: BP 136/72; TEMP 97.6; O2SAT 98
[2024-07-20 16:00] VITALS: BP 148/67; TEMP 97.1; O2SAT 98
[2024-07-20 19:29] VITALS: BP 141/69; TEMP 97; O2SAT 95
[2024-07-20 22:17] VITALS: BP 164/71
[2024-07-21 03:25] VITALS: BP 163/84; TEMP 98.2; O2SAT 97
[2024-07-21 04:41] LABS: HEMATOCRIT 32.6 % (36.0-47.0); HEMOGLOBIN 10.6 g/dl (12.0-15.5); MEAN CORPUSCULAR HEMOGLOBIN 29.2 pg (27.0-33.0); MEAN CORPUSCULAR HGB CONC 32.5 g/dl (32.0-36.5); MEAN CORPUSCULAR VOLUME 89.8 fl (80.0-96.0); PLATELET COUNT, AUTOMATED 264 10^3/uL (150-450); RED BLOOD COUNT 3.63 10^6/uL (4.00-5.40); WHITE BLOOD COUNT 8.1 10^3/uL (4.0-10.0)
[2024-07-21 04:58] LABS: BILIRUBIN,TOTAL 1.9 MG/DL (0.3-1.2); CALCIUM LEVEL 7.8 MG/DL (8.3-10.6); CREATININE FOR GFR 0.83 MG/DL (0.55-1.30); GLOMERULAR FILTRATION RATE 78.7 (>45); POTASSIUM SERUM 3.7 MMOL/L (3.5-5.1); TOTAL PROTEIN 5.8 G/DL (5.7-8.2)
[2024-07-21 05:42] VITALS: BP 150/82
[2024-07-21] MEDS ORDERED: MAGN400T33 PO (07:13)
[2024-07-21] MEDS ORDERED: NYST10006 TOP (07:13)
[2024-07-21] MEDS ORDERED: CARV25TA PO (07:13)
[2024-07-21] MEDS ORDERED: COLA100C5 PO (07:13)
[2024-07-21] MEDS ORDERED: ACET32TAB PO (07:13)
[2024-07-21] MEDS ORDERED: LASI40TA9 PO (07:13)
[2024-07-21] MEDS ORDERED: DOCU100C16 PO (07:14)
[2024-07-21 07:40] VITALS: BP 139/86; TEMP 97; O2SAT 96
[2024-07-21 08:07] VITALS: BP 156/92
== END 2024-07-21 13:05 | disposition home health service (06) | DRG 291 ==
LOC: EDBD 15:51 → M ED 15:51 → M ED INP 21:24 → M PCU 22:34
PROVIDERS: ADMIT Student in an Organized Health Care Education/Training Program; ATTEND Student in an Organized Health Care Education/Training Program
DX: I11.0 Hypertensive heart disease with heart failure (principal); I50.33 Acute on chronic diastolic (congestive) heart failure; E66.2 Morbid (severe) obesity with alveolar hypoventilation; Z68.41 Body mass index [BMI] 40.0-44.9, adult; E11.9 Type 2 diabetes mellitus without complications; J45.909 Unspecified asthma, uncomplicated; F32.A Depression, unspecified; D64.9 Anemia, unspecified; F41.9 Anxiety disorder, unspecified; F64.0 Transsexualism; E83.42 Hypomagnesemia; I48.91 Unspecified atrial fibrillation; Z79.01 Long term (current) use of anticoagulants; Z79.84 Long term (current) use of oral hypoglycemic drugs; Z79.899 Other long term (current) drug therapy; Z88.1 Allergy status to other antibiotic agents; Z88.5 Allergy status to narcotic agent; Z88.8 Allergy status to other drugs, medicaments and biological substances; Z86.73 Personal history of transient ischemic attack (TIA), and cerebral infarction without residual deficits; Z85.038 Personal history of other malignant neoplasm of large intestine; Z86.718 Personal history of other venous thrombosis and embolism

== ENCOUNTER 2024-08-25 23:13 | Emergency (ER) | payer MEDICARE, MEDICAID ==
[~2024-08-25 23:13] MED LIST changes: +ACET32TAB PO; +CARV25TA PO; +COLA100C5 PO; +DOCU100C16 PO; +LASI40TA9 PO; +MAGN400T33 PO; +NYST10006 TOP; +VITA200032 PO
[2024-08-26 00:04] VITALS: TEMP 97.6
[2024-08-26] MEDS ORDERED: AMOX500C PO (03:14)
[2024-08-26] MEDS: AMOXICILLIN 500 MG CAP PO ONE (04:12)
[2024-08-26 04:13] VITALS: O2SAT 94
[2024-08-26 04:15] VITALS: BP 165/91
== END 2024-08-26 04:46 | disposition home or self-care (01) ==
LOC: M ED 23:13
DX: L97.921 Non-pressure chronic ulcer of unspecified part of left lower leg limited to breakdown of skin (principal); I11.0 Hypertensive heart disease with heart failure; I50.9 Heart failure, unspecified; Z79.01 Long term (current) use of anticoagulants; Z79.899 Other long term (current) drug therapy; Z88.5 Allergy status to narcotic agent; Z88.8 Allergy status to other drugs, medicaments and biological substances

== ENCOUNTER 2024-09-11 04:23 | Inpatient (IN) | payer MEDICARE, MEDICAID ==
[~2024-09-11] VITALS: Ht 175.3 cm; Wt 129.8 kg
[~2024-09-11 04:23] MED LIST changes: +AMOX500C PO
[2024-09-11 05:14] LABS: BASO # 0.1 10^3/uL (0.0-0.2); BASO % 0.9 % (0.0-1.0); EOS # 0.1 10^3/uL (0.0-0.5); EOS % 1.4 % (0.0-3.0); LYMPH # 1.0 10^3/uL (1.5-5.0); LYMPH % 9.5 % (24.0-44.0); MONO # 0.8 10^3/uL (0.0-0.8); MONO % 8.2 % (2.0-8.0); NEUTROPHILS # 8.0 10^3/uL (1.5-8.5); NEUTROPHILS % 79.5 % (36.0-66.0); PLATELET COUNT, AUTOMATED 247 10^3/uL (150-450)
[2024-09-11 05:24] LABS: CK-MB VALUE MASS 1.8 NG/ML (<3.6)
[2024-09-11 05:26] LABS: CALCIUM LEVEL 7.8 MG/DL (8.3-10.6); CARBON DIOXIDE LEVEL 21.0 MMOL/L (20-31); CHLORIDE LEVEL 112.0 MMOL/L (98-107); CREATININE FOR GFR 0.82 MG/DL (0.55-1.30); GLOMERULAR FILTRATION RATE 79.3 (>45); POTASSIUM SERUM 4.1 MMOL/L (3.5-5.1); SODIUM LEVEL 148.0 MMOL/L (136-145)
[2024-09-11 05:29] LABS: CPK CREATINE PHOSPHOKINASE 53.0 U/L (34-145); MB/CK RELATIVE INDEX 3.39 (< OR =4)
[2024-09-11] MEDS: ONDANSETRON 4MG 2ML VIAL IV ONE (05:33)
[2024-09-11] MEDS: IPRATROPIUM 0.5 MG/ALBUTEROL 2.5 MG INH SOL UD 3 ML NEB ONE (05:34)
[2024-09-11] MEDS: MORPHINE 4 MG/ML 1 ML VIAL IV PRN (05:34)
[2024-09-11] MEDS ORDERED: ISOVUE-370 76% 100 ML VIAL As Ordered ONE (05:41)
[2024-09-11 06:07] LABS: CK-MB VALUE MASS 1.9 NG/ML (<3.6)
[2024-09-11 06:14] LABS: CPK CREATINE PHOSPHOKINASE 50.0 U/L (34-145); MB/CK RELATIVE INDEX 3.8 (< OR =4)
[2024-09-11] MEDS: LevoFLOXacin IV 750 MG in IV 1 EA IV ONE (08:58)
[2024-09-11] MEDS: BENZONATATE 100 MG CAPSULE PO ONE (09:39)
[2024-09-11] MEDS ORDERED: MED REC IN PROGRESS XX SCH (10:20)
[2024-09-11] MEDS ORDERED: APAP325T4 PO (11:30)
[2024-09-11] MEDS ORDERED: DOCU100C17 PO (12:00)
[2024-09-11] MEDS ORDERED: MAGN400T2 PO (12:03)
[2024-09-11] MEDS ORDERED: FARX1TAB3 PO (12:04)
[2024-09-11] MEDS ORDERED: HOME MED LIST COMPLETE! XX SCH (12:10)
[2024-09-11] MEDS ORDERED: GLUCOSE 4 GM CHEW PO PRN (12:25)
[2024-09-11] MEDS ORDERED: DEXTROSE 50% 50 ML SYRINGE IV PRN (12:25)
[2024-09-11] MEDS ORDERED: GLUCAGON INJ 1 MG VIAL SC PRN (12:25)
[2024-09-11] MEDS: FUROSEMIDE 40 MG/4 ML VIAL IV SCH (13:35)
[2024-09-11] MEDS: ATORVASTATIN 10 MG TAB PO SCH (13:37)
[2024-09-11] MEDS ORDERED: DOCUSATE SODIUM 100 MG CAPSULE PO PRN (14:00)
[2024-09-11 18:15] VITALS: BP 173/103; TEMP 97.7; O2SAT 91
[2024-09-11] MEDS: INSULIN LISPRO (NovoLOG) PER UNIT SC SCH ×2 (19:02→20:42)
[2024-09-11 19:39] VITALS: BP 158/100
[2024-09-11 20:00] VITALS: O2SAT 96
[2024-09-11 20:05] VITALS: BP 150/82; TEMP 97.9; O2SAT 91
[2024-09-11] MEDS: ALBUTEROL 90 MCG/ACT 8 GM HFA INHALER INH PRN (20:31)
[2024-09-11] MEDS: MAGNESIUM OXIDE 400 MG TAB PO SCH (20:38)
[2024-09-11] MEDS: FUROSEMIDE 100 MG/10 ML VIAL IV ONE (20:38)
[2024-09-11] MEDS: NYSTATIN 100,000 UNITS/GM TOPICAL PWD 15GM TOP SCH (20:39)
[2024-09-11 21:00] VITALS: O2SAT 95
[2024-09-11] MEDS: LEVALBUTEROL 1.25 MG 0.5ML CONCENTRATE NEB NEB ONE (23:15)
[2024-09-12] VITALS (8 sets, daily range): BP systolic 123–145; BP diastolic 69–85; TEMP 97.3–97.7; O2SAT 92–98
[2024-09-12] MEDS: ACETAMINOPHEN 325 MG TAB PO PRN (00:28)
[2024-09-12 06:11] LABS: PLATELET COUNT, AUTOMATED 237 10^3/uL (150-450)
[2024-09-12 06:49] LABS: CALCIUM LEVEL 7.6 MG/DL (8.3-10.6); CARBON DIOXIDE LEVEL 29.0 MMOL/L (20-31); CHLORIDE LEVEL 105.0 MMOL/L (98-107); CREATININE FOR GFR 0.89 MG/DL (0.55-1.30); GLOMERULAR FILTRATION RATE 71.9 (>45); POTASSIUM SERUM 3.2 MMOL/L (3.5-5.1); SODIUM LEVEL 145.0 MMOL/L (136-145)
[2024-09-12 07:30] LABS: MAGNESIUM LEVEL 1.2 MG/DL (1.8-2.4)
[2024-09-12] MEDS: POTASSIUM CHLORIDE 10MEQ SR TABLET PO ONE ×2 (09:20→17:22)
[2024-09-12 10:41] LABS: LDH LACTATE DEHYDROGENASE 201.0 U/L (120-246)
[2024-09-12 10:57] LABS: PH BODY FLUID 7.721 UNITS (NOT ESTABLISHED); SOURCE, BODY FLUID pH PLEURAL
[2024-09-12 11:02] LABS: APPEARANCE, BODY FLUID CLEAR (CLEAR); PLEURAL FL COLOR YELLOW (COLORLESS); SOURCE, BODY FLUID PLEURAL
[2024-09-12] MEDS: LevoFLOXacin IV 750 MG in IV 1 EA IV SCH (11:18)
[2024-09-12] MEDS: MAG SULF 1GM/100ML (MAG RUN) 1 GM in IV 1 EA IV ONE ×3 (12:48→17:22)
[2024-09-12 12:56] LABS: SOURCE, BODY FLUID GLUCOSE PLEURAL
[2024-09-12 12:57] LABS: LDH, BODY FLUID 57 U/L (NOT ESTABLISHED); SOURCE, BODY FLUID LDH PLEURAL; SOURCE, BODY FLUID TOT PROTEIN PLEURAL
[2024-09-12 12:58] LABS: AMYLASE, BODY FLUID < 20 U/L (NOT ESTABLISHED); SOURCE, BODY FLUID AMYLASE PLEURAL
[2024-09-12 16:56] LABS: CALCIUM LEVEL 7.7 MG/DL (8.3-10.6); CARBON DIOXIDE LEVEL 30.0 MMOL/L (20-31); CHLORIDE LEVEL 103.0 MMOL/L (98-107); CREATININE FOR GFR 0.84 MG/DL (0.55-1.30); GLOMERULAR FILTRATION RATE 77.1 (>45); MAGNESIUM LEVEL 1.5 MG/DL (1.8-2.4); POTASSIUM SERUM 3.3 MMOL/L (3.5-5.1); SODIUM LEVEL 144.0 MMOL/L (136-145)
[2024-09-13] VITALS (13 sets, daily range): BP systolic 118–149; BP diastolic 72–98; TEMP 97.3–97.9; O2SAT 80–97
[2024-09-13 05:28] LABS: PLATELET COUNT, AUTOMATED 218 10^3/uL (150-450)
[2024-09-13 05:45] LABS: CALCIUM LEVEL 7.1 MG/DL (8.3-10.6); CARBON DIOXIDE LEVEL 28.0 MMOL/L (20-31); CHLORIDE LEVEL 105.0 MMOL/L (98-107); CREATININE FOR GFR 0.76 MG/DL (0.55-1.30); GLOMERULAR FILTRATION RATE 86.9 (>45); MAGNESIUM LEVEL 1.6 MG/DL (1.8-2.4); POTASSIUM SERUM 3.4 MMOL/L (3.5-5.1); SODIUM LEVEL 145.0 MMOL/L (136-145)
[2024-09-13] MEDS: POTASSIUM CHLORIDE 10MEQ SR TABLET PO ONE (08:39)
[2024-09-13] MEDS: MAG SULF 1GM/100ML (MAG RUN) 1 GM in IV 1 EA IV ONE ×2 (08:40→18:35)
[2024-09-13] MEDS: APIXABAN 5 MG TAB PO SCH (12:15)
[2024-09-13 15:50] LABS: CALCIUM LEVEL 7.5 MG/DL (8.3-10.6); CARBON DIOXIDE LEVEL 29.0 MMOL/L (20-31); CHLORIDE LEVEL 103.0 MMOL/L (98-107); CREATININE FOR GFR 0.78 MG/DL (0.55-1.30); GLOMERULAR FILTRATION RATE 84.2 (>45); MAGNESIUM LEVEL 1.6 MG/DL (1.8-2.4); POTASSIUM SERUM 4.1 MMOL/L (3.5-5.1); SODIUM LEVEL 145.0 MMOL/L (136-145)
[2024-09-14] VITALS (8 sets, daily range): BP systolic 117–160; BP diastolic 65–100; TEMP 97.5–97.9; O2SAT 80–96
[2024-09-14 06:27] LABS: PLATELET COUNT, AUTOMATED 219 10^3/uL (150-450)
[2024-09-14 06:43] LABS: CALCIUM LEVEL 7.7 MG/DL (8.3-10.6); CARBON DIOXIDE LEVEL 33.0 MMOL/L (20-31); CHLORIDE LEVEL 104.0 MMOL/L (98-107); CREATININE FOR GFR 0.81 MG/DL (0.55-1.30); GLOMERULAR FILTRATION RATE 80.5 (>45); POTASSIUM SERUM 3.8 MMOL/L (3.5-5.1); SODIUM LEVEL 146.0 MMOL/L (136-145)
[2024-09-14 08:29] LABS: MAGNESIUM LEVEL 1.7 MG/DL (1.8-2.4)
[2024-09-15 00:49] VITALS: BP 115/73; TEMP 97.7; O2SAT 96
[2024-09-15 04:36] VITALS: BP 132/81; TEMP 97.3; O2SAT 96
[2024-09-15 06:47] LABS: PLATELET COUNT, AUTOMATED 273 10^3/uL (150-450)
[2024-09-15 07:14] LABS: CALCIUM LEVEL 8.4 MG/DL (8.3-10.6); CARBON DIOXIDE LEVEL 33 MMOL/L (20-31); CHLORIDE LEVEL 100 MMOL/L (98-107); CREATININE FOR GFR 0.73 MG/DL (0.55-1.30); GLOMERULAR FILTRATION RATE > 90.0 (>45); MAGNESIUM LEVEL 1.7 MG/DL (1.8-2.4); POTASSIUM SERUM 3.8 MMOL/L (3.5-5.1); SODIUM LEVEL 144 MMOL/L (136-145)
[2024-09-15] MEDS: MAG SULF 1GM/100ML (MAG RUN) 1 GM in IV 1 EA IV ONE (08:11)
[2024-09-15] MEDS ORDERED: SPIR-10 PO (11:29)
[2024-09-15] MEDS ORDERED: LASI40TA9 PO (11:29)
[2024-09-15 12:15] VITALS: BP 144/66; TEMP 97.2; O2SAT 94
[2024-09-15 16:00] VITALS: BP 117/63; TEMP 97.5; O2SAT 93
[2024-09-15 20:00] VITALS: BP 168/107; TEMP 97.5; O2SAT 94
[2024-09-15 21:00] VITALS: O2SAT 93
[2024-09-16 00:47] VITALS: BP 139/92; TEMP 98.1; O2SAT 93
[2024-09-16 04:30] VITALS: BP 139/89; TEMP 97.3; O2SAT 96
[2024-09-16 06:36] LABS: PLATELET COUNT, AUTOMATED 260 10^3/uL (150-450)
[2024-09-16 07:07] LABS: CALCIUM LEVEL 8.5 MG/DL (8.3-10.6); CARBON DIOXIDE LEVEL 33.0 MMOL/L (20-31); CHLORIDE LEVEL 99.0 MMOL/L (98-107); CREATININE FOR GFR 0.81 MG/DL (0.55-1.30); GLOMERULAR FILTRATION RATE 80.5 (>45); POTASSIUM SERUM 3.9 MMOL/L (3.5-5.1); SODIUM LEVEL 145.0 MMOL/L (136-145)
[2024-09-16] MEDS: SPIRONOLACTONE 25 MG TAB PO SCH (08:01)
[2024-09-16] MEDS: FUROSEMIDE 40 MG TAB PO SCH (08:03)
[2024-09-16 08:06] VITALS: BP 162/107; TEMP 97.5; O2SAT 95
[2024-09-16] MEDS: DOXYCYCLINE HYCLATE 100 MG TABLET PO SCH (12:52)
[2024-09-16 13:00] VITALS: BP 158/101; TEMP 97.3; O2SAT 96
[2024-09-16 16:09] VITALS: BP 147/92; TEMP 97.5; O2SAT 95
[2024-09-16 20:00] VITALS: BP 141/94; TEMP 97.7; O2SAT 95
[2024-09-17 00:42] LABS: BASO # 0.1 10^3/uL (0.0-0.2); BASO % 1.2 % (0.0-1.0); EOS # 0.3 10^3/uL (0.0-0.5); EOS % 3.2 % (0.0-3.0); LYMPH # 1.3 10^3/uL (1.5-5.0); LYMPH % 16.1 % (24.0-44.0); MONO # 0.9 10^3/uL (0.0-0.8); MONO % 10.3 % (2.0-8.0); NEUTROPHILS # 5.7 10^3/uL (1.5-8.5); NEUTROPHILS % 69.0 % (36.0-66.0); PLATELET COUNT, AUTOMATED 262 10^3/uL (150-450)
[2024-09-17 01:04] LABS: CALCIUM LEVEL 8.6 MG/DL (8.3-10.6); CARBON DIOXIDE LEVEL 33.0 MMOL/L (20-31); CHLORIDE LEVEL 100.0 MMOL/L (98-107); CREATININE FOR GFR 0.85 MG/DL (0.55-1.30); GLOMERULAR FILTRATION RATE 76.0 (>45); POTASSIUM SERUM 3.9 MMOL/L (3.5-5.1); SODIUM LEVEL 143.0 MMOL/L (136-145)
[2024-09-17] MEDS: FUROSEMIDE 40 MG/4 ML VIAL IV ONE (01:32)
[2024-09-17] MEDS: MAG SULF 1GM/100ML (MAG RUN) 1 GM in IV 1 EA IV SCH (02:00)
[2024-09-17 04:28] VITALS: BP 141/77; TEMP 97.9; O2SAT 92
[2024-09-17 06:28] LABS: PLATELET COUNT, AUTOMATED 214 10^3/uL (150-450)
[2024-09-17 07:07] LABS: CALCIUM LEVEL 8.4 MG/DL (8.3-10.6); CARBON DIOXIDE LEVEL 34.0 MMOL/L (20-31); CHLORIDE LEVEL 99.0 MMOL/L (98-107); CREATININE FOR GFR 0.8 MG/DL (0.55-1.30); GLOMERULAR FILTRATION RATE 81.7 (>45); POTASSIUM SERUM 3.5 MMOL/L (3.5-5.1); SODIUM LEVEL 144.0 MMOL/L (136-145)
[2024-09-17] MEDS ORDERED: MAG SULF 1GM/100ML (MAG RUN) 1 GM in IV 1 EA IV SCH (07:20)
[2024-09-17 08:17] VITALS: BP 152/85; TEMP 98.1; O2SAT 97
[2024-09-17 11:55] VITALS: BP 135/85; TEMP 97.9; O2SAT 96
[2024-09-17] MEDS: POTASSIUM CHLORIDE 10% LIQ 20MEQ/15ML UDC PO SCH (12:20)
[2024-09-17] MEDS: MAGNESIUM OXIDE 400 MG TAB PO SCH (15:20)
[2024-09-17 16:15] VITALS: BP 148/73; TEMP 97.4; O2SAT 95
[2024-09-17 20:00] VITALS: BP 150/80; TEMP 97.6; O2SAT 94
[2024-09-18 00:10] VITALS: BP 150/88; TEMP 97.6; O2SAT 96
[2024-09-18 05:32] LABS: PLATELET COUNT, AUTOMATED 232 10^3/uL (150-450)
[2024-09-18 05:49] LABS: CALCIUM LEVEL 8.3 MG/DL (8.3-10.6); CARBON DIOXIDE LEVEL 32.0 MMOL/L (20-31); CHLORIDE LEVEL 104.0 MMOL/L (98-107); CREATININE FOR GFR 0.78 MG/DL (0.55-1.30); GLOMERULAR FILTRATION RATE 84.2 (>45); POTASSIUM SERUM 4.0 MMOL/L (3.5-5.1); SODIUM LEVEL 145.0 MMOL/L (136-145)
[2024-09-18 06:55] VITALS: BP 149/80; TEMP 97.9; O2SAT 94
[2024-09-18 08:00] VITALS: BP 148/86; TEMP 97.5; O2SAT 96
[2024-09-18 08:29] VITALS: BP 150/98
[2024-09-18] MEDS ORDERED: DOXY100C3 PO (10:25)
[2024-09-18 12:00] VITALS: BP 146/82; TEMP 97.8; O2SAT 98
== END 2024-09-18 14:05 | disposition home or self-care (01) | DRG 291 ==
LOC: M ED 04:23 → M ED INP 12:23 → M MSPAV 18:09
PROVIDERS: ADMIT Student in an Organized Health Care Education/Training Program; ATTEND Internal Medicine
PROC: 0W993ZZ Drainage of Right Pleural Cavity, Percutaneous Approach (ICD-10-PCS; principal; 2024-09-12 08:00)
DX: I11.0 Hypertensive heart disease with heart failure (principal); I50.33 Acute on chronic diastolic (congestive) heart failure; J18.9 Pneumonia, unspecified organism; J90 Pleural effusion, not elsewhere classified; J44.0 Chronic obstructive pulmonary disease with (acute) lower respiratory infection; I48.20 Chronic atrial fibrillation, unspecified; Z86.73 Personal history of transient ischemic attack (TIA), and cerebral infarction without residual deficits; G47.33 Obstructive sleep apnea (adult) (pediatric); E11.9 Type 2 diabetes mellitus without complications; R07.89 Other chest pain; E78.5 Hyperlipidemia, unspecified; Z79.01 Long term (current) use of anticoagulants; Z79.84 Long term (current) use of oral hypoglycemic drugs; Z79.899 Other long term (current) drug therapy; Z88.1 Allergy status to other antibiotic agents; Z88.5 Allergy status to narcotic agent; Z88.8 Allergy status to other drugs, medicaments and biological substances; Z85.038 Personal history of other malignant neoplasm of large intestine; Z86.718 Personal history of other venous thrombosis and embolism; Z90.49 Acquired absence of other specified parts of digestive tract; E83.42 Hypomagnesemia; E87.6 Hypokalemia; L30.4 Erythema intertrigo; S81.802A Unspecified open wound, left lower leg, initial encounter; X58.XXXA Exposure to other specified factors, initial encounter; Y92.9 Unspecified place or not applicable

== ENCOUNTER 2024-09-21 23:00 | Emergency (ER) | payer MEDICARE, MEDICAID ==
[~2024-09-21] VITALS: Ht 175.3 cm; Wt 132.7 kg
[~2024-09-21 23:00] MED LIST changes: +APAP325T4 PO; +DOCU100C17 PO; +DOXY100C3 PO; +FARX1TAB3 PO; +SPIR-10 PO
[2024-09-22 00:27] LABS: BASO # 0.1 10^3/uL (0.0-0.2); BASO % 0.9 % (0.0-1.0); EOS # 0.3 10^3/uL (0.0-0.5); EOS % 3.6 % (0.0-3.0); LYMPH # 0.9 10^3/uL (1.5-5.0); LYMPH % 12.1 % (24.0-44.0); MONO # 0.9 10^3/uL (0.0-0.8); MONO % 11.3 % (2.0-8.0); NEUTROPHILS # 5.5 10^3/uL (1.5-8.5); NEUTROPHILS % 71.7 % (36.0-66.0); PLATELET COUNT, AUTOMATED 239 10^3/uL (150-450)
[2024-09-22 00:47] LABS: CALCIUM LEVEL 7.2 MG/DL (8.3-10.6); CARBON DIOXIDE LEVEL 24.0 MMOL/L (20-31); CHLORIDE LEVEL 108.0 MMOL/L (98-107); CK-MB VALUE MASS 2.5 NG/ML (<3.6); CPK CREATINE PHOSPHOKINASE 67.0 U/L (34-145); CREATININE FOR GFR 0.87 MG/DL (0.55-1.30); GLOMERULAR FILTRATION RATE 73.9 (>45); MB/CK RELATIVE INDEX 3.73 (< OR =4); POTASSIUM SERUM 5.4 MMOL/L (3.5-5.1); SODIUM LEVEL 144.0 MMOL/L (136-145)
[2024-09-22 02:15] LABS: CK-MB VALUE MASS 2.2 NG/ML (<3.6); CPK CREATINE PHOSPHOKINASE 70.0 U/L (34-145); MB/CK RELATIVE INDEX 3.14 (< OR =4)
[2024-09-22] MEDS: PANTOPRAZOLE 40MG VIAL IV ONE (06:16)
[2024-09-22] MEDS: DICYCLOMINE INJ 20 MG/2 ML IM ONE (06:17)
[2024-09-22] MEDS: FAMOTIDINE 20 MG/2 ML VIAL IVP ONE (06:17)
[2024-09-22] MEDS: LOPERAMIDE 2 MG CAPLET PO ONE (06:17)
[2024-09-22] MEDS ORDERED: LOPE1CAP5 PO (08:24)
[2024-09-22] MEDS ORDERED: DICY20TA20 PO (08:24)
[2024-09-22 08:54] VITALS: O2SAT 98
[2024-09-22 09:15] VITALS: BP 162/90
[2024-09-22 09:30] VITALS: TEMP 97; O2SAT 97
[2024-11-02] MEDS ORDERED: CARV25TA PO (11:07)
== END 2024-09-22 09:44 | disposition home or self-care (01) ==
LOC: M ED 23:00
DX: R19.7 Diarrhea, unspecified (principal); I48.91 Unspecified atrial fibrillation; I25.10 Atherosclerotic heart disease of native coronary artery without angina pectoris; I10 Essential (primary) hypertension; E78.5 Hyperlipidemia, unspecified; Z87.01 Personal history of pneumonia (recurrent); Z79.01 Long term (current) use of anticoagulants; Z79.4 Long term (current) use of insulin; Z79.899 Other long term (current) drug therapy; Z88.5 Allergy status to narcotic agent; Z88.8 Allergy status to other drugs, medicaments and biological substances
CPT/HCPCS: 71045; 80047; 80048; 82550; 82553; 84484; 85025; 93005; 93041; 94760; 96372; 96374; 96375; 99285; J0500; J1308; J2470

== ENCOUNTER → 2024-09-26 | Outpatient (REF) | payer MEDICARE, MEDICAID ==
[~2024-09-26] MED LIST changes: +DICY20TA20 PO
[2024-09-26 17:31] LABS: CALCIUM LEVEL 8.3 MG/DL (8.3-10.6); CARBON DIOXIDE LEVEL 27.0 MMOL/L (20-31); CHLORIDE LEVEL 105.0 MMOL/L (98-107); CREATININE FOR GFR 0.9 MG/DL (0.55-1.30); GLOMERULAR FILTRATION RATE 71.0 (>45); POTASSIUM SERUM 3.5 MMOL/L (3.5-5.1); SODIUM LEVEL 145.0 MMOL/L (136-145)
== END ==
LOC: M LAB REF 16:29
PROVIDERS: ATTEND Pediatrics
DX: I10 Essential (primary) hypertension (principal)

== ENCOUNTER → 2024-10-30 | Outpatient (CLI) | payer MEDICARE, MEDICAID | LOC: M RAD 13:34 | PROVIDERS: ATTEND Pediatrics | DX: I87.8 Other specified disorders of veins (principal); M79.89 Other specified soft tissue disorders ==

== ENCOUNTER 2024-11-10 22:48 | Observation (INO) | payer MEDICARE, MEDICAID ==
[~2024-11-10] VITALS: Ht 175.3 cm; Wt 136.0 kg
[2024-11-10 23:42] LABS: CALCIUM LEVEL 8.1 MG/DL (8.3-10.6); CARBON DIOXIDE LEVEL 21.0 MMOL/L (20-31); CHLORIDE LEVEL 113.0 MMOL/L (98-107); CK-MB VALUE MASS 2.4 NG/ML (<3.6); CPK CREATINE PHOSPHOKINASE 41.0 U/L (34-145); CREATININE FOR GFR 0.93 MG/DL (0.55-1.30); GLOMERULAR FILTRATION RATE 68.2 (>45); MB/CK RELATIVE INDEX 5.85 (< OR =4); POTASSIUM SERUM 4.2 MMOL/L (3.5-5.1); SODIUM LEVEL 146.0 MMOL/L (136-145)
[2024-11-11 00:12] LABS: BASO # 0.1 10^3/uL (0.0-0.2); BASO % 0.9 % (0.0-1.0); EOS # 0.2 10^3/uL (0.0-0.5); EOS % 2.2 % (0.0-3.0); LYMPH # 1.0 10^3/uL (1.5-5.0); LYMPH % 10.8 % (24.0-44.0); MONO # 1.0 10^3/uL (0.0-0.8); MONO % 10.5 % (2.0-8.0); NEUTROPHILS # 7.0 10^3/uL (1.5-8.5); NEUTROPHILS % 75.2 % (36.0-66.0); PLATELET COUNT, AUTOMATED 232 10^3/uL (150-450)
[2024-11-11] MEDS ORDERED: CARV25TA PO (00:45)
[2024-11-11 01:02] LABS: CK-MB VALUE MASS 2.2 NG/ML (<3.6)
[2024-11-11 01:04] LABS: CPK CREATINE PHOSPHOKINASE 40.0 U/L (34-145); MB/CK RELATIVE INDEX 5.5 (< OR =4)
[2024-11-11] MEDS ORDERED: ISOVUE-370 76% 100 ML VIAL As Ordered ONE (01:50)
[2024-11-11] MEDS: MORPHINE 4 MG/ML 1 ML VIAL IV PRN (01:54)
[2024-11-11] MEDS: ONDANSETRON 4MG/2ML VIAL IV ONE (01:54)
[2024-11-11] MEDS: IPRATROPIUM 0.5 MG/ALBUTEROL 2.5 MG INH SOL UD 3 ML NEB ONE (02:00)
[2024-11-11] MEDS: FUROSEMIDE 100 MG/10 ML VIAL IV ONE (03:58)
[2024-11-11] MEDS ORDERED: LEVALBUTEROL 1.25 MG 0.5ML CONCENTRATE NEB INH PRN (04:25)
[2024-11-11] MEDS: ONDANSETRON 4MG/2ML VIAL IV PRN (05:47)
[2024-11-11] MEDS ORDERED: DEXTROSE 50% 50 ML SYRINGE IV PRN (05:50)
[2024-11-11] MEDS ORDERED: GLUCAGON INJ 1 MG VIAL SC PRN (05:50)
[2024-11-11] MEDS ORDERED: GLUCOSE 4 GM CHEW PO PRN (05:50)
[2024-11-11 08:51] LABS: PLATELET COUNT, AUTOMATED 207 10^3/uL (150-450)
[2024-11-11] MEDS ORDERED: APIXABAN 5 MG TAB PO SCH (09:00)
[2024-11-11 09:15] LABS: CALCIUM LEVEL 8.3 MG/DL (8.3-10.6); CARBON DIOXIDE LEVEL 25.0 MMOL/L (20-31); CHLORIDE LEVEL 109.0 MMOL/L (98-107); CREATININE FOR GFR 0.92 MG/DL (0.55-1.30); GLOMERULAR FILTRATION RATE 69.1 (>45); POTASSIUM SERUM 4.2 MMOL/L (3.5-5.1); SODIUM LEVEL 146.0 MMOL/L (136-145)
[2024-11-11] MEDS: predniSONE 20 MG TAB PO SCH (09:30)
[2024-11-11] MEDS: INSULIN LISPRO (NovoLOG) PER UNIT SC SCH ×2 (09:30→21:00)
[2024-11-11] MEDS: FUROSEMIDE 40 MG/4 ML VIAL IV SCH (09:31)
[2024-11-11] MEDS ORDERED: SPIR-10 PO (10:24)
[2024-11-11] MEDS ORDERED: HOME MED LIST COMPLETE! XX SCH (10:25)
[2024-11-11] MEDS ORDERED: ALBUTEROL 90 MCG/ACT 8 GM HFA INHALER INH PRN (10:35)
[2024-11-11] MEDS: VITAMIN D 1,000 INTERNATIONAL UNITS TABLET PO SCH (13:13)
[2024-11-11] MEDS: APIXABAN 5 MG TAB PO SCH (13:14)
[2024-11-11] MEDS: SPIRONOLACTONE 25 MG TAB PO SCH (13:14)
[2024-11-11 14:49] VITALS: BP 131/78; TEMP 97.3; O2SAT 95
[2024-11-11] MEDS ORDERED: NYSTATIN 100,000 UNITS/GM TOPICAL PWD 15 GM TOP PRN (15:55)
[2024-11-11] MEDS: ACETAMINOPHEN 325 MG TAB PO PRN (18:28)
[2024-11-11 21:01] VITALS: BP 145/84; TEMP 97.7; O2SAT 96
[2024-11-11] MEDS: guaiFENesin ER TABLET 600 MG TAB PO SCH (21:03)
[2024-11-11] MEDS: ATORVASTATIN 10 MG TAB PO SCH (21:03)
[2024-11-12 04:01] VITALS: BP 143/84; TEMP 97.5; O2SAT 96
[2024-11-12 07:06] LABS: BASO # 0.1 10^3/uL (0.0-0.2); BASO % 0.9 % (0.0-1.0); EOS # 0.2 10^3/uL (0.0-0.5); EOS % 2.2 % (0.0-3.0); LYMPH # 0.8 10^3/uL (1.5-5.0); LYMPH % 8.2 % (24.0-44.0); MONO # 1.2 10^3/uL (0.0-0.8); MONO % 11.6 % (2.0-8.0); NEUTROPHILS # 7.6 10^3/uL (1.5-8.5); NEUTROPHILS % 76.7 % (36.0-66.0); PLATELET COUNT, AUTOMATED 207 10^3/uL (150-450)
[2024-11-12 07:30] LABS: CALCIUM LEVEL 7.9 MG/DL (8.3-10.6); CARBON DIOXIDE LEVEL 28.0 MMOL/L (20-31); CHLORIDE LEVEL 105.0 MMOL/L (98-107); CREATININE FOR GFR 1.07 MG/DL (0.55-1.30); GLOMERULAR FILTRATION RATE 57.6 (>45); MAGNESIUM LEVEL 1.1 MG/DL (1.8-2.4); POTASSIUM SERUM 3.9 MMOL/L (3.5-5.1); SODIUM LEVEL 144.0 MMOL/L (136-145)
[2024-11-12] MEDS: MAGNESIUM OXIDE 400 MG TAB PO SCH (08:47)
[2024-11-12] MEDS: MAG SULF 1GM/100ML (MAG RUN) 1 GM in IV 1 EA IV SCH (08:48)
[2024-11-12] MEDS: TORSEMIDE 20 MG TAB PO SCH (08:50)
[2024-11-12 12:00] VITALS: BP 150/86; TEMP 97.5; O2SAT 95
[2024-11-12 17:18] VITALS: BP 154/93; TEMP 97.1; O2SAT 95
[2024-11-12 19:40] VITALS: BP 144/72; TEMP 96.9; O2SAT 94
[2024-11-13 04:05] VITALS: BP 104/80; TEMP 97.6; O2SAT 94
[2024-11-13 05:20] VITALS: O2SAT 67
[2024-11-13 05:26] VITALS: O2SAT 98
[2024-11-13 07:46] LABS: BASO # 0.0 10^3/uL (0.0-0.2); BASO % 0.4 % (0.0-1.0); EOS # 0.1 10^3/uL (0.0-0.5); EOS % 0.5 % (0.0-3.0); LYMPH # 0.9 10^3/uL (1.5-5.0); LYMPH % 9.0 % (24.0-44.0); MONO # 1.0 10^3/uL (0.0-0.8); MONO % 10.4 % (2.0-8.0); NEUTROPHILS # 7.6 10^3/uL (1.5-8.5); NEUTROPHILS % 79.3 % (36.0-66.0); PLATELET COUNT, AUTOMATED 208 10^3/uL (150-450)
[2024-11-13 08:02] LABS: CALCIUM LEVEL 7.7 MG/DL (8.3-10.6); CARBON DIOXIDE LEVEL 30.0 MMOL/L (20-31); CHLORIDE LEVEL 104.0 MMOL/L (98-107); CREATININE FOR GFR 1.01 MG/DL (0.55-1.30); GLOMERULAR FILTRATION RATE 61.8 (>45); MAGNESIUM LEVEL 1.6 MG/DL (1.8-2.4); POTASSIUM SERUM 3.4 MMOL/L (3.5-5.1); SODIUM LEVEL 143.0 MMOL/L (136-145)
[2024-11-13 08:52] VITALS: BP 122/69
[2024-11-13] MEDS ORDERED: MAGN400T33 PO (09:48)
[2024-11-13] MEDS ORDERED: TORS20TA2 PO (09:48)
[2024-11-13] MEDS ORDERED: PRED20TA PO (09:48)
[2024-11-13] MEDS ORDERED: MUCI600T31 PO (09:48)
[2024-11-13 12:00] VITALS: BP 137/77; TEMP 97.2; O2SAT 95
== END 2024-11-13 18:15 | disposition home health service (06) ==
LOC: M ED 22:48 → INTOOBSV 11-11 04:23 → M ED INP 11-11 04:23 → M MSPAV 11-11 14:49 → M MS4PR 11-12 17:24
PROVIDERS: ADMIT Emergency Medicine; ATTEND Internal Medicine
DX: R06.02 Shortness of breath (principal); R09.02 Hypoxemia; R53.81 Other malaise; I87.2 Venous insufficiency (chronic) (peripheral); Z86.73 Personal history of transient ischemic attack (TIA), and cerebral infarction without residual deficits; E78.5 Hyperlipidemia, unspecified; I48.91 Unspecified atrial fibrillation; I10 Essential (primary) hypertension; G47.33 Obstructive sleep apnea (adult) (pediatric); E11.9 Type 2 diabetes mellitus without complications; G40.909 Epilepsy, unspecified, not intractable, without status epilepticus; Z85.038 Personal history of other malignant neoplasm of large intestine; E55.9 Vitamin D deficiency, unspecified; Z79.01 Long term (current) use of anticoagulants; Z79.84 Long term (current) use of oral hypoglycemic drugs; Z79.899 Other long term (current) drug therapy; Z86.718 Personal history of other venous thrombosis and embolism
CPT/HCPCS: 36415; 71045; 71275; 80048; 82550; 82553; 83735; 83880; 84484; 85025; 85027; 87486; 87581; 87633; 87798; 93005; 93041; 93306; 94640; 94760; 96361; 96374; 96375; 96376; 97116; 97161; 99285; G0378; J1815; J1938; J2405; J3475; J7512; Q9967

== ENCOUNTER 2024-11-20 21:36 | Emergency (ER) | payer MEDICARE, MEDICAID ==
[~2024-11-20] VITALS: Ht 175.3 cm; Wt 94.5 kg
[~2024-11-20 21:36] MED LIST changes: +MUCI600T31 PO
[2024-11-21] MEDS ORDERED: ISOVUE-370 76% 100 ML VIAL As Ordered ONE (03:01)
[2024-11-21 03:02] LABS: BASO # 0.1 10^3/uL (0.0-0.2); BASO % 0.9 % (0.0-1.0); EOS # 0.2 10^3/uL (0.0-0.5); EOS % 2.3 % (0.0-3.0); LYMPH # 1.0 10^3/uL (1.5-5.0); LYMPH % 9.8 % (24.0-44.0); MONO # 1.0 10^3/uL (0.0-0.8); MONO % 9.6 % (2.0-8.0); NEUTROPHILS # 8.0 10^3/uL (1.5-8.5); NEUTROPHILS % 77.0 % (36.0-66.0); PLATELET COUNT, AUTOMATED 298 10^3/uL (150-450)
[2024-11-21 03:35] LABS: C REACTIVE PROTEIN QUANTITATIV < 0.50 MG/DL (<1.0)
[2024-11-21] MEDS: METOPROLOL 5 MG/5 ML VIAL IV PRN (04:05)
[2024-11-21] MEDS: ACETAMINOPHEN *IV* 1,000 MG in IV 1 EA IV ONE (04:05)
[2024-11-21] MEDS: LEVALBUTEROL 1.25 MG 0.5ML CONCENTRATE NEB NEB ONE (04:31)
[2024-11-21 04:33] VITALS: BP 158/82
[2024-11-21 06:15] VITALS: BP 135/63; TEMP 96.6; O2SAT 92
== END 2024-11-21 06:28 | disposition home or self-care (01) ==
LOC: M ED 21:36
DX: M79.602 Pain in left arm (principal); M79.605 Pain in left leg; R22.42 Localized swelling, mass and lump, left lower limb; W01.198A Fall on same level from slipping, tripping and stumbling with subsequent striking against other object, initial encounter; K76.0 Fatty (change of) liver, not elsewhere classified; I51.7 Cardiomegaly; J91.8 Pleural effusion in other conditions classified elsewhere; K57.30 Diverticulosis of large intestine without perforation or abscess without bleeding; I49.3 Ventricular premature depolarization; I44.4 Left anterior fascicular block; E11.9 Type 2 diabetes mellitus without complications; J44.9 Chronic obstructive pulmonary disease, unspecified; G43.909 Migraine, unspecified, not intractable, without status migrainosus; E03.9 Hypothyroidism, unspecified; Z86.73 Personal history of transient ischemic attack (TIA), and cerebral infarction without residual deficits; Z86.79 Personal history of other diseases of the circulatory system; Z88.1 Allergy status to other antibiotic agents; Z88.5 Allergy status to narcotic agent; Z88.8 Allergy status to other drugs, medicaments and biological substances; Z86.718 Personal history of other venous thrombosis and embolism; Z79.02 Long term (current) use of antithrombotics/antiplatelets; Z79.52 Long term (current) use of systemic steroids; Z79.1 Long term (current) use of non-steroidal anti-inflammatories (NSAID); Z79.899 Other long term (current) drug therapy; Z79.4 Long term (current) use of insulin; Y99.9 Unspecified external cause status
CPT/HCPCS: 71260; 73590; 74177; 80047; 83605; 84145; 85025; 86140; 93005; 94640; 96365; 96375; 99285; J0131; J0616; Q9967

== ENCOUNTER → 2024-12-28 | Outpatient (REF) | payer MEDICARE, MEDICAID ==
[2024-12-28 17:00] LABS: BASO # 0.1 10^3/uL (0.0-0.2); BASO % 1.0 % (0.0-1.0); EOS # 0.1 10^3/uL (0.0-0.5); EOS % 1.5 % (0.0-3.0); LYMPH # 0.4 10^3/uL (1.5-5.0); LYMPH % 7.5 % (24.0-44.0); MONO # 0.7 10^3/uL (0.0-0.8); MONO % 11.4 % (2.0-8.0); NEUTROPHILS # 4.6 10^3/uL (1.5-8.5); NEUTROPHILS % 78.3 % (36.0-66.0); PLATELET COUNT, AUTOMATED 242 10^3/uL (150-450)
[2024-12-28 17:02] LABS: CALCIUM LEVEL 8.4 MG/DL (8.3-10.6); CARBON DIOXIDE LEVEL 25.0 MMOL/L (20-31); CHLORIDE LEVEL 108.0 MMOL/L (98-107); CREATININE FOR GFR 1.16 MG/DL (0.55-1.30); GLOMERULAR FILTRATION RATE 52.3 (>45); IRON (FE) 41.0 UG/DL (50-170); MAGNESIUM LEVEL 1.4 MG/DL (1.8-2.4); PERCENT SATURATION 15.0 % (13.2-45.0); POTASSIUM SERUM 4.2 MMOL/L (3.5-5.1); SODIUM LEVEL 144.0 MMOL/L (136-145)
[2024-12-28 18:02] LABS: ESTIMATED AVERAGE GLUCOSE 166.0 MG/DL (60-110)
== END ==
LOC: M LAB REF 16:19
PROVIDERS: ATTEND Pediatrics
DX: E11.9 Type 2 diabetes mellitus without complications (principal); E03.9 Hypothyroidism, unspecified; E83.42 Hypomagnesemia; D64.9 Anemia, unspecified; I50.9 Heart failure, unspecified

== ENCOUNTER 2025-01-15 20:19 | Inpatient (IN) | payer MEDICARE, MEDICAID ==
[~2025-01-15] VITALS: Ht 175.3 cm; Wt 134.7 kg
[2025-01-15 20:44] LABS: BASO # 0.1 10^3/uL (0.0-0.2); BASO % 1.1 % (0.0-1.0); EOS # 0.1 10^3/uL (0.0-0.5); EOS % 1.3 % (0.0-3.0); LYMPH # 0.6 10^3/uL (1.5-5.0); LYMPH % 8.6 % (24.0-44.0); MONO # 0.6 10^3/uL (0.0-0.8); MONO % 8.5 % (2.0-8.0); NEUTROPHILS # 5.8 10^3/uL (1.5-8.5); NEUTROPHILS % 80.1 % (36.0-66.0); PLATELET COUNT, AUTOMATED 279 10^3/uL (150-450)
[2025-01-15 21:07] LABS: INR 1.26
[2025-01-15 21:09] LABS: CK-MB VALUE MASS 2.6 NG/ML (<3.6)
[2025-01-15 21:10] LABS: CALCIUM LEVEL 8.8 MG/DL (8.3-10.6); CARBON DIOXIDE LEVEL 24.0 MMOL/L (20-31); CHLORIDE LEVEL 110.0 MMOL/L (98-107); CREATININE FOR GFR 0.96 MG/DL (0.55-1.30); GLOMERULAR FILTRATION RATE 65.7 (>45); POTASSIUM SERUM 4.2 MMOL/L (3.5-5.1); SODIUM LEVEL 145.0 MMOL/L (136-145)
[2025-01-15 21:13] LABS: CPK CREATINE PHOSPHOKINASE 115.0 U/L (34-145); MB/CK RELATIVE INDEX 2.26 (< OR =4)
[2025-01-15] MEDS ORDERED: ISOVUE-370 76% 100 ML VIAL As Ordered ONE (21:21)
[2025-01-15] MEDS: FUROSEMIDE 40 MG/4 ML VIAL IV ONE (22:27)
[2025-01-15] MEDS: hydrALAZINE 20 MG/ML 1 ML VIAL IV STA (22:39)
[2025-01-15 22:49] LABS: MAGNESIUM LEVEL 1.3 MG/DL (1.8-2.4)
[2025-01-15 22:51] LABS: CK-MB VALUE MASS 2.1 NG/ML (<3.6)
[2025-01-15 22:54] LABS: FREE T4 1.3 NG/DL (0.89-1.76)
[2025-01-15 22:55] LABS: CPK CREATINE PHOSPHOKINASE 109.0 U/L (34-145); MB/CK RELATIVE INDEX 1.92 (< OR =4)
[2025-01-15] MEDS: MAG SULF 1GM/100ML (MAG RUN) 1 GM in IV 1 EA IV ONE (22:57)
[2025-01-15] MEDS ORDERED: FURO40TA2 PO (23:29)
[2025-01-15] MEDS ORDERED: FERR325T19 PO (23:29)
[2025-01-15] MEDS ORDERED: GLUCOSE 4 GM CHEW PO PRN (23:30)
[2025-01-15] MEDS ORDERED: GLUCAGON INJ 1 MG VIAL SC PRN (23:30)
[2025-01-15] MEDS ORDERED: LABETALOL 100 MG/20 ML VIAL IV PRN (23:30)
[2025-01-15] MEDS ORDERED: DEXTROSE 50% 50 ML SYRINGE IV PRN (23:30)
[2025-01-15] MEDS ORDERED: med rec comment (23:43)
[2025-01-15] MEDS ORDERED: HOME MED LIST COMPLETE! XX SCH (23:45)
[2025-01-15 23:53] LABS: IRON (FE) 31.0 UG/DL (50-170); PERCENT SATURATION 10.9 % (13.2-45.0)
[2025-01-15 23:55] LABS: VITAMIN B12 LEVEL 226.0 PG/ML (211-911)
[2025-01-16] VITALS (24 sets, daily range): BP systolic 121–145; BP diastolic 60–85; PULSE 95; TEMP 96.1–97.7; O2SAT 83–98
[2025-01-16] MEDS: APIXABAN 5 MG TAB PO SCH (00:55)
[2025-01-16] MEDS: MAG SULF 1GM/100ML (MAG RUN) 1 GM in IV 1 EA IV SCH ×2 (00:56→12:24)
[2025-01-16] MEDS: NYSTATIN 100,000 UNITS/GM TOPICAL PWD 15 GM TOP SCH (02:12)
[2025-01-16] MEDS: ENTRESTO 24-26 MG TABLET (SACUBITRIL/VALSARTAN) PO SCH (02:13)
[2025-01-16 07:53] LABS: PLATELET COUNT, AUTOMATED 259 10^3/uL (150-450)
[2025-01-16 08:11] LABS: ALT/SGPT 18.0 U/L (7.0-40); AST/SGOT 24.0 U/L (<34); CALCIUM LEVEL 8.8 MG/DL (8.3-10.6); CARBON DIOXIDE LEVEL 25.0 MMOL/L (20-31); CHLORIDE LEVEL 108.0 MMOL/L (98-107); CREATININE FOR GFR 0.94 MG/DL (0.55-1.30); GLOMERULAR FILTRATION RATE 67.3 (>45); MAGNESIUM LEVEL 1.7 MG/DL (1.8-2.4); POTASSIUM SERUM 3.5 MMOL/L (3.5-5.1); SODIUM LEVEL 145.0 MMOL/L (136-145)
[2025-01-16 08:24] LABS: ESTIMATED AVERAGE GLUCOSE 143.0 MG/DL (60-110)
[2025-01-16] MEDS: INSULIN LISPRO (NovoLOG) PER UNIT SC SCH ×2 (09:27→21:00)
[2025-01-16] MEDS: FUROSEMIDE 40 MG/4 ML VIAL IV SCH (09:28)
[2025-01-16] MEDS: FERROUS SULFATE 325 MG TAB PO SCH (09:29)
[2025-01-16] MEDS: SPIRONOLACTONE 25 MG TAB PO SCH (09:29)
[2025-01-16 12:10] LABS: CK-MB VALUE MASS 2.3 NG/ML (<3.6)
[2025-01-16 12:12] LABS: CPK CREATINE PHOSPHOKINASE 108.0 U/L (34-145); MB/CK RELATIVE INDEX 2.12 (< OR =4)
[2025-01-16] MEDS: ATORVASTATIN 10 MG TAB PO SCH (20:42)
[2025-01-16] MEDS: MAGNESIUM OXIDE 400 MG TAB PO SCH (20:42)
[2025-01-17] VITALS (15 sets, daily range): BP systolic 137–146; BP diastolic 60–84; TEMP 96.7–97.6; O2SAT 88–98
[2025-01-17 06:35] LABS: ALT/SGPT 18.0 U/L (7.0-40); AST/SGOT 20.0 U/L (<34); CALCIUM LEVEL 7.7 MG/DL (8.3-10.6); CARBON DIOXIDE LEVEL 26.0 MMOL/L (20-31); CHLORIDE LEVEL 106.0 MMOL/L (98-107); CREATININE FOR GFR 0.88 MG/DL (0.55-1.30); GLOMERULAR FILTRATION RATE 72.9 (>45); POTASSIUM SERUM 3.3 MMOL/L (3.5-5.1); SODIUM LEVEL 142.0 MMOL/L (136-145)
[2025-01-17] MEDS: POTASSIUM CHLORIDE 10MEQ SR TABLET PO SCH (10:06)
[2025-01-17] MEDS: ACETAMINOPHEN 325 MG TAB PO ONE (13:37)
[2025-01-18] MEDS ORDERED: NYST1POW3 TOP (11:56)
== END 2025-01-17 16:45 | disposition home health service (06) | DRG 291 ==
LOC: M ED 20:19 → M ED INP 23:26 → M PCU 01-16 01:08
PROVIDERS: ADMIT Internal Medicine; ATTEND Internal Medicine
DX: I11.0 Hypertensive heart disease with heart failure (principal); I50.33 Acute on chronic diastolic (congestive) heart failure; I48.91 Unspecified atrial fibrillation; E11.9 Type 2 diabetes mellitus without complications; I16.0 Hypertensive urgency; E78.5 Hyperlipidemia, unspecified; E83.42 Hypomagnesemia; G47.33 Obstructive sleep apnea (adult) (pediatric); Z86.718 Personal history of other venous thrombosis and embolism; J44.9 Chronic obstructive pulmonary disease, unspecified; Z86.73 Personal history of transient ischemic attack (TIA), and cerebral infarction without residual deficits; Z91.148 Patient's other noncompliance with medication regimen for other reason; R26.89 Other abnormalities of gait and mobility; R07.9 Chest pain, unspecified; I27.20 Pulmonary hypertension, unspecified; Z85.038 Personal history of other malignant neoplasm of large intestine; L30.4 Erythema intertrigo; J45.909 Unspecified asthma, uncomplicated; R29.6 Repeated falls; Z79.01 Long term (current) use of anticoagulants; Z79.899 Other long term (current) drug therapy; Z88.8 Allergy status to other drugs, medicaments and biological substances; Z88.5 Allergy status to narcotic agent

== ENCOUNTER 2025-01-18 08:47 | Observation (INO) | payer MEDICARE, MEDICAID ==
[~2025-01-18] VITALS: Ht 175.3 cm; Wt 138.4 kg
[~2025-01-18 08:47] MED LIST changes: +FERR325T19 PO; +FURO40TA2 PO; +med rec comment
[2025-01-18] MEDS ORDERED: NS (Normal Saline) 0.9% 1,000 ML IV ONE (09:05)
[2025-01-18] MEDS: NS (Normal Saline) 0.9% 1,000 ML IV ONE (09:24)
[2025-01-18 09:38] LABS: BASO # 0.1 10^3/uL (0.0-0.2); BASO % 0.7 % (0.0-1.0); EOS # 0.3 10^3/uL (0.0-0.5); EOS % 3.0 % (0.0-3.0); LYMPH # 0.6 10^3/uL (1.5-5.0); LYMPH % 5.9 % (24.0-44.0); MONO # 1.1 10^3/uL (0.0-0.8); MONO % 11.0 % (2.0-8.0); NEUTROPHILS # 7.5 10^3/uL (1.5-8.5); NEUTROPHILS % 79.1 % (36.0-66.0); PLATELET COUNT, AUTOMATED 310 10^3/uL (150-450)
[2025-01-18] MEDS ORDERED: ISOVUE-370 76% 100 ML VIAL As Ordered ONE (09:40)
[2025-01-18 09:59] LABS: ETHYL ALCOHOL (ETHANOL) < 0.003 % (0.000-0.010)
[2025-01-18 10:00] LABS: SALICYLATE LEVEL < 3.0 MG/DL (<30)
[2025-01-18 10:01] LABS: ALT/SGPT 23 U/L (7.0-40); AST/SGOT 41 U/L (<34); CALCIUM LEVEL 7.9 MG/DL (8.3-10.6); CARBON DIOXIDE LEVEL 25 MMOL/L (20-31); CHLORIDE LEVEL 105 MMOL/L (98-107); CREATININE FOR GFR 1.33 MG/DL (0.55-1.30); GLOMERULAR FILTRATION RATE 44.4 (>45); MAGNESIUM LEVEL 1.5 MG/DL (1.8-2.4); POTASSIUM SERUM 4.7 MMOL/L (3.5-5.1); SODIUM LEVEL 141 MMOL/L (136-145)
[2025-01-18] MEDS ORDERED: NYST1POW3 TOP (11:56)
[2025-01-18] MEDS: MAG SULF 1GM/100ML (MAG RUN) 1 GM in IV 1 EA IV ONE (13:29)
[2025-01-18 13:34] LABS: KETONE, URINE AUTO RFX NEGATIVE (NEGATIVE); LEUKOCYTE ESTERASE UR AUTO RFX NEGATIVE (NEGATIVE); NITRITE, URINE AUTO RFX NEGATIVE (NEGATIVE); RBC, URINE AUTO RFX 14 /HPF (0-3); SQUAM EPITHELIAL CELL UR AURFX 0 /HPF (0-6); WBC, URINE AUTO RFX 1 /HPF (0-3)
[2025-01-18 13:45] LABS: CANNABINOIDS URINE NEGATIVE (NEGATIVE); METHADONE URINE NEGATIVE (NEGATIVE); OPIATES URINE NEGATIVE (NEGATIVE); PHENCYCLIDINE URINE NEGATIVE (NEGATIVE)
[2025-01-18 13:46] LABS: AMPHETAMINES LEVEL URINE NEGATIVE (NEGATIVE); BARBITURATES URINE NEGATIVE (NEGATIVE); BENZODIAZEPINES URINE NEGATIVE (NEGATIVE); COCAINE METABOLITE URINE NEGATIVE (NEGATIVE)
[2025-01-18] MEDS ORDERED: HOME MED LIST COMPLETE! XX SCH (14:10)
[2025-01-18] MEDS ORDERED: ONDANSETRON 4MG/2ML VIAL IV PRN (14:20)
[2025-01-18] MEDS ORDERED: ALBUTEROL 90 MCG/ACT 8 GM HFA INHALER INH PRN (14:20)
[2025-01-18] MEDS ORDERED: MOM 30 ML SUSPENSION UDC PO PRN (14:55)
[2025-01-18] MEDS ORDERED: MORPHINE 2 MG/ML 1 ML VIAL IV PRN (15:20)
[2025-01-18] MEDS ORDERED: GLUCAGON INJ 1 MG VIAL SC PRN (15:20)
[2025-01-18] MEDS ORDERED: GLUCOSE 4 GM CHEW PO PRN (15:20)
[2025-01-18] MEDS ORDERED: DEXTROSE 50% 50 ML SYRINGE IV PRN (15:20)
[2025-01-18] MEDS: PIPERACILLIN/TAZOBACTAM SOD 4.5 GM in DEXTROSE 5% (D5W) ADV/MINI-BAG 50 ML IV ONE (15:29)
[2025-01-18] MEDS: FERROUS SULFATE 325 MG TAB PO SCH (15:29)
[2025-01-18] MEDS: NS (Normal Saline) 0.9% 1,000 ML IV SCH (15:29)
[2025-01-18 15:42] LABS: INR 1.21
[2025-01-18 16:22] VITALS: BP 128/100; TEMP 97.8; O2SAT 100
[2025-01-18] MEDS: INSULIN LISPRO (NovoLOG) PER UNIT SC SCH (18:00)
[2025-01-18 20:00] VITALS: BP 149/102; TEMP 97.3; O2SAT 97
[2025-01-18] MEDS: PIPERACILLIN/TAZOBACTAM SOD 3.375 GM in DEXTROSE 5% (D5W) ADV/MINI-BAG 50 ML IV SCH (21:40)
[2025-01-18] MEDS: MAGNESIUM OXIDE 400 MG TAB PO SCH (21:40)
[2025-01-18] MEDS: ATORVASTATIN 10 MG TAB PO SCH (21:40)
[2025-01-18] MEDS: DOCUSATE SODIUM 100 MG CAPSULE PO SCH (21:40)
[2025-01-18] MEDS: SENNA 8.6 MG TAB PO SCH (21:40)
[2025-01-18] MEDS: NYSTATIN 100,000 UNITS/GM TOPICAL PWD 15 GM TOP SCH (21:41)
[2025-01-18 21:52] VITALS: BP 132/86
[2025-01-19 05:33] VITALS: BP 126/76; TEMP 98; O2SAT 97
[2025-01-19 06:05] LABS: PLATELET COUNT, AUTOMATED 248 10^3/uL (150-450)
[2025-01-19 06:44] LABS: ALT/SGPT 15.0 U/L (7.0-40); AST/SGOT 20.0 U/L (<34); CALCIUM LEVEL 7.9 MG/DL (8.3-10.6); CARBON DIOXIDE LEVEL 28.0 MMOL/L (20-31); CHLORIDE LEVEL 107.0 MMOL/L (98-107); CREATININE FOR GFR 1.05 MG/DL (0.55-1.30); GLOMERULAR FILTRATION RATE 59.0 (>45); POTASSIUM SERUM 3.6 MMOL/L (3.5-5.1); SODIUM LEVEL 145.0 MMOL/L (136-145)
[2025-01-19 07:48] LABS: C REACTIVE PROTEIN QUANTITATIV 0.56 MG/DL (<1.0)
[2025-01-19] MEDS: ACETAMINOPHEN 325 MG TAB PO PRN (11:42)
[2025-01-19 14:00] VITALS: BP 135/86; TEMP 98.1; O2SAT 95
[2025-01-19 19:34] VITALS: BP 160/86; TEMP 98.1; O2SAT 93
[2025-01-20 05:20] VITALS: BP 190/97; TEMP 98.3; O2SAT 94
[2025-01-20 06:17] LABS: PLATELET COUNT, AUTOMATED 271 10^3/uL (150-450)
[2025-01-20 06:42] LABS: ALT/SGPT 18.0 U/L (7.0-40); AST/SGOT 20.0 U/L (<34); CALCIUM LEVEL 8.2 MG/DL (8.3-10.6); CARBON DIOXIDE LEVEL 25.0 MMOL/L (20-31); CHLORIDE LEVEL 110.0 MMOL/L (98-107); CREATININE FOR GFR 1.05 MG/DL (0.55-1.30); GLOMERULAR FILTRATION RATE 59.0 (>45); POTASSIUM SERUM 3.9 MMOL/L (3.5-5.1); SODIUM LEVEL 146.0 MMOL/L (136-145)
[2025-01-20 07:51] VITALS: BP 138/90
[2025-01-20] MEDS: AUGMENTIN 875 MG TAB PO SCH (10:45)
[2025-01-20] MEDS: APIXABAN 5 MG TAB PO SCH (12:00)
[2025-01-20] MEDS: LOPERAMIDE 2 MG CAPLET PO PRN (13:01)
[2025-01-20 14:00] VITALS: BP 140/83; TEMP 98; O2SAT 93
[2025-01-20 19:45] VITALS: BP 134/69; TEMP 98.6; O2SAT 92
[2025-01-21 05:33] VITALS: BP 164/91; TEMP 97.9; O2SAT 96
[2025-01-21 06:35] LABS: PLATELET COUNT, AUTOMATED 301 10^3/uL (150-450)
[2025-01-21 07:12] LABS: ALT/SGPT 20.0 U/L (7.0-40); AST/SGOT 21.0 U/L (<34); CALCIUM LEVEL 8.6 MG/DL (8.3-10.6); CARBON DIOXIDE LEVEL 26.0 MMOL/L (20-31); CHLORIDE LEVEL 109.0 MMOL/L (98-107); CREATININE FOR GFR 1.08 MG/DL (0.55-1.30); GLOMERULAR FILTRATION RATE 57.0 (>45); POTASSIUM SERUM 4.3 MMOL/L (3.5-5.1); SODIUM LEVEL 145.0 MMOL/L (136-145)
[2025-01-21 10:00] VITALS: BP 133/81; TEMP 98.3; O2SAT 96
[2025-01-21 12:00] VITALS: BP 141/103; TEMP 97.8; O2SAT 92
[2025-01-21 21:13] VITALS: BP 161/103; TEMP 98.3; O2SAT 96
[2025-01-21 21:36] VITALS: BP 159/95; TEMP 98; O2SAT 93
[2025-01-22] MEDS: traMADol 50 MG TAB PO PRN (00:22)
[2025-01-22 04:00] VITALS: BP 145/86; TEMP 98.5; O2SAT 97
[2025-01-22 07:40] LABS: PLATELET COUNT, AUTOMATED 247 10^3/uL (150-450)
[2025-01-22 08:08] LABS: ALT/SGPT 21.0 U/L (7.0-40); AST/SGOT 24.0 U/L (<34); CALCIUM LEVEL 8.8 MG/DL (8.3-10.6); CARBON DIOXIDE LEVEL 23.0 MMOL/L (20-31); CHLORIDE LEVEL 108.0 MMOL/L (98-107); CREATININE FOR GFR 1.01 MG/DL (0.55-1.30); GLOMERULAR FILTRATION RATE 61.8 (>45); POTASSIUM SERUM 4.4 MMOL/L (3.5-5.1); SODIUM LEVEL 142.0 MMOL/L (136-145)
[2025-01-22 14:00] VITALS: BP 154/100; TEMP 98.7; O2SAT 96
[2025-01-22] MEDS: FUROSEMIDE 40 MG/4 ML VIAL IV ONE (15:37)
[2025-01-22 20:44] VITALS: BP 157/91; TEMP 98.6; O2SAT 93
[2025-01-23 06:28] VITALS: BP 134/74; TEMP 98.2; O2SAT 96
[2025-01-23 07:23] LABS: BASO # 0.1 10^3/uL (0.0-0.2); BASO % 1.6 % (0.0-1.0); EOS # 0.3 10^3/uL (0.0-0.5); EOS % 5.5 % (0.0-3.0); LYMPH # 0.7 10^3/uL (1.5-5.0); LYMPH % 13.1 % (24.0-44.0); MONO # 0.8 10^3/uL (0.0-0.8); MONO % 13.6 % (2.0-8.0); NEUTROPHILS # 3.7 10^3/uL (1.5-8.5); NEUTROPHILS % 65.8 % (36.0-66.0); PLATELET COUNT, AUTOMATED 253 10^3/uL (150-450)
[2025-01-23 07:44] LABS: CALCIUM LEVEL 8.3 MG/DL (8.3-10.6); CARBON DIOXIDE LEVEL 24.0 MMOL/L (20-31); CHLORIDE LEVEL 107.0 MMOL/L (98-107); CREATININE FOR GFR 1.17 MG/DL (0.55-1.30); GLOMERULAR FILTRATION RATE 51.8 (>45); POTASSIUM SERUM 4.1 MMOL/L (3.5-5.1); SODIUM LEVEL 143.0 MMOL/L (136-145)
[2025-01-23] MEDS ORDERED: AMOX875T2 PO (07:59)
[2025-01-23] MEDS ORDERED: LOPE2CAP PO (07:59)
[2025-01-23] MEDS ORDERED: RISATAB3 PO (07:59)
[2025-01-23] MEDS: FUROSEMIDE 40 MG TAB PO SCH (08:36)
[2025-01-23 08:37] VITALS: BP 149/84
[2025-01-23] MEDS: SPIRONOLACTONE 25 MG TAB PO SCH (08:37)
[2025-01-23 08:39] VITALS: BP 149/84; TEMP 97.9; O2SAT 95
== END 2025-01-23 11:45 | disposition home health service (06) ==
LOC: M ED 08:47 → M ED INP 08:48 → M MS5PR 16:15
PROVIDERS: ADMIT Internal Medicine; ATTEND Internal Medicine Nephrology
DX: K81.0 Acute cholecystitis (principal); R19.7 Diarrhea, unspecified; I50.43 Acute on chronic combined systolic (congestive) and diastolic (congestive) heart failure; R26.81 Unsteadiness on feet; Q56 Indeterminate sex and pseudohermaphroditism; F64.0 Transsexualism; J45.909 Unspecified asthma, uncomplicated; E66.01 Morbid (severe) obesity due to excess calories; E11.9 Type 2 diabetes mellitus without complications; E78.5 Hyperlipidemia, unspecified; I10 Essential (primary) hypertension; I48.91 Unspecified atrial fibrillation; G47.33 Obstructive sleep apnea (adult) (pediatric); Z79.01 Long term (current) use of anticoagulants; Z79.84 Long term (current) use of oral hypoglycemic drugs; Z79.899 Other long term (current) drug therapy; Z88.1 Allergy status to other antibiotic agents; Z88.5 Allergy status to narcotic agent
CPT/HCPCS: 36415; 70450; 71045; 72125; 74177; 74181; 76705; 80047; 80048; 80053; 80076; 80143; 80307; 81001; 82077; 82140; 82150; 83605; 83690; 83735; 84145; 85025; 85027; 85610; 85730; 86140; 87040; 87324; 93005; 93041; 96361; 96365; 96366; 96375; 97116; 97161; 97530; 99285; G0378; J1815; J1938; J2543; J3475; Q9967

== ENCOUNTER 2025-02-23 05:57 | Inpatient (IN) | payer MEDICARE, MEDICAID ==
[~2025-02-23] VITALS: Ht 175.3 cm; Wt 128.1 kg
[~2025-02-23 05:57] MED LIST changes: +AMOX875T2 PO; +LOPE2CAP PO; +NYST1POW3 TOP; +RISATAB3 PO
[2025-02-23 06:26] LABS: BASO # 0.1 10^3/uL (0.0-0.2); BASO % 1.1 % (0.0-1.0); EOS # 0.1 10^3/uL (0.0-0.5); EOS % 1.7 % (0.0-3.0); LYMPH # 0.4 10^3/uL (1.5-5.0); LYMPH % 6.8 % (24.0-44.0); MONO # 0.7 10^3/uL (0.0-0.8); MONO % 10.0 % (2.0-8.0); NEUTROPHILS # 5.2 10^3/uL (1.5-8.5); NEUTROPHILS % 80.1 % (36.0-66.0); PLATELET COUNT, AUTOMATED 256 10^3/uL (150-450)
[2025-02-23 06:47] LABS: CK-MB VALUE MASS 2.6 NG/ML (<3.6)
[2025-02-23 06:50] LABS: CALCIUM LEVEL 8.1 MG/DL (8.3-10.6); CARBON DIOXIDE LEVEL 25.0 MMOL/L (20-31); CHLORIDE LEVEL 106.0 MMOL/L (98-107); CPK CREATINE PHOSPHOKINASE 54.0 U/L (34-145); CREATININE FOR GFR 1.01 MG/DL (0.55-1.30); GLOMERULAR FILTRATION RATE 61.8 (>45); MB/CK RELATIVE INDEX 4.81 (< OR =4); POTASSIUM SERUM 3.6 MMOL/L (3.5-5.1); SODIUM LEVEL 142.0 MMOL/L (136-145)
[2025-02-23 07:33] LABS: ALT/SGPT 15.0 U/L (7.0-40); AST/SGOT 19.0 U/L (<34)
[2025-02-23 07:35] LABS: FREE T4 1.29 NG/DL (0.89-1.76)
[2025-02-23] MEDS ORDERED: ISOVUE-370 76% 100 ML VIAL As Ordered ONE (08:31)
[2025-02-23 08:39] LABS: CK-MB VALUE MASS 2.5 NG/ML (<3.6)
[2025-02-23 09:23] LABS: CPK CREATINE PHOSPHOKINASE 51.0 U/L (34-145); MB/CK RELATIVE INDEX 4.9 (< OR =4)
[2025-02-23 10:13] LABS: CK-MB VALUE MASS 2.5 NG/ML (<3.6)
[2025-02-23 10:19] LABS: CPK CREATINE PHOSPHOKINASE 44.0 U/L (34-145); MB/CK RELATIVE INDEX 5.68 (< OR =4)
[2025-02-23] MEDS: FUROSEMIDE 100 MG/10 ML VIAL IV ONE (13:30)
[2025-02-23] MEDS ORDERED: HOME MED LIST COMPLETE! XX SCH (14:35)
[2025-02-23] MEDS ORDERED: GLUCAGON INJ 1 MG VIAL SC PRN (15:15)
[2025-02-23] MEDS ORDERED: ALBUTEROL SULFATE 2.5 MG/0.5 ML INH CONCENTRATE NEB SOLN NEB PRN (15:15)
[2025-02-23] MEDS ORDERED: GLUCOSE 4 GM CHEW PO PRN (15:15)
[2025-02-23] MEDS ORDERED: DEXTROSE 50% 50 ML SYRINGE IV PRN (15:15)
[2025-02-23] MEDS: NYSTATIN 100,000 UNITS/GM TOPICAL PWD 15 GM TOP ONE (16:00)
[2025-02-23] MEDS ORDERED: ALBUTEROL 90 MCG/ACT 8 GM HFA INHALER INH PRN (16:25)
[2025-02-23] MEDS: SPIRONOLACTONE 25 MG TAB PO SCH (17:14)
[2025-02-23 18:30] VITALS: BP 122/104; TEMP 98.6; O2SAT 98
[2025-02-23 19:46] VITALS: BP 153/91; TEMP 98; O2SAT 94
[2025-02-23] MEDS ORDERED: FUROSEMIDE 40 MG/4 ML VIAL IV ONE (21:00)
[2025-02-23] MEDS: ATORVASTATIN 10 MG TAB PO SCH (21:56)
[2025-02-23] MEDS: APIXABAN 5 MG TAB PO SCH (21:56)
[2025-02-23 23:14] VITALS: TEMP 98.3; O2SAT 94
[2025-02-24 00:12] LABS: MAGNESIUM LEVEL 1.3 MG/DL (1.8-2.4)
[2025-02-24] MEDS: MAG SULF 1GM/100ML (MAG RUN) 1 GM in IV 1 EA IV ONE (00:14)
[2025-02-24] MEDS: ACETAMINOPHEN 325 MG TAB PO PRN (00:15)
[2025-02-24 00:18] LABS: PLATELET COUNT, AUTOMATED 269 10^3/uL (150-450)
[2025-02-24 04:55] VITALS: BP 165/91; TEMP 97.7; O2SAT 90
[2025-02-24 05:46] LABS: PLATELET COUNT, AUTOMATED 232 10^3/uL (150-450)
[2025-02-24 06:08] LABS: CALCIUM LEVEL 8.1 MG/DL (8.3-10.6); CARBON DIOXIDE LEVEL 26.0 MMOL/L (20-31); CHLORIDE LEVEL 106.0 MMOL/L (98-107); CREATININE FOR GFR 1.06 MG/DL (0.55-1.30); GLOMERULAR FILTRATION RATE 58.3 (>45); MAGNESIUM LEVEL 1.4 MG/DL (1.8-2.4); POTASSIUM SERUM 3.4 MMOL/L (3.5-5.1); SODIUM LEVEL 142.0 MMOL/L (136-145)
[2025-02-24 06:31] VITALS: BP 168/96; TEMP 98.3; O2SAT 94
[2025-02-24] MEDS: INSULIN LISPRO (NovoLOG) PER UNIT SC SCH (07:55)
[2025-02-24] MEDS: MAG SULF 1GM/100ML (MAG RUN) 1 GM in IV 1 EA IV SCH ×2 (08:02→17:21)
[2025-02-24] MEDS: NYSTATIN 100,000 UNITS/GM TOPICAL PWD 15 GM TOP SCH (08:03)
[2025-02-24] MEDS: FUROSEMIDE 40 MG/4 ML VIAL IV SCH (08:06)
[2025-02-24] MEDS: POTASSIUM CHLORIDE 10MEQ SR TABLET PO ONE ×2 (08:08→17:15)
[2025-02-24 11:57] VITALS: BP 151/76; TEMP 97.5; O2SAT 95
[2025-02-24 14:36] LABS: MAGNESIUM LEVEL 1.6 MG/DL (1.8-2.4); POTASSIUM SERUM 3.6 MMOL/L (3.5-5.1)
[2025-02-24 20:35] VITALS: BP 163/93; TEMP 98; O2SAT 94
[2025-02-25] VITALS (8 sets, daily range): BP systolic 130–166; BP diastolic 78–105; TEMP 97.4–98.1; O2SAT 93–96
[2025-02-25 06:51] LABS: PLATELET COUNT, AUTOMATED 235 10^3/uL (150-450)
[2025-02-25 07:23] LABS: CALCIUM LEVEL 8.2 MG/DL (8.3-10.6); CARBON DIOXIDE LEVEL 25.0 MMOL/L (20-31); CHLORIDE LEVEL 105.0 MMOL/L (98-107); CREATININE FOR GFR 1.03 MG/DL (0.55-1.30); GLOMERULAR FILTRATION RATE 60.3 (>45); POTASSIUM SERUM 3.4 MMOL/L (3.5-5.1); SODIUM LEVEL 142.0 MMOL/L (136-145)
[2025-02-25] MEDS: POTASSIUM CHLORIDE 10MEQ SR TABLET PO ONE (08:48)
[2025-02-25 09:31] LABS: MAGNESIUM LEVEL 1.5 MG/DL (1.8-2.4)
[2025-02-25] MEDS: MAG SULF 1GM/100ML (MAG RUN) 1 GM in IV 1 EA IV SCH (12:11)
[2025-02-25] MEDS: MAGNESIUM OXIDE 400 MG TAB PO SCH (12:27)
[2025-02-26 03:48] VITALS: BP 151/94; TEMP 98; O2SAT 92
[2025-02-26 07:06] LABS: CALCIUM LEVEL 8.0 MG/DL (8.3-10.6); CARBON DIOXIDE LEVEL 30.0 MMOL/L (20-31); CHLORIDE LEVEL 102.0 MMOL/L (98-107); CREATININE FOR GFR 0.99 MG/DL (0.55-1.30); GLOMERULAR FILTRATION RATE 63.3 (>45); MAGNESIUM LEVEL 1.6 MG/DL (1.8-2.4); POTASSIUM SERUM 3.4 MMOL/L (3.5-5.1); SODIUM LEVEL 143.0 MMOL/L (136-145)
[2025-02-26] MEDS: MAG SULF 1GM/100ML (MAG RUN) 1 GM in IV 1 EA IV SCH ×2 (08:20→20:45)
[2025-02-26] MEDS: POTASSIUM CHLORIDE 10MEQ SR TABLET PO ONE ×3 (08:22→20:46)
[2025-02-26] MEDS: ENTRESTO 24-26 MG TABLET (SACUBITRIL/VALSARTAN) PO ONE (11:48)
[2025-02-26 12:00] VITALS: BP 153/98; TEMP 98.3; O2SAT 91
[2025-02-26] MEDS: ENTRESTO 24-26 MG TABLET (SACUBITRIL/VALSARTAN) PO SCH (20:50)
[2025-02-26 20:54] VITALS: BP 141/88; TEMP 97.9; O2SAT 93
[2025-02-27 03:45] VITALS: BP 158/99; TEMP 98; O2SAT 94
[2025-02-27 06:46] LABS: CALCIUM LEVEL 8.5 MG/DL (8.3-10.6); CARBON DIOXIDE LEVEL 30.0 MMOL/L (20-31); CHLORIDE LEVEL 101.0 MMOL/L (98-107); CREATININE FOR GFR 0.87 MG/DL (0.55-1.30); GLOMERULAR FILTRATION RATE 73.9 (>45); MAGNESIUM LEVEL 1.9 MG/DL (1.8-2.4); POTASSIUM SERUM 4.1 MMOL/L (3.5-5.1); SODIUM LEVEL 139.0 MMOL/L (136-145)
[2025-02-27 08:14] VITALS: BP 163/85
[2025-02-27] MEDS: FUROSEMIDE 40 MG/4 ML VIAL IV SCH (08:15)
[2025-02-27] MEDS: MAG SULF 1GM/100ML (MAG RUN) 1 GM in IV 1 EA IV SCH (08:16)
[2025-02-27] MEDS ORDERED: ENTR1TAB7 PO (11:26)
[2025-02-27] MEDS ORDERED: ENTRESTO 49-51 MG TABLET (SACUBITRIL/VALSARTAN) PO SCH (21:00)
== END 2025-02-27 14:47 | disposition home or self-care (01) | DRG 291 ==
LOC: M ED 05:57 → EDBD 05:57 → M ED INP 14:15 → M MSPAV 18:33
PROVIDERS: ADMIT Student in an Organized Health Care Education/Training Program; ATTEND Student in an Organized Health Care Education/Training Program
DX: I11.0 Hypertensive heart disease with heart failure (principal); I50.43 Acute on chronic combined systolic (congestive) and diastolic (congestive) heart failure; E78.5 Hyperlipidemia, unspecified; E11.9 Type 2 diabetes mellitus without complications; I48.91 Unspecified atrial fibrillation; Z86.718 Personal history of other venous thrombosis and embolism; Z86.73 Personal history of transient ischemic attack (TIA), and cerebral infarction without residual deficits; G47.33 Obstructive sleep apnea (adult) (pediatric); J44.9 Chronic obstructive pulmonary disease, unspecified; I27.21 Secondary pulmonary arterial hypertension; E87.6 Hypokalemia; R26.89 Other abnormalities of gait and mobility; E83.42 Hypomagnesemia; R29.6 Repeated falls; L30.4 Erythema intertrigo; R07.89 Other chest pain; G40.909 Epilepsy, unspecified, not intractable, without status epilepticus; Z79.01 Long term (current) use of anticoagulants; Z79.84 Long term (current) use of oral hypoglycemic drugs; Z79.899 Other long term (current) drug therapy; Z88.1 Allergy status to other antibiotic agents; Z88.5 Allergy status to narcotic agent; Z88.8 Allergy status to other drugs, medicaments and biological substances; Z90.49 Acquired absence of other specified parts of digestive tract; Z85.038 Personal history of other malignant neoplasm of large intestine